=== PATIENT | male | born 1960 | race Hispanic/Latino ===

== ENCOUNTER 2017-08-23 03:18 | Emergency (ER) | payer MEDICARE ==
--- NOTE | 2017-08-23 11:21 | Emergency Department Report ---
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 States he is out of his headache medicine however pain is resolved at this time 0/ 10 there is no dizziness no headache no visual changes, no shortness of breath no nausea no vomiting Patient's tolerating by mouth intake without symptoms at this time Timing/Duration: 24 hours Quality: moderate Head Injury Location: frontal Recent Head Trauma: other (none) Associated Symptoms: denies: confusion, fatigue, facial pain, fever/chills, flushing, loss of consciousness, nausea/vomiting, nasal congestion, nasal drainage, numbness in legs/feet, rash, seizures, sinus infection, stiff neck, vision changes, weakness Allergies/Adverse Reactions: Allergies No Known Allergies Allergy (Verified 05/26/17 16:20) Home Medications: Ambulatory Orders Ibuprofen 800 mg PO TID PRN #30 tablet 08/23/17 diphenhydrAMINE [Benadryl CAP] 25 mg PO Q8HR PRN #30 capsule 08/23/17 ED Review of Systems ROS: Stated complaint: H/A Other details as noted in HPI Constitutional: denies: chills, fever Eyes: denies: eye pain, eye discharge, vision change ENT: denies: ear pain, throat pain Respiratory: denies: cough, shortness of breath, wheezing Cardiovascular: denies: chest pain, palpitations Endocrine: no symptoms reported Gastrointestinal: denies: abdominal pain, nausea, diarrhea Genitourinary: denies: urgency, dysuria Musculoskeletal: denies: back pain, joint swelling, arthralgia Skin: denies: rash, lesions Neurological: denies: headache, weakness, numbness, paresthesias, confusion, abnormal gait, vertigo Psychiatric: denies: anxiety, depression Hematological/Lymphatic: denies: easy bleeding, easy bruising ED Past Medical Hx - Past Medical History Previous Medical History?: Yes Hx Diabetes: Yes - Surgical History Past Surgical History?: Yes Additional Surgical History: left arm, and abd - Social History Smoking Status: Former Smoker Substance Use Type: None - Medications Home Medications: Home Medications Medication Instructions Recorded Confirmed Last Taken Type Ibuprofen 800 mg PO TID PRN #30 tablet 08/23/17 Unknown Rx diphenhydrAMINE [Benadryl CAP] 25 mg PO Q8HR PRN #30 capsule 08/23/17 Unknown Rx ED Physical Exam - General Limitations: Physical Limitation General appearance: alert, in no apparent distress - Head Head exam: Present: atraumatic, normocephalic - Eye Eye exam: Present: normal appearance, PERRL, EOMI Pupils: Present: normal accommodation - ENT ENT exam: Present: mucous membranes moist - Neck Neck exam: Present: normal inspection. Absent: full ROM, lymphadenopathy, thyromegaly - Respiratory Respiratory exam: Present: normal lung sounds bilaterally. Absent: respiratory distress, wheezes, rhonchi, stridor, chest wall tenderness - Cardiovascular Cardiovascular Exam: Present: regular rate, normal rhythm. Absent: systolic murmur, diastolic murmur, rubs, gallop - GI/Abdominal GI/Abdominal exam: Present: soft, normal bowel sounds. Absent: distended, tenderness, guarding, rebound, rigid, mass, bruit, pulsatile mass, hernia - Rectal Rectal exam: Present: deferred - Extremities Exam Extremities exam: Present: normal inspection (R) - Back Exam Back exam: Present: normal inspection (RC Kevin), full ROM. Absent: tenderness , CVA tenderness (R) ( he), CVA tenderness (L), muscle spasm, paraspinal tenderness, vertebral tenderness ( is regular), rash noted - Neurological Exam Neurological exam: Present: alert, oriented X3, CN II-XII intact, normal gait ( is evaluated with), reflexes normal. Absent: motor sensory deficit - Psychiatric Psychiatric exam: Present: normal affect (he), normal mood - Skin Skin exam: Present: warm, dry, intact, normal color. 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 States he is out of his headache medicine however pain is resolved at this time 0/ 10 there is no dizziness no headache no visual changes, no shortness of breath no nausea no vomiting Patient's tolerating by mouth intake without symptoms at this time. pt states headache occured in usual location intensity and duration as usual headache. neuro exam: CN II-XII gross intact perrla eomi, no headche symptoms at this time , plan: refill ibuprofen, benadryl prn headache pt will follow up with pcp in 2- 3 days return to ed if symptoms worsen. is Critical care attestation.: If time is entered above; I have spent that time in minutes in the direct care of this critically ill patient, excluding procedure time. ED Disposition Clinical Impression: Headache Qualifiers: Headache type: unspecified Headache chronicity pattern: acute headache Intractability: not intractable Qualified Code(s): R51 - Headache Disposition: DC- TO HOME OR SELFCARE Is pt being admited?: No Does the pt Need Aspirin: No Condition: Good Instructions: Acute Headache (ED) Prescriptions: diphenhydrAMINE [Benadryl CAP] 25 mg PO Q8HR PRN #30 capsule PRN Reason: Headache Ibuprofen 800 mg PO TID PRN #30 tablet PRN Reason: Headache Referrals: PRIMARY CARE,MD [Primary Care Provider] - 3-5 Days Forms: Work/School Release Form(ED) Time of Disposition: 11:28
[2017-08-23 11:49] VITALS: BP 136/94
== END 2017-08-23 12:02 | disposition home or self-care (01) ==
LOC: ED 03:18
DX: R51 Headache (principal); E11.9 Type 2 diabetes mellitus without complications
CPT/HCPCS: 99283

== ENCOUNTER 2017-12-03 11:35 | Emergency (ER) | payer MEDICARE ==
[2017-12-03 13:48] LABS: BUN/Creatinine Ratio 6; Blood Urea Nitrogen 7 mg/dL (9-20); Calcium 8.9 mg/dL (8.4-10.2); Hemolysis Index 7
[2017-12-03 13:52] LABS: Hematocrit 43.7 % (35.5-45.6); Hemoglobin 14.3 gm/dl (11.8-15.2); Mean Corpuscular HGB Conc 33 % (32-34); Mean Corpuscular Hemoglobin 29 pg (28-32); Mean Corpuscular Volume 87 fl (84-94); Red Blood Count 5.03 M/mm3 (3.65-5.03); Red Cell Distribution Width 15.2 % (13.2-15.2)
[2017-12-03 13:55] LABS: Platelet Count 193 K/mm3 (140-440)
[2017-12-03 14:10] LABS: Bilirubin,Urine NEG (Negative); Blood,Urine NEG (Negative); Color,Urine Yellow (Yellow); Mucus,Urine 2+ /HPF; Urobilinogen,Urine < 2.0 mg/dL (<2.0)
[2017-12-03 14:21] LABS: Amphetamine Screen,Urine PRESUMPTIVE NEGATIVE; Benzodiazepines Screen,Urine PRESUMPTIVE NEGATIVE; Methadone Screen,Urine PRESUMPTIVE NEGATIVE; Opiate Screen,Urine PRESUMPTIVE NEGATIVE
[2017-12-03 14:45] LABS: Cannabinoid Screen,Urine PRESUMPTIVE POSITIVE; Cocaine Screen,Urine PRESUMPTIVE POSITIVE
[2017-12-03] MEDS ORDERED: K-DUR PO ONE (20:37)
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
[2017-12-03] MEDS ORDERED: TORADOL IM ONE (22:25)
[2017-12-04 07:10] VITALS: BP 146/100
== END 2017-12-04 09:52 | disposition home or self-care (01) ==
LOC: EEVIPCON 11:35 → ED 11:35
DX: F32.9 Major depressive disorder, single episode, unspecified (principal); R20.2 Paresthesia of skin; E11.9 Type 2 diabetes mellitus without complications; I10 Essential (primary) hypertension; Z59.0 Homelessness
CPT/HCPCS: 36415; 80048; 80307; 81001; 82550; 82962; 83735; 85025; 96372; 99283; G0480; J1885; 80320

== ENCOUNTER 2017-12-29 23:35 | Emergency (ER) | payer MEDICARE ==
--- NOTE | 2017-12-30 01:30 | XRay Report ---
FINAL REPORT EXAM: XR FOREARM 1V LT HISTORY: pain left forearm COMPARISON: None available. FINDINGS: Two views of the left forearm obtained. Soft tissue swelling along the proximal forearm. Mild hypertrophic spurring along the radial neck. Radius and ulna are intact. No acute fracture dislocation of the radius or ulna. IMPRESSION: No acute bony abnormality. Soft tissue swelling along the proximal forearm.
--- NOTE | 2017-12-30 01:30 | XRay Report ---
FINAL REPORT EXAM: XR ELBOW 2V LT HISTORY: pain left elbow COMPARISON: None available. FINDINGS: Two views of the left elbow obtained. Soft tissue swelling along the proximal forearm. Hypertrophic spurring along the radial neck. There deformity of the distal humerus compatible sequelae of prior fracture with healing and callus formation. No acute fracture. IMPRESSION: No acute bony abnormality. Remote fracture of the distal humerus with callus formation.
--- NOTE | 2017-12-30 01:31 | XRay Report ---
FINAL REPORT EXAM: XR HUMERUS 2+V LT HISTORY: pain left humerus COMPARISON: Left elbow from the same date. FINDINGS: Two views of the left humerus obtained. Deformity of the distal humerus compatible sequelae of prior fracture. Fracture is healed. No acute fracture of the left humerus. Moderate osteophyte of the humeral head. IMPRESSION: No acute fracture. Remote, healed fracture of the distal humeral diaphysis.
[2017-12-30] MEDS ORDERED: NACL 0.9% 500 ML IR ONE (06:03)
[2017-12-30] MEDS ORDERED: TRIPLE ANTIBIOTIC TP ONE ×2 (06:17→06:24)
[2017-12-30] MEDS ORDERED: NACL 0.9% IR ONE (06:24)
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
[2017-12-30] MEDS ORDERED: BOOSTRIX IM ONE (06:29)
[2017-12-30 08:12] VITALS: BP 101/73
== END 2017-12-30 08:13 | disposition home or self-care (01) ==
LOC: ED 23:35
DX: S50.812A Abrasion of left forearm, initial encounter (principal); E11.9 Type 2 diabetes mellitus without complications; Z87.820 Personal history of traumatic brain injury; W19.XXXA Unspecified fall, initial encounter; Y93.89 Activity, other specified; Y99.8 Other external cause status; Y92.89 Other specified places as the place of occurrence of the external cause
CPT/HCPCS: 90471; 90715; A6250

== ENCOUNTER 2017-12-30 22:05 | Emergency (ER) | payer MEDICARE ==
[2017-12-30 22:31] VITALS: BP 116/80
[2017-12-30] MEDS ORDERED: TRIPLE ANTIBIOTIC TP ONE (23:07)
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
[2017-12-31] MEDS ORDERED: NORCO 5/325 PO ONE (01:31)
== END 2017-12-31 02:49 | disposition home or self-care (01) ==
LOC: ED 22:05
DX: Z48.00 Encounter for change or removal of nonsurgical wound dressing (principal); R22.32 Localized swelling, mass and lump, left upper limb; M79.632 Pain in left forearm; E11.9 Type 2 diabetes mellitus without complications; Z87.820 Personal history of traumatic brain injury
CPT/HCPCS: 99283; A6250

== ENCOUNTER 2017-12-31 09:22 | Emergency (ER) | payer MEDICARE ==
[2017-12-31 10:41] VITALS: BP 117/83
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
== END 2017-12-31 11:38 | disposition home or self-care (01) ==
LOC: ED 09:22
DX: Z48.01 Encounter for change or removal of surgical wound dressing (principal); I10 Essential (primary) hypertension; E11.9 Type 2 diabetes mellitus without complications; Z87.891 Personal history of nicotine dependence
CPT/HCPCS: 99282

== ENCOUNTER 2020-01-28 10:45 | Inpatient (IN) | payer MEDICARE ==
[2020-01-28] MEDS ORDERED: ZIPRASIDONE MESYLATE 20 MG VIAL IM PRN (11:34)
--- NOTE | 2020-01-28 17:23 | Consultation ---
History of Present Illness - Reason for Consult Consult date: 01/28/20 Requesting physician: ROLLY WALKER - History of Present Illness 59 YO Male with DM, HTN, TBI, Depression, PSA, and Intermittent Homelessness admitted to [facility] for Psychiatric stabilization. Pt resting in bed. Pt seen and evaluated in his room. No reported nursing events. Patient resting comfortably in his bed. Patient is cooperative with exam and interview. Past History Past Medical History: diabetes, hypertension Past Surgical History: Other (Traumatic brain injury) Social history: single. denies: smoking Family history: no significant family history (Reviewed) Medications and Allergies Allergies Allergy/AdvReac Type Severity Reaction Status Date / Time No Known Allergies Allergy Verified 05/26/17 16:20 Home Medications Medication Instructions Recorded Confirmed Last Taken Type Aspirin [Adult Aspirin] 81 mg PO QDAY #30 tablet. 01/28/20 Unknown Rx AtorvaSTATin [Lipitor] 20 mg PO QHS #7 tab 01/28/20 Unknown Rx Permethrin 5% [Acticin 5% CREAM] 1 applicatio TP ONCE #1 tube 01/28/20 Unknown Rx metFORMIN [Glucophage] 500 mg PO QDAY #7 tab 01/28/20 Unknown Rx Review of Systems Constitutional: no weight loss, no weight gain Ears, nose, mouth and throat: no ear pain, no tinnitis, no nose pain, no nasal congestion Cardiovascular: no chest pain, no edema Respiratory: no cough, no cough with sputum, no excessive sputum, no hemoptysis Gastrointestinal: no abdominal pain, no nausea, no diarrhea, no change in bowel habits Genitourinary Male: no dysuria, no hematuria, no discharge, no urinary hesitancy, no nocturia Rectal: no pain, no bleeding Musculoskeletal: no neck stiffness, no shooting arm pain, no arm numbness/tingling, no shooting leg pain Integumentary: no rash, no pruritis Neurological: no head injury, no paralysis, no parathesias, no tingling, no syncope Psychiatric: suicidal ideation, depression, hopelessness Endocrine: no cold intolerance, no heat intolerance, no polyphagia, no nocturia Hematologic/Lymphatic: no easy bruising, no easy bleeding, no lymphadenopathy, no lymphedema Allergic/Immunologic: no urticaria, no wheezing, no persistent infections, no anaphylaxis Exam - Constitutional General appearance: Present: no acute distress, well-nourished - EENT Eyes: Present: PERRL ENT: hearing intact, clear oral mucosa - Neck Neck: Present: supple, normal ROM - Respiratory Respiratory effort: normal Respiratory: bilateral: CTA - Cardiovascular Heart Sounds: Present: S1 & S2. Absent: rub, click - Extremities Extremities: pulses symmetrical, No edema Peripheral Pulses: within normal limits - Abdominal General gastrointestinal: Present: soft, non-tender, non-distended, normal bowel sounds Male genitourinary: Present: normal - Integumentary Integumentary: Present: clear, warm, dry - Musculoskeletal Musculoskeletal: gait normal, strength equal bilaterally - Psychiatric Psychiatric: appropriate mood/affect, intact judgment & insight - Neurologic Neurologic: CNII-XII intact, moves all extremities Assessment and Plan - Patient Problems (1) Diabetes Current Visit: Yes Status: Acute Plan to address problem: Consistent carbohydrate diet, hemoglobin A1c, continue oral metformin therapy (2) HLD (hyperlipidemia) Current Visit: No Status: Chronic Qualifiers: Hyperlipidemia type: mixed hyperlipidemia Qualified Code(s): E78.2 - Mixed hyperlipidemia Plan to address problem: Statin therapy, low-cholesterol diet, (3) HTN (hypertension) Current Visit: No Status: Chronic Qualifiers: Hypertension type: essential hypertension Qualified Code(s): I10 - Essential (primary) hypertension Plan to address problem: Monitor blood pressure every shift, continue medical management.
[2020-01-28] MEDS ORDERED: PERMETHRIN 5% CREAM 60 GM TP SCH (18:00)
[2020-01-28] MEDS ORDERED: traZODone 50 MG TAB PO SCH (22:00)
[2020-01-28] MEDS ORDERED: MELATONIN 5 MG TAB PO PRN (22:00)
[2020-01-29 03:04] LABS: Chol/HDL Ratio 2.6 %
--- NOTE | 2020-01-29 09:13 | History and Physical Report ---
GP History & Physical - History of Present Illness Date of admission: 01/29/20 Date of Examination: 01/29/20 Reason for Admission: Danger to self, Severe anxiety/depression History of Present Illness: Ye Dumont is a 59t/o male patient who states he was admitted into the hospital for severe depression, and feeling suicidal. The patient is a/o x 3. He is calm and cooperative. He makes good eye contact. The patient says, "I was giving up. Everything kept going wrong." He says, "I didn't have no place to go." When asked about suicidal thoughts, the patient initially stated, "I can't answer that." He then says, "If I get my hands on a gun, I will pull the trigger. I know I will." The patient verbalizes being "severely depressed." He says he "hears voices that I can't comprehend what they are saying." The patient denies having ant psychiatric history, being on any psych meds or seeing a psychiatrist. He says he "recently did crack and was doing it to kill myself." He says, "I've done all kinds of drugs in my past years ago, but I only did that this time because I didn't know what else to do, but it's not all the time." He says he drinks "but not everyday." The patient denies nicotine use. PAST PSYCHIATRIC HISTORY: Diagnoses: Denies Suicide attempts or Self-harm behavior: Denies Prior psychiatric hospitalizations: Denies Substance Abuse history: Denies Previous psychiatric medications tried: Denies Outpatient treatment: Denies PAST MEDICAL HISTORY: None reported Family Psychiatric History: None reported or documented SOCIAL HISTORY Current living status: Homeless Employment status: Retired Highest level of education: GED Marital status: Single Access to guns: Yes Legal history: Denies History of abuse: Denies REVIEW OF SYSTEMS Constitutional: Negative for weight loss ENT: Negative for stridor Respiratory: Negative for cough or hemoptysis All other systems reviewed and are negative MENTAL STATUS EXAMINATION General Appearance: Dressed appropriately Behavior: calm, cooperative. Good eye contact Mood: "severely depressed" Affect: Restricted Speech: Tangential Thought Process: Goal directed Thought Content: Suicidal Ideation: Yes Homicidal Ideation: Denies Hallucinations: Auditory Delusions: Denies Insight and Judgment: Limited Memory/Cognition: Limited Assessment Major Depressive Disorder w/ Psychotic Features Cocaine Abuse, Uncomplicated Treatment Plan Patient will be admitted for inpatient psychiatric evaluation, medication adjustment and close monitoring The patient's behavior, mood, sleep and appetite will be closely monitored. Patient will be enrolled in individual and group therapeutic sessions and encouraged to attend. Patient will be provided with a safe and structured environment. Patient's physical health needs will be addressed by the Hospitalist. Hospitali st Consulted Labs including CBC, CMP, Lipid profile and Hemoglobin A1C ordered Social Assessment will be completed and the Pmp will work with patient and family to ensure a suitable and safe disposition Medication adjustment will be made as clinically indicated Start Zoloft 25mg po daily Start Risperidone 0.25mg po BID Usual Wellness Christian/Preservation: - Start Trazodone 50 mg po QHS - Start Melatonin 5 mg po QHS to promote circadian rhythm The patient agreed on the treatment plan, understood the risk, benefit, alternative treatment, potential consequence of no treatment, and gave informed consent. This certifies that Ye Dumont is a 59y/o female who was admitted for Major Depressive Disorder with Psychotic Features. Estimated period of time patient will need to remain in the hospital: [7] Plan for post-hospital care: [outpatient] Legal Status: Voluntary Patient Problems: Current Active Problems Diabetes (Acute) Reaction to Hospitalization: Accepting Medications and Allergies Allergies Allergy/AdvReac Type Severity Reaction Status Date / Time No Known Allergies Allergy Verified 05/26/17 16:20 Home Medications Medication Instructions Recorded Confirmed Last Taken Type Aspirin [Adult Aspirin] 81 mg PO QDAY #30 tablet. 01/28/20 01/29/20 Unknown Rx AtorvaSTATin [Lipitor] 20 mg PO QHS #7 tab 01/28/20 01/29/20 Unknown Rx Permethrin 5% [Acticin 5% CREAM] 1 applicatio TP ONCE #1 tube 01/28/20 01/29/20 01/28/20 22:00 Rx metFORMIN [Glucophage] 500 mg PO QDAY #7 tab 01/28/20 01/29/20 Unknown Rx Active Meds: Active Medications Aspirin (Halfprin Ec) 81 mg PO QDAY [facility] Atorvastatin Calcium (Lipitor) 20 mg PO QHS [facility] Last Admin: 01/28/20 21:29 Dose: 20 mg Documented by: Metformin HCl (Glucophage) 500 mg PO QDAY [facility] Permethrin (Permethrin 5%) 1 applic TP ONCE [facility] Results - Results Labs/Vitals: Laboratory Last Values POC Glucose 128 (70-105) H 01/29/20 06:57 Hemoglobin A1c 6.5 % (4-6) H 01/28/20 19:21 Triglycerides 91 mg/dL (2-149) 01/28/20 19:21 Cholesterol 221 mg/dL (50-199) H 01/28/20 19:21 LDL Cholesterol Direct 137 mg/dL (50-130) H 01/28/20 19:21 HDL Cholesterol 85 mg/dL (40-59) H 01/28/20 19:21 Cholesterol/HDL Ratio 2.60 % 01/28/20 19:21 TSH 54.640 mlU/mL (0.270-4.200) H 01/28/20 19:21 Last Vital Signs Temp 98.8 F 01/28/20 19:59 Pulse 70 01/28/20 19:59 Resp 20 01/28/20 19:59 BP 110/83 01/28/20 19:59 Pulse Ox 92 01/28/20 19:59 Physical Examination - Constitutional Vitals: Vital Signs Temp Pulse Resp BP Pulse Ox 98.8 F 70 20 110/83 92 01/28/20 19:59 01/28/20 19:59 01/28/20 19:59 01/28/20 19:59 01/28/20 19:59 Temperature -Last 24 Hours Temperature 98.8 F Temperature 98.1 F Mental Status Exam - Vital signs Last Vital Signs Temp 98.8 F 01/28/20 19:59 Pulse 70 01/28/20 19:59 Resp 01/28/20 19:59 BP 110/83 01/28/20 19:59 Pulse Ox 92 01/28/20 19:59 Physician Certification - Certification Statement Physician Certification Statement: This is an acknowledgement statement that YE DUMONT is a 59 year old M who requires inpatient psychiatric admission for treatment which could reasonably be expected to improve the patient's condition for Estimated period of time patient will need to remain in the hospital: [ ] Plan for post-hospital care: [ ]
[2020-01-29] MEDS: metFORMIN 500 MG TAB PO SCH (10:13)
[2020-01-29] MEDS: SERTRALINE 25 MG TAB PO SCH ×2 (11:43→12:29)
[2020-01-29] MEDS: risperiDONE 0.25 MG TAB PO SCH ×3 (11:44→21:38)
[2020-01-29] MEDS: ASPIRIN EC 81 MG TAB PO SCH ×2 (11:44→12:29)
--- NOTE | 2020-01-29 19:45 | Consultation ---
History of Present Illness - Reason for Consult Consult date: 01/29/20 Hypothyroidism generalized exam. Requesting physician: NELI ORTIZ - History of Present Illness 59-year-old male admitted for severe depression and suicidal thoughts. Patient states he had just given up and decided to do drugs to make the pain go away. Patient is calm without any concerns at this particular time still states he feels depressed. Patient is currently being worked up for inpatient [facility] for severe depression. Patient denies any symptoms of chest pain no shortness of breath no dyspnea exertion orthopnea PND. Patient denies cold intolerance denies fatigue except for depression no hair loss. Myxedema on exam. TSH found to be 54. Past History Past Medical History: diabetes, hypertension Past Surgical History: Other (Traumatic brain injury) Social history: single. denies: smoking Family history: no significant family history (Reviewed) Medications and Allergies Allergies Allergy/AdvReac Type Severity Reaction Status Date / Time No Known Allergies Allergy Verified 05/26/17 16:20 Home Medications Medication Instructions Recorded Confirmed Last Taken Type Aspirin [Adult Aspirin] 81 mg PO QDAY #30 tablet. 01/28/20 01/29/20 Unknown Rx AtorvaSTATin [Lipitor] 20 mg PO QHS #7 tab 01/28/20 01/29/20 Unknown Rx Permethrin 5% [Acticin 5% CREAM] 1 applicatio TP ONCE #1 tube 01/28/20 01/29/20 01/28/20 22:00 Rx metFORMIN [Glucophage] 500 mg PO QDAY #7 tab 01/28/20 01/29/20 Unknown Rx Active Meds: Active Medications Aspirin (Halfprin Ec) 81 mg PO QDAY [facility] Last Admin: 01/29/20 12:29 Dose: 81 mg Documented by: Atorvastatin Calcium (Lipitor) 20 mg PO QHS [facility] Last Admin: 01/28/20 21:29 Dose: 20 mg Documented by: Melatonin (Melatonin) 5 mg PO QHS PRN PRN Reason: Sleep Metformin HCl (Glucophage) 500 mg PO QDAY [facility] Last Admin: 01/29/20 10:13 Dose: 500 mg Documented by: Risperidone (Risperdal) 0.25 mg PO BID [facility] Last Admin: 01/29/20 12:29 Dose: 0.25 mg Documented by: Sertraline HCl (Zoloft) 25 mg PO QDAY [facility] Last Admin: 01/29/20 12:29 Dose: 25 mg Documented by: Trazodone HCl (Desyrel) 50 mg PO QHS [facility] Review of Systems Constitutional: no weight loss, no weight gain, no fever, no chills, no sweats, no night sweats, no anorexia, no fatigue, no weakness, no malaise, no lethargy Ears, nose, mouth and throat: no deferred, no decreased hearing, no dental pain, no hoarseness, no swelling in throat, no headache, no pain front of neck Cardiovascular: no orthopnea, no rapid/irregular heart beat, no edema, no lightheadedness, no dyspnea on exertion, no paroxysmal nocturnal dyspnea, no claudication, no decreased exercise tolerance Respiratory: no cough, no hemoptysis, no shortness of breath, no snoring Gastrointestinal: no vomiting, no constipation, no BRBPR, no hematochezia, no jaundice, no dyspepsia/bloating, no lactose intolerance Genitourinary Male: no flank pain, no urinary frequency Musculoskeletal: no neck stiffness, no low back pain, no shooting leg pain, no limitation of motion, no fractures, no loss of height, no prior amputations, no arthritis Neurological: weakness, hearing difficulties, no head injury, no numbness, no seizures, no memory loss, no changes in smell/taste Psychiatric: memory loss, change in sleep habits, suicidal ideation, hallucinations, paranoia, hopelessness, mood swings Endocrine: no heat intolerance, no polyphagia, no polydipsia, no weight change, no increase in ring/shoe/hat size, no deepening of the voice, no thyroid mass, no recent glucocorticoid use, no other Hematologic/Lymphatic: no lymphedema Exam - Constitutional Vitals: Temp Pulse Resp BP Pulse Ox 97.9 F 70 18 104/64 92 01/29/20 08:38 01/28/20 19:59 01/29/20 08:38 01/29/20 08:38 01/28/20 19:59 General appearance: Present: no acute distress, well-nourished - EENT Eyes: Present: PERRL ENT: hearing intact, clear oral mucosa - Neck Neck: Present: supple, normal ROM - Respiratory Respiratory effort: normal Respiratory: bilateral: CTA - Cardiovascular Heart Sounds: Present: S1 & S2. Absent: rub, click - Extremities Extremities: pulses symmetrical, No edema Peripheral Pulses: within normal limits - Abdominal General gastrointestinal: Present: soft, non-tender, non-distended, normal bowel sounds Male genitourinary: Present: normal - Integumentary Integumentary: Present: clear, warm, dry - Musculoskeletal Musculoskeletal: gait normal, strength equal bilaterally - Psychiatric Psychiatric: appropriate mood/affect, intact judgment & insight - Neurologic Neurologic: CNII-XII intact, moves all extremities Results - Labs Labs: Abnormal lab results 01/28/20 01/28/20 01/28/20 Range/Units 19:21 19:21 19:21 POC Glucose (70-105) Hemoglobin A1c 6.5 H (4-6) % Cholesterol 221 H (50-199) mg/dL LDL Cholesterol Direct 137 H (50-130) mg/dL HDL Cholesterol 85 H (40-59) mg/dL TSH 54.640 H (0.270-4.200) mlU/mL 01/28/20 01/29/20 01/29/20 Range/Units 20:32 06:57 12:07 POC Glucose 141 H 128 H 147 H (70-105) Hemoglobin A1c (4-6) % Cholesterol (50-199) mg/dL LDL Cholesterol Direct (50-130) mg/dL HDL Cholesterol (40-59) mg/dL TSH (0.270-4.200) mlU/mL 01/29/20 Range/Units 16:36 POC Glucose 160 H (70-105) Hemoglobin A1c (4-6) % Cholesterol (50-199) mg/dL LDL Cholesterol Direct (50-130) mg/dL HDL Cholesterol (40-59) mg/dL TSH (0.270-4.200) mlU/mL Assessment and Plan - Patient Problems (1) Hypothyroidism Current Visit: Yes Status: Acute Plan to address problem: Patient hypothyroidism with a TSH of 52. Difficult to see if patient is has any symptoms secondary to his depression. Some of this could be related to depression. Will start patient on Synthroid 50 mcg daily. (2) Diabetes Current Visit: Yes Status: Acute Plan to address problem: Accu-Cheks stable resume metformin. (3) Suicidal ideations Current Visit: No Status: Acute Plan to address problem: Patient treated via inpatient psych services. (4) Depression Current Visit: No Status: Chronic (5) Drug abuse Current Visit: No Status: Chronic (6) HLD (hyperlipidemia) Current Visit: No Status: Chronic Qualifiers: Hyperlipidemia type: mixed hyperlipidemia Qualified Code(s): E78.2 - Mixed hyperlipidemia Plan to address problem: At present we will continue statin. (7) Hx of essential hypertension Current Visit: No Status: Chronic Plan to address problem: Well controlled and not requiring medications will just observe.
[2020-01-29] MEDS: MELATONIN 5 MG TAB PO PRN (21:38)
[2020-01-29] MEDS: traZODone 50 MG TAB PO SCH (21:38)
[2020-01-30] MEDS: LEVOTHYROXINE 112 MCG, LEVOTHYROXINE 25 MCG PO SCH (06:00)
--- NOTE | 2020-01-30 07:19 | Progress Note ---
Subjective Date of service: 01/30/20 Principal diagnosis: Major Depressive Disorder w/ Psychotic Features Subjective Comment: Nurse Note: Patient was quiet and cooperative today. He denies S/H/I and hallucinations but was observed talking to himself this evening. No voived complaints noted. He interacted well in groups, compliant with medication, and has good appetite. PSYCH HPI Patient seen this AM, seated and calm, keeping to self. Patient reports he is not feeling good, reports persistent depressed mood and feeling sad mostly because of housing issues, and he does know even know if he has a place to go to. He reports taking pills in attempt to kill self and will do thesame. He says he knows a place where they sell gun and he will go there to buy one kill himself in his current mood. Reason for continued inpatient treatment: Suicidal ideation with plan. MENTAL STATUS EXAMINATION General Appearance and Behavior: Age appropriate, good hygiene, wearing appropriate clothes, l good eye contact, cooperative politewith questioning. Cooperation: Participating/engaged Psychomotor Behavior: unremarkable and within normal limits Mood: depressed Affect and affective range: congruent with mood Thought Process: Logical Thought Content: Within reality Speech: Normal volume, Regular rate and rhythm Intellectual Functioning: Average Suicidal Ideation: Endorses SI Homicidal Ideation: Denies HI Impulse Control: impaired Insight and Judgment: Limited insight and judgment Memory: roasterman memory intact, fair short term memory Attention: Normal Orientation: Alert, oriented Diagnoses: Assessment and Plan - Patient Problems (1) MDD (major depressive disorder), recurrent severe, without psychosis Current Visit: Yes Status: Acute Treatment Plan Continue current medications Patient will be admitted for inpatient psychiatric evaluation, medication adjustment and close monitoring The patient's behavior, mood, sleep and appetite will be closely monitored. Patient will be enrolled in individual and group therapeutic sessions and encouraged to attend. Patient will be provided with a safe and structured environment. Patient's physical health needs will be addressed by the Hospitalist. Hosp italist Consulted Labs including CBC, CMP, Lipid profile and Hemoglobin A1C ordered Social Assessment will be completed and the Database Marketing Specialist will work with patient and family to ensure a suitable and safe disposition Medication adjustment will be made as clinically indicated Usual Wellness Jehovah'S Witness/Preservation: - Start Trazodone 50 mg po QHS & 50 mg po QHS PRN between 10 PM & 2 AM for in somnia - Start Melatonin 5 mg po QHS to promote circadian rhythm - Start [place]-3 for brain health, reduce impulsivity, and as adjunctive treatment for mood disorder, continue upon discharge given overall benefits. - Start B1 prophylaxis with 200 mg po for 5 days The patient agreed on the treatment plan, understood the risk, benefit, alternative treatment, potential consequence of no treatment, and gave informed consent. Initial Certification This certifies that Tim Faye is a 63y/o female who was admitted for Bipolar Disorder with Psychotic Features. Estimated period of time patient will need to remain in the hospital: [6] Plan for post-hospital care: [outpatient] Assessment and Plan - Patient Problems (1) MDD (major depressive disorder), recurrent severe, without psychosis Current Visit: Yes Status: Acute Medications and Allergies Allergies Allergy/AdvReac Type Severity Reaction Status Date / Time No Known Allergies Allergy Verified 05/26/17 16:20 Home Medications Medication Instructions Recorded Confirmed Last Taken Type Aspirin [Adult Aspirin] 81 mg PO QDAY #30 tablet. 01/28/20 01/29/20 Unknown Rx AtorvaSTATin [Lipitor] 20 mg PO QHS #7 tab 01/28/20 01/29/20 Unknown Rx Permethrin 5% [Acticin 5% CREAM] 1 applicatio TP ONCE #1 tube 01/28/20 01/29/20 01/28/20 22:00 Rx metFORMIN [Glucophage] 500 mg PO QDAY #7 tab 01/28/20 01/29/20 Unknown Rx Active Meds: Active Medications Aspirin (Halfprin Ec) 81 mg PO QDAY [facility] Last Admin: 01/29/20 12:29 Dose: 81 mg Documented by: Atorvastatin Calcium (Lipitor) 20 mg PO QHS [facility] Last Admin: 01/29/20 21:38 Dose: 20 mg Documented by: Levothyroxine Sodium 112 mcg/ (Levothyroxine Sodium 25 mcg) 137 mcg PO DAILY@0600 [facility] Last Admin: 01/30/20 06:00 Dose: 137 mcg Documented by: Melatonin (Melatonin) 5 mg PO QHS PRN PRN Reason: Sleep Last Admin: 01/29/20 21:38 Dose: 5 mg Documented by: Metformin HCl (Glucophage) 500 mg PO QDAY [facility] Last Admin: 01/29/20 10:13 Dose: 500 mg Documented by: Risperidone (Risperdal) 0.25 mg PO BID [facility] Last Admin: 01/29/20 21:38 Dose: 0.25 mg Documented by: Sertraline HCl (Zoloft) 25 mg PO QDAY [facility] Last Admin: 01/29/20 12:29 Dose: 25 mg Documented by: Trazodone HCl (Desyrel) 50 mg PO QHS [facility] Last Admin: 01/29/20 21:38 Dose: 50 mg Documented by: Results - Results Labs/Vitals: Laboratory Last Values POC Glucose 166 (70-105) H 01/29/20 20:25 Hemoglobin A1c 6.5 % (4-6) H 01/28/20 19:21 Triglycerides 91 mg/dL (2-149) 01/28/20 19:21 Cholesterol 221 mg/dL (50-199) H 01/28/20 19:21 LDL Cholesterol Direct 137 mg/dL (50-130) H 01/28/20 19:21 HDL Cholesterol 85 mg/dL (40-59) H 01/28/20 19:21 Cholesterol/HDL Ratio 2.60 % 01/28/20 19:21 TSH 54.640 mlU/mL (0.270-4.200) H 01/28/20 19:21 Last Vital Signs Temp 98.5 F 01/29/20 22:00 Pulse 78 01/29/20 22:00 Resp 18 01/29/20 22:00 BP 99/78 01/29/20 19:35 Pulse Ox 94 01/29/20 19:35
[2020-01-30] MEDS: SERTRALINE 25 MG TAB PO SCH (09:44)
[2020-01-30] MEDS: metFORMIN 500 MG TAB PO SCH (09:44)
[2020-01-30] MEDS: ASPIRIN EC 81 MG TAB PO SCH (09:44)
[2020-01-30] MEDS: risperiDONE 0.25 MG TAB PO SCH ×2 (09:44→21:17)
--- NOTE | 2020-01-30 14:40 | Progress Note ---
Assessment and Plan - Patient Problems (1) Diabetes Current Visit: Yes Status: Acute Plan to address problem: Consistent carbohydrate diet, hemoglobin A1c, continue oral metformin therapy (2) HLD (hyperlipidemia) Current Visit: No Status: Chronic Qualifiers: Hyperlipidemia type: mixed hyperlipidemia Qualified Code(s): E78.2 - Mixed hyperlipidemia Plan to address problem: Statin therapy, low-cholesterol diet, (3) HTN (hypertension) Current Visit: No Status: Chronic Qualifiers: Hypertension type: essential hypertension Qualified Code(s): I10 - Essential (primary) hypertension Plan to address problem: Monitor blood pressure every shift, continue medical management. History Interval history: 59 YO Male with DM, HTN, TBI, Depression, PSA, and Intermittent Homelessness admitted to [facility] for Psychiatric stabilization. Pt resting in dayroom. Pt denies any a.m. complaints. No reported nursing events. Patient resting comfortably. Patient is cooperative with exam and interview. Hospitalist Physical - Constitutional Vitals: Temp Pulse Resp BP Pulse Ox 98.5 F 78 18 99/78 94 01/29/20 22:00 01/29/20 22:00 01/29/20 22:00 01/29/20 19:35 01/29/20 19:35 General appearance: Present: no acute distress, well-nourished - EENT Eyes: Present: PERRL - Neck Neck: Present: supple - Respiratory Respiratory: bilateral: CTA - Cardiovascular Rhythm: regular Heart Sounds: Present: S1 & S2 - Extremities Extremities: no ischemia Peripheral Pulses: within normal limits - Abdominal General gastrointestinal: soft, non-tender, non-distended - Integumentary Integumentary: Present: clear, dry - Psychiatric Psychiatric: cooperative - Neurologic Neurologic: CNII-XII intact Results - Labs Labs: Laboratory Last Values POC Glucose 131 (70-105) H 01/30/20 12:25 Hemoglobin A1c 6.5 % (4-6) H 01/28/20 19:21 Triglycerides 91 mg/dL (2-149) 01/28/20 19:21 Cholesterol 221 mg/dL (50-199) H 01/28/20 19:21 LDL Cholesterol Direct 137 mg/dL (50-130) H 01/28/20 19:21 HDL Cholesterol 85 mg/dL (40-59) H 01/28/20 19:21 Cholesterol/HDL Ratio 2.60 % 01/28/20 19:21 TSH 54.640 mlU/mL (0.270-4.200) H 01/28/20 19:21 Yañez/IV: Voiding Method Toilet Active Medications - Current Medications Current Medications: Generic Name Dose Route Start Last Admin Trade Name Freq PRN Reason Stop Dose Admin Aspirin 81 mg 01/29/20 10:00 01/30/20 09:44 Halfprin Ec PO 81 mg QDAY MONA Administration Atorvastatin Calcium 20 mg 01/28/20 22:00 01/29/20 21:38 Lipitor PO 20 mg QHS MONA Administration Levothyroxine Sodium 112 mcg/ 137 mcg 01/30/20 06:00 01/30/20 06:00 Levothyroxine Sodium 25 mcg PO 137 mcg DAILY@0600 MONA Administration Melatonin 5 mg 01/29/20 22:00 01/29/20 21:38 Melatonin PO 5 mg QHS PRN Administration Sleep Metformin HCl 500 mg 01/29/20 10:00 01/30/20 09:44 Glucophage PO 500 mg QDAY MONA Administration Risperidone 0.25 mg 01/29/20 10:00 01/30/20 09:44 Risperdal PO 0.25 mg BID MONA Administration Sertraline HCl 25 mg 01/29/20 10:00 01/30/20 09:44 Zoloft PO 25 mg QDAY MONA Administration Trazodone HCl 50 mg 01/29/20 22:00 01/29/20 21:38 Desyrel PO 50 mg QHS MONA Administration
[2020-01-30] MEDS: MELATONIN 5 MG TAB PO PRN (21:17)
[2020-01-30] MEDS: traZODone 50 MG TAB PO SCH (21:17)
[2020-01-31] MEDS: LEVOTHYROXINE 112 MCG, LEVOTHYROXINE 25 MCG PO SCH (06:26)
--- NOTE | 2020-01-31 08:24 | Progress Note ---
Subjective Date of service: 01/31/20 Principal diagnosis: Major Depressive Disorder w/ Psychotic Features Subjective Comment: The patient's medical record was reviewed and the patient's progress was discussed with the nursing staff. During my interview with the patient, the patient was sitting in the dayroom, he is a/o x 3. He makes good eye contact. He is calm and cooperative. The patient describes his mood as "down, and just feel like giving up." He expresses suicidal thoughts, and says his plan is "to just ." The patient states he hears voices. He says, "I think in my head I have given up." He says the voices keep saying, "I can do this and how to do with without hurting anybody." He says, "they don't really tell me what to do though." Reason for continued inpatient treatment: The patient continues to be depressed, hallucinate and express thoughts of self harm. REVIEW OF SYSTEMS Constitutional: Negative for weight loss ENT: Negative for stridor Respiratory: Negative for cough or hemoptysis All other systems reviewed and are negative MENTAL STATUS EXAMINATION General Appearance: Dressed appropriately Behavior: calm, cooperative. Good eye contact Mood: "down" Affect: Restricted Speech: Normal tone and pace Thought Process: Goal directed Thought Content: Suicidal Ideation: Yes Homicidal Ideation: Denies Hallucinations: Auditory Delusions: Denies Insight and Judgment: Limited Memory/Cognition: Limited Assessment Major Depressive Disorder w/ Psychotic Features Cocaine Abuse, Uncomplicated Treatment Plan Patient will be admitted for inpatient psychiatric evaluation, medication adjustment and close monitoring The patient's behavior, mood, sleep and appetite will be closely monitored. Patient will be enrolled in individual and group therapeutic sessions and encouraged to attend. Patient will be provided with a safe and structured environment. Patient's physical health needs will be addressed by the Hospitalist. Hospitalist Consulted Labs including CBC, CMP, Lipid profile and Hemoglobin A1C ordered Social Assessment will be completed and the Break And Load Operator will work with patient and family to ensure a suitable and safe disposition Medication adjustment will be made as clinically indicated Increase Risperidone 0.25mg po BID Usual Wellness Scientology/Preservation: - Start Trazodone 50 mg po QHS - Start Melatonin 5 mg po QHS to promote circadian rhythm The patient agreed on the treatment plan, understood the risk, benefit, alternative treatment, potential consequence of no treatment, and gave informed consent. Estimated period of time patient will need to remain in the hospital: [5] Plan for post-hospital care: [outpatient] Medications and Allergies Allergies Allergy/AdvReac Type Severity Reaction Status Date / Time No Known Allergies Allergy Verified 05/26/17 16:20 Home Medications Medication Instructions Recorded Confirmed Last Taken Type Aspirin [Adult Aspirin] 81 mg PO QDAY #30 tablet. 01/28/20 01/29/20 Unknown Rx AtorvaSTATin [Lipitor] 20 mg PO QHS #7 tab 01/28/20 01/29/20 Unknown Rx Permethrin 5% [Acticin 5% CREAM] 1 applicatio TP ONCE #1 tube 01/28/20 01/29/20 01/28/20 22:00 Rx metFORMIN [Glucophage] 500 mg PO QDAY #7 tab 01/28/20 01/29/20 Unknown Rx Active Meds: Active Medications Aspirin (Halfprin Ec) 81 mg PO QDAY [facility] Last Admin: 01/30/20 09:44 Dose: 81 mg Documented by: Atorvastatin Calcium (Lipitor) 20 mg PO QHS [facility] Last Admin: 01/30/20 21:17 Dose: 20 mg Documented by: Levothyroxine Sodium 112 mcg/ (Levothyroxine Sodium 25 mcg) 137 mcg PO DAILY@0600 [facility] Last Admin: 01/31/20 06:26 Dose: 137 mcg Documented by: Melatonin (Melatonin) 5 mg PO QHS PRN PRN Reason: Sleep Last Admin: 01/30/20 21:17 Dose: 5 mg Documented by: Metformin HCl (Glucophage) 500 mg PO QDAY [facility] Last Admin: 01/30/20 09:44 Dose: 500 mg Documented by: Risperidone (Risperdal) 0.25 mg PO BID [facility] Last Admin: 01/30/20 21:17 Dose: 0.25 mg Documented by: Sertraline HCl (Zoloft) 25 mg PO QDAY [facility] Last Admin: 01/30/20 09:44 Dose: 25 mg Documented by: Trazodone HCl (Desyrel) 50 mg PO QHS [facility] Last Admin: 01/30/20 21:17 Dose: 50 mg Documented by: Results - Results Labs/Vitals: Laboratory Last Values POC Glucose 135 (70-105) H 01/31/20 06:50 Hemoglobin A1c 6.5 % (4-6) H 07/08/20 19:21 Triglycerides 91 mg/dL (2-149) 01/28/20 19:21 Cholesterol 221 mg/dL (50-199) H 01/28/20 19:21 LDL Cholesterol Direct 137 mg/dL (50-130) H 01/28/20 19:21 HDL Cholesterol 85 mg/dL (40-59) H 01/28/20 19:21 Cholesterol/HDL Ratio 2.60 % 01/28/20 19:21 TSH 54.640 mlU/mL (0.270-4.200) H 01/28/20 19:21 Last Vital Signs Temp 98.2 F 01/30/20 22:00 Pulse 71 01/30/20 22:00 Resp 18 01/30/20 22:00 BP 115/79 01/30/20 22:00 Pulse Ox 95 01/30/20 22:00
[2020-01-31] MEDS: risperiDONE 0.25 MG TAB PO SCH ×2 (09:51→22:13)
[2020-01-31] MEDS: ASPIRIN EC 81 MG TAB PO SCH (09:51)
[2020-01-31] MEDS: SERTRALINE 25 MG TAB PO SCH (09:51)
[2020-01-31] MEDS: metFORMIN 500 MG TAB PO SCH (09:51)
[2020-01-31] MEDS: traZODone 50 MG TAB PO SCH (22:33)
[2020-02-01] MEDS: LEVOTHYROXINE 112 MCG, LEVOTHYROXINE 25 MCG PO SCH (06:40)
--- NOTE | 2020-02-01 07:19 | Progress Note ---
Subjective Date of service: 02/01/20 Principal diagnosis: Major Depressive Disorder w/ Psychotic Features Subjective Comment: Nurse Note: Patient is aox3, calm and cooperative, pt states that is mood is down, pt expresses suicidal thought and says his plan is 'just to ' pt states he hears voices in his head, 'They don't really tells me what to do', pt sometimes talk to himself, he is medications compliant, no distress note. Will continue to monitor. PSYCH HPI Mr Belcher says todays mood is borderline and just okay, reports poor sleep pattern due to tussing and turning all night and does not know why because he just couldnt get comfortable at all. Patient endorses suicidal ideation, says thats always in his mind, thinking about ways to . Patient endorses good appetite, denies auditory hallucination or visual and denies homicidal ideation Reason for continued inpatient treatment: Depressed mood, persistent suicidal ideation with plan MENTAL STATUS EXAMINATION General Appearance and Behavior: Age appropriate, good hygiene, wearing appropriate clothes, l good eye contact, cooperative polite with questioning. Cooperation: Participating/engaged Psychomotor Behavior: unremarkable and within normal limits Mood: "im borderline" Affect and affective range: flat Thought Process: Logical Thought Content: Within reality Speech: Normal volume, Regular rate and rhythm Intellectual Functioning: Average Suicidal Ideation: Endorses SI Homicidal Ideation: Denies HI Impulse Control: impaired Insight and Judgment: Limited insight and judgment Memory: intermediate card tender memory intact, fair short term memory Attention: Normal Orientation: Alert, oriented Diagnoses: Assessment and Plan - Patient Problems (1) MDD (major depressive disorder), recurrent severe, without psychosis Current Visit: Yes Status: Acute Treatment Plan Sertraline increased from 25 to 50 mg. Melatonin 5mg MONA QHS added to improve sleep. Patient will be admitted for inpatient psychiatric evaluation, medication adjustment and close monitoring The patient's behavior, mood, sleep and appetite will be closely monitored. Patient will be enrolled in individual and group therapeutic sessions and encouraged to attend. Patient will be provided with a safe and structured environment. Patient's physical health needs will be addressed by the Hospitalist. Hospitalist Consulted Labs including CBC, CMP, Lipid profile and Hemoglobin A1C ordered Social Assessment will be completed and the Piano Machine Operator will work with patient and family to ensure a suitable and safe disposition Medication adjustment will be made as clinically indicated Usual Wellness [employer]/Preservation: - Start Trazodone 50 mg po QHS & 50 mg po QHS PRN between 10 PM & 2 AM for insomnia - Start Melatonin 5 mg po QHS to promote circadian rhythm - Start [place]-3 for brain health, reduce impulsivity, and as adjunctive treatment for mood disorder, continue upon discharge given overall benefits. - Start B1 prophylaxis with 200 mg po for 5 days The patient agreed on the treatment plan, understood the risk, benefit, alternative treatment, potential consequence of no treatment, and gave informed consent. Initial Certification This certifies that Tim Faye is a 63y/o female who was admitted for Bipolar Disorder with Psychotic Features. Estimated period of time patient will need to remain in the hospital: [4] Plan for post-hospital care: [outpatient] Assessment and Plan - Patient Problems (1) MDD (major depressive disorder), recurrent severe, without psychosis Current Visit: Yes Status: Acute Medications and Allergies Allergies Allergy/AdvReac Type Severity Reaction Status Date / Time No Known Allergies Allergy Verified 05/26/17 16:20 Home Medications Medication Instructions Recorded Confirmed Last Taken Type Aspirin [Adult Aspirin] 81 mg PO QDAY #30 tablet. 01/28/20 01/29/20 Unknown Rx AtorvaSTATin [Lipitor] 20 mg PO QHS #7 tab 01/28/20 01/29/20 Unknown Rx Permethrin 5% [Acticin 5% CREAM] 1 applicatio TP ONCE #1 tube 01/28/20 01/29/20 01/28/20 22:00 Rx metFORMIN [Glucophage] 500 mg PO QDAY #7 tab 01/28/20 01/29/20 Unknown Rx Active Meds: Active Medications Aspirin (Halfprin Ec) 81 mg PO QDAY [facility] Last Admin: 01/31/20 09:51 Dose: 81 mg Documented by: Atorvastatin Calcium (Lipitor) 20 mg PO QHS [facility] Last Admin: 01/31/20 22:12 Dose: 20 mg Documented by: Levothyroxine Sodium 112 mcg/ (Levothyroxine Sodium 25 mcg) 137 mcg PO DAILY@0600 [facility] Last Admin: 01/31/20 06:26 Dose: 137 mcg Documented by: Melatonin (Melatonin) 5 mg PO QHS PRN PRN Reason: Sleep Last Admin: 01/30/20 21:17 Dose: 5 mg Documented by: Metformin HCl (Glucophage) 500 mg PO QDAY [facility] Last Admin: 01/31/20 09:51 Dose: 500 mg Documented by: Risperidone (Risperdal) 0.5 mg PO BID [facility] Last Admin: 01/31/20 22:13 Dose: 0.5 mg Documented by: Sertraline HCl (Zoloft) 25 mg PO QDAY [facility] Last Admin: 01/31/20 09:51 Dose: 25 mg Documented by: Trazodone HCl (Desyrel) 50 mg PO QHS [facility] Last Admin: 01/31/20 22:33 Dose: 50 mg Documented by: Results - Results Labs/Vitals: Laboratory Last Values POC Glucose 144 (70-105) H 01/31/20 19:52 Hemoglobin A1c 6.5 % (4-6) H 01/28/20 19:21 Triglycerides 91 mg/dL (2-149) 01/28/20 19:21 Cholesterol 221 mg/dL (50-199) H 01/28/20 19:21 LDL Cholesterol Direct 137 mg/dL (50-130) H 01/28/20 19:21 HDL Cholesterol 85 mg/dL (40-59) H 01/28/20 19:21 Cholesterol/HDL Ratio 2.60 % 01/28/20 19:21 TSH 54.640 mlU/mL (0.270-4.200) H 01/28/20 19:21 Last Vital Signs Temp 98.5 F 01/31/20 20:29 Pulse 69 01/31/20 20:29 Resp 18 01/31/20 20:29 BP 116/78 01/31/20 20:29 Pulse Ox 93 01/31/20 20:29
[2020-02-01] MEDS: metFORMIN 500 MG TAB PO SCH (09:54)
[2020-02-01] MEDS: risperiDONE 0.25 MG TAB PO SCH ×2 (09:54→21:38)
[2020-02-01] MEDS: SERTRALINE 25 MG TAB PO SCH (09:55)
[2020-02-01] MEDS: ASPIRIN EC 81 MG TAB PO SCH (09:55)
--- NOTE | 2020-02-01 18:34 | Progress Note ---
Assessment and Plan - Patient Problems (1) Diabetes Current Visit: Yes Status: Acute Plan to address problem: Consistent carbohydrate diet, hemoglobin A1c, continue oral metformin therapy (2) HLD (hyperlipidemia) Current Visit: No Status: Chronic Qualifiers: Hyperlipidemia type: mixed hyperlipidemia Qualified Code(s): E78.2 - Mixed hyperlipidemia Plan to address problem: Statin therapy, low-cholesterol diet, (3) HTN (hypertension) Current Visit: No Status: Chronic Qualifiers: Hypertension type: essential hypertension Qualified Code(s): I10 - Essential (primary) hypertension Plan to address problem: Monitor blood pressure every shift, continue medical management. History Interval history: 59 YO Male with DM, HTN, TBI, Depression, PSA, and Intermittent Homelessness admitted to [facility] for Psychiatric stabilization. Pt resting in dayroom. Pt denies any a.m. complaints. No reported nursing events. Patient resting comfortably. Patient is cooperative with exam and interview. Patient denies pain. Hospitalist Physical - Constitutional Vitals: Temp Pulse Resp BP Pulse Ox 98.5 F 69 18 116/78 93 01/31/20 20:29 01/31/20 20:29 01/31/20 20:29 01/31/20 20:29 01/31/20 20:29 General appearance: Present: no acute distress, well-nourished, obese - EENT Eyes: Present: PERRL, EOM intact ENT: hearing intact - Neck Neck: Present: supple - Respiratory Respiratory: bilateral: CTA - Cardiovascular Rhythm: regular Heart Sounds: Present: S1 & S2 - Extremities Extremities: no ischemia Peripheral Pulses: within normal limits - Abdominal General gastrointestinal: soft, non-tender, non-distended - Integumentary Integumentary: Present: clear, dry - Psychiatric Psychiatric: cooperative - Neurologic Neurologic: CNII-XII intact Results - Labs Labs: Laboratory Last Values POC Glucose 173 (70-105) H 02/01/20 16:42 Hemoglobin A1c 6.5 % (4-6) H 01/28/20 19:21 Triglycerides 91 mg/dL (2-149) 01/28/20 19:21 Cholesterol 221 mg/dL (50-199) H 01/28/20 19:21 LDL Cholesterol Direct 137 mg/dL (50-130) H 01/28/20 19:21 HDL Cholesterol 85 mg/dL (40-59) H 01/28/20 19:21 Cholesterol/HDL Ratio 2.60 % 01/28/20 19:21 TSH 54.640 mlU/mL (0.270-4.200) H 01/28/20 19:21 Yañez/IV: Voiding Method Toilet Active Medications - Current Medications Current Medications: Generic Name Dose Route Start Last Admin Trade Name Carter PRN Reason Stop Dose Admin Aspirin 81 mg 01/29/20 10:00 02/01/20 09:55 Halfprin Ec PO 81 mg QDAY MONA Administration Atorvastatin Calcium 20 mg 01/28/20 22:00 01/31/20 22:12 Lipitor PO 20 mg QHS MONA Administration Levothyroxine Sodium 112 mcg/ 137 mcg 01/30/20 06:00 02/01/20 06:40 Levothyroxine Sodium 25 mcg PO 137 mcg DAILY@0600 MONA Administration Melatonin 5 mg 02/01/20 22:00 Melatonin PO QHS MONA Metformin HCl 500 mg 01/29/20 10:00 02/01/20 09:54 Glucophage PO 500 mg QDAY MONA Administration Risperidone 0.5 mg 01/31/20 10:00 02/01/20 09:54 Risperdal PO 0.5 mg BID MONA Administration Sertraline HCl 50 mg 02/01/20 08:49 02/01/20 09:55 Zoloft PO 50 mg QDAY MONA Administration Trazodone HCl 50 mg 01/29/20 22:00 01/31/20 22:33 Desyrel PO 50 mg QHS MONA Administration
--- NOTE | 2020-02-01 18:35 | Progress Note ---
Assessment and Plan - Patient Problems (1) Diabetes Current Visit: Yes Status: Acute Plan to address problem: Consistent carbohydrate diet, hemoglobin A1c, continue oral metformin therapy (2) HLD (hyperlipidemia) Current Visit: No Status: Chronic Qualifiers: Hyperlipidemia type: mixed hyperlipidemia Qualified Code(s): E78.2 - Mixed hyperlipidemia Plan to address problem: Statin therapy, low-cholesterol diet, (3) HTN (hypertension) Current Visit: No Status: Chronic Qualifiers: Hypertension type: essential hypertension Qualified Code(s): I10 - Essential (primary) hypertension Plan to address problem: Monitor blood pressure every shift, continue medical management. History Interval history: 59 YO Male with DM, HTN, TBI, Depression, PSA, and Intermittent Homelessness admitted to [facility] for Psychiatric stabilization. Pt resting in dayroom. Pt denies any a.m. complaints. No reported nursing events. Patient resting comfortably. Patient is cooperative with exam and interview. Patient in good spirits today. Hospitalist Physical - Constitutional Vitals: Temp Pulse Resp BP Pulse Ox 98.5 F 69 18 116/78 93 01/31/20 20:29 01/31/20 20:29 01/31/20 20:29 01/31/20 20:29 01/31/20 20:29 General appearance: Present: no acute distress, obese - EENT Eyes: Present: PERRL, EOM intact ENT: hearing intact - Neck Neck: Present: supple - Respiratory Respiratory: bilateral: CTA - Cardiovascular Rhythm: regular Heart Sounds: Present: S1 & S2 - Extremities Extremities: no ischemia Peripheral Pulses: within normal limits - Abdominal General gastrointestinal: soft, non-tender, non-distended - Integumentary Integumentary: Present: clear, dry - Psychiatric Psychiatric: cooperative - Neurologic Neurologic: CNII-XII intact Results - Labs Labs: Laboratory Last Values POC Glucose 173 (70-105) H 02/01/20 16:42 Hemoglobin A1c 6.5 % (4-6) H 01/28/20 19:21 Triglycerides 91 mg/dL (2-149) 01/28/20 19:21 Cholesterol 221 mg/dL (50-199) H 01/28/20 19:21 LDL Cholesterol Direct 137 mg/dL (50-130) H 01/28/20 19:21 HDL Cholesterol 85 mg/dL (40-59) H 01/28/20 19:21 Cholesterol/HDL Ratio 2.60 % 01/28/20 19:21 TSH 54.640 mlU/mL (0.270-4.200) H 01/28/20 19:21 Yañez/IV: Voiding Method Toilet Active Medications - Current Medications Current Medications: Generic Name Dose Route Start Last Admin Trade Name Omarq PRN Reason Stop Dose Admin Aspirin 81 mg 01/29/20 10:00 02/01/20 09:55 Halfprin Ec PO 81 mg QDAY MONA Administration Atorvastatin Calcium 20 mg 01/28/20 22:00 01/31/20 22:12 Lipitor PO 20 mg QHS MONA Administration Levothyroxine Sodium 112 mcg/ 137 mcg 01/30/20 06:00 02/01/20 06:40 Levothyroxine Sodium 25 mcg PO 137 mcg DAILY@0600 MONA Administration Melatonin 5 mg 02/01/20 22:00 Melatonin PO QHS MONA Metformin HCl 500 mg 01/29/20 10:00 02/01/20 09:54 Glucophage PO 500 mg QDAY MONA Administration Risperidone 0.5 mg 01/31/20 10:00 02/01/20 09:54 Risperdal PO 0.5 mg BID MONA Administration Sertraline HCl 50 mg 02/01/20 08:49 02/01/20 09:55 Zoloft PO 50 mg QDAY MONA Administration Trazodone HCl 50 mg 01/29/20 22:00 01/31/20 22:33 Desyrel PO 50 mg QHS MONA Administration
[2020-02-01] MEDS: MELATONIN 5 MG TAB PO SCH (21:38)
[2020-02-01] MEDS: traZODone 50 MG TAB PO SCH (21:39)
[2020-02-02] MEDS: LEVOTHYROXINE 112 MCG, LEVOTHYROXINE 25 MCG PO SCH (05:44)
--- NOTE | 2020-02-02 07:16 | Progress Note ---
Subjective Date of service: 02/02/20 Principal diagnosis: Major Depressive Disorder w/ Psychotic Features Subjective Comment: Nurse Note: Patient was calm and pleasant last evening. He has minimal interaction with others but smiles and enjoys their company. He continues to report AH telling him to harm himself. He is medication compliant. Will continue to monitor patient for safety. PSYCH HPI Patient reports he is doing "okay I guess", denies SI but says if he thinks about it then he will suicidal. Endorses depressed mood and auditory command hallucination telling him to hurt self. Reason for continued inpatient treatment: Depressed mood, persistent suicidal ideation with command hallucination. Sertraline increased to 100 mg today MENTAL STATUS EXAMINATION General Appearance and Behavior: Age appropriate, good hygiene, wearing appropriate clothes, l good eye contact, cooperative polite with questioning. Cooperation: Participating/engaged Psychomotor Behavior: unremarkable and within normal limits Mood: "im borderline" Affect and affective range: flat Thought Process: Logical Thought Content: illogical Speech: Normal volume, Regular rate and rhythm Intellectual Functioning: Average Suicidal Ideation: Endorses SI Homicidal Ideation: Denies HI Impulse Control: impaired Insight and Judgment: Limited insight and judgment Memory: care home memory intact, fair short term memory Attention: Normal Orientation: Alert, oriented Diagnoses: Assessment and Plan - Patient Problems (1) MDD (major depressive disorder), recurrent severe, without psychosis Current Visit: Yes Status: Acute Treatment Plan Sertraline increased from 50 to 100 mg. Melatonin 5mg MONA QHS added to improve sleep. Patient will be admitted for inpatient psychiatric evaluation, medication adjustment and close monitoring The patient's behavior, mood, sleep and appetite will be closely monitored. Patient will be enrolled in individual and group therapeutic sessions and encouraged to attend. Patient will be provided with a safe and structured environment. Patient's physical health needs will be addressed by the Hospitalist. Hospitalist Consulted Labs including CBC, CMP, Lipid profile and Hemoglobin A1C ordered Social Assessment will be completed and the Emergency Room Doctor will work with patient and family to ensure a suitable and safe disposition Medication adjustment will be made as clinically indicated Usual Wellness Hinduism/Preservation: - Start Trazodone 50 mg po QHS & 50 mg po QHS PRN between 10 PM & 2 AM for insomnia - Start Melatonin 5 mg po QHS to promote circadian rhythm - Start [place]-3 for brain health, reduce impulsivity, and as adjunctive treatment for mood disorder, continue upon discharge given overall benefits. - Start B1 prophylaxis with 200 mg po for 5 days The patient agreed on the treatment plan, understood the risk, benefit, alternative treatment, potential consequence of no treatment, and gave informed consent. Initial Certification This certifies that Tim Faye is a 63y/o female who was admitted for Bipolar Disorder with Psychotic Features. Estimated period of time patient will need to remain in the hospital: [3] Plan for post-hospital care: [outpatient] Assessment and Plan - Patient Problems (1) MDD (major depressive disorder), recurrent severe, without psychosis Current Visit: Yes Status: Acute Medications and Allergies Allergies Allergy/AdvReac Type Severity Reaction Status Date / Time No Known Allergies Allergy Verified 05/26/17 16:20 Home Medications Medication Instructions Recorded Confirmed Last Taken Type Aspirin [Adult Aspirin] 81 mg PO QDAY #30 tablet. 01/28/20 01/29/20 Unknown Rx AtorvaSTATin [Lipitor] 20 mg PO QHS #7 tab 01/28/20 01/29/20 Unknown Rx Permethrin 5% [Acticin 5% CREAM] 1 applicatio TP ONCE #1 tube 01/28/20 01/29/20 01/28/20 22:00 Rx metFORMIN [Glucophage] 500 mg PO QDAY #7 tab 01/28/20 01/29/20 Unknown Rx Active Meds: Active Medications Aspirin (Halfprin Ec) 81 mg PO QDAY [facility] Last Admin: 02/01/20 09:55 Dose: 81 mg Documented by: Atorvastatin Calcium (Lipitor) 20 mg PO QHS [facility] Last Admin: 02/01/20 21:38 Dose: 20 mg Documented by: Levothyroxine Sodium 112 mcg/ (Levothyroxine Sodium 25 mcg) 137 mcg PO DAILY@0600 [facility] Last Admin: 02/02/20 05:44 Dose: 137 mcg Documented by: Melatonin (Melatonin) 5 mg PO QHS [facility] Last Admin: 02/01/20 21:38 Dose: 5 mg Documented by: Metformin HCl (Glucophage) 500 mg PO QDAY [facility] Last Admin: 02/01/20 09:54 Dose: 500 mg Documented by: Risperidone (Risperdal) 0.5 mg PO BID [facility] Last Admin: 02/01/20 21:38 Dose: 0.5 mg Documented by: Sertraline HCl (Zoloft) 50 mg PO QDAY [facility] Last Admin: 02/01/20 09:55 Dose: 50 mg Documented by: Trazodone HCl (Desyrel) 50 mg PO QHS [facility] Last Admin: 02/01/20 21:39 Dose: 50 mg Documented by: Results - Results Labs/Vitals: Laboratory Last Values POC Glucose 150 (70-105) H 02/01/20 19:50 Hemoglobin A1c 6.5 % (4-6) H 01/28/20 19:21 Triglycerides 91 mg/dL (2-149) 01/28/20 19:21 Cholesterol 221 mg/dL (50-199) H 01/28/20 19:21 LDL Cholesterol Direct 137 mg/dL (50-130) H 01/28/20 19:21 HDL Cholesterol 85 mg/dL (40-59) H 01/28/20 19:21 Cholesterol/HDL Ratio 2.60 % 01/28/20 19:21 TSH 54.640 mlU/mL (0.270-4.200) H 01/28/20 19:21 Last Vital Signs Temp 98.3 F 02/01/20 19:16 Pulse 73 02/01/20 19:16 Resp 18 02/01/20 19:16 BP 105/67 02/01/20 19:16 Pulse Ox 93 02/01/20 19:16
[2020-02-02] MEDS: SERTRALINE 25 MG TAB PO SCH (09:44)
[2020-02-02] MEDS: ASPIRIN EC 81 MG TAB PO SCH (09:45)
[2020-02-02] MEDS: risperiDONE 0.25 MG TAB PO SCH ×2 (09:45→21:20)
[2020-02-02] MEDS: metFORMIN 500 MG TAB PO SCH (09:45)
[2020-02-02] MEDS: SERTRALINE 100 MG TAB PO SCH (13:08)
[2020-02-02] MEDS: MELATONIN 5 MG TAB PO SCH (21:20)
[2020-02-02] MEDS: traZODone 50 MG TAB PO SCH (21:20)
--- NOTE | 2020-02-02 22:41 | Progress Note ---
Assessment and Plan - Patient Problems (1) Diabetes Current Visit: Yes Status: Acute Plan to address problem: Consistent carbohydrate diet, hemoglobin A1c, continue oral metformin therapy (2) HLD (hyperlipidemia) Current Visit: No Status: Chronic Qualifiers: Hyperlipidemia type: mixed hyperlipidemia Qualified Code(s): E78.2 - Mixed hyperlipidemia Plan to address problem: Statin therapy, low-cholesterol diet, (3) HTN (hypertension) Current Visit: No Status: Chronic Qualifiers: Hypertension type: essential hypertension Qualified Code(s): I10 - Essential (primary) hypertension Plan to address problem: Monitor blood pressure every shift, continue medical management. History Interval history: 59 YO Male with DM, HTN, TBI, Depression, PSA, and Intermittent Homelessness admitted to [facility] for Psychiatric stabilization. Pt resting in dayroom. Pt denies any a.m. complaints. No reported nursing events. Patient resting comfortably. Patient is cooperative with exam and interview. Patient in good spirits today. Hospitalist Physical - Constitutional Vitals: Temp Pulse Resp BP Pulse Ox 98.3 F 75 20 116/71 92 02/02/20 20:17 02/02/20 20:17 02/02/20 20:17 02/02/20 20:17 02/02/20 20:17 General appearance: Present: no acute distress, obese - EENT Eyes: Present: PERRL ENT: hearing intact - Neck Neck: Present: supple - Respiratory Respiratory: bilateral: CTA - Cardiovascular Rhythm: regular Heart Sounds: Present: S1 & S2 - Extremities Extremities: no ischemia Peripheral Pulses: within normal limits - Abdominal General gastrointestinal: soft, non-tender, non-distended - Integumentary Integumentary: Present: clear, dry - Psychiatric Psychiatric: cooperative - Neurologic Neurologic: CNII-XII intact Results - Labs Labs: Laboratory Last Values POC Glucose 184 (70-105) H 02/02/20 20:45 Hemoglobin A1c 6.5 % (4-6) H 01/28/20 19:21 Triglycerides 91 mg/dL (2-149) 01/28/20 19:21 Cholesterol 221 mg/dL (50-199) H 01/28/20 19:21 LDL Cholesterol Direct 137 mg/dL (50-130) H 01/28/20 19:21 HDL Cholesterol 85 mg/dL (40-59) H 01/28/20 19:21 Cholesterol/HDL Ratio 2.60 % 01/28/20 19:21 TSH 54.640 mlU/mL (0.270-4.200) H 01/28/20 19:21 Yañez/IV: Voiding Method Toilet Active Medications - Current Medications Current Medications: Generic Name Dose Route Start Last Admin Trade Name Freq PRN Reason Stop Dose Admin Aspirin 81 mg 01/29/20 10:00 02/02/20 09:45 Halfprin Ec PO 81 mg QDAY [facility]A Administration Atorvastatin Calcium 20 mg 01/28/20 22:00 02/02/20 21:20 Lipitor PO 20 mg QHS MONA Administration Levothyroxine Sodium 112 mcg/ 137 mcg 01/30/20 06:00 02/02/20 05:44 Levothyroxine Sodium 25 mcg PO 137 mcg DAILY@0600 [facility]A Administration Melatonin 5 mg 02/01/20 22:00 02/02/20 21:20 Melatonin PO 5 mg QHS MONA Administration Metformin HCl 500 mg 01/29/20 10:00 02/02/20 09:45 Glucophage PO 500 mg QDAY [facility] Administration Risperidone 0.5 mg 01/31/20 10:00 02/02/20 21:20 Risperdal PO 0.5 mg BID MONA Administration Sertraline HCl 100 mg 02/02/20 10:00 02/02/20 13:08 Zoloft PO Not Given QDAY [facility]A Trazodone HCl 50 mg 01/29/20 22:00 02/02/20 21:20 Desyrel PO 50 mg QHS [facility]A Administration
[2020-02-03] MEDS: LEVOTHYROXINE 112 MCG, LEVOTHYROXINE 25 MCG PO SCH (05:51)
--- NOTE | 2020-02-03 07:24 | Progress Note ---
Subjective Date of service: 02/03/20 Principal diagnosis: Major Depressive Disorder w/ Psychotic Features Subjective Comment: Nurse Note: pt is alert and oriented x3, calm and cooperative, able to make needs known, minimal interaction with selected peers, medication compliant, consumed 100% of bedtime snack, denies si/hi, denies a/v/h, no complaints voiced, no distress noted, will continue to monitor for safety. Patient attended groups and participated well in activities. He has good appetite and has been compliant with medication. He stated, "I don't have those thoughts as often as before." He denies any complaints. Will continue to monitor for safety. PSYCH HPI Patient reports feeling much better today, says he has been staying positive and looking forward to the future, and hoping he could get his own place and be more independent. He denies active Suicidal thoughts, homicidal thoughts or hallucinations. Pt endorses eating well and sleeping good but says he woke up around midnight for no reason and that kind of bothered him a bit, denies nightmares. Reason for continued inpatient treatment: Mood is improving, thoughts are now positive and optimistic, no suicidal thoughts or homicidal thoughts. MENTAL STATUS EXAMINATION General Appearance and Behavior: Age appropriate, good hygiene, wearing appropriate clothes, l good eye contact, cooperative polite with questioning. Cooperation: Participating/engaged Psychomotor Behavior: unremarkable and within normal limits Mood: "I feel better today" Affect and affective range: congruent with mood Thought Process: Logical Thought Content: logical Speech: Normal volume, Regular rate and rhythm Intellectual Functioning: Average Suicidal Ideation: Deneis SI Homicidal Ideation: Denies HI Impulse Control: unimpaired Insight and Judgment: Good insight and judgment Memory: custodial memory intact, fair short term memory Attention: Normal Orientation: Alert, oriented Diagnoses: Assessment and Plan - Patient Problems (1) MDD (major depressive disorder), recurrent severe, without psychosis Current Visit: Yes Status: Acute Treatment Plan Continue current medications Patient will be admitted for inpatient psychiatric evaluation, medication adjustment and close monitoring The patient's behavior, mood, sleep and appetite will be closely monitored. Patient will be enrolled in individual and group therapeutic sessions and encouraged to attend. Patient will be provided with a safe and structured environment. Patient's physical health needs will be addressed by the Hospitalist. Hospitalist Consulted Labs including CBC, CMP, Lipid profile and Hemoglobin A1C ordered Social Assessment will be completed and the Automotive Services Manager will work with patient and family to ensure a suitable and safe disposition Medication adjustment will be made as clinically indicated Usual Wellness Orthodoxy/Preservation: - Start Trazodone 50 mg po QHS & 50 mg po QHS PRN between 10 PM & 2 AM for insomnia - Start Melatonin 5 mg po QHS to promote circadian rhythm - Start [place]-3 for brain health, reduce impulsivity, and as adjunctive treatment for mood disorder, continue upon discharge given overall benefits. - Start B1 prophylaxis with 200 mg po for 5 days The patient agreed on the treatment plan, understood the risk, benefit, alternative treatment, potential consequence of no treatment, and gave informed consent. Initial Certification This certifies that Tim Faye is a 63y/o female who was admitted for Bipolar Disorder with Psychotic Features. Estimated period of time patient will need to remain in the hospital: [3] Plan for post-hospital care: [outpatient] Assessment and Plan - Patient Problems (1) MDD (major depressive disorder), recurrent severe, without psychosis Current Visit: Yes Status: Acute Medications and Allergies Allergies Allergy/AdvReac Type Severity Reaction Status Date / Time No Known Allergies Allergy Verified 05/26/17 16:20 Home Medications Medication Instructions Recorded Confirmed Last Taken Type AtorvaSTATin [Lipitor] 20 mg PO QHS #7 tab 01/28/20 01/29/20 Unknown Rx RX: Aspirin [Adult Aspirin] 81 mg PO QDAY #30 tablet. 01/28/20 01/29/20 Unknown Rx RX: Permethrin 5% [Acticin 5% 1 applicatio TP ONCE #1 tube 01/28/20 01/29/20 01/28/20 22:00 Rx CREAM] RX: metFORMIN [Glucophage] 500 mg PO QDAY #7 tab 01/28/20 01/29/20 Unknown Rx Active Meds: Active Medications Aspirin (Halfprin Ec) 81 mg PO QDAY [facility] Last Admin: 02/02/20 09:45 Dose: 81 mg Documented by: Atorvastatin Calcium (Lipitor) 20 mg PO QHS [facility] Last Admin: 02/02/20 21:20 Dose: 20 mg Documented by: Levothyroxine Sodium 112 mcg/ (Levothyroxine Sodium 25 mcg) 137 mcg PO DAILY@0600 [facility] Last Admin: 02/03/20 05:51 Dose: 137 mcg Documented by: Melatonin (Melatonin) 5 mg PO QHS [facility] Last Admin: 02/02/20 21:20 Dose: 5 mg Documented by: Metformin HCl (Glucophage) 500 mg PO QDAY [facility] Last Admin: 02/02/20 09:45 Dose: 500 mg Documented by: Risperidone (Risperdal) 0.5 mg PO BID [facility] Last Admin: 02/02/20 21:20 Dose: 0.5 mg Documented by: Sertraline HCl (Zoloft) 100 mg PO QDAY [facility] Last Admin: 02/02/20 13:08 Dose: Not Given Documented by: Trazodone HCl (Desyrel) 50 mg PO QHS [facility] Last Admin: 02/02/20 21:20 Dose: 50 mg Documented by: Results - Results Labs/Vitals: Laboratory Last Values POC Glucose 118 (70-105) H 02/03/20 07:03 Hemoglobin A1c 6.5 % (4-6) H 01/28/20 19:21 Triglycerides 91 mg/dL (2-149) 01/28/20 19:21 Cholesterol 221 mg/dL (50-199) H 01/28/20 19:21 LDL Cholesterol Direct 137 mg/dL (50-130) H 01/28/20 19:21 HDL Cholesterol 85 mg/dL (40-59) H 01/28/20 19:21 Cholesterol/HDL Ratio 2.60 % 01/28/20 19:21 TSH 54.640 mlU/mL (0.270-4.200) H 01/28/20 19:21 Last Vital Signs Temp 98.3 F 02/02/20 22:00 Pulse 71 02/02/20 22:00 Resp 20 02/02/20 22:00 BP 116/71 02/02/20 22:00 Pulse Ox 93 02/02/20 22:00
[2020-02-03] MEDS: SERTRALINE 100 MG TAB PO SCH (10:09)
[2020-02-03] MEDS: risperiDONE 0.25 MG TAB PO SCH ×2 (10:09→22:35)
[2020-02-03] MEDS: metFORMIN 500 MG TAB PO SCH (10:09)
[2020-02-03] MEDS: ASPIRIN EC 81 MG TAB PO SCH (10:09)
[2020-02-03] MEDS: traZODone 50 MG TAB PO SCH (22:35)
[2020-02-03] MEDS: MELATONIN 5 MG TAB PO SCH (22:36)
[2020-02-04] MEDS: LEVOTHYROXINE 112 MCG, LEVOTHYROXINE 25 MCG PO SCH (06:44)
--- NOTE | 2020-02-04 07:16 | Progress Note ---
Subjective Date of service: 02/04/20 Principal diagnosis: Major Depressive Disorder w/ Psychotic Features Subjective Comment: Nurse Note: Pt received in the activity room a&ox3 withdrawn to self. Blood glucose 180 mg/dL. Denies pain. Depressive mood observed. Muted when asked if he is having suicide thought. No acute distress observed and none reported. Will continue to monitor closely for safety. PSYCH HPI Patient seen by me this AM, in activity room. Asked how he was doing, he says he is worried about his car that he parked downstairs in the handicapped spot otherwise he is fine. Reports good appetite, energy just okay and says he has also been taking his medications. Reports not being SI at the moment unless he thinks about it, Reason for continued inpatient treatment: Mood is improving, patient adapting positive coping skills, and planning to discharge to facility today on current medications. MENTAL STATUS EXAMINATION General Appearance and Behavior: Age appropriate, good hygiene, wearing appropr iate clothes, good eye contact, cooperative polite with questioning. Cooperation: Participating/engaged Psychomotor Behavior: unremarkable and within normal limits Mood: "I feel better today" Affect and affective range: congruent with mood Thought Process: Logical Thought Content: logical Speech: Normal volume, Regular rate and rhythm Intellectual Functioning: Average Suicidal Ideation: Denies SI Homicidal Ideation: Denies HI Impulse Control: unimpaired Insight and Judgment: Good insight and judgment Memory: group home memory intact, fair short term memory Attention: Normal Orientation: Alert, oriented Diagnoses: Assessment and Plan - Patient Problems (1) MDD (major depressive disorder), recurrent severe, without psychosis Current Visit: Yes Status: Acute Treatment Plan Continue current medications Patient will be admitted for inpatient psychiatric evaluation, medication adjustment and close monitoring The patient's behavior, mood, sleep and appetite will be closely monitored. Patient will be enrolled in individual and group therapeutic sessions and encouraged to attend. Patient will be provided with a safe and structured environment. Patient's physical health needs will be addressed by the Hospitalist. Sarah lares Consulted Labs including CBC, CMP, Lipid profile and Hemoglobin A1C ordered Social Assessment will be completed and the Supervisor [employer]ing will work with patient and family to ensure a suitable and safe disposition Medication adjustment will be made as clinically indicated Usual Wellness Synagogue/Preservation: - Start Trazodone 50 mg po QHS & 50 mg po QHS PRN between 10 PM & 2 AM for insomnia - Start Melatonin 5 mg po QHS to promote circadian rhythm - Start [place]-3 for brain health, reduce impulsivity, and as adjunctive treatment for mood disorder, continue upon discharge given overall benefits. - Start B1 prophylaxis with 200 mg po for 5 days The patient agreed on the treatment plan, understood the risk, benefit, alternative treatment, potential consequence of no treatment, and gave informed consent. Initial Certification This certifies that Tim Faye is a 63y/o female who was admitted for Bipolar Disorder with Psychotic Features. Estimated period of time patient will need to remain in the hospital: [0] Plan for post-hospital care: [outpatient] Assessment and Plan - Patient Problems (1) MDD (major depressive disorder), recurrent severe, without psychosis Current Visit: Yes Status: Acute Medications and Allergies Allergies Allergy/AdvReac Type Severity Reaction Status Date / Time No Known Allergies Allergy Verified 05/26/17 16:20 Home Medications Medication Instructions Recorded Confirmed Last Taken Type Aspirin [Adult Aspirin] 81 mg PO QDAY #30 tablet. 01/28/20 01/29/20 Unknown Rx AtorvaSTATin [Lipitor] 20 mg PO QHS #7 tab 01/28/20 01/29/20 Unknown Rx Permethrin 5% [Acticin 5% CREAM] 1 applicatio TP ONCE #1 tube 01/28/20 01/29/20 01/28/20 22:00 Rx metFORMIN [Glucophage] 500 mg PO QDAY #7 tab 01/28/20 01/29/20 Unknown Rx Active Meds: Active Medications Aspirin (Halfprin Ec) 81 mg PO QDAY [facility] Last Admin: 02/03/20 10:09 Dose: 81 mg Documented by: Atorvastatin Calcium (Lipitor) 20 mg PO QHS [facility] Last Admin: 02/03/20 22:36 Dose: 20 mg Documented by: Levothyroxine Sodium 112 mcg/ (Levothyroxine Sodium 25 mcg) 137 mcg PO DAILY@0600 [facility] Last Admin: 02/04/20 06:44 Dose: 137 mcg Documented by: Melatonin (Melatonin) 5 mg PO QHS [facility] Last Admin: 02/03/20 22:36 Dose: 5 mg Documented by: Metformin HCl (Glucophage) 500 mg PO QDAY [facility] Last Admin: 02/03/20 10:09 Dose: 500 mg Documented by: Risperidone (Risperdal) 0.5 mg PO BID [facility] Last Admin: 02/03/20 22:35 Dose: 0.5 mg Documented by: Sertraline HCl (Zoloft) 100 mg PO QDAY [facility] Last Admin: 02/03/20 10:09 Dose: 100 mg Documented by: Trazodone HCl (Desyrel) 50 mg PO QHS [facility] Last Admin: 02/03/20 22:35 Dose: 50 mg Documented by: Results - Results Labs/Vitals: Laboratory Last Values POC Glucose 180 (70-105) H 02/03/20 20:27 Hemoglobin A1c 6.5 % (4-6) H 01/28/20 19:21 Triglycerides 91 mg/dL (2-149) 01/28/20 19:21 Cholesterol 221 mg/dL (50-199) H 01/28/20 19:21 LDL Cholesterol Direct 137 mg/dL (50-130) H 01/28/20 19:21 HDL Cholesterol 85 mg/dL (40-59) H 01/28/20 19:21 Cholesterol/HDL Ratio 2.60 % 01/28/20 19:21 TSH 54.640 mlU/mL (0.270-4.200) H 01/28/20 19:21 Last Vital Signs Temp 98.2 F 02/03/20 22:00 Pulse 71 02/03/20 22:00 Resp 20 02/03/20 22:00 BP 97/61 02/03/20 22:00 Pulse Ox 93 02/03/20 22:00
[2020-02-04] MEDS: ASPIRIN EC 81 MG TAB PO SCH (10:26)
[2020-02-04] MEDS: risperiDONE 0.25 MG TAB PO SCH (10:26)
[2020-02-04] MEDS: SERTRALINE 100 MG TAB PO SCH (10:26)
[2020-02-04] MEDS: metFORMIN 500 MG TAB PO SCH (10:26)
[2020-02-04 10:34] VITALS: BP 100/66
--- NOTE | 2020-02-04 13:56 | Discharge Summary ---
Providers - Providers Date of Admission: 01/28/20 17:51 Date of discharge: 02/04/20 Attending physician: ROLLY WALKER MD 01/28/20 11:30 Consult to Physician [CONS] Routine Comment: Consulting Provider: ROBYN WOLF Physician Instructions: Reason For Exam: Manage medical conditions Primary care physician: SIGN FABRICATOR Hospitalization Reason for admission: Danger to self, Severe anxiety/depression Condition: Good Hospital course: The patient was provided inpatient psychiatric treatment with safe and supportive environment, group/individual therapy, psychiatric medication, medication adjustment, adverse effect monitor, medical evaluation, medical treatment, social service assessment, social support meeting, placement assessment and psycho-education. The patients mood, cognition, behavior, motivation, compliance to treatment and appreciation on family/social support are improved and stabilized. At the time of discharge, the patient had no suicidal ideas, no homicidal ideas, no aggressive thoughts, no endangering behavior and no debilitating adverse effects. The patient agreed on the t reatment plan, understood the risk, benefit, alternative treatment, potential consequence of no treatment, and gave informed consent. Disposition: DC-30 STILL A PATIENT Allergies/Adverse Reactions: Allergies No Known Allergies Allergy (Verified 05/26/17 16:20) Vital Signs: Last Vital Signs Temp 98.0 F 02/04/20 07:29 Pulse 64 02/04/20 07:29 Resp 18 02/04/20 07:29 BP 100/66 02/04/20 07:29 Pulse Ox 92 02/04/20 07:29 Last Lab: Laboratory Last Values POC Glucose 120 (70-105) H 02/04/20 11:39 Hemoglobin A1c 6.5 % (4-6) H 01/28/20 19:21 Triglycerides 91 mg/dL (2-149) 01/28/20 19:21 Cholesterol 221 mg/dL (50-199) H 01/28/20 19:21 LDL Cholesterol Direct 137 mg/dL (50-130) H 01/28/20 19:21 HDL Cholesterol 85 mg/dL (40-59) H 01/28/20 19:21 Cholesterol/HDL Ratio 2.60 % 01/28/20 19:21 TSH 54.640 mlU/mL (0.270-4.200) H 01/28/20 19:21 - Discharge Diagnoses (1) MDD (major depressive disorder), recurrent severe, without psychosis Status: Acute Core Measure Documentation - Palliative Care Palliative Care/ Comfort Measures: Not Applicable - Core Measures Any of the following diagnoses?: none Exam - Constitutional Vitals: Temp Pulse Resp BP Pulse Ox 98.0 F 64 18 100/66 92 02/04/20 07:29 02/04/20 07:29 02/04/20 07:29 02/04/20 07:02/04/20 07:29 - EENT Eyes: Present: PERRL, EOM intact ENT: hearing intact, clear oral mucosa - Neck Neck: Present: supple, normal ROM - Respiratory Respiratory effort: normal - Abdominal Male genitourinary: Present: normal - Integumentary Integumentary: Present: clear, warm, dry Plan Care Plan Goals: Goals: Maintain good and stable mental health. Plan of Treatment: The patient should be compliant with medications, not to use drugs and not to drink alcohol. The patient understands that if suicidal ideas, homicidal ideas, or any endangering thoughts arise, the patient should immediately seek for emergent assistance including but not limited to crisis hot line and emergency room. Follow up with outpatient Psychiatrist and PCP within 7 - 14 days of discharge. Follow up with: PRIMARY CARE,MD [Primary Care Provider] - 7 Days Prescriptions: traZODone [Desyrel] 50 mg PO QHS #30 tablet AtorvaSTATin [Lipitor] 20 mg PO QHS #30 tab Melatonin [Melatonin 5MG TAB] 5 mg PO QHS #30 tablet Aspirin [Adult Aspirin] 81 mg PO QDAY #30 tablet. risperiDONE [RisperDAL] 0.5 mg PO BID #60 tablet Levothyroxine [Synthroid] 137 mcg PO DAILY@0600 #30 tablet Levothyroxine [Synthroid] 137 mcg PO DAILY@0600 #30 tablet Sertraline [Zoloft] 100 mg PO QDAY #30 tablet
== END 2020-02-04 16:50 | disposition home or self-care (01) | DRG 885 ==
LOC: UNDOADMIN 10:45 → 3A 10:45 → 5A 17:51
PROVIDERS: ADMIT Psychiatry & Neurology Psychiatry; ATTEND Psychiatry & Neurology Psychiatry
DX: F32.2 Major depressive disorder, single episode, severe without psychotic features (principal); R45.851 Suicidal ideations; E11.9 Type 2 diabetes mellitus without complications; I10 Essential (primary) hypertension; E78.2 Mixed hyperlipidemia; F14.10 Cocaine abuse, uncomplicated; E03.9 Hypothyroidism, unspecified; F19.10 Other psychoactive substance abuse, uncomplicated
CPT/HCPCS: 36415; 80061; 82962; 83036; 84443; G0378; A9270-GY; J3486

== ENCOUNTER 2020-12-29 19:36 | Inpatient (IN) | payer MEDICARE ==
[2020-12-29 21:04] LABS: Basophils # (Auto) 0.1 K/mm3 (0.0-0.1); Basophils % (Auto) 0.7 % (0.0-1.8); Eosinophils # (Auto) 0.3 K/mm3 (0.0-0.4); Eosinophils % (Auto) 2.7 % (0.0-4.3); Hematocrit 41.1 % (35.5-45.6); Lymphocytes # (Auto) 2.5 K/mm3 (1.2-5.4); Lymphocytes % (Auto) 22.6 % (13.4-35.0); Mean Corpuscular HGB Conc 34 % (32-34); Mean Corpuscular Volume 86 fl (84-94); Platelet Count 288 K/mm3 (140-440); Red Blood Count 4.78 M/mm3 (3.65-5.03); Red Cell Distribution Width 14.5 % (13.2-15.2)
[2020-12-29 21:09] LABS: BUN/Creatinine Ratio 13; Blood Urea Nitrogen 13 mg/dL (9-20); Hemolysis Index 8
[2020-12-29 21:39] LABS: Bilirubin,Urine NEG (Negative); Blood,Urine NEG (Negative); Color,Urine Yellow (Yellow); Mucus,Urine FEW /HPF; Protein,Urine <15 mg/dL mg/dL (Negative); RBC,Urine < 1.0 /HPF (0.0-6.0)
[2020-12-29 21:47] LABS: Amphetamine Screen,Urine Negative; Benzodiazepines Screen,Urine Negative; Cannabinoid Screen,Urine Negative; Cocaine Screen,Urine Negative; Methadone Screen,Urine Negative; Opiate Screen,Urine Negative
[2020-12-29] MEDS ORDERED: traMADol 50 MG TAB PO PRN (21:52)
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
[2020-12-29] MEDS ORDERED: ASPIRIN 325 MG TAB PO ONE (22:24)
[2020-12-29] MEDS ORDERED: NITROGLYCERIN 2% OINT 1 GM TP ONE (22:24)
[2020-12-29 22:37] LABS: Chol/HDL Ratio 3.26 %
[2020-12-29] MEDS ORDERED: HEPARIN 10,000 UNITS/10 ML VIAL IV PRN (22:53)
[2020-12-29] MEDS ORDERED: HEPARIN 10,000 UNITS/10 ML VIAL IV ONE ×2 (22:53→23:00)
--- NOTE | 2020-12-29 23:20 | XRay Report ---
CHEST 2 VIEWS INDICATION / CLINICAL INFORMATION: chest pain. COMPARISON: None available. FINDINGS: SUPPORT DEVICES: 01/28/2020 HEART / MEDIASTINUM: No significant abnormality. LUNGS / PLEURA: No significant pulmonary or pleural abnormality. No pneumothorax. ADDITIONAL FINDINGS: No significant additional findings. IMPRESSION: 1. No acute findings. No interval change. Signer Name: Patricia Booth MD Signed: 12/29/2020 11:16 PM Workstation Name: [id number]
[2020-12-29] MEDS: HEPARIN/ 0.45% NACL DRIP 25,000 UNIT/500 ML BAG IV SCH (23:37)
[2020-12-29 23:54] LABS: Hematocrit 40.1 % (35.5-45.6); Hemoglobin 13.7 gm/dl (11.8-15.2)
[2020-12-30] MEDS ORDERED: ONDANSETRON 4 MG/2 ML INJ IV PRN
[2020-12-30] MEDS ORDERED: ACETAMINOPHEN 325 MG TAB PO PRN
[2020-12-30] MEDS ORDERED: NITROGLYCERIN 0.4 MG TAB SUBL SL PRN
[2020-12-30] MEDS ORDERED: MORPHINE 4 MG/1 ML INJ IV PRN
[2020-12-30] MEDS ORDERED: MAGNESIUM HYDROXIDE (MOM) ORAL LIQD UDC PO PRN
[2020-12-30] MEDS ORDERED: DEXTROSE 50% IN WATER (25GM) 50 ML SYRINGE IV PRN
[2020-12-30 00:03] LABS: Partial Thromboplastin Time 34.8 Sec. (24.2-36.6)
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
[2020-12-30] MEDS: traMADol 50 MG TAB PO PRN ×2 (02:59→19:49)
[2020-12-30] MEDS: LEVOTHYROXINE 112 MCG TAB PO SCH (06:28)
[2020-12-30] MEDS: LEVOTHYROXINE 25 MCG TAB PO SCH (06:28)
[2020-12-30] MEDS: ASPIRIN EC 325 MG TAB PO SCH (06:48)
[2020-12-30] MEDS ORDERED: SODIUM CHLORIDE 0.9% 500 ML 500 ML IV SCH (07:00)
[2020-12-30] MEDS: SERTRALINE 100 MG TAB PO SCH (10:08)
[2020-12-30] MEDS: risperiDONE 0.25 MG TAB PO SCH ×2 (10:08→21:04)
[2020-12-30] MEDS: INSULIN LISPRO 100 UNIT/ML SUB-Q SCH ×4 (10:09→22:48)
[2020-12-30] MEDS ORDERED: HEPARIN/NS 5000 UNIT/500ML 1,000 ML IR ONE ×2 (10:47→11:00)
[2020-12-30] MEDS ORDERED: MIDAZOLAM 2 MG/2 ML INJ ONE (11:00)
[2020-12-30] MEDS ORDERED: fentaNYL 100 MCG/2 ML INJ ONE (11:00)
[2020-12-30] MEDS ORDERED: SODIUM CHLORIDE 0.9% 500 ML 500 ML ONE ×2 (11:01→12:03)
[2020-12-30] MEDS ORDERED: LIDOCAINE (2%) 20 MG/1 ML VIAL 20 ML MDV INFILTRATI ONE (11:01)
[2020-12-30] MEDS ORDERED: VERAPAMIL 5 MG/2 ML INJ ONE (11:01)
[2020-12-30] MEDS ORDERED: NITROGLYCERIN SYRINGE 0 ML ONE (11:01)
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
[2020-12-30] MEDS: LIDOCAINE (2%) 20 MG/1 ML VIAL 20 ML MDV INFILTRATI ONE ×2 (11:21→11:22)
[2020-12-30] MEDS ORDERED: HEPARIN 10,000 UNITS/10 ML VIAL ONE (11:47)
[2020-12-30] MEDS ORDERED: PNEUMOCOCCAL 23 Valent 0.5 ML VIAL IM ONE (12:00)
[2020-12-30] MEDS: HEPARIN/ 0.45% NACL DRIP 25,000 UNIT/500 ML BAG IV SCH ×2 (12:35→20:54)
--- NOTE | 2020-12-30 12:43 | Event Note ---
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
--- NOTE | 2020-12-30 15:10 | Cardiac Catherization Report ---
DATE OF SERVICE: 12/30/2020 INDICATIONS: The patient is a 60-year-old male, who was admitted with a non-STEMI and coronary angiography was recommended. PROCEDURE: Left heart catheterization, ventriculography, and coronary angiography via the right femoral artery using 5-Fris[place] Ale catheters and a pigtail catheter. COMPLICATIONS: None. TISSUE SAMPLES: None. PREPROCEDURE DIAGNOSES: Non-STEMI. POSTPROCEDURE DIAGNOSIS: Multivessel coronary artery disease. ESTIMATED BLOOD LOSS: 10-20 mL SEDATION: Intravenous Versed and fentanyl. ANGIOGRAPHIC RESULTS: 1. Left ventricle: Ventriculogram reveals a normal-sized left ventricle with dilatation and hypokinesia of a small segment of the mid anterior wall. The remaining segments are functioning well and the ejection fraction is approximately 55%-60%. 2. Right coronary artery: This is a dominant vessel and it is diffusely irregular. The PDA has a proximal 50% lesion in the mid portion, has a 60% stenosis and this is fairly small caliber vessel. 3. Left coronary artery: Mild calcification. The left main is free of remarkable disease. The circumflex contains a mid 70% and is a moderate caliber vessel. It is diffusely irregular. The LAD system is diffusely irregular with a proximal 30% stenosis at the takeoff of the first diagonal branch, the ostium of the diagonal branch appears to have 60% stenosis. The mid LAD contains 75% stenosis. The far distal LAD near the apex is diffusely diseased and small in caliber. The second diagonal branch is a small caliber vessel with a proximal 75% stenosis. HEMODYNAMICS: Central aortic pressure 102/62. Left ventricular pressure 102/13. PROCEDURE SEDATION TIME: Started at 11:19 a.m. PROCEDURE START TIME: 11:21 a.m. PROCEDURE END TIME 11:41 a.m. TOTAL SEDATION TIME: 22 minutes. FINAL IMPRESSION: Multivessel coronary artery disease with preserved left ventricular function following a [id number] myocardial infarction. The lesions in the LAD and circumflex appeared to be severe and discrete. PCI will be considered. This will be discussed with the interventionalist. TID: [id number] RECEIPT: [id number] JAYANT/AGNIESZKA
[2020-12-30] MEDS: traZODone 50 MG TAB PO SCH (21:04)
[2020-12-31 04:46] LABS: Basophils # (Auto) 0.2 K/mm3 (0.0-0.1); Basophils % (Auto) 1.7 % (0.0-1.8); Eosinophils # (Auto) 0.3 K/mm3 (0.0-0.4); Eosinophils % (Auto) 2.8 % (0.0-4.3); Hematocrit 37.3 % (35.5-45.6); Hemoglobin 12.9 gm/dl (11.8-15.2); Lymphocytes # (Auto) 2.1 K/mm3 (1.2-5.4); Lymphocytes % (Auto) 22.7 % (13.4-35.0); Mean Corpuscular HGB Conc 35 % (32-34); Mean Corpuscular Volume 84 fl (84-94); Monocytes # (Auto) 0.7 K/mm3 (0.0-0.8); Platelet Count 236 K/mm3 (140-440); Red Blood Count 4.43 M/mm3 (3.65-5.03); Red Cell Distribution Width 14.4 % (13.2-15.2)
[2020-12-31 04:56] LABS: INR 0.99 (0.87-1.13)
[2020-12-31 05:01] LABS: BUN/Creatinine Ratio 13; Blood Urea Nitrogen 14 mg/dL (9-20); Calcium 8.6 mg/dL (8.4-10.2); Hemolysis Index 7
[2020-12-31] MEDS: SODIUM CHLORIDE 0.9% 1000 ML 1,000 ML IV SCH ×3 (05:22→08:21)
[2020-12-31] MEDS: CLOPIDOGREL 75 MG TAB PO SCH (05:32)
[2020-12-31] MEDS: ASPIRIN EC 325 MG TAB PO SCH (05:32)
[2020-12-31] MEDS: traMADol 50 MG TAB PO PRN (05:33)
[2020-12-31] MEDS: LEVOTHYROXINE 25 MCG TAB PO SCH (05:34)
[2020-12-31] MEDS: LEVOTHYROXINE 112 MCG TAB PO SCH (05:34)
[2020-12-31] MEDS: fentaNYL 100 MCG/2 ML INJ ONE ×2 (07:40→08:10)
[2020-12-31] MEDS: MIDAZOLAM 2 MG/2 ML INJ ONE ×2 (07:40→08:10)
[2020-12-31] MEDS: HEPARIN/NS 5000 UNIT/500ML 1,000 ML IR ONE ×3 (07:40→08:20)
[2020-12-31] MEDS: LIDOCAINE (2%) 20 MG/1 ML VIAL 20 ML MDV INFILTRATI ONE ×2 (07:45→08:11)
[2020-12-31] MEDS: NITROGLYCERIN SYRINGE 3 ML ONE ×3 (07:45→08:22)
[2020-12-31] MEDS: VERAPAMIL 5 MG/2 ML INJ ONE ×2 (07:51→08:11)
[2020-12-31] MEDS: HEPARIN 10,000 UNITS/10 ML VIAL ONE ×2 (07:51→08:11)
[2020-12-31] MEDS ORDERED: EPINEPHrine 1 MG/10 ML SYRINGE ONE (07:53)
[2020-12-31] MEDS ORDERED: ATROPINE 0.1% (1 MG/10 ML) CARDIAC SYRINGE ONE (07:53)
[2020-12-31] MEDS ORDERED: LIDOCAINE PF 100 MG/5 ML (CARDIAC SYRINGE) IV ONE (07:53)
[2020-12-31] MEDS: PHENYLEPHRINE/NS 1,000 MCG/10 ML SYRINGE (OR USE) IV ONE ×2 (07:55→08:11)
[2020-12-31] MEDS: DOPamine/D5W 800 MG/250 ML 800 MG/250 ML BAG IV ONE ×2 (08:00→08:25)
[2020-12-31] MEDS ORDERED: HEPARIN 10,000 UNITS/10 ML VIAL ONE (08:19)
[2020-12-31] MEDS ORDERED: HYDROcodone/ACETAMINOPHEN 5-325 MG TAB PO PRN (08:55)
--- NOTE | 2020-12-31 09:03 | Progress Note ---
Assessment and Plan Plam: 1. NSTEMI 2. CAD S/P PCI of the osteal LCx and mid LAD 3. Cardiomyopathy 4. Depression with possible thoughts of suicide Plan 1.DAPT 2. High intensity statins 3. Patient had transient hypotension currenlty on IV hydration , restart coreg when stable BP 4. Counselling regarding importance of DAPT Subjective Date of service: 12/31/20 Principal diagnosis: NSTEMI Interval history: Tolerated PCI well Objective Vital Signs Temp Pulse Pulse Resp Resp BP Pulse Ox 12/31/20 06:30 12 12/31/20 06:00 59 L 10 L 114/71 97 12/31/20 05:33 12 12/31/20 05:00 67 12 85/56 12/31/20 04:30 53 L 12/31/20 04:00 97.3 F L 57 L 10 L 85/56 94 12/31/20 03:00 56 L 9 L 95/62 97 12/31/20 02:00 58 L 14 97/61 94 12/31/20 01:00 64 15 101/65 92 12/31/20 00:30 64 12/31/20 00:00 62 62 11 L 98/59 92 12/30/20 23:32 97.6 F 12/30/20 23:00 61 17 98/63 12/30/20 22:00 62 12 20 110/70 95 12/30/20 21:00 64 12 124/79 93 12/30/20 20:49 17 12/30/20 20:00 97.8 F 61 11 L 100/63 92 12/30/20 19:49 12 12/30/20 19:40 62 12/30/20 19:00 71 15 108/60 91 12/30/20 18:08 66 12 97/61 92 12/30/20 18:00 63 11 L 107/64 91 12/30/20 17:30 66 14 97/61 94 12/30/20 17:00 57 L 11 L 97/61 92 12/30/20 16:30 58 L 13 97/61 94 12/30/20 16:16 97.9 F 12/30/20 16:00 53 L 55 L 9 L 97/61 93 12/30/20 15:30 51 L 10 L 97/61 94 12/30/20 15:00 50 L 10 L 97/61 92 12/30/20 14:30 54 L 11 L 98/63 91 12/30/20 14:00 57 L 10 L 112/68 94 12/30/20 13:30 54 L 19 84/53 91 12/30/20 13:00 98 F 54 L 10 L 93/58 92 12/30/20 12:44 106/69 93 12/30/20 12:00 52 L 52 L 12/30/20 10:31 57 L 11 L 106/69 91 12/30/20 10:00 57 L 10 L 106/69 92 12/30/20 09:31 56 L 10 L 139/92 94 12/30/20 09:01 62 9 L 139/92 91 - Physical Examination HEENT: Positive: PERRL, Normocephaly Neck: Positive: trachea midline Cardiac: Positive: Reg Rate and Rhythm Lungs: Positive: clear to auscultation Neuro: Positive: Grossly Intact Abdomen: Positive: Soft Skin: Positive: Clear Extremities: Present: normal - Labs and Meds Coagulation 12/31/20 Range/Units 04:23 PT 13.7 (12.2-14.9) Sec. INR 0.99 (0.87-1.13) CBC 12/31/20 Range/Units 04:23 WBC 9.4 (4.5-11.0) K/mm3 RBC 4.43 (3.65-5.03) M/mm3 Hgb 12.9 (11.8-15.2) gm/dl Hct 37.3 (35.5-45.6) % Plt Count 236 (140-440) K/mm3 Lymph # (Auto) 2.1 (1.2-5.4) K/mm3 [place] # (Auto) 0.7 (0.0-0.8) K/mm3 Eos # (Auto) 0.3 (0.0-0.4) K/mm3 Baso # (Auto) 0.2 H (0.0-0.1) K/mm3 Comprehensive Metabolic Panel 12/31/20 Range/Units 04:23 Sodium 133 L (137-145) mmol/L Potassium 3.9 (3.6-5.0) mmol/L Chloride 97.3 L (98-107) mmol/L Carbon Dioxide 27 (22-30) mmol/L BUN 14 (9-20) mg/dL Creatinine 1.1 (0.8-1.3) mg/dL Glucose 113 H (75-100) mg/dL Calcium 8.6 (8.4-10.2) mg/dL
[2020-12-31] MEDS ORDERED: CLOPIDOGREL 75 MG TAB ONE ×2 (09:06→09:07)
[2020-12-31] MEDS ORDERED: ALUM-MAG HYDROXIDE-SIMETHICONE 200-200-20MG/5ML ORAL LIQD 30 ML ONE (09:06)
[2020-12-31] MEDS ORDERED: SODIUM CHLORIDE 0.9% 500 ML 500 ML ONE (09:15)
--- NOTE | 2020-12-31 09:35 | Cardiac Catherization Report ---
DATE OF PROCEDURE: 12/30/2020 PERCUTANEOUS INTERVENTION REPORT DATE OF PROCEDURE: 12/30/2020 PROCEDURES PERFORMED: 1. Selective left coronary angiogram. 2. Successful percutaneous intervention of the ostial circumflex and the mid LAD. INDICATION: Non-ST elevation [place]. REFERRING PHYSICIAN: Dr. Kendall Andujar. BRIEF HISTORY: The patient is a 60-year-old who presented to the hospital with chest pain, noted to have non-ST elevation [place]. He had a diagnostic left heart catheterization yesterday that showed significant circumflex and LAD stenosis. The patient is being referred for PCI of these two lesions. PROCEDURE IN DETAIL: Informed consent was obtained from the patient. The patient was cleaned and draped in the usual sterile fashion. After Tomasz's test documented the patency of the ulnar artery, a 6-Serbian radial sheath was placed in the right radial artery using the standard technique. Radial cocktail was given. Intravenous heparin was used to maintain therapeutic ACT. Initially, an XB LAD guide was used to engage the left main coronary artery. Two wires were used, one was advanced to the distal LAD and the other through the ostial stenosis of the circumflex. The patient transiently became hypotensive and hypoxic. The patient was given 1 mg of Mario-Synephrine and intravenous dopamine was started. Emergent balloon angioplasty of the ostial circumflex was done. Following this, a 2.75 x 38 mm Resolute drug-eluting stent was deployed at the ostial circumflex. We tried to post-dilate the lesion, but we were unable to because of lack of guide support. Finally, the guide actually was kicked out. The guide was then exchanged for an XB 3.5 guide catheter. The wires were readvanced into the LAD and the circumflex. After initial predilatation, a 3.0 x 18 mm Resolute drug-eluting stent was deployed in the mid LAD. This was postdilated with a 3.0 x 15 mm noncompliant balloon with good results. The LAD wire was withdrawn. A Telescope guide extension catheter was used to advance a 3.0 noncompliant balloon and the entire circumflex stent was postdilated with a 3.0 balloon. The wires were then withdrawn. Angiogram revealed excellent results. No dissection or thrombosis at the stented segment. All the rest of the vessel was noted. The sheath was removed and the patient was given 150 mg of Plavix. FINDINGS: HEMODYNAMICS: AO 127/70. ANGIOGRAM DETAILS: 1. Left main is angiographically normal. 2. LAD is highly ectatic. Just after the takeoff of the diagonal 1, there is an ectatic 80% and hazy stenosis. The distal LAD is severely ectatic and severely diseased and is not amenable for PCI. 3. The circumflex is in the ostial subtotal occlusion. LESION DETAILS: 1. Ostial circumflex. 2. Preprocedure stenosis is greater than 90% with VAN 0 to VAN 1 flow. 3. Stent deployed 2.75 x 38 mm Resolute drug-eluting stent. 4. Postprocedure stenosis 0% and postprocedure VAN flow is 3. 5. Lesion #2 mid LAD. 6. Preprocedure stenosis is 80-90% with VAN 2-3 flow. 7. Stent deployed is 3.0 x 18 mm Resolute [place] drug-eluting stent. 8. Postprocedure stenosis 0% with VAN 3 flow. IMPRESSION: 1. Status post successful percutaneous intervention of the ostial circumflex in the mid LAD with drug-eluting stents as described above. 2. Intraprocedure cardiogenic shock, treated with dopamine and Mario-Synephrine that has since resolved. PLAN: 1. Aspirin for life. 2. Plavix for 1 year, preferably more. 3. Aggressive treatment of residual coronary artery disease. 4. Routine radial artery sheath care. TID: [id number] RECEIPT: [id number] /[facility]
[2020-12-31] MEDS: METOPROLOL SUCCINATE XL 25 MG TAB PO SCH (09:54)
[2020-12-31] MEDS ORDERED: CLOPIDOGREL 75 MG TAB PO SCH (10:00)
[2020-12-31] MEDS: SERTRALINE 100 MG TAB PO SCH (10:06)
[2020-12-31] MEDS: risperiDONE 0.25 MG TAB PO SCH ×2 (10:06→22:37)
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
[2020-12-31] MEDS: INSULIN LISPRO 100 UNIT/ML SUB-Q SCH ×4 (12:18→22:36)
[2020-12-31] MEDS: ASPIRIN 81 MG TAB CHEW PO SCH (12:19)
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
[2020-12-31] MEDS: traZODone 50 MG TAB PO SCH (22:35)
[2021-01-01] MEDS: LEVOTHYROXINE 25 MCG TAB PO SCH (05:20)
[2021-01-01] MEDS: LEVOTHYROXINE 112 MCG TAB PO SCH (05:20)
[2021-01-01 05:30] LABS: Basophils % (Auto) 0.5 % (0.0-1.8); Eosinophils # (Auto) 0.2 K/mm3 (0.0-0.4); Eosinophils % (Auto) 1.9 % (0.0-4.3); Hematocrit 36.4 % (35.5-45.6); Hemoglobin 12.4 gm/dl (11.8-15.2); Lymphocytes # (Auto) 1.6 K/mm3 (1.2-5.4); Lymphocytes % (Auto) 16.2 % (13.4-35.0); Mean Corpuscular HGB Conc 34 % (32-34); Mean Corpuscular Volume 86 fl (84-94); Monocytes # (Auto) 0.9 K/mm3 (0.0-0.8); Platelet Count 220 K/mm3 (140-440); Red Blood Count 4.23 M/mm3 (3.65-5.03); Red Cell Distribution Width 14.2 % (13.2-15.2)
[2021-01-01 05:51] LABS: BUN/Creatinine Ratio 10; Blood Urea Nitrogen 9 mg/dL (9-20); Calcium 8.5 mg/dL (8.4-10.2); Hemolysis Index 18
--- NOTE | 2021-01-01 06:00 | XRay Report ---
CHEST 1 VIEW, 01/01/2021 4:05 AM CLINICAL INFORMATION/INDICATION: Post PCI COMPARISON: Chest radiograph, 12/29/2020 FINDINGS: SUPPORT DEVICES: None. HEART: The cardiac silhouette is normal in size. LUNGS/PLEURA: The lungs are clear of focal airspace disease or significant pleural effusion. ADDITIONAL FINDINGS: No additional acute findings. IMPRESSION: 1. No evidence of acute cardiopulmonary process. Signer Name: Kayla Turner MD Signed: 01/01/2021 5:56 AM Workstation Name: [id number]
[2021-01-01] MEDS: METOPROLOL SUCCINATE XL 25 MG TAB PO SCH (09:49)
[2021-01-01] MEDS: INSULIN LISPRO 100 UNIT/ML SUB-Q SCH ×4 (09:49→21:24)
[2021-01-01] MEDS: risperiDONE 0.25 MG TAB PO SCH ×2 (09:50→21:24)
[2021-01-01] MEDS: ASPIRIN 81 MG TAB CHEW PO SCH (09:50)
[2021-01-01] MEDS: SERTRALINE 100 MG TAB PO SCH (09:50)
[2021-01-01] MEDS: CLOPIDOGREL 75 MG TAB PO SCH (09:50)
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
[2021-01-01] MEDS: traZODone 50 MG TAB PO SCH (21:24)
[2021-01-02] MEDS: LEVOTHYROXINE 150 MCG TAB PO SCH (05:09)
[2021-01-02 06:05] LABS: Hematocrit 34.9 % (35.5-45.6)
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
[2021-01-02] MEDS: INSULIN LISPRO 100 UNIT/ML SUB-Q SCH ×4 (09:27→21:50)
[2021-01-02] MEDS: SERTRALINE 100 MG TAB PO SCH (11:45)
[2021-01-02] MEDS: ASPIRIN 81 MG TAB CHEW PO SCH (11:45)
--- NOTE | 2021-01-02 11:45 | Progress Note ---
Assessment and Plan Plam: 1. NSTEMI 2. CAD S/P PCI of the osteal LCx and mid LAD 3. Cardiomyopathy 4. Depression with possible thoughts of suicide Plan 1.DAPT 2. High intensity statins 3. Routine aggressive medical therapy post non-ST elevation [place] 4. Counselling regarding importance of DAPT 5. Stable to DC from cardiac standpoint Subjective Date of service: 01/02/21 Principal diagnosis: NSTEMI Interval history: Doing well no complaints Objective Vital Signs Temp Pulse Pulse Resp BP Pulse Ox 01/02/21 08:29 97.6 F 65 16 109/63 94 01/02/21 08:00 79 01/02/21 04:17 62 94 01/02/21 04:16 79 91 01/02/21 04:07 99.0 F 63 18 97/55 87 01/01/21 23:12 98.5 F 60 18 107/61 94 01/01/21 22:00 95 01/01/21 21:00 60 01/01/21 19:14 98.2 F 58 L 18 92/56 93 01/01/21 17:50 105/66 99 01/01/21 17:00 97.9 F 64 8 L 97/64 98 01/01/21 16:00 53 L 61 10 L 94/63 98 01/01/21 15:00 60 10 L 103/71 98 01/01/21 14:00 60 11 L 94/58 99 01/01/21 13:11 99 01/01/21 13:00 62 11 L 106/69 99 01/01/21 12:00 98.1 F 67 61 11 L 116/77 98 - Physical Examination HEENT: Positive: PERRL, Normocephaly, Mucus Membranes Moist Neck: Positive: trachea midline Cardiac: Positive: Reg Rate and Rhythm Lungs: Positive: clear to auscultation Neuro: Positive: Grossly Intact Abdomen: Positive: Unremarkable, Soft Skin: Positive: Clear Extremities: Present: normal - Labs and Meds CBC 01/02/21 Range/Units 05:30 Hgb 12.0 (11.8-15.2) gm/dl Hct 34.9 L (35.5-45.6) % Plt Count 221 (140-440) K/mm3
[2021-01-02] MEDS: CLOPIDOGREL 75 MG TAB PO SCH (11:46)
[2021-01-02] MEDS: risperiDONE 0.25 MG TAB PO SCH ×2 (11:46→21:49)
[2021-01-02] MEDS: carvediloL 3.125 MG TAB PO SCH ×2 (11:47→21:49)
[2021-01-02] MEDS: traZODone 50 MG TAB PO SCH (21:50)
[2021-01-03] MEDS: LEVOTHYROXINE 150 MCG TAB PO SCH (05:41)
[2021-01-03] MEDS: INSULIN LISPRO 100 UNIT/ML SUB-Q SCH ×4 (08:00→21:36)
--- NOTE | 2021-01-03 11:57 | Progress Note ---
Assessment and Plan - Patient Problems (1) Coronary artery disease Current Visit: Yes Status: Acute Plan to address problem: Status post two-vessel coronary intervention with drug-eluting stents deployed to the ostium of the circumflex and the mid segment of the left anterior descending artery. Continue guideline directed medical therapy, stable cardiac status. The patient's disposition will further depend on recommended management of his psychiatric illness and suicide ideations. Subjective Date of service: 01/03/21 Principal diagnosis: NSTEMI Interval history: Patient is comfortable, no cardiac complaints, no chest pain and no shortness of breath. He is tolerating guideline directed medical therapy following two- vessel coronary intervention of the ostium of the circumflex, and the mid segment of the LAD, both treated with drug-eluting stents. Objective Vital Signs Temp Pulse Resp BP BP Pulse Ox 01/03/21 09:45 92 01/03/21 07:08 98.4 F 58 L 18 116/73 90 01/03/21 04:59 97.9 F 57 L 16 117/68 89 01/03/21 00:00 59 L 01/02/21 23:58 98.1 F 61 16 123/82 94 01/02/21 23:55 98.1 F 62 16 123/82 93 01/02/21 20:04 58 L 16 104/66 93 01/02/21 17:33 97.2 F L 60 18 100/56 95 01/02/21 16:00 60 01/02/21 12:00 77 - Physical Examination General: No Apparent Distress HEENT: Positive: PERRL, Normocephaly, Mucus Membranes Moist Neck: Positive: trachea midline Cardiac: Positive: Reg Rate and Rhythm Lungs: Positive: Decreased Breath Sounds Neuro: Positive: Grossly Intact Abdomen: Positive: Soft Skin: Positive: Clear Extremities: Absent: edema
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
[2021-01-03] MEDS: risperiDONE 0.25 MG TAB PO SCH ×2 (15:11→21:16)
[2021-01-03] MEDS: carvediloL 3.125 MG TAB PO SCH ×2 (15:12→21:16)
[2021-01-03] MEDS: ASPIRIN 81 MG TAB CHEW PO SCH (15:12)
[2021-01-03] MEDS: SERTRALINE 100 MG TAB PO SCH (15:12)
[2021-01-03] MEDS: CLOPIDOGREL 75 MG TAB PO SCH (15:12)
[2021-01-03] MEDS: traZODone 50 MG TAB PO SCH (21:16)
[2021-01-04] MEDS: LEVOTHYROXINE 150 MCG TAB PO SCH (05:38)
--- NOTE | 2021-01-04 08:54 | Progress Note ---
Assessment and Plan - Patient Problems (1) NSTEMI (non-ST elevated myocardial infarction) Current Visit: No Status: Acute Plan to address problem: status post PCI to the ostium of the circumflex and the mid LAD using drug- eluting stents. On DAPT with plavix and aspirin. EF 55-60% by echo. Continue guideline directed medical therapy for coronary artery disease. Otherwise, conservative cardiac management. (2) Suicidal ideations Current Visit: Yes Status: Acute Plan to address problem: As per psych. Subjective Date of service: 01/04/21 Principal diagnosis: NSTEMI Interval history: Patient is resting in bed comfortably. Denies chest pain, denies SOB, and denies palpitations. Awaits rehab placement. Objective Vital Signs Temp Pulse Resp BP Pulse Ox 01/04/21 07:46 97.5 F L 71 18 115/69 91 01/04/21 03:26 98.3 F 63 18 103/57 94 01/03/21 23:29 98.7 F 65 18 99/59 96 01/03/21 23:00 67 01/03/21 21:16 99/55 01/03/21 19:16 98.7 F 68 18 99/55 94 01/03/21 15:47 98.8 F 65 18 94/55 95 01/03/21 15:12 66 103/62 01/03/21 15:11 103/62 01/03/21 12:00 60 01/03/21 11:23 98.0 F 58 L 18 98/59 95 01/03/21 09:45 92 - Physical Examination General: No Apparent Distress HEENT: Positive: PERRL Neck: Positive: trachea midline Cardiac: Positive: Reg Rate and Rhythm Lungs: Positive: Normal Breath Sounds Neuro: Positive: Grossly Intact Extremities: Absent: edema
[2021-01-04] MEDS: carvediloL 3.125 MG TAB PO SCH ×2 (11:23→22:13)
[2021-01-04] MEDS: SERTRALINE 100 MG TAB PO SCH (11:23)
[2021-01-04] MEDS: ASPIRIN 81 MG TAB CHEW PO SCH (11:24)
[2021-01-04] MEDS: risperiDONE 0.25 MG TAB PO SCH ×2 (11:25→22:13)
[2021-01-04] MEDS: CLOPIDOGREL 75 MG TAB PO SCH (11:29)
[2021-01-04] MEDS: INSULIN LISPRO 100 UNIT/ML SUB-Q SCH ×4 (11:29→21:39)
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
[2021-01-04] MEDS ORDERED: ALUM-MAG HYDROXIDE-SIMETHICONE 200-200-20MG/5ML ORAL LIQD 30 ML PO PRN (21:43)
[2021-01-04] MEDS: traZODone 50 MG TAB PO SCH (22:13)
[2021-01-05] MEDS: LEVOTHYROXINE 150 MCG TAB PO SCH (06:11)
[2021-01-05] MEDS: INSULIN LISPRO 100 UNIT/ML SUB-Q SCH ×4 (08:21→21:00)
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
--- NOTE | 2021-01-05 09:20 | Progress Note ---
Assessment and Plan - Patient Problems (1) NSTEMI (non-ST elevated myocardial infarction) Current Visit: No Status: Acute Plan to address problem: status post PCI to the ostium of the circumflex and the mid LAD using drug- eluting stents. On DAPT with plavix and aspirin. EF 55-60% by echo. Continue guideline directed medical therapy for coronary artery disease without interruption. Otherwise, conservative cardiac management. (2) Suicidal ideations Current Visit: Yes Status: Acute Plan to address problem: As per psych. Subjective Date of service: 01/05/21 Principal diagnosis: NSTEMI Interval history: Patient is resting in bed comfortably. Sitter is at the bedside. Awaits placement. Objective Vital Signs Temp Pulse Resp BP BP Pulse Ox 01/05/21 07:37 98.2 F 67 20 116/77 92 01/05/21 04:18 99.8 F H 79 18 143/85 91 01/05/21 00:40 99.7 F H 71 18 147/87 95 01/04/21 22:13 75 88 01/04/21 19:24 98.9 F 71 18 104/65 92 01/04/21 15:55 99.1 F 66 18 131/75 91 01/04/21 12:00 65 01/04/21 11:28 67 01/04/21 11:23 67 110/65 01/04/21 11:15 98.0 F 69 18 110/65 93 01/04/21 09:20 94 - Physical Examination General: No Apparent Distress HEENT: Positive: PERRL Neck: Positive: trachea midline Cardiac: Positive: Reg Rate and Rhythm Lungs: Positive: Decreased Breath Sounds Neuro: Positive: Grossly Intact Extremities: Absent: edema
[2021-01-05] MEDS: SERTRALINE 100 MG TAB PO SCH (10:46)
[2021-01-05] MEDS: risperiDONE 0.25 MG TAB PO SCH ×2 (10:46→21:00)
[2021-01-05] MEDS: ASPIRIN 81 MG TAB CHEW PO SCH (10:46)
[2021-01-05] MEDS: CLOPIDOGREL 75 MG TAB PO SCH (10:46)
[2021-01-05] MEDS: carvediloL 3.125 MG TAB PO SCH ×2 (10:46→21:00)
[2021-01-05] MEDS: traZODone 50 MG TAB PO SCH (21:00)
[2021-01-06] MEDS: LEVOTHYROXINE 150 MCG TAB PO SCH (05:32)
[2021-01-06] MEDS: ASPIRIN 81 MG TAB CHEW PO SCH (09:36)
[2021-01-06] MEDS: SERTRALINE 100 MG TAB PO SCH (09:36)
[2021-01-06] MEDS: CLOPIDOGREL 75 MG TAB PO SCH (09:36)
[2021-01-06] MEDS: carvediloL 3.125 MG TAB PO SCH (09:36)
[2021-01-06] MEDS: risperiDONE 0.25 MG TAB PO SCH (09:36)
[2021-01-06] MEDS: INSULIN LISPRO 100 UNIT/ML SUB-Q SCH ×2 (09:37→11:50)
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
--- NOTE | 2021-01-06 10:26 | Progress Note ---
Assessment and Plan - Patient Problems (1) NSTEMI (non-ST elevated myocardial infarction) Current Visit: No Status: Acute Plan to address problem: status post PCI to the ostium of the circumflex and the mid LAD using drug- eluting stents. On DAPT with plavix and aspirin. EF 55-60% by echo. Continue guideline directed medical therapy for coronary artery disease without interruption. Otherwise, conservative cardiac management. (2) Suicidal ideations Current Visit: Yes Status: Acute Plan to address problem: As per psych. Subjective Date of service: 01/06/21 Principal diagnosis: NSTEMI Interval history: Patient is resting in bed comfortably. Sitter is at the bedside. Awaits placement. Objective Vital Signs Temp Pulse Resp BP BP Pulse Ox 01/06/21 10:00 59 L 17 97 01/06/21 09:37 61 110/68 01/06/21 09:36 61 110/68 01/06/21 07:38 97.7 F 59 L 20 108/64 94 01/06/21 03:48 98.4 F 62 20 110/62 86 01/06/21 00:04 98.4 F 63 18 111/63 91 01/05/21 19:11 98.6 F 71 18 115/70 86 01/05/21 16:00 98.7 F 64 16 96/52 01/05/21 12:11 97.5 F L 61 16 101/64 90 - Physical Examination General: No Apparent Distress HEENT: Positive: PERRL Neck: Positive: trachea midline Cardiac: Positive: Reg Rate and Rhythm Lungs: Positive: Decreased Breath Sounds Neuro: Positive: Grossly Intact Extremities: Absent: edema
--- NOTE | 2021-01-06 11:04 | Electrocardiograph Report ---
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
--- NOTE | 2021-01-06 11:08 | Electrocardiograph Report ---
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
--- NOTE | 2021-01-06 12:47 | Electrocardiograph Report ---
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
[2021-01-06 17:13] VITALS: BP 107/57
== END 2021-01-06 17:41 | DRG 246 ==
LOC: EEVIPCON 19:36 → ED 19:36 → IMCU 23:34 → 4A 01-01 18:12
PROVIDERS: ADMIT Internal Medicine Geriatric Medicine; ATTEND Internal Medicine
PROC: 3E0234Z Introduction of Serum, Toxoid and Vaccine into Muscle, Percutaneous Approach (ICD-10-PCS; 2020-12-30)
PROC: 4A023N7 Measurement of Cardiac Sampling and Pressure, Left Heart, Percutaneous Approach (ICD-10-PCS; 2020-12-30)
PROC: B2111ZZ Fluoroscopy of Multiple Coronary Arteries using Low Osmolar Contrast (ICD-10-PCS; 2020-12-30)
PROC: B2151ZZ Fluoroscopy of Left Heart using Low Osmolar Contrast (ICD-10-PCS; 2020-12-30)
PROC: 027135Z Dilation of Coronary Artery, Two Arteries with Two Drug-eluting Intraluminal Devices, Percutaneous Approach (ICD-10-PCS; principal; 2020-12-31)
PROC: B2111ZZ Fluoroscopy of Multiple Coronary Arteries using Low Osmolar Contrast (ICD-10-PCS; 2020-12-31)
DX: I21.4 Non-ST elevation (NSTEMI) myocardial infarction (principal); R57.0 Cardiogenic shock; R45.851 Suicidal ideations; I42.9 Cardiomyopathy, unspecified; I11.9 Hypertensive heart disease without heart failure; E11.8 Type 2 diabetes mellitus with unspecified complications; E03.9 Hypothyroidism, unspecified; F32.9 Major depressive disorder, single episode, unspecified; Z20.822 Contact with and (suspected) exposure to COVID-19; I25.10 Atherosclerotic heart disease of native coronary artery without angina pectoris; Z87.820 Personal history of traumatic brain injury; Z79.82 Long term (current) use of aspirin; Z79.899 Other long term (current) drug therapy; Z82.49 Family history of ischemic heart disease and other diseases of the circulatory system; Z23 Encounter for immunization
CPT/HCPCS: 36415; 71045; 71046; 80048; 80061; 80307; 80320; 81001; 82962; 84439; 84443; 84484; 85014; 85018; 85025; 85049; 85347; 85520; 85610; 85730; 87641; 90471; 90732; 92928; 92929; 93005; 93306; 93458; 96374; G0378; A9270-GY; C1725; C1769; C1874; C1887; C1894; C9600; C9601; G0009; G0480; J0171; J0461; J1265; J1644; J1815; J2001; J2250; J2270; J2370; J2405; J3010; J7030; J7040; Q9967; U0003

== ENCOUNTER 2021-01-06 10:17 | Inpatient (IN) | payer MEDICARE ==
[2021-01-06] MEDS ORDERED: DEXTROSE 50% IN WATER (25GM) 50 ML SYRINGE IV PRN (11:28)
[2021-01-06] MEDS ORDERED: ALBUTEROL 2.5 MG/3 ML NEBU IH PRN (11:36)
[2021-01-06] MEDS ORDERED: ONDANSETRON 4 MG ODT TAB PO PRN (11:36)
[2021-01-06] MEDS ORDERED: ACETAMINOPHEN 325 MG TAB PO PRN (11:36)
[2021-01-06] MEDS ORDERED: hydrALAZINE 20 MG/1 ML INJ IV PRN (11:36)
[2021-01-06] MEDS ORDERED: NITROGLYCERIN 0.4 MG TAB SUBL SL PRN (11:36)
[2021-01-06] MEDS ORDERED: POLYETHYLENE GLYCOL 3350 17 GM POWDER PO PRN (11:36)
--- NOTE | 2021-01-06 21:10 | History and Physical Report ---
History of Present Illness Date: 01/06/21 Date of admission: 01/06/21 17:41 Chief Complaint: Debility with NSTEMI and prior TBI History of present illness: 60-year-old male who states that he was tired of being in pain and decided to take his life by taking a handful of pills including what he counts as 30 Xanax. Patient was then noted to have second thoughts on the matter and contacted 911 and was transported to the ED. However this is a different recollection as to what was seen in the prior medical record which states that the patient sent a text message to his roommate stating that he was going to walk out into traffic. Of note, urine drug screen was negative for any benzodiazepines or opiates at the time of admission. Psych was consulted and the patient was deemed to be at no risk to himself currently. On my interview the patient does state that he suffers from chronic pain and does not want to harm himself any longer. Sitter was discontinued previously on the acute care side. Patient does live in a skilled nursing setting. Have talked to his community cage cashier and she states that they will reserve his room for him. He was worked up and found to have an NSTEMI and later taken to the cardiac Drain Cleaner. He received stents and was placed on dual antiplatelet therapy. Since his intervention, blood pressure and glucose have been fairly well controlled on current medications. Most recent A1c noted in the computer is from January 2020 and was 6.5. We will obtain a new A1c. Lipids were within a regular range except for elevated triglycerides at 186. After the patient was medically stabilized they were transferred for further rehabilitation. All available medical records have been reviewed. Plan of care was discussed with patient. On 01/05/2021, a day prior to seeing the patient, all medical records available were reviewed which took approximately 35 minutes. Summary of said review is as above. Past History Past Medical History: diabetes, hypertension, hyperlipidemia, hypothyroidism, o ther (TBI) Past Surgical History: Other (Left upper extremity repair) Social history: other (Lives in a skilled nursing, history of polysubstance/alcohol/t obacco abuse) Family history: CAD Medications and Allergies Allergies Allergy/AdvReac Type Severity Reaction Status Date / Time No Known Allergies Allergy Verified 12/29/20 23:23 Home Medications Medication Instructions Recorded Confirmed Last Taken Type Aspirin [Adult Aspirin] 81 mg PO QDAY #30 tablet. 02/04/20 01/07/21 Unknown Rx Melatonin [Melatonin 5MG TAB] 5 mg PO QHS #30 tablet 02/04/20 01/07/21 Unknown Rx Sertraline [Zoloft] 100 mg PO QDAY #30 tablet 02/04/20 01/07/21 Unknown Rx metFORMIN [Glucophage] 500 mg PO QDAY #30 tab 02/04/20 01/07/21 Unknown Rx risperiDONE [RisperDAL] 0.5 mg PO BID #60 tablet 02/04/20 01/07/21 Unknown Rx traZODone [Desyrel] 50 mg PO QHS #30 tablet 02/04/20 01/07/21 Unknown Rx Acetaminophen [Acetaminophen TAB] 650 mg PO Q6H PRN tablet 01/06/21 01/07/21 Unknown Rx Antacid [Alum-Mag Hydrox-Simeth 30 ml PO Q8H PRN oral.liqd 01/06/21 01/07/21 Unknown Rx [id number]/5Ml] AtorvaSTATin [Lipitor] 80 mg PO QHS tablet 01/06/21 01/07/21 Unknown Rx Clopidogrel [Plavix] 75 mg PO QDAY tablet 01/06/21 01/07/21 Unknown Rx ISOSORBIDE MONOnitrate [Imdur ER] 30 mg PO QDAY tablet 01/06/21 01/07/21 Unknown Rx Levothyroxine [Synthroid] 150 mcg PO DAILY@0600 tablet 01/06/21 01/07/21 Unknown Rx Lispro Insulin [HumaLOG] 0 unit SUB-Q ACHS units 01/06/21 01/07/21 Unknown Rx Magnesium Hydroxide [Milk of 30 ml PO Q4H PRN oral.liqd 01/06/21 01/07/21 Unknown Rx Magnesia] Nitroglycerin [Nitrostat] 0.4 mg SL Q5M PRN tablet 01/06/21 01/07/21 Unknown Rx carvediloL [Coreg] 3.125 mg PO BID tablet 01/06/21 01/07/21 Unknown Rx Active Meds: Active Medications Acetaminophen (Acetaminophen 325 Mg Tab) 650 mg PO Q6H PRN PRN Reason: Non Cardiac Pain or Temp>100.5 Hydrocodone Bitart/Acetaminophen (Hydrocodone/Acetaminophen 5-325 Mg Tab) 1 each PO Q6H PRN PRN Reason: Pain, Moderate (4-6) Albuterol (Albuterol 2.5 Mg/3 Ml Nebu) 2.5 mg IH Q4HRT PRN PRN Reason: Shortness Of Breath Aspirin (Aspirin Ec 81 Mg Tab) 81 mg PO QDAY [facility] Atorvastatin Calcium (Atorvastatin 40 Mg Tab) 80 mg PO QHS [facility] Bisacodyl (Bisacodyl 10 Mg Rect Supp) 10 mg [place] QDAY PRN PRN Reason: Constipation Carvedilol (Carvedilol 3.125 Mg Tab) 3.125 mg PO BID [facility] Clopidogrel Bisulfate (Clopidogrel 75 Mg Tab) 75 mg PO QDAY [facility] Dextrose (Dextrose 50% In Water (25gm) 50 Ml Syringe) 50 ml IV Q30MIN PRN; Protocol PRN Reason: Hypoglycemia Enoxaparin Sodium (Enoxaparin 40 Mg/0.4 Ml Inj) 40 mg SUB-Q QDAY [facility] Hydralazine HCl (Hydralazine 20 Mg/1 Ml Inj) 10 mg IV Q4HR PRN PRN Reason: Hypertension Insulin Human Lispro (Insulin Lispro 100 Unit/Ml) 0 unit SUB-Q [facility]; Protocol Isosorbide Mononitrate (Isosorbide Mononitrate Er 30 Mg Tab) 30 mg PO QDAY [facility] Levothyroxine Sodium (Levothyroxine 150 Mcg Tab) 150 mcg PO DAILY@0600 [facility] Nitroglycerin (Nitroglycerin 0.4 Mg Tab Subl) 0.4 mg SL .Q5MIN PRN PRN Reason: Chest Pain Ondansetron HCl (Ondansetron 4 Mg Odt Tab) 4 mg PO Q8H PRN PRN Reason: Nausea And Vomiting Polyethylene Glycol (Polyethylene Glycol 3350 17 Gm Powder) 17 gm PO QDAY PRN PRN Reason: Constipation Risperidone (Risperidone 0.25 Mg Tab) 0.5 mg PO BID [facility] Sertraline HCl (Sertraline 100 Mg Tab) 100 mg PO QDAY [facility] Trazodone HCl (Trazodone 50 Mg Tab) 50 mg PO QHS [facility] Review of Systems All systems: negative (ROS negative for 10 systems except as noted below with pertinent positives and negatives.) Constitutional: no weight loss, no fever, no chills Ears, nose, mouth and throat: no decreased hearing, no dysphagia Cardiovascular: no chest pain, no palpitations, no rapid/irregular heart beat Respiratory: dyspnea on exertion, no cough, no hemoptysis, no home oxygen Gastrointestinal: no abdominal pain, no nausea, no vomiting, no diarrhea, no constipation Genitourinary Male: no dysuria, no incontinence Integumentary: sores, no rash, no pruritis Neurological: head injury, parathesias, numbness, headaches, change in speech, change in mentation, confusion Psychiatric: suicidal ideation, disorientation, confusion Exam - Exam Narrative exam: MUSCULOSKELETAL SPECIALTY EXAM CONSTITUTIONAL: Well developed, well nourished, slightly disheveled, obese, left hand dominant LYMPHATIC: No appreciable abnormalities palpable in neck EENT: Visual henderson full to confrontation. EOMI. Oropharynx clear. Hearing intact to soft voice RESPIRATORY: Clear to auscultation bilaterally, no increased work of breathing, on supplemental O2 via nasal cannula CARDIOVASCULAR: Regular Rate/ Rhythm, no swelling, edema or tenderness in BUE or BLE. Pulses palpable in all extremities. All extremities warm. GI: + bowel sounds, soft, NTTP, nondistended. INTEGUMENTARY: Sores on bilateral lower extremities, otherwise normal, no lesion, rash, masses or bruising noted in extremities. MUSCULOSKELETAL: Left upper extremity with contracted hand, decreased range of motion, radial deviation of the hand which is swollen and decreased elbow extension, otherwise BUE and BLE normal without defect, crepitus, subluxation, effusion, arthritic changes or TTP. BUE 4+/5, good ROM, with normal tone. BLE 4+/5 good ROM, with normal tone NEURO: CN 2-12 grossly intact. Sensation intact in all extremities with decreased sensation in the bilateral lower extremities and right ulnar distribution neuropathy. Reflexes 1+ bilaterally at biceps, brachioradialis and patella. No clonus at ankles. Coordination intact in RUE and decreased in the LUE. No tremor noted in 4 extremities. POSTURE and GAIT: Sitting posture good. Balance and gait deferred until seen with therapy. PSYCH: Alert, disoriented, affect appears blunted. Insight appears impaired. Patient denies current suicidal ideation and does not have a plan. Does not appear to be a danger to himself or others at this time. - Constitutional Vitals: Vital Signs - 12hr 01/06/21 19:28 Temperature 98.2 F Pulse Rate 68 Respiratory 20 Rate Blood Pressure 100/61 [Right] O2 Sat by Pulse 93 Oximetry - Labs CBC & Chem 7: 01/07/21 07:00 01/07/21 07:00 Assessment and Plan Assessment and plan: Patient was assessed and evaluated for Acute Inpatient Rehab Unit. Due to the patients above-mentioned medical complexity, along with decreased functional mobility and self care, this patient continues to require and be appropriate for a comprehensive, multidisciplinary [id number] rehabilitation program. These needs cannot be met in an outpatient or other less intensive setting. The patient would continue to benefit from skilled therapy intervention for at least 3 hours per day, five days a week, with techniques specific to the needs of the patient to improve function, activities of daily living, and reintegration into the community. The patient continues to require: -- OT to improve ROM, self-care, and learn use of adaptive equipment -- PT to improve strength and balance, functional transfers, and ambulation with energy conservation techniques to improve functional mobility -- DROP PIT WORKER to address cognitive deficits and swallowing ability -- 24 hour RN to ensure and prevent skin breakdown, promote progressive independence while ensuring safety, ensure education regarding medications, and incorporation of the rehabilitation at the bedside -- 24 hour Soil Chemist to coordinate this interdisciplinary program, and to manage/prevent complications as a result of the patients medical comorbidities. -Plan of care by day 4 -Weekly team conferences With such a program, there is a reasonable certainty that the goals individualized for this patient can be achieved within the specified length of stay. CAD: Continue dual antiplatelet therapy, cardiac monitoring. Monitor the patient during therapy and ensure that he is not becoming short of breath or developing chest pain. Give appropriate rest. Cardiology consult as needed Hypertension: Continue medication. Monitor blood pressure. Adjust medications as needed for normotension. Hold for hypotension. Goal SBP <140 Diabetes: Continue carb controlled diet, medications as needed. Goal is for euglycemia. Sliding scale insulin. Will obtain updated A1c. Patient did not have any idea of what his most recent level was or when it was done. Hypothyroidism: Levels were low in the acute care side. We will continue at increased dosing and patient should follow-up with PCP for further monitoring and adjustment. Hyperlipidemia: Continue statin Chronic pain and headaches: Continue current pain medications, utilize modalities with therapy and may look to start medication for headache if able given patient's regimen. Suicidal ideation: Story is changed as to what actually happened prior to admission. Patient currently is safe and being monitored closely. Does not require sitter and denies any intent of self-harm or harm to others. However, will avoid any addition of extra opiates or benzodiazepines given patient's reported story of wanting to overdose. Will consider psych consult if needed. ADL dysfunction: OT will work on improving ability to perform ADLs (including assistive devices) to increase independence and decrease caregiver burden and improve functional transfers and mobility training. Difficulty walking: PT will work on gait training and proper use of assistive devices and advance as appropriate to use of stairs and outside ambulation on uneven surfaces. Unsteadiness on feet: PT will work on improving static and dynamic sitting and standing balance as well as proper use of assistive devices to decrease risk of falls. Abnormality of gait: PT will work to improve safety and efficiency of gait through neuromotor training and gait training along with instruction on proper use of assistive devices. Muscle weakness: PT & OT will work on strengthening exercises to improve functional strength including mixture of closed and open kinetic chain exercises. Debility: PT & OT will work on improving overall functional status to improve participation with ADLs, mobility and social involvement. Fatigue: PT & OT will work on improving endurance through aerobic exercises and therapeutic activity while monitoring patients tolerance for activity and vital signs as needed. DVT ppx: Lovenox Pain: Continue physical modalities in therapy and pain medications as needed to achieve functional pain control. Sleep: Monitor and address as needed. Bowel: Monitor and address as needed. Appetite: Monitor and address as needed. Discharge planning: Pending therapy progress and care plan meeting. Will continue discussion with therapy team, SW, patient and family. Restrictions/ Precautions: Falls, SI, cognition WB status: FWB Functional Hx: ADLs: Independent Cognition: Independent Mobility: No AD Barriers to Discharge: Decreased mobility and ability to perform self care, balance deficits, weakness Estimated Length of Stay: 1014 days Discharge Destination: Home with family POST ADMISSION PHYSICIAN EVALUATION I have examined the patient and find that functional status, medical condition and appropriateness for IRF admission are essentially unchanged from those described in the preadmission screening. Will monitor for worsening cognitive decline, emotional outbursts consistent with chronic TBI, suicidal ideation, DVT/PE, bowel and bladder complications and complications due to hypertension, diabetes, CAD, headache and chronic pain, and electrolyte abnormalities. Will attempt to avoid occurrence of these issues or treat them if they present themselves.
[2021-01-06] MEDS: risperiDONE 0.25 MG TAB PO SCH (22:15)
[2021-01-06] MEDS: INSULIN LISPRO 100 UNIT/ML SUB-Q SCH ×3 (22:16→22:21)
[2021-01-06] MEDS: traZODone 50 MG TAB PO SCH (22:16)
[2021-01-06] MEDS: carvediloL 3.125 MG TAB PO SCH (22:21)
[2021-01-07] MEDS: LEVOTHYROXINE 150 MCG TAB PO SCH (05:30)
[2021-01-07 07:59] LABS: Basophils # (Auto) 0.1 K/mm3 (0.0-0.1); Basophils % (Auto) 0.6 % (0.0-1.8); Eosinophils # (Auto) 0.4 K/mm3 (0.0-0.4); Eosinophils % (Auto) 4.4 % (0.0-4.3); Hematocrit 33.6 % (35.5-45.6); Hemoglobin 11.6 gm/dl (11.8-15.2); Lymphocytes % (Auto) 21.1 % (13.4-35.0); Mean Corpuscular HGB Conc 35 % (32-34); Mean Corpuscular Volume 85 fl (84-94); Monocytes # (Auto) 0.9 K/mm3 (0.0-0.8); Monocytes % (Auto) 9.3 % (0.0-7.3); Platelet Count 219 K/mm3 (140-440); Red Blood Count 3.97 M/mm3 (3.65-5.03); Red Cell Distribution Width 14.2 % (13.2-15.2)
[2021-01-07 08:09] LABS: Alanine Aminotransferase 14 units/L (7-56); Albumin 3.5 g/dL (3.9-5); BUN/Creatinine Ratio 18; Blood Urea Nitrogen 16 mg/dL (9-20); Calcium 8.9 mg/dL (8.4-10.2); Hemolysis Index 1
[2021-01-07] MEDS: ENOXAPARIN 40 MG/0.4 ML INJ SUB-Q SCH (08:14)
[2021-01-07] MEDS: carvediloL 3.125 MG TAB PO SCH ×2 (08:14→23:05)
[2021-01-07] MEDS: ASPIRIN EC 81 MG TAB PO SCH (08:14)
[2021-01-07] MEDS: CLOPIDOGREL 75 MG TAB PO SCH (08:14)
[2021-01-07] MEDS: SERTRALINE 100 MG TAB PO SCH (08:14)
[2021-01-07] MEDS: risperiDONE 0.25 MG TAB PO SCH ×2 (08:15→22:58)
[2021-01-07] MEDS: INSULIN LISPRO 100 UNIT/ML SUB-Q SCH ×4 (11:06→23:52)
--- NOTE | 2021-01-07 12:39 | Progress Note ---
Subjective Date of service: 01/07/21 Principal diagnosis: Debility with NSTEMI and prior TBI Interval history: 60-year-old male who states that he was tired of being in pain and decided to take his life by taking a handful of pills including what he counts as 30 Xanax. Patient was then noted to have second thoughts on the matter and contacted 911 and was transported to the ED. However this is a different recollection as to what was seen in the prior medical record which states that the patient sent a text message to his roommate stating that he was going to walk out into traffic. Of note, urine drug screen was negative for any benzodiazepines or opiates at the time of admission. Psych was consulted and the patient was deemed to be at no risk to himself currently. On my interview the patient does state that he suffers from chronic pain and does not want to harm himself any longer. Sitter was discontinued previously on the acute care side. Patient does live in a detention setting. Have talked to his community business test analyst and she states that they will reserve his room for him. He was worked up and found to have an NSTEMI and later taken to the cardiac Triple Valve Tester. He received stents and was placed on dual antiplatelet therapy. Since his intervention, blood pressure and glucose have been fairly well controlled on current medications. Most recent A1c noted in the computer is from January 2020 and was 6.5. We will obtain a new A1c. Lipids were within a regular range exc ept for elevated triglycerides at 186. Interval History: Patient is participating in therapy and making reasonable progress. Taking rest breaks as needed. -BM. Denies palpitations, dyspnea, cough, N/V, or joint pain. CAD: Continue dual antiplatelet therapy and cardiac monitoring. Ensure that the patient does not over exert himself and if he does start to develop any chest pain or shortness of breath or if we get notification from telemetry monitoring that nursing immediately contact MD. Will need to follow-up with cardiology as an outpatient. Cardiology consult if needed. Hypertension: Continue medication. Blood pressure within limits currently. Adjust medications as needed for normotension. Diabetes: Continue carb controlled diet. Will obtain recent A1c. Sliding scale insulin available. Hypothyroidism: Continue medication at increased level due to having TSH of 28 and free T4 of 0.48. Patient will need follow-up as an outpatient in about 3 weeks for further monitoring and adjustment. Hyperlipidemia: Continue statin. Recheck as outpatient. Chronic pain and headaches: Patient continues to have chronic pain and headaches. Pain medications are available and we will continue to use movement and modalities to help alleviate his pain. May consider Fioricet over the next few days if we can find that that is beneficial for his headache. Suicidal ideation: No issues of suicidal ideation or attempt to harm himself overnight or today. Continue to monitor and keep a close eye on him for any signs of distress. 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 We will start with a low-dose of gabapentin to see if this helps to improve his neuropathic pain. As far as the right ulnar neuropathy, patient would benefit from outpatient referral for EMG/nerve conduction study to ascertain if this is a cubital tunnel entrapment or elsewhere. Afterwards he could be referred to surgery for further intervention if needed. All records, vitals, labs and medications were reviewed. No other issues per patient, nursing or therapy. Objective - Exam Narrative Exam: MUSCULOSKELETAL SPECIALTY EXAM CONSTITUTIONAL: Well developed, well nourished, slightly disheveled, obese, left hand dominant EENT: Hearing intact to soft voice RESPIRATORY: Clear to auscultation bilaterally, no increased work of breathing, on supplemental O2 via nasal cannula CARDIOVASCULAR: Regular Rate/ Rhythm, no swelling, edema or tenderness in BUE or BLE. All extremities warm. GI: + bowel sounds, soft, NTTP, nondistended. INTEGUMENTARY: Sores on bilateral lower extremities, otherwise normal, no lesion, rash, masses or bruising noted in extremities. MUSCULOSKELETAL: Left upper extremity with contracted hand, decreased range of motion, radial deviation of the hand which is swollen and decreased elbow extension, otherwise BUE and BLE normal without defect, crepitus, subluxation, effusion, arthritic changes or TTP. BUE 4+/5, good ROM, with normal tone. BLE 4+/5 good ROM, with normal tone NEURO: Sensation intact in all extremities with decreased sensation in the bilateral lower extremities and right ulnar distribution neuropathy. Coordination intact in RUE and decreased in the LUE. No tremor noted in 4 extremities. POSTURE and GAIT: Sitting posture good. Balance and gait deferred until seen with therapy. PSYCH: Alert, disoriented, affect appears blunted. Insight appears impaired. Patient denies current suicidal ideation and does not have a plan. Does not appear to be a danger to himself or others at this time. - Constitutional Vitals: Vital Signs - 12hr 01/07/21 01/07/21 01/07/21 04:58 05:00 07:52 Temperature 98.1 F 98.6 F Pulse Rate 62 59 L Respiratory 20 16 Rate Blood Pressure 104/63 111/80 O2 Sat by Pulse 94 91 Oximetry 01/07/21 08:14 Temperature Pulse Rate 59 L Respiratory Rate Blood Pressure 111/80 O2 Sat by Pulse Oximetry - Allied health notes Allied health notes reviewed: nursing, PT, OT - Labs CBC & Chem 7: 01/07/21 07:00 01/07/21 07:00 Labs: Laboratory Results - last 72 hr 01/07/21 01/07/21 01/07/21 07:00 07:00 08:52 WBC 9.6 RBC 3.97 Hgb 11.6 L Hct 33.6 L MCV 85 MCH 29 MCHC 35 H RDW 14.2 Plt Count 219 Lymph % (Auto) 21.1 [place] % (Auto) 9.3 H Eos % (Auto) 4.4 H Baso % (Auto) 0.6 Lymph # (Auto) 2.0 [place] # (Auto) 0.9 H Eos # (Auto) 0.4 Baso # (Auto) 0.1 Seg Neutrophils % 64.6 Seg Neutrophils # 6.2 Sodium 136 L Potassium 4.0 Chloride 99.5 Carbon Dioxide 27 Anion Gap 14 BUN 16 Creatinine 0.9 Estimated GFR > 60 BUN/Creatinine Ratio 18 Glucose 96 POC Glucose 123 H Calcium 8.9 Total Bilirubin 0.40 AST 15 ALT 14 Alkaline Phosphatase 75 Total Protein 6.1 L Albumin 3.5 L Albumin/Globulin Ratio 1.3 Assessment and Plan CAD: Continue dual antiplatelet therapy, cardiac monitoring. Monitor the patient during therapy and ensure that he is not becoming short of breath or developing chest pain. Give appropriate rest. Cardiology consult as needed. Patient will need to follow-up with cardiology after discharge. Hypertension: Continue medication. Monitor blood pressure. Adjust medications as needed for normotension. Hold for hypotension. Goal SBP <140 Diabetes: Continue carb controlled diet, medications as needed. Goal is for euglycemia. Sliding scale insulin. Will obtain updated A1c. Patient did not have any idea of what his most recent level was or when it was done. Hypothyroidism: Levels were low in the acute care side. We will continue at increased dosing and patient should follow-up with PCP for further monitoring and adjustment. Hyperlipidemia: Continue statin Chronic pain and headaches: Continue current pain medications, utilize modalities with therapy and may look to start medication for headache if able given patient's regimen. Right ulnar neuropathy: Bilateral lower extremity neuropathy: Suicidal ideation: Story is changed as to what actually happened prior to admission. Patient currently is safe and being monitored closely. Does not require sitter and denies any intent of self-harm or harm to others. However, will avoid any addition of extra opiates or benzodiazepines given patient's reported story of wanting to overdose. Will consider psych consult if needed. ADL dysfunction: OT will work on improving ability to perform ADLs (including assistive devices) to increase independence and decrease caregiver burden and improve functional transfers and mobility training. Difficulty walking: PT will work on gait training and proper use of assistive devices and advance as appropriate to use of stairs and outside ambulation on uneven surfaces. Unsteadiness on feet: PT will work on improving static and dynamic sitting and standing balance as well as proper use of assistive devices to decrease risk of falls. Abnormality of gait: PT will work to improve safety and efficiency of gait through neuromotor training and gait training along with instruction on proper use of assistive devices. Muscle weakness: PT & OT will work on strengthening exercises to improve functional strength including mixture of closed and open kinetic chain exercises. Debility: PT & OT will work on improving overall functional status to improve participation with ADLs, mobility and social involvement. Fatigue: PT & OT will work on improving endurance through aerobic exercises and therapeutic activity while monitoring patients tolerance for activity and vital signs as needed. DVT ppx: Lovenox Pain: Continue physical modalities in therapy and pain medications as needed to achieve functional pain control. Sleep: Monitor and address as needed. Bowel: Monitor and address as needed. Appetite: Monitor and address as needed. Discharge planning: Pending therapy progress and care plan meeting. Will c ontinue discussion with therapy team, SW, patient and family. Restrictions/ Precautions: Falls, SI, cognition WB status: FWB Functional Hx: ADLs: Independent Cognition: Independent Mobility: No AD Barriers to Discharge: Decreased mobility and ability to perform self care, balance deficits, weakness Estimated Length of Stay: 1014 days Discharge Destination: Home to detention
[2021-01-07] MEDS: traZODone 50 MG TAB PO SCH (22:58)
[2021-01-08] MEDS: LEVOTHYROXINE 150 MCG TAB PO SCH (06:31)
[2021-01-08 07:32] LABS: Hemoglobin 12.5 gm/dl (11.8-15.2); Mean Corpuscular HGB Conc 34 % (32-34); Mean Corpuscular Volume 87 fl (84-94); Red Blood Count 4.26 M/mm3 (3.65-5.03); Red Cell Distribution Width 14.5 % (13.2-15.2)
[2021-01-08 07:55] LABS: BUN/Creatinine Ratio 21; Blood Urea Nitrogen 17 mg/dL (9-20); Calcium 9.1 mg/dL (8.4-10.2); Hemolysis Index 39
--- NOTE | 2021-01-08 07:58 | Progress Note ---
Subjective Date of service: 01/08/21 Principal diagnosis: Debility with NSTEMI and prior TBI Interval history: 60-year-old male who states that he was tired of being in pain and decided to take his life by taking a handful of pills including what he counts as 30 Xanax. Patient was then noted to have second thoughts on the matter and contacted 911 and was transported to the ED. However this is a different recollection as to what was seen in the prior medical record which states that the patient sent a text message to his roommate stating that he was going to walk out into traffic. Of note, urine drug screen was negative for any benzodiazepines or opiates at the time of admission. Psych was consulted and the patient was deemed to be at no risk to himself currently. On my interview the patient does state that he suffers from chronic pain and does not want to harm himself any longer. Sitter was discontinued previously on the acute care side. Patient does live in a residential setting. Have talked to his community hydrology technician and she states that they will reserve his room for him. He was worked up and found to have an NSTEMI and later taken to the cardiac Broach Grinder. He received stents and was placed on dual antiplatelet therapy. Since his intervention, blood pressure and glucose have been fairly well controlled on current medications. Most recent A1c noted in the computer is from January 2020 and was 6.5. We will obtain a new A1c. Lipids were within a regular range exc ept for elevated triglycerides at 186. Interval History: Patient is participating in therapy and making reasonable progress. Taking rest breaks as needed. -BM. Denies palpitations, dyspnea, cough, N/V, or joint pain. Patient does admit to rash on his back which is itchy. CAD: Continue dual antiplatelet therapy and cardiac monitoring. Ensure that the patient does not over exert himself and if he does start to develop any chest pain or shortness of breath or if we get notification from telemetry monitoring that nursing immediately contact MD. Will need to follow-up with cardiology as an outpatient. Cardiology consult if needed. Hypertension: Continue medication. Blood pressure within limits currently. Adjust medications as needed for normotension. Rash: Widespread across the patient's back. Not consistent with zoster or scabies. Likely due to contact with bedding, will start symptomatic relief with Benadryl cream and monitor for improvement. Diabetes: Continue carb controlled diet. Will obtain recent A1c (labs pending). Sliding scale insulin available. Hypothyroidism: Continue medication at increased level due to having TSH of 28 and free T4 of 0.48. Patient will need follow-up as an outpatient in about 3 weeks for further monitoring and adjustment. Hyperlipidemia: Continue statin. Recheck as outpatient. Chronic pain and headaches: Patient continues to have chronic pain and headaches. Pain medications are available and we will continue to use movement and modalities to help alleviate his pain. May consider Fioricet over the next few days if we can find that that is beneficial for his headache. Suicidal ideation: No issues of suicidal ideation or attempt to harm himself overnight or today. Continue to monitor and keep a close eye on him for any signs of distress. 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 We will start with a low-dose of gabapentin to see if this helps to improve his neuropathic pain. As far as the right ulnar neuropathy, patient would benefit from outpatient referral for EMG/nerve conduction study to ascertain if this is a cubital tunnel entrapment or elsewhere. Afterwards he could be referred to surgery for further intervention if needed. All records, vitals, labs and medications were reviewed. No other issues per patient, nursing or therapy. Objective - Exam Narrative Exam: MUSCULOSKELETAL SPECIALTY EXAM CONSTITUTIONAL: Well developed, well nourished, slightly disheveled, obese, left hand dominant EENT: Hearing intact to soft voice RESPIRATORY: Clear to auscultation bilaterally, no increased work of breathing, on supplemental O2 via nasal cannula CARDIOVASCULAR: Regular Rate/ Rhythm, no swelling, edema or tenderness in BUE or BLE. All extremities warm. GI: + bowel sounds, soft, NTTP, nondistended. INTEGUMENTARY: Sores on bilateral lower extremities, and new onset rash across the patient's back, otherwise normal, no lesion, rash, masses or bruising noted in extremities. MUSCULOSKELETAL: Left upper extremity with contracted hand, decreased range of motion, radial deviation of the hand which is swollen and decreased elbow extension, otherwise BUE and BLE normal without defect, crepitus, subluxation, effusion, arthritic changes or TTP. BUE 4+/5, good ROM, with normal tone. BLE 4+/5 good ROM, with normal tone NEURO: Sensation intact in all extremities with decreased sensation in the bilateral lower extremities and right ulnar distribution neuropathy. Coordination intact in RUE and decreased in the LUE. No tremor noted in 4 extremities. POSTURE and GAIT: Sitting posture good. Balance and gait deferred until seen with therapy. PSYCH: Alert, disoriented, affect appears blunted. Insight appears impaired. Patient denies current suicidal ideation and does not have a plan. Does not appear to be a danger to himself or others at this time. - Constitutional Vitals: Vital Signs - 12hr 01/07/21 01/07/21 01/08/21 20:00 23:05 04:00 Temperature 98.2 F 98.4 F Pulse Rate 73 64 Respiratory 18 18 Rate Blood Pressure 118/77 Blood Pressure 118/75 120/70 [Right] O2 Sat by Pulse 91 93 Oximetry 01/08/21 06:47 Temperature 98.0 F Pulse Rate 69 Respiratory 16 Rate Blood Pressure 103/77 Blood Pressure [Right] O2 Sat by Pulse 96 Oximetry - Allied health notes Allied health notes reviewed: nursing, PT, ST, OT - Labs CBC & Chem 7: 01/08/21 06:57 01/08/21 06:57 Labs: Laboratory Results - last 72 hr 01/07/21 01/07/21 01/07/21 07:00 07:00 08:52 WBC 9.6 RBC 3.97 Hgb 11.6 L Hct 33.6 L MCV 85 MCH 29 MCHC 35 H RDW 14.2 Plt Count 219 Lymph % (Auto) 21.1 [place] % (Auto) 9.3 H Eos % (Auto) 4.4 H Baso % (Auto) 0.6 Lymph # (Auto) 2.0 [place] # (Auto) 0.9 H Eos # (Auto) 0.4 Baso # (Auto) 0.1 Seg Neutrophils % 64.6 Seg Neutrophils # 6.2 Sodium 136 L Potassium 4.0 Chloride 99.5 Carbon Dioxide 27 Anion Gap 14 BUN 16 Creatinine 0.9 Estimated GFR > 60 BUN/Creatinine Ratio 18 Glucose 96 POC Glucose 123 H Calcium 8.9 Total Bilirubin 0.40 AST 15 ALT 14 Alkaline Phosphatase 75 Total Protein 6.1 L Albumin 3.5 L Albumin/Globulin Ratio 1.3 01/07/21 01/07/21 01/07/21 11:51 16:56 21:12 WBC RBC Hgb Hct MCV MCH MCHC RDW Plt Count Lymph % (Auto) [place] % (Auto) Eos % (Auto) Baso % (Auto) Lymph # (Auto) [place] # (Auto) Eos # (Auto) Baso # (Auto) Seg Neutrophils % Seg Neutrophils # Sodium Potassium Chloride Carbon Dioxide Anion Gap BUN Creatinine Estimated GFR BUN/Creatinine Ratio Glucose POC Glucose 153 H 133 H 186 H Calcium Total Bilirubin AST ALT Alkaline Phosphatase Total Protein Albumin Albumin/Globulin Ratio 01/08/21 01/08/21 06:57 06:57 WBC 9.0 RBC 4.26 Hgb 12.5 Hct 37.0 MCV 87 MCH 29 MCHC 34 RDW 14.5 Plt Count Lymph % (Auto) [place] % (Auto) Eos % (Auto) Baso % (Auto) Lymph # (Auto) [place] # (Auto) Eos # (Auto) Baso # (Auto) Seg Neutrophils % Seg Neutrophils # Sodium 133 L Potassium Chloride 96.9 L Carbon Dioxide 23 Anion Gap 17 BUN 17 Creatinine 0.8 Estimated GFR > 60 BUN/Creatinine Ratio 21 Glucose 101 H POC Glucose Calcium 9.1 Total Bilirubin AST ALT Alkaline Phosphatase Total Protein Albumin Albumin/Globulin Ratio Assessment and Plan CAD: Continue dual antiplatelet therapy, cardiac monitoring. Monitor the patient during therapy and ensure that he is not becoming short of breath or developing chest pain. Give appropriate rest. Cardiology consult as needed. Patient will need to follow-up with cardiology after discharge. Hypertension: Continue medication. Monitor blood pressure. Adjust medications as needed for normotension. Hold for hypotension. Goal SBP <140 Diabetes: Continue carb controlled diet, medications as needed. Goal is for euglycemia. Sliding scale insulin. Will obtain updated A1c. Patient did not have any idea of what his most recent level was or when it was done. Rash on back: Start Benadryl cream and monitor for resolution. May need to consider steroids if it does not improve over the next few days Hypothyroidism: Levels were low in the acute care side. We will continue at i ncreased dosing and patient should follow-up with PCP for further monitoring and adjustment. Hyperlipidemia: Continue statin Chronic pain and headaches: Continue current pain medications, utilize mo dalities with therapy and may look to start medication for headache if able given patient's regimen. Right ulnar neuropathy: We will continue treatment with modalities and possibly splint. We will add low-dose gabapentin. Patient will need to follow-up with outpatient services for EMG/nerve conduction study for possible cubital tunnel release. Bilateral lower extremity neuropathy: Start low-dose gabapentin and monitor Suicidal ideation: Story is changed as to what actually happened prior to admission. Patient currently is safe and being monitored closely. Does not require sitter and denies any intent of self-harm or harm to others. However, will avoid any addition of extra opiates or benzodiazepines given patient's reported story of wanting to overdose. Will consider psych consult if needed. ADL dysfunction: OT will work on improving ability to perform ADLs (including assistive devices) to increase independence and decrease caregiver burden and improve functional transfers and mobility training. Difficulty walking: PT will work on gait training and proper use of assistive devices and advance as appropriate to use of stairs and outside ambulation on uneven surfaces. Unsteadiness on feet: PT will work on improving static and dynamic sitting and standing balance as well as proper use of assistive devices to decrease risk of falls. Abnormality of gait: PT will work to improve safety and efficiency of gait through neuromotor training and gait training along with instruction on proper use of assistive devices. Muscle weakness: PT & OT will work on strengthening exercises to improve functional strength including mixture of closed and open kinetic chain exercises. Debility: PT & OT will work on improving overall functional status to improve participation with ADLs, mobility and social involvement. Fatigue: PT & OT will work on improving endurance through aerobic exercises and therapeutic activity while monitoring patients tolerance for activity and vital signs as needed. DVT ppx: Lovenox Pain: Continue physical modalities in therapy and pain medications as needed to achieve functional pain control. Sleep: Monitor and address as needed. Bowel: Monitor and address as needed. Appetite: Monitor and address as needed. Discharge planning: Pending therapy progress and care plan meeting. Will continue discussion with therapy team, SW, patient and family. Restrictions/ Precautions: Falls, SI, cognition WB status: FWB Functional Hx: ADLs: Independent Cognition: Independent Mobility: No AD Barriers to Discharge: Decreased mobility and ability to perform self care, balance deficits, weakness Estimated Length of Stay: 1014 days Discharge Destination: Home to residential
[2021-01-08 09:24] LABS: Platelet Count 171 K/mm3 (140-440)
[2021-01-08] MEDS: CLOPIDOGREL 75 MG TAB PO SCH (09:29)
[2021-01-08] MEDS: risperiDONE 0.25 MG TAB PO SCH ×2 (09:30→22:17)
[2021-01-08] MEDS: carvediloL 3.125 MG TAB PO SCH ×2 (09:30→22:16)
[2021-01-08] MEDS: ASPIRIN EC 81 MG TAB PO SCH (09:31)
[2021-01-08] MEDS: ENOXAPARIN 40 MG/0.4 ML INJ SUB-Q SCH (09:31)
[2021-01-08] MEDS: INSULIN LISPRO 100 UNIT/ML SUB-Q SCH ×5 (09:31→22:17)
[2021-01-08] MEDS: SERTRALINE 100 MG TAB PO SCH (09:36)
[2021-01-08] MEDS ORDERED: diphenhydrAMINE/ZINC ACET 2% CREAM 28.4 GM TP PRN (10:00)
[2021-01-08] MEDS: GABAPENTIN 300 MG CAP PO SCH (17:49)
--- NOTE | 2021-01-08 20:11 | IRU Plan of Care ---
Interdisciplinary Plan of Care - IP IRU INTERDISCIPLINARY PLAN: [facility] Plan of Care IRU Interdisciplinary Care Plan Start: 01/06/21 19:28 Freq: Admission then PRN Status: Active Protocol: Document 01/08/21 19:21 TH (Rec: 01/08/21 19:32 TH [id number]) Interdisciplinary Problem List Interdisciplinary Problem List Interdisciplinary Problem List Impaired Bathing/Grooming, Query Text:Answers will Trigger Problems Impaired Dressing,Impaired and Outcomes on Worklist. Mobility,Impaired Transfers, Impaired Toileting,Impaired Home Management,Impaired Safety IRU Interdisciplinary Care Plan Therapy Services Therapy Services Will Include: Physical Therapy,Occupational Query Text:Patient will be seen for a Therapy minimum of 3 hours of daily therapy 5 out of 7 days a week. Therapy intensity may be adjusted within a 7 consecutive day period to effectively serve the individual needs of the patient. Treatment Frequency/Intensity/Duration Treatment Frequency 5 days per week Treatment Intensity 3 hours per day Treatment Duration 7-10 days Problem Area: Eating/Swallowing Eating/Swallowing Outcomes Eating/Swallowing Interventions Problem Area: Bathing/Grooming Bathing/Grooming Outcomes Improve [place] w/ Grooming,Improve [place] w/ Bathing Bathing/Grooming Interventions ADL Training,Use of Assistive Devices,Therapeutic Exercise, Therapeutic Activity, Neuromuscular Re-Education, Balance Work,Activity Tolerance Work,Patient/ Caregiver Education Problem Area: Dressing Dressing Outcomes Improve [place] w/ UB Dressing,Improve [place] w/ LB Dressing Dressing Interventions ADL Training,Use of Assistive Devices,Neuromuscular Re- Education,Therapeutic Exercise ,Balance Work,Modalities, Patient/Caregiver Education Problem Area: Mobility Mobility Outcomes Mobility Interventions Problem Area: Transfers Transfers Outcomes Improve [place] w/ Toilet Transfers,Improve [place] w/ Tub/Shower Transfers Transfers Interventions Transfer Training,Therapeutic Exercise,Neuromuscular Re- Education,Visual/Perceptual Training,Activity Tolerance Work,Modalities,Use of Assistive Devices,Patient/ Caregiver Education Problem Area: Bowel/Bladder Managment Bowel/Bladder Outcomes Bowel/Bladder Interventions Problem Area: Toileting Toileting Outcomes Improve [place] w/ Toileting Toileting Interventions ADL Training,Balance Work,Use of Assistive Devices,Patient/ Caregiver Education Problem Area: Nutrition Nutrition Outcomes Nutrition Interventions Problem Area: Comprehension Comprehension Outcomes Comprehension Interventions Problem Area: Expression Expression Outcomes Expression Interventions Problem Area: Problem Solving Problem Solving Outcomes Problem Solving Interventions Problem Area: Memory Memory Outcomes Memory Interventions Problem Area: Pain Management Pain Management Outcomes Pain Management Interventions Problem Area: Knowledge Deficits Knowledge Deficits Outcomes Knowledge Deficits Interventions Problem Area: Skin/Tissue Integrity Skin/Tissue Integrity Outcomes Skin/Tissue Integrity Interventions Problem Area: Social Interaction Social Interaction Outcomes Social Interaction Interventions Problem Area: Adjustment to Disability Adjustment to Disability Outcomes Adjustment to Disability Interventions Problem Area: Discharge Concerns Discharge Concerns Outcomes Discharge w/ Necessary Equipment,Have Home Health/ Outpatient Services Discharge Concerns Interventions Discharge Planning,Equipment Assessment, Acquisition and Placement,Family/Caregiver Training Problem Area: Community Reintegration Community Reintegration Outcomes Community Reintegration Interventions Problem Area: Home Management Home Management Outcomes Improve [place] w/ Home Management Home Management Interventions Money Management Tasks,Meal Preparation,Clothing Care, Activity Tolerance Work, Leisure Skills Development, Telephone Use,Patient/ Caregiver Education Problem Area: Safety Safety Outcomes Provide Safe Environment, Perform Selfcare Safely, Demonstrate Good Safety w/ Transfers/Mobility Safety Interventions Identify Fall Risk,[place] Pt. to Environment,Reduce Environmental Hazards,Neuro Check Assessment,Implement Mechanical Devices, i.e. Chair Alarm (Post Fall Update),Re- Educate Patient/Caregiver for Safety (Post Fall Update) Problem Area: Medication Education Medication Education Outcomes Medication Education Interventions Problem Area: Diabetes Education Diabetes Education Outcomes Demonstrate Knowledge of Resources Availlable in Diabetic Ed. Folder Diabetes Education Interventions Give Pt. Diabetes Education Folder,Discuss Pathophysiology of Diabetes Problem Area: Oxygenation Oxygenation Outcomes Oxygenation Interventions Problem Area: Cardiovascular Cardiovascular Outcomes Maintain or Improve Cardiovascular Status Cardiovascular Interventions Assess Vital Signs at least Every 4 hours,Cardiac Monitoring, EKG and ABG as Ordered. Physician Only Medical Prognosis and Rehabilitation Potential (Completed by Physician) Good rehab potential good prognosis This plan of care has been developed based on the findings from the pre- admission assessment, post admission physician evaluation, information gathered from the assessments from all therapy disciplines and other pertinent clinicians. The plan of care has been reviewed and discussed in collaboration with the interdisciplinary team. The plan of care will be reviewed and updated at least weekly.
[2021-01-08] MEDS: traZODone 50 MG TAB PO SCH (22:16)
[2021-01-08] MEDS: HYDROcodone/ACETAMINOPHEN 5-325 MG TAB PO PRN (22:22)
[2021-01-09] MEDS: LEVOTHYROXINE 150 MCG TAB PO SCH (06:39)
[2021-01-09] MEDS: CLOPIDOGREL 75 MG TAB PO SCH (10:01)
[2021-01-09] MEDS: ASPIRIN EC 81 MG TAB PO SCH (10:01)
[2021-01-09] MEDS: risperiDONE 0.25 MG TAB PO SCH ×2 (10:02→22:34)
[2021-01-09] MEDS: SERTRALINE 100 MG TAB PO SCH (10:02)
[2021-01-09] MEDS: ENOXAPARIN 40 MG/0.4 ML INJ SUB-Q SCH (10:02)
[2021-01-09] MEDS: carvediloL 3.125 MG TAB PO SCH ×2 (10:03→22:34)
[2021-01-09] MEDS: INSULIN LISPRO 100 UNIT/ML SUB-Q SCH ×3 (10:10→16:52)
[2021-01-09] MEDS: GABAPENTIN 300 MG CAP PO SCH (17:01)
[2021-01-09] MEDS: traZODone 50 MG TAB PO SCH (22:34)
[2021-01-10] MEDS: LEVOTHYROXINE 150 MCG TAB PO SCH (06:19)
[2021-01-10] MEDS: INSULIN LISPRO 100 UNIT/ML SUB-Q SCH ×2 (06:19→11:02)
--- NOTE | 2021-01-10 08:44 | Progress Note ---
Subjective Date of service: 01/10/21 Principal diagnosis: Debility with NSTEMI and prior TBI Interval history: 60-year-old male who states that he was tired of being in pain and decided to take his life by taking a handful of pills including what he counts as 30 Xanax. Patient was then noted to have second thoughts on the matter and contacted 911 and was transported to the ED. However this is a different recollection as to what was seen in the prior medical record which states that the patient sent a text message to his roommate stating that he was going to walk out into traffic. Of note, urine drug screen was negative for any benzodiazepines or opiates at the time of admission. Psych was consulted and the patient was deemed to be at no risk to himself currently. On my interview the patient does state that he suffers from chronic pain and does not want to harm himself any longer. Sitter was discontinued previously on the acute care side. Patient does live in a prison setting. 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 He was worked up and found to have an NSTEMI and later taken to the cardiac Estate Tax Examiner. He received stents and was placed on dual antiplatelet therapy. Since his intervention, blood pressure and glucose have been fairly well controlled on current medications. Most recent A1c noted in the computer is from January 2020 and was 6.5. We will obtain a new A1c. Lipids were within a regular range exc ept for elevated triglycerides at 186. Interval History: Patient is participating in therapy and making reasonable progress. Taking rest breaks as needed. -BM. Denies palpitations, dyspnea, cough, N/V, or joint pain. No complaints of suicidal ideation currently. CAD: Continue dual antiplatelet therapy and cardiac monitoring. Ensure that the patient does not over exert himself and if he does start to develop any chest pain or shortness of breath or if we get notification from telemetry monitoring that nursing immediately contact MD. Will need to follow-up with cardiology as an outpatient. Cardiology consult if needed. Hypertension: Continue medication. Blood pressure within limits currently. Adjust medications as needed for normotension. Rash: Widespread across the patient's back. Not consistent with zoster or scabies. Likely due to contact with bedding, will start symptomatic relief with Benadryl cream and monitor for improvement. Seems slightly better today without increased itching Diabetes: Continue carb controlled diet. A1c was obtained and is < 4. Will dis continue before meals and at bedtime glucose checks and sliding scale. Will check glucose levels first thing in the morning for the remainder of the week as the patient does continue to have values which are elevated. Hypothyroidism: Continue medication at increased level due to having TSH of 28 and free T4 of 0.48. Patient will need follow-up as an outpatient in about 3 weeks for further monitoring and adjustment. Hyperlipidemia: Continue statin. Recheck as outpatient. Chronic pain and headaches: Patient continues to have chronic pain and headaches. Pain medications are available and we will continue to use movement and modalities to help alleviate his pain. May consider Fioricet over the next few days if we can find that that is beneficial for his headache. Suicidal ideation: No issues of suicidal ideation or attempt to harm himself overnight or today. Continue to monitor and keep a close eye on him for any signs of distress. 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 We will start with a low-dose of gabapentin to see if this helps to improve his neuropathic pain. As far as the right ulnar neuropathy, patient would benefit from outpatient referral for EMG/nerve conduction study to ascertain if this is a cubital tunnel entrapment or elsewhere. Afterwards he could be referred to surgery for further intervention if needed. All records, vitals, labs and medications were reviewed. No other issues per patient, nursing or therapy. Objective - Exam Narrative Exam: MUSCULOSKELETAL SPECIALTY EXAM CONSTITUTIONAL: Well developed, well nourished, slightly disheveled, obese, left hand dominant EENT: Hearing intact to soft voice RESPIRATORY: Clear to auscultation bilaterally, no increased work of breathing, on supplem ental O2 via nasal cannula CARDIOVASCULAR: Regular Rate/ Rhythm, no swelling, edema or tenderness in BUE or BLE. All extremities warm. GI: + bowel sounds, soft, NTTP, nondistended. INTEGUMENTARY: Sores on bilateral lower extremities, and rash across the patient's back, otherwise normal, no lesion, rash, masses or bruising noted in extremities. MUSCULOSKELETAL: Left upper extremity with contracted hand, decreased range of motion, radial deviation of the hand which is swollen and decreased elbow extension, otherwise BUE and BLE normal without defect, crepitus, subluxation, effusion, arthritic changes or TTP. BUE 4+/5, good ROM, with normal tone. BLE 4+/5 good ROM, with normal tone NEURO: Sensation intact in all extremities with decreased sensation in the bilateral lower extremities and right ulnar distribution neuropathy. Coordination intact in RUE and decreased in the LUE. No tremor noted in 4 extremities. POSTURE and GAIT: Sitting posture good. Balance and gait deferred until seen with therapy. PSYCH: Alert, disoriented, affect appears blunted. Insight appears impaired. Patient denies current suicidal ideation and does not have a plan. Does not appear to be a danger to himself or others at this time. - Constitutional Vitals: Vital Signs - 12hr 01/10/21 01/10/21 05:56 07:20 Temperature 97.8 F 98.5 F Pulse Rate 65 65 Respiratory 18 18 Rate Blood Pressure 109/67 116/67 O2 Sat by Pulse 91 94 Oximetry - Allied health notes Allied health notes reviewed: nursing, PT, OT FIMS assessment as documented by PT/OT/ST: Locomotion- walk/wheelchair Ambulation Distance 50 - Labs CBC & Chem 7: 01/08/21 06:57 01/08/21 06:57 Labs: Laboratory Results - last 72 hr 01/07/21 01/07/21 01/07/21 08:52 11:51 16:56 WBC RBC Hgb Hct MCV MCH MCHC RDW Plt Count Sodium Potassium Chloride Carbon Dioxide Anion Gap BUN Creatinine Estimated GFR BUN/Creatinine Ratio Glucose POC Glucose 123 H 153 H 133 H Hemoglobin A1c Calcium 01/07/21 01/08/21 01/08/21 21:12 06:57 06:57 WBC RBC Hgb Hct MCV MCH MCHC RDW Plt Count Sodium 133 L Potassium 4.2 Chloride 96.9 L Carbon Dioxide 23 Anion Gap 17 BUN 17 Creatinine 0.8 Estimated GFR > 60 BUN/Creatinine Ratio 21 Glucose 101 H POC Glucose 186 H Hemoglobin A1c < 4.0 L Calcium 9.1 01/08/21 01/08/21 01/08/21 06:57 07:46 11:34 WBC 9.0 RBC 4.26 Hgb 12.5 Hct 37.0 MCV 87 MCH 29 MCHC 34 RDW 14.5 Plt Count 171 Sodium Potassium Chloride Carbon Dioxide Anion Gap BUN Creatinine Estimated GFR BUN/Creatinine Ratio Glucose POC Glucose 93 121 H Hemoglobin A1c Calcium 01/08/21 01/08/21 01/09/21 16:20 21:39 08:10 WBC RBC Hgb Hct MCV MCH MCHC RDW Plt Count Sodium Potassium Chloride Carbon Dioxide Anion Gap BUN Creatinine Estimated GFR BUN/Creatinine Ratio Glucose POC Glucose 177 H 149 H 97 Hemoglobin A1c Calcium 01/09/21 01/09/21 01/09/21 11:28 16:51 21:24 WBC RBC Hgb Hct MCV MCH MCHC RDW Plt Count Sodium Potassium Chloride Carbon Dioxide Anion Gap BUN Creatinine Estimated GFR BUN/Creatinine Ratio Glucose POC Glucose 131 H 143 H 145 H Hemoglobin A1c Calcium 01/10/21 07:19 WBC RBC Hgb Hct MCV MCH MCHC RDW Plt Count Sodium Potassium Chloride Carbon Dioxide Anion Gap BUN Creatinine Estimated GFR BUN/Creatinine Ratio Glucose POC Glucose 121 H Hemoglobin A1c Calcium Assessment and Plan CAD: Continue dual antiplatelet therapy, cardiac monitoring. Monitor the patient during therapy and ensure that he is not becoming short of breath or developing chest pain. Give appropriate rest. Cardiology consult as needed. Patient will need to follow-up with cardiology after discharge. Hypertension: Continue medication. Monitor blood pressure. Adjust medications as needed for normotension. Hold for hypotension. Goal SBP <140 Diabetes: Continue carb controlled diet, medications as needed. Goal is for euglycemia. Sliding scale insulin. A1c<4. Monitor a.m. glucose over the next several days and look to discontinue completely if these are normal. According to patient it seems that some of the glucose checks have been after he has started eating which would give us an elevation. Rash on back: Start Benadryl cream and monitor for resolution. May need to consider steroids if it does not improve over the next few days Hypothyroidism: Levels were low in the acute care side. We will continue at increased dosing and patient should follow-up with PCP for further monitoring and adjustment. Hyperlipidemia: Continue statin Chronic pain and headaches: Continue current pain medications, utilize modalities with therapy and may look to start medication for headache if able given patient's regimen. Right ulnar neuropathy: We will continue treatment with modalities and possibly splint. We will add low-dose gabapentin. Patient will need to follow-up with outpatient services for EMG/nerve conduction study for possible cubital tunnel release. Bilateral lower extremity neuropathy: Start low-dose gabapentin and monitor Suicidal ideation: Story is changed as to what actually happened prior to admission. Patient currently is safe and being monitored closely. Does not require sitter and denies any intent of self-harm or harm to others. However, will avoid any addition of extra opiates or benzodiazepines given patient's reported story of wanting to overdose. Will consider psych consult if needed. ADL dysfunction: OT will work on improving ability to perform ADLs (including assistive devices) to increase independence and decrease caregiver burden and improve functional transfers and mobility training. Difficulty walking: PT will work on gait training and proper use of assistive devices and advance as appropriate to use of stairs and outside ambulation on uneven surfaces. Unsteadiness on feet: PT will work on improving static and dynamic sitting and standing balance as well as proper use of assistive devices to decrease risk of falls. Abnormality of gait: PT will work to improve safety and efficiency of gait through neuromotor training and gait training along with instruction on proper use of assistive devices. Muscle weakness: PT & OT will work on strengthening exercises to improve functional strength including mixture of closed and open kinetic chain exercises. Debility: PT & OT will work on improving overall functional status to improve participation with ADLs, mobility and social involvement. Fatigue: PT & OT will work on improving endurance through aerobic exercises and therapeutic activity while monitoring patients tolerance for activity and vital signs as needed. DVT ppx: Lovenox Pain: Continue physical modalities in therapy and pain medications as needed to achieve functional pain control. Sleep: Monitor and address as needed. Bowel: Monitor and address as needed. Appetite: Monitor and address as needed. Discharge planning: Pending therapy progress and care plan meeting. Will continue discussion with therapy team, SW, patient and family. Restrictions/ Precautions: Falls, SI, cognition WB status: FWB Functional Hx: ADLs: Independent Cognition: Independent Mobility: No AD Barriers to Discharge: Decreased mobility and ability to perform self care, balance deficits, weakness Estimated Length of Stay: 1014 days Discharge Destination: Home to prison
[2021-01-10] MEDS: CLOPIDOGREL 75 MG TAB PO SCH (10:56)
[2021-01-10] MEDS: SERTRALINE 100 MG TAB PO SCH (10:56)
[2021-01-10] MEDS: ENOXAPARIN 40 MG/0.4 ML INJ SUB-Q SCH (10:56)
[2021-01-10] MEDS: carvediloL 3.125 MG TAB PO SCH ×2 (10:56→22:25)
[2021-01-10] MEDS: ASPIRIN EC 81 MG TAB PO SCH (10:56)
[2021-01-10] MEDS: risperiDONE 0.25 MG TAB PO SCH ×2 (10:57→22:19)
[2021-01-10] MEDS: GABAPENTIN 300 MG CAP PO SCH (18:26)
[2021-01-10] MEDS: traZODone 50 MG TAB PO SCH (22:19)
[2021-01-11] MEDS: LEVOTHYROXINE 150 MCG TAB PO SCH (05:49)
--- NOTE | 2021-01-11 09:52 | Progress Note ---
Subjective Date of service: 01/11/21 Principal diagnosis: Debility with NSTEMI and prior TBI Interval history: 60-year-old male who states that he was tired of being in pain and decided to take his life by taking a handful of pills including what he counts as 30 Xanax. Patient was then noted to have second thoughts on the matter and contacted 911 and was transported to the ED. However this is a different recollection as to what was seen in the prior medical record which states that the patient sent a text message to his roommate stating that he was going to walk out into traffic. Of note, urine drug screen was negative for any benzodiazepines or opiates at the time of admission. Psych was consulted and the patient was deemed to be at no risk to himself currently. On my interview the patient does state that he suffers from chronic pain and does not want to harm himself any longer. Sitter was discontinued previously on the acute care side. Patient does live in a [facility] setting. Have talked to his community manager presentation and she states that they will reserve his room for him. He was worked up and found to have an NSTEMI and later taken to the cardiac [facility]. He received stents and was placed on dual antiplatelet therapy. Since his intervention, blood pressure and glucose have been fairly well controlled on current medications. Most recent A1c noted in the computer is from January 2020 and was 6.5. We will obtain a new A1c. Lipids were within a regular range exc ept for elevated triglycerides at 186. Interval History: Patient is participating in therapy and making reasonable progress. Taking rest breaks as needed. -BM. Denies palpitations, dyspnea, cough, N/V, or joint pain. No complaints of suicidal ideation currently. CAD: Continue dual antiplatelet therapy and cardiac monitoring. Ensure that the patient does not over exert himself and if he does start to develop any chest pain or shortness of breath or if we get notification from telemetry monitoring that nursing immediately contact MD. Will need to follow-up with cardiology as an outpatient. Cardiology consult if needed. Hypertension: Continue medication. Blood pressure lower today, will place hold orders on medication and are look to reduce medications.. Adjust medications as needed for normotension. Rash: Widespread across the patient's back. Not consistent with zoster or scabies. Likely due to contact with bedding, will start symptomatic relief with Benadryl cream and monitor for improvement. Seems better today without increased itching Diabetes: Continue carb controlled diet. A1c was obtained and is < 4. Will discontinue before meals and at bedtime glucose checks and sliding scale. Will check glucose levels first thing in the morning for the remainder of the week as the patient does continue to have values which are elevated. Hypothyroidism: Continue medication at increased level due to having TSH of 28 and free T4 of 0.48. Patient will need follow-up as an outpatient in about 3 weeks for further monitoring and adjustment. Hyperlipidemia: Continue statin. Recheck as outpatient. Chronic pain and headaches: Patient continues to have chronic pain and headaches. Pain medications are available and we will continue to use movement and modalities to help alleviate his pain. May consider Fioricet over the next few days if we can find that that is beneficial for his headache. Suicidal ideation: No issues of suicidal ideation or attempt to harm himself overnight or today. Continue to monitor and keep a close eye on him for any signs of distress. 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 We will start with a low-dose of gabapentin to see if this helps to improve his neuropathic pain. As far as the right ulnar neuropathy, patient would benefit from outpatient referral for EMG/nerve conduction study to ascertain if this is a cubital tunnel entrapment or elsewhere. Afterwards he could be referred to surgery for further intervention if needed. All records, vitals, labs and medications were reviewed. No other issues per patient, nursing or therapy. Patient discussed during team conference. Making decent progress however is not back to his level of being able to ambulate with a straight cane. The picture that the patient was actually utilizing furniture to move about his apartment. We are trying to discharge him back home at the quad cane level if at all possible, however may need to settle for a rolling walker. Objective - Exam Narrative Exam: MUSCULOSKELETAL SPECIALTY EXAM CONSTITUTIONAL: Well developed, well nourished, appropriately dressed, obese, left hand dominant EENT: Hearing intact to soft voice RESPIRATORY: Clear to auscultation bilaterally, no increased work of breathing CARDIOVASCULAR: Regular Rate/ Rhythm, no swelling, edema or tenderness in BUE or BLE. All extremities warm. GI: + bowel sounds, soft, NTTP, nondistended. INTEGUMENTARY: Sores on bilateral lower extremities, and rash across the patient's back (improved), otherwise normal, no lesion, rash, masses or bruising noted in extremities. MUSCULOSKELETAL: Left upper extremity with contracted hand, decreased range of motion, radial deviation of the hand which is swollen and decreased elbow extension, otherwise BUE and BLE normal without defect, crepitus, subluxation, effusion, arthritic changes or TTP. BUE 4+/5, good ROM, with normal tone. BLE 4+/5 good ROM, with normal tone NEURO: Sensation intact in all extremities with decreased sensation in the bilateral lower extremities and right ulnar distribution neuropathy. Coordination intact in RUE and decreased in the LUE. No tremor noted in 4 extremities. POSTURE and GAIT: Sitting posture good. Balance and gait deferred until seen with therapy. PSYCH: Alert, disoriented, affect appears blunted. Insight appears impaired. Patient denies current suicidal ideation and does not have a plan. Does not appear to b e a danger to himself or others at this time. - Constitutional Vitals: Vital Signs - 12hr 01/10/21 01/11/21 22:25 07:26 Temperature 99.3 F Pulse Rate 63 Respiratory 16 Rate Blood Pressure 98/64 112/65 O2 Sat by Pulse 95 Oximetry - Allied health notes Allied health notes reviewed: nursing, PT, OT FIMS assessment as documented by PT/OT/ST: Grooming Patient cleans teeth/dentures: Yes Patient kohli/brushes hair: Yes Patient washes, rinses and Yes dries face: Patient washes, rinses and Yes dries hands: Patient shaves: Yes Patient performs (w/ make-up/ 5/5 (100%) shaving): Grooming FIM Score 5. Supervision ([place] applies toothpaste or opens containers.) Toileting Toileting Device Commode over Toilet Patient able to: Adjust clothes before,Clean self,Adjust clothes after Patient able to perform: 3/3 (100%) Toileting FIM Score 5. Supv./Set-Up (Needs stand-by, set-up, applying prosth/orth.) Social interaction/Memory/Problem solving Social Interaction FIM Score 5. Supervision (Needs supv. <10%. Needs encouragement to participate.) Memory FIM Score 5. Supervision (Needs cueing <10%, stressful/ unfamiliar situations.) Problem Solving FIM Score 5. Supervision (Needs cueing <10% to solve routine problems.) Transfers Mode of Locomotion: Wheelchair Bed/Chair/Wheelchair Transfers 4. Minimal Assistance (Patient = 75% or more. FIM Score Needs touching.) Locomotion- walk/wheelchair Ambulation Distance 50 Eating Eating FIM Score 5. Supervision/Set-Up (Needs help w/ containers, cutting meat, etc.) Dressing-Upper body Patient retrieves clothing Yes items: Upper Body Dressing FIM Score 5. Supv./Set-Up ([place] sets out clothes or applies pros./orth.) Dressing-lower body Patient retrieves clothing Yes items: Lower Body Dressing FIM Score 4. Minimal Assistance (Patient = 75% or more. Needs touching.) - Labs CBC & Chem 7: 01/08/21 06:57 01/08/21 06:57 Labs: Laboratory Results - last 72 hr 01/08/21 01/08/21 01/08/21 11:34 16:20 21:39 POC Glucose 121 H 177 H 149 H 01/09/21 01/09/21 01/09/21 08:10 11:28 16:51 POC Glucose 97 131 H 143 H 01/09/21 01/10/21 01/10/21 21:24 07:19 11:39 POC Glucose 145 H 121 H 126 H 01/10/21 01/10/21 01/11/21 16:21 20:52 06:54 POC Glucose 163 H 167 H 103 Assessment and Plan CAD: Continue dual antiplatelet therapy, cardiac monitoring. Monitor the patient during therapy and ensure that he is not becoming short of breath or developing chest pain. Give appropriate rest. Cardiology consult as needed. Patient will need to follow-up with cardiology after discharge. Hypertension: Continue medication. Monitor blood pressure. Adjust medications as needed for normotension. Hold for hypotension. Goal SBP <140 Diabetes: Continue carb controlled diet, medications as needed. Goal is for euglycemia. Sliding scale insulin. A1c<4. Monitor a.m. glucose over the next several days and look to discontinue completely if these are normal. According to patient it seems that some of the glucose checks have been after he has started eating which would give us an elevation. Rash on back: Start Benadryl cream and monitor for resolution. May need to consider steroids if it does not improve over the next few days Hypothyroidism: Levels were low in the acute care side. We will continue at increased dosing and patient should follow-up with PCP for further monitoring and adjustment. Hyperlipidemia: Continue statin Chronic pain and headaches: Continue current pain medications, utilize modalities with therapy and may look to start medication for headache if able given patient's regimen. Right ulnar neuropathy: We will continue treatment with modalities and possibly splint. We will add low-dose gabapentin. Patient will need to follow-up with outpatient services for EMG/nerve conduction study for possible cubital tunnel release. Bilateral lower extremity neuropathy: Start low-dose gabapentin and monitor Suicidal ideation: Story is changed as to what actually happened prior to admission. Patient currently is safe and being monitored closely. Does not require sitter and denies any intent of self-harm or harm to others. However, will avoid any addition of extra opiates or benzodiazepines given patient's reported story of wanting to overdose. Will consider psych consult if needed. ADL dysfunction: OT will work on improving ability to perform ADLs (including assistive devices) to increase independence and decrease caregiver burden and improve functional transfers and mobility training. Difficulty walking: PT will work on gait training and proper use of assistive devices and advance as appropriate to use of stairs and outside ambulation on uneven surfaces. Unsteadiness on feet: PT will work on improving static and dynamic sitting and standing balance as well as proper use of assistive devices to decrease risk of falls. Abnormality of gait: PT will work to improve safety and efficiency of gait through neuromotor training and gait training along with instruction on proper use of assistive devices. Muscle weakness: PT & OT will work on strengthening exercises to improve functi onal strength including mixture of closed and open kinetic chain exercises. Debility: PT & OT will work on improving overall functional status to improve participation with ADLs, mobility and social involvement. Fatigue: PT & OT will work on improving endurance through aerobic exercises and therapeutic activity while monitoring patients tolerance for activity and vital signs as needed. DVT ppx: Lovenox Pain: Continue physical modalities in therapy and pain medications as needed to achieve functional pain control. Sleep: Monitor and address as needed. Bowel: Monitor and address as needed. Appetite: Monitor and address as needed. Discharge planning: Pending therapy progress and care plan meeting. Will continue discussion with therapy team, SW, patient and home health care social worker. Init ial date of discharge tentatively 01/18. Restrictions/ Precautions: Falls, SI, cognition WB status: FWB Functional Hx: ADLs: Independent Cognition: Independent Mobility: No AD Barriers to Discharge: Decreased mobility and ability to perform self care, balance deficits, weakness Estimated Length of Stay: 1014 days Discharge Destination: Home to [facility]
[2021-01-11] MEDS: carvediloL 3.125 MG TAB PO SCH (12:36)
[2021-01-11] MEDS: ENOXAPARIN 40 MG/0.4 ML INJ SUB-Q SCH (12:37)
[2021-01-11] MEDS: risperiDONE 0.25 MG TAB PO SCH ×2 (12:37→21:45)
[2021-01-11] MEDS: CLOPIDOGREL 75 MG TAB PO SCH (12:37)
[2021-01-11] MEDS: SERTRALINE 100 MG TAB PO SCH (12:37)
[2021-01-11] MEDS: ASPIRIN EC 81 MG TAB PO SCH (12:40)
[2021-01-11 15:30] LABS: Hematocrit 34.1 % (35.5-45.6); Hemoglobin 11.6 gm/dl (11.8-15.2); Mean Corpuscular HGB Conc 34 % (32-34); Mean Corpuscular Volume 86 fl (84-94); Platelet Count 237 K/mm3 (140-440); Red Blood Count 3.98 M/mm3 (3.65-5.03)
[2021-01-11 15:32] LABS: BUN/Creatinine Ratio 23; Blood Urea Nitrogen 18 mg/dL (9-20); Hemolysis Index 3
[2021-01-11] MEDS: GABAPENTIN 300 MG CAP PO SCH (17:38)
[2021-01-11] MEDS: traZODone 50 MG TAB PO SCH (21:40)
[2021-01-12] MEDS: LEVOTHYROXINE 150 MCG TAB PO SCH (05:13)
[2021-01-12] MEDS: carvediloL 3.125 MG TAB PO SCH ×3 (05:14→22:10)
--- NOTE | 2021-01-12 08:15 | Progress Note ---
Subjective Date of service: 01/12/21 Principal diagnosis: Debility with NSTEMI and prior TBI Interval history: 60-year-old male who states that he was tired of being in pain and decided to take his life by taking a handful of pills including what he counts as 30 Xanax. Patient was then noted to have second thoughts on the matter and contacted 911 and was transported to the ED. However this is a different recollection as to what was seen in the prior medical record which states that the patient sent a text message to his roommate stating that he was going to walk out into traffic. Of note, urine drug screen was negative for any benzodiazepines or opiates at the time of admission. Psych was consulted and the patient was deemed to be at no risk to himself currently. On my interview the patient does state that he suffers from chronic pain and does not want to harm himself any longer. Sitter was discontinued previously on the acute care side. Patient does live in a prison setting. Have talked to his community employee relations assistant and she states that they will reserve his room for him. He was worked up and found to have an NSTEMI and later taken to the cardiac [employer]. He received stents and was placed on dual antiplatelet therapy. Since his intervention, blood pressure and glucose have been fairly well controlled on current medications. Most recent A1c noted in the computer is from January 2020 and was 6.5. We will obtain a new A1c. Lipids were within a regular range exc ept for elevated triglycerides at 186. Interval History: Patient is participating in therapy and making reasonable progress. Taking rest breaks as needed. -BM, Bowel meds scheduled. Denies palpitations, dyspnea, cough, N/V, or joint pain. No complaints of suicidal ideation currently. CAD: Continue dual antiplatelet therapy and cardiac monitoring. Ensure that the patient does not over exert himself and if he does start to develop any chest pain or shortness of breath or if we get notification from telemetry monitoring that nursing immediately contact MD. Will need to follow-up with cardiology as an outpatient. Cardiology consult if needed. Hypertension: Continue medication. Blood pressure lower today, will place hold orders on medication and are look to reduce medications.. Adjust medications as needed for normotension. Anemia: Slightly low again. This had improved on last CBC however is back to the slightly low range again, normocytic/normochromic. Patient is asymptomatic. Continue to monitor and address if it worsens. Transfusion for hemoglobin less than 7. Rash: Widespread across the patient's back. Not consistent with zoster or scabies. Likely due to contact with bedding, will start symptomatic relief with Benadryl cream and monitor for improvement. Seems better today without increased itching Diabetes: Continue carb controlled diet. A1c was obtained and is < 4. Will discontinue before meals and at bedtime glucose checks and sliding scale. Will check glucose levels first thing in the morning for the remainder of the week as the patient does continue to have values which are elevated. Hypothyroidism: Continue medication at increased level due to having TSH of 28 and free T4 of 0.48. Patient will need follow-up as an outpatient in about 3 weeks for further monitoring and adjustment. Hyperlipidemia: Continue statin. Recheck as outpatient. Chronic pain and headaches: Patient continues to have chronic pain and headaches. Pain medications are available and we will continue to use movement and modalities to help alleviate his pain. May consider Fioricet over the next few days if we can find that that is beneficial for his headache. Suicidal ideation: No issues of suicidal ideation or attempt to harm himself overnight or today. Continue to monitor and keep a close eye on him for any signs of distress. 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 We will start with a low-dose of gabapentin to see if this helps to improve his neuropathic pain. As far as the right ulnar neuropathy, patient would benefit from outpatient referral for EMG/nerve conduction study to ascertain if this is a cubital tunnel entrapment or elsewhere. Afterwards he could be referred to surgery for further intervention if needed. All records, vitals, labs and medications were reviewed. No other issues per patient, nursing or therapy. Objective - Exam Narrative Exam: MUSCULOSKELETAL SPECIALTY EXAM CONSTITUTIONAL: Well developed, well nourished, appropriately dressed, obese, left hand dominant EENT: Hearing intact to soft voice RESPIRATORY: Clear to auscultation bilaterally, no increased work of breathing CARDIOVASCULAR: Regular Rate/ Rhythm, no swelling, edema or tenderness in BUE or BLE. All extremities warm. GI: + bowel sounds, soft, NTTP, nondistended. INTEGUMENTARY: Sores on bilateral lower extremities, and rash across the patient's back (improved), otherwise normal, no lesion, rash, masses or bruising noted in extremities. MUSCULOSKELETAL: Left upper extremity with contracted hand, decreased range of motion, radial deviation of the hand which is swollen and decreased elbow extension, otherwise BUE and BLE normal without defect, crepitus, subluxation, effusion, arthritic changes or TTP. BUE 4+/5, good ROM, with normal tone. BLE 4+/5 good ROM, with normal tone NEURO: Sensation intact in all extremities with decreased sensation in the bilateral lower extremities and right ulnar distribution neuropathy. Coordination intact in RUE and decreased in the LUE. No tremor noted in 4 extremities. POSTURE and GAIT: Sitting posture good. Balance and gait deferred until seen with therapy. PSYCH: Alert, disoriented, affect appears blunted. Insight appears impaired. Patient denies current suicidal ideation and does not have a plan. Does not appear to be a danger to himself or others at this time. - Constitutional Vitals: Vital Signs - 12hr 01/11/21 01/12/21 22:00 04:03 Temperature 97.8 F Pulse Rate 62 Respiratory 20 Rate Respiratory 17 Rate [hands, feet,and neck] Blood Pressure 114/66 O2 Sat by Pulse 93 Oximetry - Allied health notes Allied health notes reviewed: nursing, PT, OT FIMS assessment as documented by PT/OT/ST: Grooming Patient cleans teeth/dentures: Yes Patient kohli/brushes hair: Yes Patient washes, rinses and Yes dries face: Patient washes, rinses and Yes dries hands: Patient shaves: Yes Patient performs (w/ make-up/ 4/5 (80%) shaving): Grooming FIM Score 5. Supervision ([place] applies toothpaste or opens containers.) Toileting Toileting Device Commode over Toilet Patient able to: Adjust clothes before,Clean self,Adjust clothes after Patient able to perform: 3/3 (100%) Toileting FIM Score 5. Supv./Set-Up (Needs stand-by, set-up, applying prosth/orth.) Social interaction/Memory/Problem solving Social Interaction FIM Score 6. Mod. [place] (Mostly appropriate. May need meds. No supv.) Memory FIM Score 6. Modified [place](Mild difficulty remembering people/routines.) Problem Solving FIM Score 6. Mod. [place] (Mild difficulty or needs more time w/ complex.) Transfers Mode of Locomotion: Wheelchair Bed/Chair/Wheelchair Transfers 4. Minimal Assistance (Patient = 75% or more. FIM Score Needs touching.) Locomotion- walk/wheelchair Ambulation Distance 50 Eating Eating FIM Score 6. Modified [place] (Special consistency or uses device.) Dressing-Upper body Patient retrieves clothing Yes items: Upper Body Dressing FIM Score 5. Supv./Set-Up ([place] sets out clothes or applies pros./orth.) Dressing-lower body Patient retrieves clothing Yes items: Lower Body Dressing FIM Score 5. Supv./Set-Up ([place] sets out clothes or applies pros./orth.) - Labs CBC & Chem 7: 01/11/21 14:32 01/11/21 14:32 Labs: Laboratory Results - last 72 hr 01/09/21 01/09/21 01/09/21 08:10 11:28 16:51 WBC RBC Hgb Hct MCV MCH MCHC RDW Plt Count Sodium Potassium Chloride Carbon Dioxide Anion Gap BUN Creatinine Estimated GFR BUN/Creatinine Ratio Glucose POC Glucose 97 131 H 143 H Calcium 01/09/21 01/10/21 01/10/21 21:24 07:19 11:39 WBC RBC Hgb Hct MCV MCH MCHC RDW Plt Count Sodium Potassium Chloride Carbon Dioxide Anion Gap BUN Creatinine Estimated GFR BUN/Creatinine Ratio Glucose POC Glucose 145 H 121 H 126 H Calcium 01/10/21 01/10/21 01/11/21 16:21 20:52 06:54 WBC RBC Hgb Hct MCV MCH MCHC RDW Plt Count Sodium Potassium Chloride Carbon Dioxide Anion Gap BUN Creatinine Estimated GFR BUN/Creatinine Ratio Glucose POC Glucose 163 H 167 H 103 Calcium 01/11/21 01/11/21 01/11/21 11:59 14:32 14:32 WBC 9.9 RBC 3.98 Hgb 11.6 L Hct 34.1 L MCV 86 MCH 29 MCHC 34 RDW 14.0 Plt Count 237 Sodium 137 Potassium 3.9 Chloride 100.8 Carbon Dioxide 27 Anion Gap 13 BUN 18 Creatinine 0.8 Estimated GFR > 60 BUN/Creatinine Ratio 23 Glucose 139 H POC Glucose 104 Calcium 9.0 Assessment and Plan CAD: Continue dual antiplatelet therapy, cardiac monitoring. Monitor the patient during therapy and ensure that he is not becoming short of breath or developing chest pain. Give appropriate rest. Cardiology consult as needed. Patient will need to follow-up with cardiology after discharge. Hypertension: Continue medication. Monitor blood pressure. Adjust medications as needed for normotension. Hold for hypotension. Goal SBP <140 Diabetes: Continue carb controlled diet, medications as needed. Goal is for euglycemia. Sliding scale insulin. A1c<4. Monitor a.m. glucose over the next several days and look to discontinue completely if these are normal. According to patient it seems that some of the glucose checks have been after he has started eating which would give us an elevation. Rash on back: Start Benadryl cream and monitor for resolution. May need to consider steroids if it does not improve over the next few days Hypothyroidism: Levels were low in the acute care side. We will continue at increased dosing and patient should follow-up with PCP for further monitoring and adjustment. Anemia: Slightly low again, normocytic/normochromic. Continue to monitor at this point and if he does drop significantly will work-up further. Transfusion for hemoglobin less than 7. Hyperlipidemia: Continue statin Chronic pain and headaches: Continue current pain medications, utilize modalities with therapy and may look to start medication for headache if able given patient's regimen. Right ulnar neuropathy: We will continue treatment with modalities and possibly splint. We will add low-dose gabapentin. Patient will need to follow-up with outpatient services for EMG/nerve conduction study for possible cubital tunnel release. Bilateral lower extremity neuropathy: Start low-dose gabapentin and monitor Suicidal ideation: Story is changed as to what actually happened prior to admission. Patient currently is safe and being monitored closely. Does not r equire sitter and denies any intent of self-harm or harm to others. However, will avoid any addition of extra opiates or benzodiazepines given patient's reported story of wanting to overdose. Will consider psych consult if needed. ADL dysfunction: OT will work on improving ability to perform ADLs (including assistive devices) to increase independence and decrease caregiver burden and improve functional transfers and mobility training. Difficulty walking: PT will work on gait training and proper use of assistive devices and advance as appropriate to use of stairs and outside ambulation on u joshua surfaces. Unsteadiness on feet: PT will work on improving static and dynamic sitting and standing balance as well as proper use of assistive devices to decrease risk of falls. Abnormality of gait: PT will work to improve safety and efficiency of gait through neuromotor training and gait training along with instruction on proper use of assistive devices. Muscle weakness: PT & OT will work on strengthening exercises to improve functional strength including mixture of closed and open kinetic chain exercises. Debility: PT & OT will work on improving overall functional status to improve p articipation with ADLs, mobility and social involvement. Fatigue: PT & OT will work on improving endurance through aerobic exercises and therapeutic activity while monitoring patients tolerance for activity and vital signs as needed. DVT ppx: Lovenox Pain: Continue physical modalities in therapy and pain medications as needed to achieve functional pain control. Sleep: Monitor and address as needed. Bowel: Monitor and address as needed. Appetite: Monitor and address as needed. Discharge planning: Pending therapy progress and care plan meeting. Will continue discussion with therapy team, SW, patient and home social media marketer. Initial date of discharge tentatively 01/18. Restrictions/ Precautions: Falls, SI, cognition WB status: FWB Functional Hx: ADLs: Independent Cognition: Independent Mobility: No AD Barriers to Discharge: Decreased mobility and ability to perform self care, balance deficits, weakness Estimated Length of Stay: 1014 days Discharge Destination: Home to prison
[2021-01-12] MEDS: risperiDONE 0.25 MG TAB PO SCH ×2 (09:32→22:09)
[2021-01-12] MEDS: SERTRALINE 100 MG TAB PO SCH (09:32)
[2021-01-12] MEDS: CLOPIDOGREL 75 MG TAB PO SCH (09:32)
[2021-01-12] MEDS: ASPIRIN EC 81 MG TAB PO SCH (09:33)
[2021-01-12] MEDS: ENOXAPARIN 40 MG/0.4 ML INJ SUB-Q SCH (09:33)
[2021-01-12] MEDS: GABAPENTIN 300 MG CAP PO SCH (17:14)
[2021-01-12] MEDS: traZODone 50 MG TAB PO SCH (22:08)
[2021-01-13] MEDS: LEVOTHYROXINE 150 MCG TAB PO SCH (06:06)
[2021-01-13] MEDS: risperiDONE 0.25 MG TAB PO SCH ×2 (08:46→21:05)
[2021-01-13] MEDS: ENOXAPARIN 40 MG/0.4 ML INJ SUB-Q SCH (08:46)
[2021-01-13] MEDS: SERTRALINE 100 MG TAB PO SCH (08:46)
[2021-01-13] MEDS: ASPIRIN EC 81 MG TAB PO SCH (08:46)
[2021-01-13] MEDS: CLOPIDOGREL 75 MG TAB PO SCH (08:46)
[2021-01-13] MEDS: carvediloL 3.125 MG TAB PO SCH ×3 (08:47→21:06)
--- NOTE | 2021-01-13 09:16 | Progress Note ---
Subjective Date of service: 01/13/21 Principal diagnosis: Debility with NSTEMI and prior TBI Interval history: 60-year-old male who states that he was tired of being in pain and decided to take his life by taking a handful of pills including what he counts as 30 Xanax. Patient was then noted to have second thoughts on the matter and contacted 911 and was transported to the ED. However this is a different recollection as to what was seen in the prior medical record which states that the patient sent a text message to his roommate stating that he was going to walk out into traffic. Of note, urine drug screen was negative for any benzodiazepines or opiates at the time of admission. Psych was consulted and the patient was deemed to be at no risk to himself currently. On my interview the patient does state that he suffers from chronic pain and does not want to harm himself any longer. Sitter was discontinued previously on the acute care side. Patient does live in a correction setting. Have talked to his community [employer] and she states that they will reserve his room for him. He was worked up and found to have an NSTEMI and later taken to the [facility]. He received stents and was placed on dual antiplatelet therapy. Since his intervention, blood pressure and glucose have been fairly well controlled on current medications. Most recent A1c noted in the computer is from January 2020 and was 6.5. We will obtain a new A1c. Lipids were within a regular range exc ept for elevated triglycerides at 186. Interval History: Patient is participating in therapy and making reasonable progress. Taking rest breaks as needed. +BM, Bowel meds scheduled. Denies palpitations, dyspnea, cough, N/V, or joint pain. No complaints of suicidal ideation currently. CAD: Continue dual antiplatelet therapy and cardiac monitoring. Ensure that the patient does not over exert himself and if he does start to develop any chest pain or shortness of breath or if we get notification from telemetry monitoring that nursing immediately contact MD. Will need to follow-up with cardiology as an outpatient. Cardiology consult if needed. Hypertension: Continue medication. Blood pressure lower again today, will place hold orders on medication and are look to reduce medications.. Adjust medications as needed for normotension. Relative hypotension, will give 1 L of fluids for volume depletion Anemia: Slightly low again. This had improved on last CBC however is back to t he slightly low range again, normocytic/normochromic. Patient is asymptomatic. Continue to monitor and address if it worsens. Transfusion for hemoglobin less than 7. Rash: Resolved Diabetes: Continue carb controlled diet. A1c was obtained and is < 4. Will discontinue before meals and at bedtime glucose checks and sliding scale. Will check glucose levels first thing in the morning for the remainder of the week as the patient does continue to have values which are elevated. Hypothyroidism: Continue medication at increased level due to having TSH of 28 and free T4 of 0.48. Patient will need follow-up as an outpatient in about 3 weeks for further monitoring and adjustment. Hyperlipidemia: Continue statin. Recheck as outpatient. Chronic pain and headaches: Patient continues to have chronic pain and headaches. Pain medications are available and we will continue to use movement and modalities to help alleviate his pain. May consider Fioricet over the next few days if we can find that that is beneficial for his headache. Suicidal ideation: No issues of suicidal ideation or attempt to harm himself overnight or today. Continue to monitor and keep a close eye on him for any signs of distress. 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 We will start with a low-dose of gabapentin to see if this helps to improve his neuropathic pain. As far as the right ulnar neuropathy, patient would benefit from outpatient referral for EMG/nerve conduction study to ascertain if this is a cubital tunnel entrapment or elsewhere. Afterwards he could be referred to surgery for further intervention if needed. All records, vitals, labs and medications were reviewed. No other issues per patient, nursing or therapy. Objective - Exam Narrative Exam: MUSCULOSKELETAL SPECIALTY EXAM CONSTITUTIONAL: Well developed, well nourished, appropriately dressed, obese, left hand dominant EENT: Hearing intact to soft voice RESPIRATORY: Clear to auscultation bilaterally, no increased work of breathing CARDIOVASCULAR: Regular Rate/ Rhythm, no swelling, edema or tenderness in BUE or BLE. All extremities warm. GI: + bowel sounds, soft, NTTP, nondistended. INTEGUMENTARY: Sores on bilateral lower extremities, otherwise normal, no lesion, rash, masses or bruising noted in extremities. MUSCULOSKELETAL: Left upper extremity with contracted hand, decreased range of motion, radial deviation of the hand which is swollen and decreased elbow extension, otherwise BUE and BLE normal without defect, crepitus, subluxation, effusion, arthritic changes or TTP. BUE 4+/5, good ROM, with normal tone. BLE 4+/5 good ROM, with normal tone NEURO: Sensation intact in all extremities with decreased sensation in the bilateral lower extremities and right ulnar distribution neuropathy. Coordination intact in RUE and decreased in the LUE. No tremor noted in 4 extremities. POSTURE and GAIT: Sitting posture good. Balance and gait deferred until seen with therapy. PSYCH: Alert, disoriented, affect appears blunted. Insight appears impaired. Patient denies current suicidal ideation and does not have a plan. Does not appear to be a danger to himself or others at this time. - Constitutional Vitals: Vital Signs - 12hr 01/13/21 01/13/21 01/13/21 04:31 07:44 08:47 Temperature 98.7 F 97.8 F Pulse Rate 62 61 61 Respiratory 17 18 Rate Blood Pressure 94/50 99/57 99/57 O2 Sat by Pulse 90 95 Oximetry 01/13/21 08:48 Temperature Pulse Rate 61 Respiratory Rate Blood Pressure 99/57 O2 Sat by Pulse Oximetry - Allied health notes Allied health notes reviewed: nursing, PT, OT FIMS assessment as documented by PT/OT/ST: Grooming Patient cleans teeth/dentures: Yes Patient kohli/brushes hair: Yes Patient washes, rinses and Yes dries face: Patient washes, rinses and Yes dries hands: Patient shaves: Yes Patient performs (no make-up/ /4 (100%) shaving): Patient performs (w/ make-up/ /5 (80%) shaving): Grooming FIM Score 5. Supervision ([place] applies toothpaste or opens containers.) Toileting Toileting Device Commode over Toilet Patient able to: Adjust clothes before,Clean self,Adjust clothes after Patient able to perform: 3/3 (100%) Toileting FIM Score 5. Supv./Set-Up (Needs stand-by, set-up, applying prosth/orth.) Social interaction/Memory/Problem solving Social Interaction FIM Score 5. Supervision (Needs supv. <10%. Needs encouragement to participate.) Memory FIM Score 5. Supervision (Needs cueing <10%, stressful/ unfamiliar situations.) Problem Solving FIM Score 5. Supervision (Needs cueing <10% to solve routine problems.) Transfers Mode of Locomotion: Wheelchair Bed/Chair/Wheelchair Transfers 5. Supervision (Needs supv. or set-up for FIM Score sliding board, foot rests.) Locomotion- walk/wheelchair Ambulation Distance 50 Eating Eating FIM Score 5. Supervision/Set-Up (Needs help w/ containers, cutting meat, etc.) Dressing-Upper body Patient retrieves clothing Yes items: Upper Body Dressing FIM Score 5. Supv./Set-Up ([place] sets out clothes or applies pros./orth.) Dressing-lower body Patient retrieves clothing Yes items: Lower Body Dressing FIM Score 5. Supv./Set-Up ([place] sets out clothes or applies pros./orth.) - Labs CBC & Chem 7: 01/11/21 14:32 01/11/21 14:32 Labs: Laboratory Results - last 72 hr 01/10/21 01/10/21 01/10/21 11:39 16:21 20:52 WBC RBC Hgb Hct MCV MCH MCHC RDW Plt Count Sodium Potassium Chloride Carbon Dioxide Anion Gap BUN Creatinine Estimated GFR BUN/Creatinine Ratio Glucose POC Glucose 126 H 163 H 167 H Calcium 01/11/21 01/11/21 01/11/21 06:54 11:59 14:32 WBC 9.9 RBC 3.98 Hgb 11.6 L Hct 34.1 L MCV 86 MCH 29 MCHC 34 RDW 14.0 Plt Count 237 Sodium Potassium Chloride Carbon Dioxide Anion Gap BUN Creatinine Estimated GFR BUN/Creatinine Ratio Glucose POC Glucose 103 104 Calcium 01/11/21 01/12/21 01/13/21 14:32 08:08 06:08 WBC RBC Hgb Hct MCV MCH MCHC RDW Plt Count Sodium 137 Potassium 3.9 Chloride 100.8 Carbon Dioxide 27 Anion Gap 13 BUN 18 Creatinine 0.8 Estimated GFR > 60 BUN/Creatinine Ratio 23 Glucose 139 H POC Glucose 109 H 123 H Calcium 9.0 01/13/21 07:44 WBC RBC Hgb Hct MCV MCH MCHC RDW Plt Count Sodium Potassium Chloride Carbon Dioxide Anion Gap BUN Creatinine Estimated GFR BUN/Creatinine Ratio Glucose POC Glucose 120 H Calcium Assessment and Plan CAD: Continue dual antiplatelet therapy, cardiac monitoring. Monitor the patient during therapy and ensure that he is not becoming short of breath or developing chest pain. Give appropriate rest. Cardiology consult as needed. Patient will need to follow-up with cardiology after discharge. Hypertension: Continue medication. Monitor blood pressure. Adjust medications as needed for normotension. Hold orders for hypotension placed. Goal SBP <140 Relative hypotension/volume depletion: Give 1 L of gentle IV fluids and monitor for improvement Diabetes: Continue carb controlled diet, medications as needed. Goal is for euglycemia. Sliding scale insulin. A1c<4. Monitor a.m. glucose over the next several days and look to discontinue completely if these are normal. According to patient it seems that some of the glucose checks have been after he has started eating which would give us an elevation. Rash on back: Resolved, monitor Hypothyroidism: Levels were low in the acute care side. We will continue at increased dosing and patient should follow-up with PCP for further monitoring and adjustment. Anemia: Slightly low again, normocytic/normochromic. Continue to monitor at this point and if he does drop significantly will work-up further. Transfusion for hemoglobin less than 7. Hyperlipidemia: Continue statin Chronic pain and headaches: Continue current pain medications, utilize modalities with therapy and may look to start medication for headache if able given patient's regimen. Right ulnar neuropathy: We will continue treatment with modalities and possibly splint. We will add low-dose gabapentin. Patient will need to follow-up with outpatient services for EMG/nerve conduction study for possible cubital tunnel release. Bilateral lower extremity neuropathy: Start low-dose gabapentin and monitor Suicidal ideation: Story is changed as to what actually happened prior to admission. Patient currently is safe and being monitored closely. Does not require sitter and denies any intent of self-harm or harm to others. However, will avoid any addition of extra opiates or benzodiazepines given patient's reported story of wanting to overdose. Will consider psych consult if needed. ADL dysfunction: OT will work on improving ability to perform ADLs (including assistive devices) to increase independence and decrease caregiver burden and improve functional transfers and mobility training. Difficulty walking: PT will work on gait training and proper use of assistive devices and advance as appropriate to use of stairs and outside ambulation on uneven surfaces. Unsteadiness on feet: PT will work on improving static and dynamic sitting and standing balance as well as proper use of assistive devices to decrease risk of falls. Abnormality of gait: PT will work to improve safety and efficiency of gait through neuromotor training and gait training along with instruction on proper use of assistive devices. Muscle weakness: PT & OT will work on strengthening exercises to improve functio nal strength including mixture of closed and open kinetic chain exercises. Debility: PT & OT will work on improving overall functional status to improve participation with ADLs, mobility and social involvement. Fatigue: PT & OT will work on improving endurance through aerobic exercises and therapeutic activity while monitoring patients tolerance for activity and vital signs as needed. DVT ppx: Lovenox Pain: Continue physical modalities in therapy and pain medications as needed to achieve functional pain control. Sleep: Monitor and address as needed. Bowel: Monitor and address as needed. Appetite: Monitor and address as needed. Discharge planning: Pending therapy progress and care plan meeting. Will continue discussion with therapy team, SW, patient and home social services coordinator. Initial date of discharge tentatively 01/18. Restrictions/ Precautions: Falls, SI, cognition WB status: FWB Functional Hx: ADLs: Independent Cognition: Independent Mobility: No AD Barriers to Discharge: Decreased mobility and ability to perform self care, balance deficits, weakness Estimated Length of Stay: 1014 days Discharge Destination: Home to correction
[2021-01-13] MEDS ORDERED: SODIUM CHLORIDE 0.9% 1000 ML 1,000 ML IV SCH (12:15)
[2021-01-13] MEDS: GABAPENTIN 300 MG CAP PO SCH (18:46)
[2021-01-13] MEDS: HYDROcodone/ACETAMINOPHEN 5-325 MG TAB PO PRN (18:46)
[2021-01-13] MEDS: traZODone 50 MG TAB PO SCH (21:06)
[2021-01-14] MEDS: LEVOTHYROXINE 150 MCG TAB PO SCH (05:44)
--- NOTE | 2021-01-14 08:22 | Progress Note ---
Subjective Date of service: 01/14/21 Principal diagnosis: Debility with NSTEMI and prior TBI Interval history: 60-year-old male who states that he was tired of being in pain and decided to take his life by taking a handful of pills including what he counts as 30 Xanax. Patient was then noted to have second thoughts on the matter and contacted 911 and was transported to the ED. However this is a different recollection as to what was seen in the prior medical record which states that the patient sent a text message to his roommate stating that he was going to walk out into traffic. Of note, urine drug screen was negative for any benzodiazepines or opiates at the time of admission. Psych was consulted and the patient was deemed to be at no risk to himself currently. On my interview the patient does state that he suffers from chronic pain and does not want to harm himself any longer. Sitter was discontinued previously on the acute care side. Patient does live in a correction setting. Have talked to his community admittance attendant and she states that they will reserve his room for him. He was worked up and found to have an NSTEMI and later taken to the cardiac [employer] [facility]. He received stents and was placed on dual antiplatelet therapy. Since his intervention, blood pressure and glucose have been fairly well controlled on current medications. Most recent A1c noted in the computer is from January 2020 and was 6.5. We will obtain a new A1c. Lipids were within a regular range exc ept for elevated triglycerides at 186. Interval History: Patient is participating in therapy and making reasonable progress. Taking rest breaks as needed. +BM, Bowel meds scheduled. Denies palpitations, dyspnea, cough, N/V, or joint pain. No complaints of suicidal ideation currently. CAD: Continue dual antiplatelet therapy and cardiac monitoring. Ensure that the patient does not over exert himself and if he does start to develop any chest pain or shortness of breath or if we get notification from telemetry monitoring that nursing immediately contact MD. Will need to follow-up with cardiology as an outpatient. Cardiology consult if needed. Hypertension: Continue medication. Blood pressure has been on the lower side since the patient was admitted to the hospital.cardiology originally held beta- seven due to hypotension. We have placed a hold for systolic blood pressure less than 110. Adjust medications as needed for normotension. Patient tolerated liter of gentle fluids well. Continue to monitor blood pressure Anemia: Slightly low again. This had improved on last CBC however is back to the slightly low range again, normocytic/normochromic. Patient is asymptomatic. Continue to monitor and address if it worsens. Transfusion for hemoglobin less than 7. Rash: Resolved Diabetes: Continue carb controlled diet. A1c was obtained and is < 4. Will discontinue before meals and at bedtime glucose checks and sliding scale. Will check glucose levels first thing in the morning for the remainder of the week as the patient does continue to have values which are elevated. Hypothyroidism: Continue medication at increased level due to having TSH of 28 and free T4 of 0.48. Patient will need follow-up as an outpatient in about 3 weeks for further monitoring and adjustment. Hyperlipidemia: Continue statin. Recheck as outpatient. Chronic pain and headaches: Patient continues to have chronic pain and headaches. Pain medications are available and we will continue to use movement and modalities to help alleviate his pain. May consider Fioricet over the next few days if we can find that that is beneficial for his headache. Suicidal ideation: No issues of suicidal ideation or attempt to harm himself overnight or today. Continue to monitor and keep a close eye on him for any signs of distress. 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 We will start with a low-dose of g abapentin to see if this helps to improve his neuropathic pain. As far as the right ulnar neuropathy, patient would benefit from outpatient referral for EMG/nerve conduction study to ascertain if this is a cubital tunnel entrapment or elsewhere. Afterwards he could be referred to surgery for further intervention if needed. All records, vitals, labs and medications were reviewed. No other issues per patient, nursing or therapy. Objective - Exam Narrative Exam: MUSCULOSKELETAL SPECIALTY EXAM CONSTITUTIONAL: Well developed, well nourished, appropriately dressed, obese, left hand dominant EENT: Hearing intact to soft voice RESPIRATORY: Clear to auscultation bilaterally, no increased work of breathing CARDIOVASCULAR: Regular Rate/ Rhythm, no swelling, edema or tenderness in BUE or BLE. All extremities warm. GI: + bowel sounds, soft, NTTP, nondistended. INTEGUMENTARY: Sores on bilateral lower extremities, otherwise normal, no lesion, rash, masses or bruising noted in extremities. MUSCULOSKELETAL: Left upper extremity with contracted hand, decreased range of motion, radial deviation of the hand which is swollen and decreased elbow extension, otherwise BUE and BLE normal without defect, crepitus, subluxation, effusion, arthritic changes or TTP. BUE 4+/5, good ROM, with normal tone. BLE 4+/5 good ROM, with normal tone NEURO: Sensation intact in all extremities with decreased sensation in the bilateral lower extremities and right ulnar distribution neuropathy. Coordination intact in RUE and decreased in the LUE. No tremor noted in 4 extremities. POSTURE and GAIT: Sitting posture good. Balance and gait deferred until seen with therapy. PSYCH: Alert, disoriented, affect appears blunted. Insight appears impaired. Patient denies current suicidal ideation and does not have a plan. Does not appear to be a danger to himself or others at this time. - Constitutional Vitals: Vital Signs - 12hr 01/13/21 01/14/21 01/14/21 21:06 05:11 06:58 Temperature 98.5 F 97.0 F L Pulse Rate 63 64 Respiratory 18 16 Rate Blood Pressure 94/58 105/66 Blood Pressure 116/68 [Right] O2 Sat by Pulse 94 94 Oximetry - Allied health notes Allied health notes reviewed: nursing, PT, OT FIMS assessment as documented by PT/OT/ST: Grooming Patient cleans teeth/dentures: Yes Patient kohli/brushes hair: Yes Patient washes, rinses and Yes dries face: Patient washes, rinses and Yes dries hands: Patient shaves: Yes Patient performs (no make-up/ /4 (100%) shaving): Patient performs (w/ make-up/ /5 (80%) shaving): Grooming FIM Score 6. Modified [place] (Needs equip ment/device . Extra time.) Toileting Toileting Device Commode over Toilet Patient able to: Adjust clothes before,Clean self,Adjust clothes after Patient able to perform: 3/3 (100%) Toileting FIM Score 5. Supv./Set-Up (Needs stand-by, set-up, applying prosth/orth.) Social interaction/Memory/Problem solving Social Interaction FIM Score 6. Mod. [place] (Mostly appropriate. May need meds. No supv.) Memory FIM Score 6. Modified [place](Mild difficulty remembering people/routines.) Problem Solving FIM Score 5. Supervision (Needs cueing <10% to solve routine problems.) Transfers Mode of Locomotion: Wheelchair Bed/Chair/Wheelchair Transfers 5. Supervision (Needs supv. or set-up for FIM Score sliding board, foot rests.) Locomotion- walk/wheelchair Ambulation Distance 50 Eating Eating FIM Score 6. Modified [place] (Special consistency or uses device.) Dressing-Upper body Patient retrieves clothing Yes items: Upper Body Dressing FIM Score 6. Modified [place] (Needs equipment, velcro or pros./orth.) Dressing-lower body Patient retrieves clothing Yes items: Lower Body Dressing FIM Score 6. Modified [place] (Needs equipment, velcro or pros./orth.) - Labs CBC & Chem 7: 01/11/21 14:32 01/11/21 14:32 Labs: Laboratory Results - last 72 hr 01/11/21 01/11/21 01/11/21 11:59 14:32 14:32 WBC 9.9 RBC 3.98 Hgb 11.6 L Hct 34.1 L MCV 86 MCH 29 MCHC 34 RDW 14.0 Plt Count 237 Sodium 137 Potassium 3.9 Chloride 100.8 Carbon Dioxide 27 Anion Gap 13 BUN 18 Creatinine 0.8 Estimated GFR > 60 BUN/Creatinine Ratio 23 Glucose 139 H POC Glucose 104 Calcium 9.0 01/12/21 01/13/21 01/13/21 08:08 06:08 07:44 WBC RBC Hgb Hct MCV MCH MCHC RDW Plt Count Sodium Potassium Chloride Carbon Dioxide Anion Gap BUN Creatinine Estimated GFR BUN/Creatinine Ratio Glucose POC Glucose 109 H 123 H 120 H Calcium 01/14/21 07:57 WBC RBC Hgb Hct MCV MCH MCHC RDW Plt Count Sodium Potassium Chloride Carbon Dioxide Anion Gap BUN Creatinine Estimated GFR BUN/Creatinine Ratio Glucose POC Glucose 105 Calcium Assessment and Plan CAD: Continue dual antiplatelet therapy, cardiac monitoring. Monitor the patient during therapy and ensure that he is not becoming short of breath or developing chest pain. Give appropriate rest. Cardiology consult as needed. Patient will need to follow-up with cardiology after discharge. Hypertension: Continue medication. Monitor blood pressure. Adjust medications as needed for normotension. Hold orders for hypotension placed. Goal SBP <140 Relative hypotension/volume depletion: 01/13 Gave 1 L of gentle IV fluids and monitor for improvement Diabetes: Continue carb controlled diet, medications as needed. Goal is for euglycemia. Sliding scale insulin. A1c<4. Monitor a.m. glucose over the next several days and look to discontinue completely if these are normal. According to patient it seems that some of the glucose checks have been after he has started eating which would give us an elevation. Rash on back: Resolved, monitor Hypothyroidism: Levels were low in the acute care side. We will continue at increased dosing and patient should follow-up with PCP for further monitoring and adjustment. Anemia: Slightly low again, normocytic/normochromic. Continue to monitor at this point and if he does drop significantly will work-up further. Transfusion for hemoglobin less than 7. Hyperlipidemia: Continue statin Chronic pain and headaches: Continue current pain medications, utilize modalities with therapy and may look to start medication for headache if able given patient's regimen. Right ulnar neuropathy: We will continue treatment with modalities and possibly splint. We will add low-dose gabapentin. Patient will need to follow-up with outpatient services for EMG/nerve conduction study for possible cubital tunnel release. Bilateral lower extremity neuropathy: Start low-dose gabapentin and monitor Suicidal ideation: Story is changed as to what actually happened prior to admission. Patient currently is safe and being monitored closely. Does not require sitter and denies any intent of self-harm or harm to others. However, will avoid any addition of extra opiates or benzodiazepines given patient's reported story of wanting to overdose. Will consider psych consult if needed. ADL dysfunction: OT will work on improving ability to perform ADLs (including assistive devices) to increase independence and decrease caregiver burden and improve functional transfers and mobility training. Difficulty walking: PT will work on gait training and proper use of assistive devices and advance as appropriate to use of stairs and outside ambulation on uneven surfaces. Unsteadiness on feet: PT will work on improving static and dynamic sitting and standing balance as well as proper use of assistive devices to decrease risk of falls. Abnormality of gait: PT will work to improve safety and efficiency of gait through neuromotor training and gait training along with instruction on proper use of assistive devices. Muscle weakness: PT & OT will work on strengthening exercises to improve functional strength including mixture of closed and open kinetic chain exercises. Debility: PT & OT will work on improving overall functional status to improve participation with ADLs, mobility and social involvement. Fatigue: PT & OT will work on improving endurance through aerobic exercises and therapeutic activity while monitoring patients tolerance for activity and vital signs as needed. DVT ppx: Lovenox Pain: Continue physical modalities in therapy and pain medications as needed to achieve functional pain control. Sleep: Monitor and address as needed. Bowel: Monitor and address as needed. Appetite: Monitor and address as needed. Discharge planning: Pending therapy progress and care plan meeting. Will cont inue discussion with therapy team, SW, patient and home social insurance administrator. Initial date of discharge tentatively 01/18. Restrictions/ Precautions: Falls, SI, cognition WB status: FWB Functional Hx: ADLs: Independent Cognition: Independent Mobility: No AD Barriers to Discharge: Decreased mobility and ability to perform self care, balance deficits, weakness Estimated Length of Stay: 1014 days Discharge Destination: Home to correction
[2021-01-14] MEDS: SERTRALINE 100 MG TAB PO SCH (08:34)
[2021-01-14] MEDS: risperiDONE 0.25 MG TAB PO SCH ×2 (08:34→21:54)
[2021-01-14] MEDS: ENOXAPARIN 40 MG/0.4 ML INJ SUB-Q SCH (08:34)
[2021-01-14] MEDS: carvediloL 3.125 MG TAB PO SCH ×2 (08:35→21:50)
[2021-01-14] MEDS: CLOPIDOGREL 75 MG TAB PO SCH (09:39)
[2021-01-14] MEDS: ASPIRIN EC 81 MG TAB PO SCH (09:39)
[2021-01-14] MEDS: GABAPENTIN 300 MG CAP PO SCH (17:23)
[2021-01-14] MEDS: traZODone 50 MG TAB PO SCH (21:54)
[2021-01-15] MEDS: LEVOTHYROXINE 150 MCG TAB PO SCH (05:11)
[2021-01-15] MEDS: risperiDONE 0.25 MG TAB PO SCH ×2 (08:41→23:16)
[2021-01-15] MEDS: ASPIRIN EC 81 MG TAB PO SCH (08:42)
[2021-01-15] MEDS: ENOXAPARIN 40 MG/0.4 ML INJ SUB-Q SCH (08:42)
[2021-01-15] MEDS: CLOPIDOGREL 75 MG TAB PO SCH (08:42)
[2021-01-15] MEDS: carvediloL 3.125 MG TAB PO SCH ×2 (08:42→23:15)
[2021-01-15] MEDS: SERTRALINE 100 MG TAB PO SCH (08:44)
--- NOTE | 2021-01-15 14:43 | Progress Note ---
Subjective Date of service: 01/15/21 Principal diagnosis: Debility with NSTEMI and prior TBI Interval history: 60-year-old male who states that he was tired of being in pain and decided to take his life by taking a handful of pills including what he counts as 30 Xanax. Patient was then noted to have second thoughts on the matter and contacted 911 and was transported to the ED. However this is a different recollection as to what was seen in the prior medical record which states that the patient sent a text message to his roommate stating that he was going to walk out into traffic. Of note, urine drug screen was negative for any benzodiazepines or opiates at the time of admission. Psych was consulted and the patient was deemed to be at no risk to himself currently. On my interview the patient does state that he suffers from chronic pain and does not want to harm himself any longer. Sitter was discontinued previously on the acute care side. Patient does live in a retirement setting. Have talked to his community client liaison and she states that they will reserve his room for him. He was worked up and found to have an NSTEMI and later taken to the cardiac Compliance Coordinator. He received stents and was placed on dual antiplatelet therapy. Since his intervention, blood pressure and glucose have been fairly well controlled on current medications. Most recent A1c noted in the computer is from January 2020 and was 6.5. We will obtain a new A1c. Lipids were within a regular range exc ept for elevated triglycerides at 186. Interval History: Patient is participating in therapy and making reasonable progress. Taking rest breaks as needed. +BM, Bowel meds scheduled. Denies palpitations, dyspnea, cough, N/V, or joint pain. No complaints of suicidal ideation currently. CAD: Continue dual antiplatelet therapy and cardiac monitoring. Ensure that the patient does not over exert himself and if he does start to develop any chest pain or shortness of breath or if we get notification from telemetry monitoring that nursing immediately contact MD. Will need to follow-up with cardiology as an outpatient. Cardiology consult if needed. Hypertension: Continue medication. Blood pressure has been on the lower side since the patient was admitted to the hospital.cardiology originally held beta- seven due to hypotension. We have placed a hold for systolic blood pressure less than 110. Adjust medications as needed for normotension. Patient tolerated liter of gentle fluids well. Continue to monitor blood pressure Anemia: Slightly low again. This had improved on last CBC however is back to the slightly low range again, normocytic/normochromic. Patient is asymptomatic. Continue to monitor and address if it worsens. Transfusion for hemoglobin less than 7. Will check labs again on Sunday Rash: Resolved Diabetes: Continue carb controlled diet. A1c was obtained and is < 4. Will discontinue before meals and at bedtime glucose checks and sliding scale. Will check glucose levels first thing in the morning for the remainder of the week as the patient does continue to have values which are elevated. Hypothyroidism: Continue medication at increased level due to having TSH of 28 and free T4 of 0.48. Patient will need follow-up as an outpatient in about 3 weeks for further monitoring and adjustment. Hyperlipidemia: Continue statin. Recheck as outpatient. Chronic pain and headaches: Patient continues to have chronic pain and headaches. Pain medications are available and we will continue to use movement and modalities to help alleviate his pain. May consider Fioricet over the next few days if we can find that that is beneficial for his headache. Suicidal ideation: No issues of suicidal ideation or attempt to harm himself overnight or today. Continue to monitor and keep a close eye on him for any signs of distress. 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 We will start with a low-dose of gabapentin to see if this helps to improve his neuropathic pain. As far as the right ulnar neuropathy, patient would benefit from outpatient referral for EMG/nerve conduction study to ascertain if this is a cubital tunnel entrapment or elsewhere. Afterwards he could be referred to surgery for further intervention if needed. All records, vitals, labs and medications were reviewed. No other issues per patient, nursing or therapy. Objective - Exam Narrative Exam: MUSCULOSKELETAL SPECIALTY EXAM CONSTITUTIONAL: Well developed, well nourished, appropriately dressed, obese, left hand dominant EENT: Hearing intact to soft voice RESPIRATORY: Clear to auscultation bilaterally, no increased work of breathing CARDIOVASCULAR: Slight dependent edema at the bilateral ankles, otherwise regular Rate/ Rhythm, no swelling, edema or tenderness in BUE or BLE. All extremities warm. GI: + bowel sounds, soft, NTTP, nondistended. INTEGUMENTARY: Sores on bilateral lower extremities look better, otherwise normal, no lesion, rash, masses or bruising noted in extremities. MUSCULOSKELETAL: Left upper extremity with contracted hand, decreased range of motion, radial deviation of the hand which is swollen and decreased elbow extension, otherwise BUE and BLE normal without defect, crepitus, subluxation, effusion, arthritic changes or TTP. BUE 4+/5, good ROM, with normal tone. BLE 4+/5 good ROM, with normal tone NEURO: Sensation intact in all extremities with decreased sensation in the bilateral lower extremities and right ulnar distribution neuropathy. Coordination intact in RUE and decreased in the LUE. No tremor noted in 4 extremities. POSTURE and GAIT: Sitting posture good. Balance and gait deferred until seen with therapy. PSYCH: Alert, oriented to person and place, affect appears blunted. Insight appears impaired. Patient denies current suicidal ideation and does not have a plan. Does not appear to be a danger to himself or others at this time. - Constitutional Vitals: Vital Signs - 12hr 01/15/21 01/15/21 01/15/21 04:33 04:35 07:26 Temperature 97.9 F 98.6 F Pulse Rate 68 62 63 Respiratory 18 18 16 Rate Blood Pressure 114/70 118/71 Blood Pressure [Right] O2 Sat by Pulse 90 95 96 Oximetry 01/15/21 12:39 Temperature 97.4 F L Pulse Rate 71 Respiratory 18 Rate Blood Pressure Blood Pressure 106/68 [Right] O2 Sat by Pulse 97 Oximetry - Allied health notes Allied health notes reviewed: nursing, PT, OT FIMS assessment as documented by PT/OT/ST: Grooming Patient cleans teeth/dentures: Yes Patient kohli/brushes hair: Yes Patient washes, rinses and Yes dries face: Patient washes, rinses and Yes dries hands: Patient shaves: Yes Patient performs (no make-up/ /4 (100%) shaving): Patient performs (w/ make-up/ 5/5 (100%) shaving): Grooming FIM Score 6. Modified [place] (Needs equipment/darcie ce . Extra time.) Toileting Toileting Device Commode over Toilet Patient able to: Adjust clothes before,Clean self,Adjust clothes after Patient able to perform: 3/3 (100%) Toileting FIM Score 6. Modified [place] (Needs equip. or prosth ./orth.) Social interaction/Memory/Problem solving Social Interaction FIM Score 6. Mod. [place] (Mostly appropriate. May need meds. No supv.) Memory FIM Score 6. Modified [place](Mild difficulty remembering people/routines.) Problem Solving FIM Score 6. Mod. [place] (Mild difficulty or needs more time w/ complex.) Transfers Mode of Locomotion: Wheelchair Bed/Chair/Wheelchair Transfers 6. Modified [place] (Uses device, sliding FIM Score board, prosth./orth.) Locomotion- walk/wheelchair Ambulation Distance 50 Eating Eating FIM Score 6. Modified [place] (Special consistency or uses device.) Dressing-Upper body Patient retrieves clothing Yes items: Upper Body Dressing FIM Score 6. Modified [place] (Needs equipment, velcro or pros./orth.) Dressing-lower body Patient retrieves clothing Yes items: Lower Body Dressing FIM Score 6. Modified [place] (Needs equipment, velcro or pros./orth.) - Labs CBC & Chem 7: 01/11/21 14:32 01/11/21 14:32 Labs: Laboratory Results - last 72 hr 01/13/21 01/13/21 01/14/21 06:08 07:44 07:57 POC Glucose 123 H 120 H 105 01/14/21 01/15/21 11:34 07:28 POC Glucose 119 H 121 H Assessment and Plan CAD: Continue dual antiplatelet therapy, cardiac monitoring. Monitor the patient during therapy and ensure that he is not becoming short of breath or d eveloping chest pain. Give appropriate rest. Cardiology consult as needed. Patient will need to follow-up with cardiology after discharge. Hypertension: Continue medication. Monitor blood pressure. Adjust medications as needed for normotension. Hold orders for hypotension placed. Goal SBP <140 Relative hypotension/volume depletion: 01/13 Gave 1 L of gentle IV fluids and monitor for improvement Diabetes: Continue carb controlled diet, medications as needed. Goal is for euglycemia. Sliding scale insulin. A1c<4. A.m. glucose checks have been fairly benign. Will discontinue and can keep the patient on a carb controlled diet. Will need to follow-up with PCP for further monitoring of A1c. Rash on back: Resolved, monitor Hypothyroidism: Levels were low in the acute care side. We will continue at increased dosing and patient should follow-up with PCP for further monitoring and adjustment. Anemia: Slightly low again, normocytic/normochromic. Continue to monitor at this point and if he does drop significantly will work-up further. Transfusion for hemoglobin less than 7. Hyperlipidemia: Continue statin Chronic pain and headaches: Continue current pain medications, utilize modalities with therapy and may look to start medication for headache if able given patient's regimen. Right ulnar neuropathy: We will continue treatment with modalities and possibly splint. We will add low-dose gabapentin. Patient will need to follow-up with outpatient services for EMG/nerve conduction study for possible cubital tunnel release. Bilateral lower extremity neuropathy: Start low-dose gabapentin and monitor Suicidal ideation: Story is changed as to what actually happened prior to admission. Patient currently is safe and being monitored closely. Does not require sitter and denies any intent of self-harm or harm to others. However, will avoid any addition of extra opiates or benzodiazepines given patient's reported story of wanting to overdose. Will consider psych consult if needed. ADL dysfunction: OT will work on improving ability to perform ADLs (including assistive devices) to increase independence and decrease caregiver burden and improve functional transfers and mobility training. Difficulty walking: PT will work on gait training and proper use of assistive devices and advance as appropriate to use of stairs and outside ambulation on uneven surfaces. Unsteadiness on feet: PT will work on improving static and dynamic sitting and standing balance as well as proper use of assistive devices to decrease risk of falls. Abnormality of gait: PT will work to improve safety and efficiency of gait through neuromotor training and gait training along with instruction on proper use of assistive devices. Muscle weakness: PT & OT will work on strengthening exercises to improve functional strength including mixture of closed and open kinetic chain exerci ses. Debility: PT & OT will work on improving overall functional status to improve participation with ADLs, mobility and social involvement. Fatigue: PT & OT will work on improving endurance through aerobic exercises and therapeutic activity while monitoring patients tolerance for activity and vital signs as needed. DVT ppx: Lovenox Pain: Continue physical modalities in therapy and pain medications as needed to achieve functional pain control. Sleep: Monitor and address as needed. Bowel: Monitor and address as needed. Appetite: Monitor and address as needed. Discharge planning: Pending therapy progress and care plan meeting. Will continue discussion with therapy team, SW, patient and home social work job titles. Initial date of discharge tentatively 01/18. Restrictions/ Precautions: Falls, SI, cognition WB status: FWB Functional Hx: ADLs: Independent Cognition: Independent Mobility: No AD Barriers to Discharge: Decreased mobility and ability to perform self care, balance deficits, weakness Estimated Length of Stay: 1014 days Discharge Destination: Home to retirement
[2021-01-15] MEDS: GABAPENTIN 300 MG CAP PO SCH (17:05)
[2021-01-15] MEDS: traZODone 50 MG TAB PO SCH (21:14)
[2021-01-16] MEDS: LEVOTHYROXINE 150 MCG TAB PO SCH (06:18)
[2021-01-16] MEDS: ENOXAPARIN 40 MG/0.4 ML INJ SUB-Q SCH (08:16)
[2021-01-16] MEDS: ASPIRIN EC 81 MG TAB PO SCH (08:17)
[2021-01-16] MEDS: SERTRALINE 100 MG TAB PO SCH (08:17)
[2021-01-16] MEDS: carvediloL 3.125 MG TAB PO SCH ×2 (08:18→21:37)
[2021-01-16] MEDS: risperiDONE 0.25 MG TAB PO SCH ×2 (08:18→21:37)
[2021-01-16] MEDS: CLOPIDOGREL 75 MG TAB PO SCH (08:18)
[2021-01-16] MEDS: GABAPENTIN 300 MG CAP PO SCH (17:01)
[2021-01-16] MEDS: traZODone 50 MG TAB PO SCH (21:31)
[2021-01-17] MEDS: LEVOTHYROXINE 150 MCG TAB PO SCH (05:20)
[2021-01-17 07:52] LABS: Hematocrit 38.5 % (35.5-45.6); Hemoglobin 13.1 gm/dl (11.8-15.2); Mean Corpuscular HGB Conc 34 % (32-34); Mean Corpuscular Volume 85 fl (84-94); Platelet Count 287 K/mm3 (140-440); Red Blood Count 4.51 M/mm3 (3.65-5.03); Red Cell Distribution Width 14.4 % (13.2-15.2)
[2021-01-17 08:13] LABS: BUN/Creatinine Ratio 20; Blood Urea Nitrogen 16 mg/dL (9-20); Calcium 9.3 mg/dL (8.4-10.2); Hemolysis Index 6
[2021-01-17] MEDS: SERTRALINE 100 MG TAB PO SCH (08:59)
[2021-01-17] MEDS: ENOXAPARIN 40 MG/0.4 ML INJ SUB-Q SCH (08:59)
[2021-01-17] MEDS: risperiDONE 0.25 MG TAB PO SCH ×2 (08:59→22:49)
[2021-01-17] MEDS: ASPIRIN EC 81 MG TAB PO SCH (08:59)
[2021-01-17] MEDS: carvediloL 3.125 MG TAB PO SCH ×2 (08:59→22:49)
[2021-01-17] MEDS: CLOPIDOGREL 75 MG TAB PO SCH (08:59)
--- NOTE | 2021-01-17 10:01 | Progress Note ---
Subjective Date of service: 01/17/21 Principal diagnosis: Debility with NSTEMI and prior TBI Interval history: 60-year-old male who states that he was tired of being in pain and decided to take his life by taking a handful of pills including what he counts as 30 Xanax. Patient was then noted to have second thoughts on the matter and contacted 911 and was transported to the ED. However this is a different recollection as to what was seen in the prior medical record which states that the patient sent a text message to his roommate stating that he was going to walk out into traffic. Of note, urine drug screen was negative for any benzodiazepines or opiates at the time of admission. Psych was consulted and the patient was deemed to be at no risk to himself currently. On my interview the patient does state that he suffers from chronic pain and does not want to harm himself any longer. Sitter was discontinued previously on the acute care side. Patient does live in a long-term setting. Have talked to his community vegetable i farmworker and she states that they will reserve his room for him. He was worked up and found to have an NSTEMI and later taken to the cardiac [facility]. He received stents and was placed on dual antiplatelet therapy. Since his intervention, blood pressure and glucose have been fairly well controlled on current medications. Most recent A1c noted in the computer is from January 2020 and was 6.5. We will obtain a new A1c. Lipids were within a regular range exc ept for elevated triglycerides at 186. Interval History: Patient is participating in therapy and making reasonable progress. Taking rest breaks as needed. +BM, Bowel meds scheduled. Denies palpitations, dyspnea, cough, N/V, or joint pain. Notified by nursing staff just as I was pulling into the parking lot that the patient has voiced a desire to just . CAD: Continue dual antiplatelet therapy and cardiac monitoring. Ensure that the patient does not over exert himself and if he does start to develop any chest pain or shortness of breath or if we get notification from telemetry monitoring that nursing immediately contact MD. Will need to follow-up with cardiology as an outpatient. Cardiology consult if needed. Hypertension: Continue medication. Blood pressure has been on the lower side since the patient was admitted to the hospital.cardiology originally held beta- seven due to hypotension. We have placed a hold for systolic blood pressure less than 110. Continue to monitor blood pressure Anemia: Slightly low again. This had improved on last CBC however is back to the slightly low range again, normocytic/normochromic. Patient is asymptomatic. Continue to monitor and address if it worsens. Transfusion for hemoglobin less than 7. Rash: Resolved Diabetes: Continue carb controlled diet. A1c was obtained and is < 4. Will discontinue before meals and at bedtime glucose checks and sliding scale. Will check glucose levels first thing in the morning for the remainder of the week as the patient does continue to have values which are elevated. Hypothyroidism: Continue medication at increased level due to having TSH of 28 and free T4 of 0.48. Patient will need follow-up as an outpatient in about 3 weeks for further monitoring and adjustment. Hyperlipidemia: Continue statin. Recheck as outpatient. Chronic pain and headaches: Patient continues to have chronic pain and headaches but has not complained of these to any significant extent. Seems that the headaches are the predominant issue and they come and go but patient has never had any outward signs of distress or being in pain. Pain medications are available and we will continue to use movement and modalities to help alleviate his pain. Suicidal ideation: Patient has not been having any complaints of pain with me lately over the past week or so. However this morning he voiced that he would like to just to nursing staff based on his horribly uncontrolled all over body pain. When discussed further with the patient he states that he regretted the, and as soon as he said it he has no plans to harm himself. When asked how he would harm himself he stated that he had no idea. He does not want to cause any self-harm or harm to others. When asked about his pain more specifically, he states he cannot describe it it just feels like it is all over but could not put any descriptive term to it. Patient's initial story was variable based on reports. He told me again that he took over 30 Xanax and a handful of other pills however his UDS was negative. When asked about this he then says that he forced himself to throw up. There are also conflict doing aspects as to whether he called 911 himself versus calling his home social media intern. I did discuss with the patient that he would absolutely need to follow-up with psychiatry after discharge however he also told me that he would not have a way to get back and forth to those appointments. Not much is changed from the patient's admission so I do not necessarily think that calling a psych consult for him over this issue would be helpful but we may request it just to be thorough. Will not discharge him home on any controlled substances at this point. Will order social work with home health at discharge and attempt to speak to his home case management rn as well. Continue to monitor and keep a close eye on him for any signs of distress. 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 We will start with a low-dose of gabapentin to see if this helps to improve his neuropathic pain. As far as the right ulnar neuropathy, patient would benefit from outpatient referral for EMG/nerve conduction study to ascertain if this is a cubital tunnel entrapment or elsewhere. Afterwards he could be referred to surgery for further intervention if needed. All records, vitals, labs and medications were reviewed. No other issues per patient, nursing or therapy. Objective - Exam Narrative Exam: MUSCULOSKELETAL SPECIALTY EXAM CONSTITUTIONAL: Well developed, well nourished, appropriately dressed, obese, left hand dominant EENT: Hearing intact to soft voice RESPIRATORY: Clear to auscultation bilaterally, no increased work of breathing CARDIOVASCULAR: Slight dependent edema at the bilateral ankles, otherwise regular Rate/ Rhythm, no swelling, edema or tenderness in BUE or BLE. All extremities warm. GI: + bowel sounds, soft, NTTP, nondistended. INTEGUMENTARY: Sores on bilateral lower extremities look better, otherwise normal, no lesion, rash, masses or bruising noted in extremities. MUSCULOSKELETAL: Left upper extremity with contracted hand, decreased range of motion, radial deviation of the hand which is swollen and decreased elbow extension, otherwise BUE and BLE normal without defect, crepitus, subluxation, effusion, arthritic changes or TTP. BUE 4+/5, good ROM, with normal tone. BLE 4+/5 good ROM, with normal tone NEURO: Sensation intact in all extremities with decreased sensation in the bilateral lower extremities and right ulnar distribution neuropathy. Coordination intact in RUE and decreased in the LUE. No tremor noted in 4 extremities. POSTURE and GAIT: Sitting posture good. Balance and gait deferred until seen with therapy. PSYCH: Alert, oriented to person and place, affect appears blunted. Insight appears impaired. Patient voiced suicidal ideation this morning with nursing however currently he denies suicidal ideation and does not have a plan. Does not appear to be a danger to himself or others at this time. - Constitutional Vitals: Vital Signs - 12hr 01/17/21 01/17/21 01/17/21 00:22 04:47 08:49 Temperature 97.7 F 98.2 F Pulse Rate 64 63 65 Respiratory 17 18 18 Rate Blood Pressure 129/89 123/81 Blood Pressure 104/70 [Right] O2 Sat by Pulse 93 91 97 Oximetry - Allied health notes Allied health notes reviewed: nursing, PT, OT FIMS assessment as documented by PT/OT/ST: Grooming Patient cleans teeth/dentures: Yes Patient kohli/brushes hair: Yes Patient washes, rinses and Yes dries face: Patient washes, rinses and Yes dries hands: Patient shaves: Yes Patient performs (no make-up/ /4 (100%) shaving): Patient performs (w/ make-up/ 5/5 (100%) shaving): Grooming FIM Score 6. Modified [place] (Needs equipment/device . Extra time.) Toileting Toileting Device Commode over Toilet Patient able to: Adjust clothes before,Clean self,Adjust clothes after Patient able to perform: 3/3 (100%) Toileting FIM Score 6. Modified [place] (Needs equip. or prosth ./orth.) Social interaction/Memory/Problem solving Social Interaction FIM Score 6. Mod. [place] (Mostly appropriate. May need meds. No supv.) Memory FIM Score 6. Modified [place](Mild difficulty remembering people/routines.) Problem Solving FIM Score 6. Mod. [place] (Mild difficulty or needs more time w/ complex.) Transfers Mode of Locomotion: Wheelchair Bed/Chair/Wheelchair Transfers 6. Modified [place] (Uses device, sliding FIM Score board, prosth./orth.) Locomotion- walk/wheelchair Ambulation Distance 50 Eating Eating FIM Score 6. Modified [place] (Special consistency or uses device.) Dressing-Upper body Patient retrieves clothing Yes items: Upper Body Dressing FIM Score 6. Modified [place] (Needs equipment, velcro or pros./orth.) Dressing-lower body Patient retrieves clothing Yes items: Lower Body Dressing FIM Score 6. Modified [place] (Needs equipment, velcro or pros./orth.) - Labs CBC & Chem 7: 01/17/21 07:31 01/17/21 07:31 Labs: Laboratory Results - last 72 hr 01/14/21 01/15/21 01/17/21 11:34 07:28 07:30 WBC RBC Hgb Hct MCV MCH MCHC RDW Plt Count Sodium Potassium Chloride Carbon Dioxide Anion Gap BUN Creatinine Estimated GFR BUN/Creatinine Ratio Glucose POC Glucose 119 H 121 H 116 H Calcium 01/17/21 01/17/21 07:31 07:31 WBC 7.5 RBC 4.51 Hgb 13.1 Hct 38.5 MCV 85 MCH 29 MCHC 34 RDW 14.4 Plt Count 287 Sodium 135 L Potassium 4.1 Chloride 97.5 L Carbon Dioxide 28 Anion Gap 14 BUN 16 Creatinine 0.8 Estimated GFR > 60 BUN/Creatinine Ratio 20 Glucose 117 H POC Glucose Calcium 9.3 Assessment and Plan CAD: Continue dual antiplatelet therapy, cardiac monitoring. Monitor the patient during therapy and ensure that he is not becoming short of breath or developing chest pain. Give appropriate rest. Cardiology consult as needed. P atient will need to follow-up with cardiology after discharge. Hypertension: Continue medication. Monitor blood pressure. Adjust medications as needed for normotension. Hold orders for hypotension placed. Goal SBP <140 Relative hypotension/volume depletion: 01/13 Gave 1 L of gentle IV fluids and monitor for improvement Diabetes: Continue carb controlled diet, medications as needed. Goal is for euglycemia. Sliding scale insulin. A1c<4. A.m. glucose checks have been fairly benign. Will discontinue and can keep the patient on a carb controlled diet. Will need to follow-up with PCP for further monitoring of A1c. Rash on back: Resolved, monitor Hypothyroidism: Levels were low in the acute care side. We will continue at increased dosing and patient should follow-up with PCP for further monitoring and adjustment. Anemia: Slightly low again, normocytic/normochromic. Continue to monitor at this point and if he does drop significantly will work-up further. Transfusion for hemoglobin less than 7. Hyperlipidemia: Continue statin Chronic pain and headaches: Continue current pain medications, utilize modalities with therapy and may look to start medication for headache if able given patient's regimen. Right ulnar neuropathy: We will continue treatment with modalities and possibly splint. We will add low-dose gabapentin. Patient will need to follow-up with outpatient services for EMG/nerve conduction study for possible cubital tunnel release. Bilateral lower extremity neuropathy: Start low-dose gabapentin and monitor Suicidal ideation: Story is changed as to what actually happened prior to admission. Patient currently is safe and being monitored closely. Does not require sitter and denies any intent of self-harm or harm to others. However, will avoid any addition of extra opiates or benzodiazepines given patient's reported story of wanting to overdose. Will consider psych consult if needed. Did voiced suicidal ideation to nursing on 01/17, but then quickly recanted with me stating that that was just an outburst and he has no plans of self-harm. May obtain psych consult just to be thorough. Did plan to discharge patient Sunday. ADL dysfunction: OT will work on improving ability to perform ADLs (including assistive devices) to increase independence and decrease caregiver burden and improve functional transfers and mobility training. Difficulty walking: PT will work on gait training and proper use of assistive devices and advance as appropriate to use of stairs and outside ambulation on uneven surfaces. Unsteadiness on feet: PT will work on improving static and dynamic sitting and standing balance as well as proper use of assistive devices to decrease risk of falls. Abnormality of gait: PT will work to improve safety and efficiency of gait through neuromotor training and gait training along with instruction on proper use of assistive devices. Muscle weakness: PT & OT will work on strengthening exercises to improve functional strength including mixture of closed and open kinetic chain exercises. Debility: PT & OT will work on improving overall functional status to improve participation with ADLs, mobility and social involvement. Fatigue: PT & OT will work on improving endurance through aerobic exercises and therapeutic activity while monitoring patients tolerance for activity and vital signs as needed. DVT ppx: Lovenox Pain: Continue physical modalities in therapy and pain medications as needed to achieve functional pain control. Sleep: Monitor and address as needed. Bowel: Monitor and address as needed. Appetite: Monitor and address as needed. Discharge planning: Pending therapy progress and care plan meeting. Will continue discussion with therapy team, SW, patient and home social media intern. Initial date of discharge tentatively 01/18. Restrictions/ Precautions: Falls, SI, cognition WB status: FWB Functional Hx: ADLs: Independent Cognition: Independent Mobility: No AD Barriers to Discharge: Decreased mobility and ability to perform self care, balance deficits, weakness Estimated Length of Stay: 1014 days Discharge Destination: Home to long-term
[2021-01-17] MEDS: GABAPENTIN 300 MG CAP PO SCH (17:11)
[2021-01-17] MEDS: traZODone 50 MG TAB PO SCH (22:49)
[2021-01-18] MEDS: LEVOTHYROXINE 150 MCG TAB PO SCH (06:29)
--- NOTE | 2021-01-18 07:40 | Progress Note ---
Subjective Date of service: 01/18/21 Principal diagnosis: Debility with NSTEMI and prior TBI Interval history: 60-year-old male who states that he was tired of being in pain and decided to take his life by taking a handful of pills including what he counts as 30 Xanax. Patient was then noted to have second thoughts on the matter and contacted 911 and was transported to the ED. However this is a different recollection as to what was seen in the prior medical record which states that the patient sent a text message to his roommate stating that he was going to walk out into traffic. Of note, urine drug screen was negative for any benzodiazepines or opiates at the time of admission. Psych was consulted and the patient was deemed to be at no risk to himself currently. On my interview the patient does state that he suffers from chronic pain and does not want to harm himself any longer. Sitter was discontinued previously on the acute care side. Patient does live in a prison setting. Have talked to his community milk pickup truck driver and she states that they will reserve his room for him. He was worked up and found to have an NSTEMI and later taken to the [facility]. He received stents and was placed on dual antiplatelet therapy. Since his intervention, blood pressure and glucose have been fairly well controlled on current medications. Most recent A1c noted in the computer is from January 2020 and was 6.5. We will obtain a new A1c. Lipids were within a regular range exc ept for elevated triglycerides at 186. Interval History: Patient is participating in therapy and making reasonable progress. Taking rest breaks as needed. +BM, Bowel meds scheduled. Denies palpitations, dyspnea, cough, N/V, or joint pain. Patient denies any pain today, seems to be withdrawn and does not engage in conversation. CAD: Continue dual antiplatelet therapy and cardiac monitoring. Ensure that the patient does not over exert himself and if he does start to develop any chest pain or shortness of breath or if we get notification from telemetry monitoring that nursing immediately contact MD. Will need to follow-up with cardiology as an outpatient. Cardiology consult if needed. Hypertension: Continue medication. Blood pressure has been on the lower side since the patient was admitted to the hospital. Cardiology originally held beta- seven due to hypotension. We have placed a hold for systolic blood pressure less than 110. Continue to monitor blood pressure Anemia: Improved, normocytic/normochromic. Patient is asymptomatic. Continue to monitor and address if it worsens. Transfusion for hemoglobin less than 7. Rash: Resolved Diabetes: Continue carb controlled diet. A1c was obtained and is < 4. Will discontinue before meals and at bedtime glucose checks and sliding scale. Will check glucose levels first thing in the morning for the remainder of the week as the patient does continue to have values which are elevated. Hypothyroidism: Continue medication at increased level due to having TSH of 28 and free T4 of 0.48. Patient will need follow-up as an outpatient in about 3 weeks for further monitoring and adjustment. Hyperlipidemia: Continue statin. Recheck as outpatient. Chronic pain and headaches: Patient continues to have chronic pain and headaches but has not complained of these to any significant extent. Seems that the headaches are the predominant issue and they come and go but patient has never had any outward signs of distress or being in pain. Pain medications are available and we will continue to use movement and modalities to help alleviate his pain. Suicidal ideation: Patient has not been having any complaints of pain with me lately over the past week or so. However this morning he voiced that he would like to just to nursing staff based on his horribly uncontrolled all over body pain. When discussed further with the patient he states that he regretted the, and as soon as he said it he has no plans to harm himself. When asked how he would harm himself he stated that he had no idea. He does not want to cause any self-harm or harm to others. When asked about his pain more specifically, he states he cannot describe it it just feels like it is all over but could not put any descriptive term to it. Patient's initial story was variable based on reports. He told me again that he took over 30 Xanax and a handful of other pills however his UDS was negative. When asked about this he then says that he forced himself to throw up. There are also conflict doing aspects as to whether he called 911 himself versus calling his home social services analyst. I did discuss with the patient that he would absolutely need to follow-up with psychiatry after discharge however he also told me that he would not have a way to get back and forth to those appointments. Not much is changed from the patient's admission so I do not necessarily think that calling a psych consult for him over this issue would be helpful but we may request it just to be thorough. Will not discharge him home on any controlled substances at this point. Will order social work with home health at discharge and attempt to speak to his home field nurse case manager as well. Continue to monitor and keep a close eye on him for any signs of distress. 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 We will start with a low-dose of gabapentin to see if this helps to improve his neuropathic pain. As far as the right ulnar neuropathy, patient would benefit from outpatient referral for EMG/nerve conduction study to ascertain if this is a cubital tunnel entrapment or elsewhere. Afterwards he could be referred to surgery for further intervention if needed. All records, vitals, labs and medications were reviewed. No other issues per patient, nursing or therapy. Discussed during team conference. Making reasonable progress with therapy. We will look to discharge on back to his prison. Patient will need a 3 and 1, shower chair, rolling walker. Have discussed with the patient that he will need to follow-up with psychiatry after discharge however patient states that he will not have a way to get to them. Objective - Exam Narrative Exam: MUSCULOSKELETAL SPECIALTY EXAM CONSTITUTIONAL: Well developed, well nourished, appropriately dressed, obese, left hand dominant EENT: Hearing intact to soft voice RESPIRATORY: Clear to auscultation bilaterally, no increased work of breathing CARDIOVASCULAR: Regular Rate/ Rhythm, no swelling, edema or tenderness in BUE or BLE. All e xtremities warm. GI: + bowel sounds, soft, NTTP, nondistended. INTEGUMENTARY: Sores on bilateral lower extremities look better, otherwise normal, no lesion, rash, masses or bruising noted in extremities. MUSCULOSKELETAL: Left upper extremity with contracted hand, decreased range of motion, radial deviation of the hand which is swollen and decreased elbow extension, otherwise BUE and BLE normal without defect, crepitus, subluxation, effusion, arthritic changes or TTP. BUE 4+/5, good ROM, with normal tone. BLE 4+/5 good ROM, with normal tone NEURO: Sensation intact in all extremities with decreased sensation in the bilateral lower extremities and right ulnar distribution neuropathy. Coordination intact in RUE and decreased in the LUE. No tremor noted in 4 extremities. POSTURE and GAIT: Sitting posture good. Balance and gait deferred until seen with therapy. PSYCH: Alert, oriented to person and place, affect appears blunted. Insight appears impaired. Currently he denies suicidal ideation and does not have a plan. Does not appear to be a danger to himself or others at this time. - Allied health notes Allied health notes reviewed: nursing, PT, OT FIMS assessment as documented by PT/OT/ST: Grooming Patient cleans teeth/dentures: Yes Patient kohli/brushes hair: Yes Patient washes, rinses and Yes dries face: Patient washes, rinses and Yes dries hands: Patient shaves: Yes Patient performs (no make-up/ 10/24 (100%) shaving): Patient performs (w/ make-up/ 11/24 (100%) shaving): Grooming FIM Score 6. Modified Nelson (Needs equipment/device . Extra time.) Toileting Toileting Device Commode over Toilet Patient able to: Adjust clothes before,Clean self,Adjust clothes after Patient able to perform: 3/3 (100%) Toileting FIM Score 6. Modified Nelson (Needs equip. or prosth ./orth.) Social interaction/Memory/Problem solving Social Interaction FIM Score 6. Mod. Nelson (Mostly appropriate. May need meds. No supv.) Memory FIM Score 6. Modified Nelson(Mild difficulty remembering people/routines.) Problem Solving FIM Score 6. Mod. Nelson (Mild difficulty or needs more time w/ complex.) Transfers Mode of Locomotion: Wheelchair Bed/Chair/Wheelchair Transfers 6. Modified Nelson (Uses device, sliding FIM Score board, prosth./orth.) Locomotion- walk/wheelchair Ambulation Distance 50 Eating Eating FIM Score 6. Modified Nelson (Special consistency or uses device.) Dressing-Upper body Patient retrieves clothing Yes items: Upper Body Dressing FIM Score 6. Modified Nelson (Needs equipment, velcro or pros./orth.) Dressing-lower body Patient retrieves clothing Yes items: Lower Body Dressing FIM Score 6. Modified Nelson (Needs equipment, velcro or pros./orth.) - Labs CBC & Chem 7: 01/17/21 07:31 01/17/21 07:31 Labs: Laboratory Results - last 72 hr 01/17/21 01/17/21 01/17/21 07:30 07:31 07:31 WBC 7.5 RBC 4.51 Hgb 13.1 Hct 38.5 MCV 85 MCH 29 MCHC 34 RDW 14.4 Plt Count 287 Sodium 135 L Potassium 4.1 Chloride 97.5 L Carbon Dioxide 28 Anion Gap 14 BUN 16 Creatinine 0.8 Estimated GFR > 60 BUN/Creatinine Ratio 20 Glucose 117 H POC Glucose 116 H Calcium 9.3 Assessment and Plan CAD: Continue dual antiplatelet therapy, cardiac monitoring. Monitor the patient during therapy and ensure that he is not becoming short of breath or dev eloping chest pain. Give appropriate rest. Cardiology consult as needed. Patient will need to follow-up with cardiology after discharge. Hypertension: Continue medication. Monitor blood pressure. Adjust medications as needed for normotension. Hold orders for hypotension placed. Goal SBP <140 Relative hypotension/volume depletion: 01/13 Gave 1 L of gentle IV fluids and monitor for improvement Diabetes: Continue carb controlled diet, medications as needed. Goal is for euglycemia. Sliding scale insulin. A1c<4. A.m. glucose checks have been fairly benign. Will discontinue and can keep the patient on a carb controlled diet. Will need to follow-up with PCP for further monitoring of A1c. Rash on back: Resolved, monitor Hypothyroidism: Levels were low in the acute care side. We will continue at increased dosing and patient should follow-up with PCP for further monitoring and adjustment. Anemia: Slightly low again, normocytic/normochromic. Continue to monitor at this point and if he does drop significantly will work-up further. Transfusion for hemoglobin less than 7. Hyperlipidemia: Continue statin Chronic pain and headaches: Continue current pain medications, utilize modalities with therapy and may look to start medication for headache if able given patient's regimen. Right ulnar neuropathy: We will continue treatment with modalities and possibly splint. We will add low-dose gabapentin. Patient will need to follow-up with outpatient services for EMG/nerve conduction study for possible cubital tunnel release. Bilateral lower extremity neuropathy: Start low-dose gabapentin and monitor Suicidal ideation: Story is changed as to what actually happened prior to admission. Patient currently is safe and being monitored closely. Voiced suicidal ideation to nursing on 01/17, but then quickly recanted with me stating that that was just an outburst and he has no plans of self-harm. Patient now has a sitter and have consulted psych to see him. Does not appear to be a danger to himself currently, denies any thoughts of self-harm or plan to accomplish. ADL dysfunction: OT will work on improving ability to perform ADLs (including assistive devices) to increase independence and decrease caregiver burden and improve functional transfers and mobility training. Difficulty walking: PT will work on gait training and proper use of assistive devices and advance as appropriate to use of stairs and outside ambulation on uneven surfaces. Unsteadiness on feet: PT will work on improving static and dynamic sitting and standing balance as well as proper use of assistive devices to decrease risk of falls. Abnormality of gait: PT will work to improve safety and efficiency of gait through neuromotor training and gait training along with instruction on proper use of assistive devices. Muscle weakness: PT & OT will work on strengthening exercises to improve functional strength including mixture of closed and open kinetic chain exercises. Debility: PT & OT will work on improving overall functional status to improve participation with ADLs, mobility and social involvement. Fatigue: PT & OT will work on improving endurance through aerobic exercises and therapeutic activity while monitoring patients tolerance for activity and vital signs as needed. DVT ppx: Lovenox Pain: Continue physical modalities in therapy and pain medications as needed to achieve functional pain control. Sleep: Monitor and address as needed. Bowel: Monitor and address as needed. Appetite: Monitor and address as needed. Discharge planning: Pending therapy progress and care plan meeting. Will continue discussion with therapy team, SW, patient and home social services analyst. Initial date of discharge tentatively 01/20. Restrictions/ Precautions: Falls, SI, cognition WB status: FWB Functional Hx: ADLs: Independent Cognition: Independent Mobility: No AD Barriers to Discharge: Decreased mobility and ability to perform self care, balance deficits, weakness Estimated Length of Stay: 1014 days Discharge Destination: Home to prison
[2021-01-18] MEDS: carvediloL 3.125 MG TAB PO SCH ×2 (08:11→21:55)
[2021-01-18] MEDS: SERTRALINE 100 MG TAB PO SCH (08:11)
[2021-01-18] MEDS: ENOXAPARIN 40 MG/0.4 ML INJ SUB-Q SCH (08:11)
[2021-01-18] MEDS: ASPIRIN EC 81 MG TAB PO SCH (08:11)
[2021-01-18] MEDS: CLOPIDOGREL 75 MG TAB PO SCH (08:11)
[2021-01-18] MEDS: risperiDONE 0.25 MG TAB PO SCH ×2 (08:11→21:54)
--- NOTE | 2021-01-18 14:01 | Consultation ---
History of Present Illness - Reason for Consult Consult date: 01/18/21 Reason for consult: Suicidal Ideation - History of Present Psychiatric Illness Per Note: 60-year-old male who states that he was tired of being in pain and decided to take his life by taking a handful of pills including what he counts as 30 Xanax. Patient was then noted to have second thoughts on the matter and contacted 911 and was transported to the ED. However this is a different recollection as to what was seen in the prior medical record which states that the patient sent a text message to his roommate stating that he was going to walk out into traffic. Of note, urine drug screen was negative for any benzodiazepines or opiates at the time of admission. Psych was consulted and the patient was deemed to be at no risk to himself currently. On my interview the patient does state that he suffers from chronic pain and does not want to harm himself any longer. Sitter was discontinued previously on the acute care side. Patient does live in a skilled nursing setting. Have talked to his community olive grader and she states that they will reserve his room for him. Ye Dumont is a 60 year single and unemployed male with a past psychiatric history of depression and anxiety who presented to the ED for suicidal attempt via overdosing on pills. In my interview with patient, he endorsed depression which he states it has been going on for the past 10 years. Patient reports he is depressed everyday " I get depressed when I wake up." Patient states that his father when he was 6 y/o and his mother 2 years ago; he reports being incommunicado with his siblings. Patient reports stressors as " I am tired of pain." Patient endorses suicidal ideation without a plan and intermittent auditory and visual hallucinations. PAST PSYCHIATRIC HISTORY: Diagnoses:Depression, Anxiety Suicide attempts or Self-harm behavior: denies Prior psychiatric hospitalizations: Denies Substance Abuse history: cocaine, Meth, Heroine, Marijuana Previous psychiatric medications tried: unknown Outpatient treatment: unknown PAST MEDICAL HISTORY: Family Psychiatric History: None reported or documented SOCIAL HISTORY Marital Status: single Living Arrangements: alone Employment Status: unemployed Access to guns/weapons: n/a Education: 4th grade History of Abuse: n/a Legal History: n/a REVIEW OF SYSTEMS Constitutional: Negative for weight loss ENT: Negative for stridor Respiratory: Negative for cough or hemoptysis All other systems reviewed and are negative MENTAL STATUS EXAMINATION General Appearance and Behavior: Age appropriate, good hygiene, wearing appropriate clothes, uncooperative polite with questioning. Cooperation: cooperative Psychomotor Behavior: Psychomotor agitation Mood: "depressed" Affect and affective range: congruent Thought Process: goal directed Thought Content: impulsive Speech: Normal volume, Regular rate and rhythm Intellectual Functioning: average Suicidal Ideation: Yes Homicidal Ideation: Denied hallucination: Auditory/ Visual Impulse Control: impaired Insight and Judgment: limited Memory: memory impaired Attention:Distractible Orientation: Alert and oriented Diagnoses:Major Depressive Disorder: F33.1 Treatment Plan: Continue -Risperidone 0.5mg BID Continue- Sertraline 100mg po Daily Continue- Trazodone 50mg po Daily Will follow Reaction to Hospitalization: Accepting Medications and Allergies Allergies Allergy/AdvReac Type Severity Reaction Status Date / Time No Known Allergies Allergy Verified 12/29/20 23:23 Home Medications Medication Instructions Recorded Confirmed Last Taken Type Aspirin [Adult Aspirin] 81 mg PO QDAY #30 tablet. 02/04/20 01/07/21 Unknown Rx Melatonin [Melatonin 5MG TAB] 5 mg PO QHS #30 tablet 02/04/20 01/07/21 Unknown Rx Sertraline [Zoloft] 100 mg PO QDAY #30 tablet 02/04/20 01/07/21 Unknown Rx metFORMIN [Glucophage] 500 mg PO QDAY #30 tab 02/04/20 01/07/21 Unknown Rx risperiDONE [RisperDAL] 0.5 mg PO BID #60 tablet 02/04/20 01/07/21 Unknown Rx traZODone [Desyrel] 50 mg PO QHS #30 tablet 02/04/20 01/07/21 Unknown Rx Acetaminophen [Acetaminophen TAB] 650 mg PO Q6H PRN tablet 01/06/21 01/07/21 Unknown Rx Antacid [Alum-Mag Hydrox-Simeth 30 ml PO Q8H PRN oral.liqd 01/06/21 01/07/21 Unknown Rx [id number]] AtorvaSTATin [Lipitor] 80 mg PO QHS tablet 01/06/21 01/07/21 Unknown Rx Clopidogrel [Plavix] 75 mg PO QDAY tablet 01/06/21 01/07/21 Unknown Rx ISOSORBIDE MONOnitrate [Imdur ER] 30 mg PO QDAY tablet 01/06/21 01/07/21 Unknown Rx Levothyroxine [Synthroid] 150 mcg PO DAILY@0600 tablet 01/06/21 01/07/21 Unknown Rx Lispro Insulin [HumaLOG] 0 unit SUB-Q ACHS units 01/06/21 01/07/21 Unknown Rx Magnesium Hydroxide [Milk of 30 ml PO Q4H PRN oral.liqd 01/06/21 01/07/21 Unknown Rx Magnesia] Nitroglycerin [Nitrostat] 0.4 mg SL Q5M PRN tablet 01/06/21 01/07/21 Unknown Rx carvediloL [Coreg] 3.125 mg PO BID tablet 01/06/21 01/07/21 Unknown Rx Active Meds: Active Medications Acetaminophen (Acetaminophen 325 Mg Tab) 650 mg PO Q6H PRN PRN Reason: Non Cardiac Pain or Temp>100.5 Last Admin: 01/09/21 22:34 Dose: 650 mg Documented by: Hydrocodone Bitart/Acetaminophen (Hydrocodone/Acetaminophen 5-325 Mg Tab) 1 each PO Q6H PRN PRN Reason: Pain, Moderate (4-6) Last Admin: 01/13/21 18:46 Dose: 1 each Documented by: Albuterol (Albuterol 2.5 Mg/3 Ml Nebu) 2.5 mg IH Q4HRT PRN PRN Reason: Shortness Of Breath Aspirin (Aspirin Ec 81 Mg Tab) 81 mg PO QDAY [facility] Last Admin: 01/18/21 08:11 Dose: 81 mg Documented by: Atorvastatin Calcium (Atorvastatin 40 Mg Tab) 80 mg PO QHS [facility] Last Admin: 01/17/21 22:49 Dose: 80 mg Documented by: Bisacodyl (Bisacodyl 10 Mg Rect Supp) 10 mg SC QDAY PRN PRN Reason: Constipation Carvedilol (Carvedilol 3.125 Mg Tab) 3.125 mg PO BID [facility] Last Admin: 01/18/21 08:11 Dose: 3.125 mg Documented by: Clopidogrel Bisulfate (Clopidogrel 75 Mg Tab) 75 mg PO QDAY [facility] Last Admin: 01/18/21 08:11 Dose: 75 mg Documented by: Enoxaparin Sodium (Enoxaparin 40 Mg/0.4 Ml Inj) 40 mg SUB-Q QDAY [facility] Last Admin: 01/18/21 08:11 Dose: 40 mg Documented by: Gabapentin (Gabapentin 300 Mg Cap) 300 mg PO QPM [facility] Last Admin: 01/17/21 17:11 Dose: 300 mg Documented by: Hydralazine HCl (Hydralazine 20 Mg/1 Ml Inj) 10 mg IV Q4HR PRN PRN Reason: Hypertension Isosorbide Mononitrate (Isosorbide Mononitrate Er 30 Mg Tab) 30 mg PO QDAY [facility] Last Admin: 01/18/21 08:11 Dose: Not Given Documented by: Levothyroxine Sodium (Levothyroxine 150 Mcg Tab) 150 mcg PO DAILY@0600 [facility] Last Admin: 01/18/21 06:29 Dose: 150 mcg Documented by: Nitroglycerin (Nitroglycerin 0.4 Mg Tab Subl) 0.4 mg SL .Q5MIN PRN PRN Reason: Chest Pain Ondansetron HCl (Ondansetron 4 Mg Odt Tab) 4 mg PO Q8H PRN PRN Reason: Nausea And Vomiting Polyethylene Glycol (Polyethylene Glycol 3350 17 Gm Powder) 17 gm PO QDAY PRN PRN Reason: Constipation Risperidone (Risperidone 0.25 Mg Tab) 0.5 mg PO BID [facility] Last Admin: 01/18/21 08:11 Dose: 0.5 mg Documented by: Sertraline HCl (Sertraline 100 Mg Tab) 100 mg PO QDAY [facility] Last Admin: 01/18/21 08:11 Dose: 100 mg Documented by: Trazodone HCl (Trazodone 50 Mg Tab) 50 mg PO QHS [facility] Last Admin: 01/17/21 22:49 Dose: 50 mg Documented by: Zinc Acetate/Diphenhydramine (Diphenhydramine/Zinc Acet 2% Cream 28.4 Gm) 1 applic TP Q8H PRN PRN Reason: Itching Last Admin: 01/08/21 17:51 Dose: 1 applic Documented by: Mental Status Exam - Vital signs Last Vital Signs Temp 98.6 F 01/18/21 07:54 Pulse 60 01/18/21 07:54 Resp 16 01/18/21 07:54 BP 99/66 01/18/21 07:54 Pulse Ox 95 01/18/21 07:54 Results Result Diagrams: 01/17/21 07:31 01/17/21 07:31 All other labs normal.
[2021-01-18] MEDS: GABAPENTIN 300 MG CAP PO SCH (18:32)
[2021-01-18] MEDS: traZODone 50 MG TAB PO SCH (21:54)
[2021-01-19] MEDS: LEVOTHYROXINE 150 MCG TAB PO SCH (06:08)
[2021-01-19] MEDS: ASPIRIN EC 81 MG TAB PO SCH (08:29)
[2021-01-19] MEDS: risperiDONE 0.25 MG TAB PO SCH ×2 (08:29→22:04)
[2021-01-19] MEDS: carvediloL 3.125 MG TAB PO SCH ×2 (08:30→22:03)
[2021-01-19] MEDS: ENOXAPARIN 40 MG/0.4 ML INJ SUB-Q SCH (08:30)
[2021-01-19] MEDS: CLOPIDOGREL 75 MG TAB PO SCH (08:30)
[2021-01-19] MEDS: SERTRALINE 100 MG TAB PO SCH (08:30)
--- NOTE | 2021-01-19 14:11 | Progress Note ---
Subjective Date of service: 01/19/21 Principal diagnosis: Debility with NSTEMI and prior TBI Interval history: 60-year-old male who states that he was tired of being in pain and decided to take his life by taking a handful of pills including what he counts as 30 Xanax. Patient was then noted to have second thoughts on the matter and contacted 911 and was transported to the ED. However this is a different recollection as to what was seen in the prior medical record which states that the patient sent a text message to his roommate stating that he was going to walk out into traffic. Of note, urine drug screen was negative for any benzodiazepines or opiates at the time of admission. Psych was consulted and the patient was deemed to be at no risk to himself currently. On my interview the patient does state that he suffers from chronic pain and does not want to harm himself any longer. Sitter was discontinued previously on the acute care side. Patient does live in a intermediate setting. Have talked to his community fertilizer loader and she states that they will reserve his room for him. He was worked up and found to have an NSTEMI and later taken to the cardiac Sheriffs Officer. He received stents and was placed on dual antiplatelet therapy. Since his intervention, blood pressure and glucose have been fairly well controlled on current medications. Most recent A1c noted in the computer is from January 2020 and was 6.5. We will obtain a new A1c. Lipids were within a regular range exc ept for elevated triglycerides at 186. Interval History: Patient is participating in therapy and making reasonable progress. Taking rest breaks as needed. +BM, Bowel meds scheduled. Denies palpitations, dyspnea, cough, N/V, or joint pain. Patient denies any pain today, seems to be withdrawn and does not engage in conversation. CAD: Continue dual antiplatelet therapy and cardiac monitoring. Ensure that the patient does not over exert himself and if he does start to develop any chest pain or shortness of breath or if we get notification from telemetry monitoring that nursing immediately contact MD. Will need to follow-up with cardiology as an outpatient. Cardiology consult if needed. Hypertension: Continue medication. Blood pressure has been on the lower side since the patient was admitted to the hospital. Cardiology originally held beta- seven due to hypotension. We have placed a hold for systolic blood pressure less than 110. Continue to monitor blood pressure Anemia: Improved, normocytic/normochromic. Patient is asymptomatic. Continue to monitor and address if it worsens. Transfusion for hemoglobin less than 7. Rash: Resolved Diabetes: Continue carb controlled diet. A1c was obtained and is < 4. Does not appear the patient is diabetic at this time. Hypothyroidism: Continue medication at increased level due to having TSH of 28 and free T4 of 0.48. Patient will need follow-up as an outpatient in about 3 weeks for further monitoring and adjustment. Hyperlipidemia: Continue statin. Recheck as outpatient. Chronic pain and headaches: Patient continues to have chronic pain and headaches but has not complained of these to any significant extent. Seems that the headaches are the predominant issue and they come and go but patient has never had any outward signs of distress or being in pain. Pain medications are available and we will continue to use movement and modalities to help alleviate his pain. Suicidal ideation: Patient states that he still having suicidal ideation and does most days according to him now. When specifically asked about a plan he does not have a plan however does state that he has attempted suicide a total of approximately 3 times in the past. Uncertain of validity of that claim. He does have multiple admissions at this hospital where he was either admitted to the inpatient psychiatric unit or seen by psychiatry while being seen for other medical conditions. Have discussed with the staff and requested a call back from [employer] or psychiatrist concerning possibility of having the patient admitted for inpatient psych services. Primary concern is with the TBI and the fact that he has reportedly attempted numerous times in the past and his other emotional factors that he may well try again and actually be successful. Awaiting callback. 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 We will start with a low-dose of gabapentin to see if this helps to improve his neuropathic pain. As far as the right ulnar neuropathy, patient would benefit from outpatient referral for EMG/nerve conduction study to ascertain if this is a cubital tunnel entrapment or elsewhere. Afterwards he could be referred to surgery for further interven tion if needed. All records, vitals, labs and medications were reviewed. No other issues per patient, nursing or therapy. In total, approximately 90 minutes was spent with the patient today on patient care including discussing with his home fertilizer loader as well as staff on the psychiatric floor. 30 minutes total was spent with the patient directly [id number] discussing his past psychiatric history and his suicide attempts. Best case scenario would be to have the patient admitted to inpatient psychiatry for further stabilization, I do not feel like he is a danger to himself or others at this time however he may indeed attempt suicide again in the future. Uncertain with the history of a traumatic brain injury and mental illness if he would benefit from inpatient psychiatric hospitalization. Would absolutely recommend that he attend regular outpatient follow-up with therapy and psyc hiatry. Patient seemed resistant to this stating that he would not have transportation. His outpatient case manager did say that she would get him to any appointment he needs to be at. Objective - Exam Narrative Exam: MUSCULOSKELETAL SPECIALTY EXAM CONSTITUTIONAL: Well developed, well nourished, appropriately dressed, obese, left hand dominant EENT: Hearing intact to soft voice RESPIRATORY: Clear to auscultation bilaterally, no increased work of breathing CARDIOVASCULAR: Regular Rate/ Rhythm, no swelling, edema or tenderness in BUE or BLE. All extremities warm. GI: + bowel sounds, soft, NTTP, nondistended. INTEGUMENTARY: Sores on bilateral lower extremities look better, otherwise normal, no lesion, rash, masses or bruising noted in extremities. MUSCULOSKELETAL: Left upper extremity with contracted hand, decreased range of motion, radial deviation of the hand which is swollen and decreased elbow extension, otherwise BUE and BLE normal without defect, crepitus, subluxation, effusion, arthritic changes or TTP. BUE 4+/5, good ROM, with normal tone. BLE 4+/5 good ROM, with normal tone NEURO: Sensation intact in all extremities with decreased sensation in the bilateral lower extremities and right ulnar distribution neuropathy. Coordination intact in RUE and decreased in the LUE. No tremor noted in 4 extremities. POSTURE and GAIT: Sitting posture good. Balance and gait deferred until seen with therapy. PSYCH: Alert, oriented to person and place, affect appears blunted. Insight appears impaired. Currently he admit suicidal ideation but does not have a plan. Does not appear to be a danger to himself or others at this time. - Constitutional Vitals: Vital Signs - 12hr 01/19/21 01/19/21 01/19/21 05:09 07:05 08:29 Temperature 98.2 F 98.3 F Pulse Rate 65 77 77 Respiratory 20 20 Rate Blood Pressure 100/61 113/75 113/75 O2 Sat by Pulse 95 94 Oximetry 01/19/21 11:32 Temperature 98.9 F Pulse Rate 78 Respiratory 18 Rate Blood Pressure 97/63 O2 Sat by Pulse 94 Oximetry - Allied health notes Allied health notes reviewed: nursing, PT, OT FIMS assessment as documented by PT/OT/ST: Grooming Patient cleans teeth/dentures: Yes Patient kohli/brushes hair: Yes Patient washes, rinses and Yes dries face: Patient washes, rinses and Yes dries hands: Patient shaves: Yes Patient performs (no make-up/ 10/24 (100%) shaving): Patient performs (w/ make-up/ 11/24 (100%) shaving): Grooming FIM Score 6. Modified [place] (Needs equipment/device . Extra time.) Toileting Toileting Device Commode over Toilet Patient able to: Adjust clothes after Patient able to perform: 3/3 (100%) Toileting FIM Score 5. Supv./Set-Up (Needs stand-by, set-up, applying prosth/orth.) Social interaction/Memory/Problem solving Social Interaction FIM Score 6. Mod. [place] (Mostly appropriate. May need meds. No supv.) Memory FIM Score 6. Modified [place](Mild difficulty remembering people/routines.) Problem Solving FIM Score 6. Mod. [place] (Mild difficulty or needs more time w/ complex.) Transfers Mode of Locomotion: Wheelchair Bed/Chair/Wheelchair Transfers 5. Supervision (Needs supv. or set-up for FIM Score sliding board, foot rests.) Toilet Transfers FIM Score 6. Modified [place] (Uses device, special seat or more time.) Patient transferred to: Shower Shower Transfers FIM Score 6. Modified [place] (Needs slide board, grab bar, tub bench.) Locomotion- walk/wheelchair Ambulation Distance 50 Eating Eating FIM Score 6. Modified [place] (Special consistency or uses device.) Dressing-Upper body Patient retrieves clothing No items: Upper Body Dressing FIM Score 5. Supv./Set-Up ([place] sets out clothes or applies pros./orth.) Dressing-lower body Patient retrieves clothing Yes items: Lower Body Dressing FIM Score 6. Modified [place] (Needs equipment, velcro or pros./orth.) - Labs CBC & Chem 7: 01/17/21 07:31 01/17/21 07:31 Labs: Laboratory Results - last 72 hr 01/17/21 01/17/21 01/17/21 07:30 07:31 07:31 WBC 7.5 RBC 4.51 Hgb 13.1 Hct 38.5 MCV 85 MCH 29 MCHC 34 RDW 14.4 Plt Count 287 Sodium 135 L Potassium 4.1 Chloride 97.5 L Carbon Dioxide 28 Anion Gap 14 BUN 16 Creatinine 0.8 Estimated GFR > 60 BUN/Creatinine Ratio 20 Glucose 117 H POC Glucose 116 H Calcium 9.3 Assessment and Plan CAD: Continue dual antiplatelet therapy, cardiac monitoring. Monitor the patient during therapy and ensure that he is not becoming short of breath or developing chest pain. Give appropriate rest. Cardiology consult as needed. Patient will need to follow-up with cardiology after discharge. Hypertension: Continue medication. Monitor blood pressure. Adjust medications as needed for normotension. Hold orders for hypotension placed. Goal SBP <140 Relative hypotension/volume depletion: 01/13 Gave 1 L of gentle IV fluids and monitor for improvement Diabetes: Continue carb controlled diet, medications as needed. Goal is for euglycemia. Sliding scale insulin. A1c<4. A.m. glucose checks have been fairly benign. Will discontinue and can keep the patient on a carb controlled diet. Will need to follow-up with PCP for further monitoring of A1c. Rash on back: Resolved, monitor Hypothyroidism: Levels were low in the acute care side. We will continue at increased dosing and patient should follow-up with PCP for further monitoring and adjustment. Anemia: Slightly low again, normocytic/normochromic. Continue to monitor at this point and if he does drop significantly will work-up further. Transfusion for hemoglobin less than 7. Hyperlipidemia: Continue statin Chronic pain and headaches: Continue current pain medications, utilize modalities with therapy and may look to start medication for headache if able given patient's regimen. Right ulnar neuropathy: We will continue treatment with modalities and possibly splint. We will add low-dose gabapentin. Patient will need to follow-up with outpatient services for EMG/nerve conduction study for possible cubital tunnel release. Bilateral lower extremity neuropathy: Start low-dose gabapentin and monitor Suicidal ideation: Story is changed as to what actually happened prior to admission. Patient currently is safe and being monitored closely. Voiced suicidal ideation to nursing on 01/17, but then quickly recanted with me stating that that was just an outburst and he has no plans of self-harm. Patient now has a sitter and have consulted psych to see him. Does not appear to be a danger to himself currently, denies any thoughts of self-harm or plan to accomplish. ADL dysfunction: OT will work on improving ability to perform ADLs (including assistive devices) to increase independence and decrease caregiver burden and improve functional transfers and mobility training. Difficulty walking: PT will work on gait training and proper use of assistive devices and advance as appropriate to use of stairs and outside ambulation on uneven surfaces. Unsteadiness on feet: PT will work on improving static and dynamic sitting and standing balance as well as proper use of assistive devices to decrease risk of falls. Abnormality of gait: PT will work to improve safety and efficiency of gait through neuromotor training and gait training along with instruction on proper use of assistive devices. Muscle weakness: PT & OT will work on strengthening exercises to improve functional strength including mixture of closed and open kinetic chain exercises. Debility: PT & OT will work on improving overall functional status to improve participation with ADLs, mobility and social involvement. Fatigue: PT & OT will work on improving endurance through aerobic exercises and therapeutic activity while monitoring patients tolerance for activity and vital signs as needed. DVT ppx: Lovenox Pain: Continue physical modalities in therapy and pain medications as needed to achieve functional pain control. Sleep: Monitor and address as needed. Bowel: Monitor and address as needed. Appetite: Monitor and address as needed. Discharge planning: Pending therapy progress and care plan meeting. Will continue discussion with therapy team, SW, patient and home social welfare research worker. Initial date of discharge tentatively 01/20, but looking at alternatives now. Restrictions/ Precautions: Falls, SI, cognition WB status: FWB Functional Hx: ADLs: Independent Cognition: Independent Mobility: No AD Barriers to Discharge: Decreased mobility and ability to perform self care, balance deficits, weakness Estimated Length of Stay: 1014 days Discharge Destination: Home to intermediate
--- NOTE | 2021-01-19 16:40 | Progress Note ---
Subjective - Reason for Consult Consult date: 01/19/21 Reason for consult: Suicdal Ideation - Chief Complaint Chief complaint: The patient was seen in Rehab the exercise room. Patient reports doing well. He continues to endorse passive suicidal ideation without a plan. He also endorses auditory hallucination without command. He reports sleep and appetite as good. REVIEW OF SYSTEMS Constitutional: Negative for weight loss ENT: Negative for stridor; [place] Respiratory: Negative for cough or hemoptysis All other systems reviewed and are negative MENTAL STATUS EXAMINATION General Appearance and Behavior: Age appropriate, good hygiene, wearing appropriate clothes, uncooperative polite with questioning. Cooperation: cooperative Psychomotor Behavior: Psychomotor agitation Mood: good Affect and affective range: congruent Thought Process: Goal directed Thought Content: Within reality Speech: Normal volume, Regular rate and rhythm Intellectual Functioning:Average Suicidal Ideation: yes Homicidal Ideation: Denied hallucination: auditory Impulse Control: Intact Insight and Judgment: Limited Memory: Intact Attention:Normal Orientation: Alert and oriented Diagnoses: Major Depressive Disorder, Recurrent , Moderate - F33.1 F33.1 Treatment Plan: Continue -Risperidone 0.5mg BID Continue- Sertraline 100mg po Daily Continue- Trazodone 50mg po Daily Patient should be compliant with medications and not to use drugs and not to drink alcohol. PSYCHOTHERAPY: Supportive psychotherapy provided MEDICAL: Per primary team DELIRIUM PRECAUTIONS: Please re-orient patient frequently, keep lights on during the day, and minimize benzodiazepines and opiates as these medications could worsen patient's confusion. 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 Will sign off Thank you for the consult. Please contact with any questions and/or concerns. Mental Status Exam - Vital signs Last Vital Signs Temp 97.1 F L 01/19/21 15:00 Pulse 65 01/19/21 15:00 Resp 18 01/19/21 15:00 BP 92/59 01/19/21 15:00 Pulse Ox 96 01/19/21 15:00
[2021-01-19] MEDS: GABAPENTIN 300 MG CAP PO SCH (17:03)
[2021-01-19] MEDS: traZODone 50 MG TAB PO SCH (21:06)
[2021-01-20] MEDS: LEVOTHYROXINE 150 MCG TAB PO SCH (05:55)
[2021-01-20] MEDS: ASPIRIN EC 81 MG TAB PO SCH (09:48)
[2021-01-20] MEDS: ENOXAPARIN 40 MG/0.4 ML INJ SUB-Q SCH (09:48)
[2021-01-20] MEDS: risperiDONE 0.25 MG TAB PO SCH ×2 (09:49→22:22)
[2021-01-20] MEDS: CLOPIDOGREL 75 MG TAB PO SCH (09:50)
[2021-01-20] MEDS: carvediloL 3.125 MG TAB PO SCH ×2 (09:50→22:22)
[2021-01-20] MEDS: SERTRALINE 100 MG TAB PO SCH (09:52)
--- NOTE | 2021-01-20 15:09 | Progress Note ---
Subjective Date of service: 01/20/21 Principal diagnosis: Debility with NSTEMI and prior TBI Interval history: 60-year-old male who states that he was tired of being in pain and decided to take his life by taking a handful of pills including what he counts as 30 Xanax. Patient was then noted to have second thoughts on the matter and contacted 911 and was transported to the ED. However this is a different recollection as to what was seen in the prior medical record which states that the patient sent a text message to his roommate stating that he was going to walk out into traffic. Of note, urine drug screen was negative for any benzodiazepines or opiates at the time of admission. Psych was consulted and the patient was deemed to be at no risk to himself currently. On my interview the patient does state that he suffers from chronic pain and does not want to harm himself any longer. Sitter was discontinued previously on the acute care side. Patient does live in a nursing home setting. Have talked to his community glove sewer and she states that they will reserve his room for him. He was worked up and found to have an NSTEMI and later taken to the cardiac Offc Spec. He received stents and was placed on dual antiplatelet therapy. Since his intervention, blood pressure and glucose have been fairly well controlled on current medications. Most recent A1c noted in the computer is from January 2020 and was 6.5. We will obtain a new A1c. Lipids were within a regular range exc ept for elevated triglycerides at 186. Interval History: Patient is participating in therapy and making reasonable progress. Taking rest breaks as needed. +BM, Bowel meds scheduled. Denies palpitations, dyspnea, cough, N/V, or joint pain. Patient denies any pain today, seems to be more interactive today. Had another conversation with the patient and informed him that we would likely be discharging him home. Appreciate psychiatry's consult and recommendations. Patient has not appropriate for inpatient psychiatry services. Discussed with the patient that if he has any feelings of depression and/or thoughts of self-harm that he would need to contact someone immediately whether that is the ER 911 or someone nearby that can help him. Also informed the patient that he would need to absolutely follow-up with psychiatry and possibly a therapist going forward and that this would likely improve his quality of life as well. Patient has not followed up with psychiatry that I know of in the past even though it has been recommended. CAD: Continue dual antiplatelet therapy and cardiac monitoring. Ensure that the patient does not over exert himself and if he does start to develop any chest pain or shortness of breath or if we get notification from telemetry monitoring that nursing immediately contact MD. Will need to follow-up with cardiology as an outpatient. Cardiology consult if needed. Hypertension: Continue medication. Blood pressure has been on the lower side since the patient was admitted to the hospital. Cardiology originally held beta- seven due to hypotension. We have placed a hold for systolic blood pressure less than 110. Continue to monitor blood pressure. At this point, will likely discontinue Imdur or change it to twice a day at a lower dose Anemia: Improved, normocytic/normochromic. Patient is asymptomatic. Continue to monitor and address if it worsens. Transfusion for hemoglobin less than 7. Rash: Resolved Diabetes: Continue carb controlled diet. A1c was obtained and is < 4. Does not appear the patient is diabetic at this time. Hypothyroidism: Continue medication at increased level due to having TSH of 28 and free T4 of 0.48. Patient will need follow-up as an outpatient in about 3 weeks for further monitoring and adjustment. Hyperlipidemia: Continue statin. Recheck as outpatient. Chronic pain and headaches: Patient continues to have chronic pain and headaches but has not complained of these to any significant extent. Seems that the headaches are the predominant issue and they come and go but patient has never had any outward signs of distress or being in pain. Pain medications are available and we will continue to use movement and modalities to help alleviate his pain. Suicidal ideation: Patient states that he still having suicidal ideation and does most days according to him now, however he does not have any plan for self- harm. Appreciate psychiatry consult and recommendations, patient is not appro priate for inpatient psychiatric services. Will strongly recommend patient follow-up with a psychiatrist and high school social studies tutor after discharge. Will have social work come see the patient with home health along with RN PT and OT. 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 We will start with a low-dose of gabapentin to see if this helps to improve his neuropathic pain. As far as the right ulnar neuropathy, patient would benefit from outpatient referral for EMG/nerve conduction study to ascertain if this is a cubital tunnel entrapment or elsewhere. Afterwards he could be referred to surgery for further intervention if needed. All records, vitals, labs and medications were reviewed. No other issues per patient, nursing or therapy. Objective - Exam Narrative Exam: MUSCULOSKELETAL SPECIALTY EXAM CONSTITUTIONAL: Well developed, well nourished, appropriately dressed, obese, left hand dominant EENT: Hearing intact to soft voice RESPIRATORY: Clear to auscultation bilaterally, no increased work of breathing CARDIOVASCULAR: Regular Rate/ Rhythm, no swelling, edema or tenderness in BUE or BLE. All extremities warm. GI: + bowel sounds, soft, NTTP, nondistended. INTEGUMENTARY: Sores on bilateral lower extremities look better, otherwise normal, no lesion, rash, masses or bruising noted in extremities. MUSCULOSKELETAL: Left upper extremity with contracted hand, decreased range of motion, radial deviation of the hand which is swollen and decreased elbow extension, otherwise BUE and BLE normal without defect, crepitus, subluxation, effusion, arthritic changes or TTP. BUE 4+/5, good ROM, with normal tone. BLE 4+/5 good ROM, with normal tone NEURO: Sensation intact in all extremities with decreased sensation in the bilateral lower extremities and right ulnar distribution neuropathy. Coordination intact in RUE and decreased in the LUE. No tremor noted in 4 extremities. POSTURE and GAIT: Sitting posture good. Balance and gait deferred until seen with therapy. PSYCH: Alert, oriented to person and place, affect appears improved. Insight appears impaired. Currently he admits suicidal ideation but does not have a plan. Does not appear to be a danger to himself or others at this time. - Constitutional Vitals: Vital Signs - 12hr 01/20/21 01/20/21 01/20/21 05:16 07:20 09:48 Temperature 97.9 F 98.4 F Pulse Rate 60 62 62 Respiratory 18 18 Rate Blood Pressure 103/69 125/79 125/79 O2 Sat by Pulse 91 94 Oximetry 01/20/21 01/20/21 09:50 12:00 Temperature 98.0 F Pulse Rate 62 67 Respiratory 18 Rate Blood Pressure 125/79 127/88 O2 Sat by Pulse 96 Oximetry - Allied health notes Allied health notes reviewed: nursing, PT, OT FIMS assessment as documented by PT/OT/ST: Grooming Patient cleans teeth/dentures: Yes Patient kohli/brushes hair: Yes Patient washes, rinses and Yes dries face: Patient washes, rinses and Yes dries hands: Patient shaves: Yes Patient performs (no make-up/ 4/4 (100%) shaving): Patient performs (w/ make-up/ 5/5 (100%) shaving): Grooming FIM Score 6. Modified [place] (Needs equipment/device . Extra time.) Toileting Toileting Device Commode over Toilet Patient able to: Adjust clothes before,Clean self,Adjust clothes after Patient able to perform: 3/3 (100%) Toileting FIM Score 6. Modified [place] (Needs equip. or prosth ./orth.) Social interaction/Memory/Problem solving Social Interaction FIM Score 6. Mod. [place] (Mostly appropriate. May need meds. No supv.) Memory FIM Score 6. Modified [place](Mild difficulty remembering people/routines.) Problem Solving FIM Score 6. Mod. [place] (Mild difficulty or needs more time w/ complex.) Transfers Mode of Locomotion: Wheelchair Bed/Chair/Wheelchair Transfers 6. Modified [place] (Uses device, sliding FIM Score board, prosth./orth.) Toilet Transfers FIM Score 6. Modified [place] (Uses device, special seat or more time.) Patient transferred to: Shower Shower Transfers FIM Score 6. Modified [place] (Needs slide board, grab bar, tub bench.) Locomotion- walk/wheelchair Ambulation Distance 50 Eating Eating FIM Score 6. Modified [place] (Special consistency or uses device.) Dressing-Upper body Patient retrieves clothing Yes items: Upper Body Dressing FIM Score 6. Modified [place] (Needs equipment, velcro or pros./orth.) Dressing-lower body Patient retrieves clothing Yes items: Lower Body Dressing FIM Score 6. Modified [place] (Needs equipment, velcro or pros./orth.) - Labs CBC & Chem 7: 01/17/21 07:31 01/17/21 07:31 Assessment and Plan CAD: Continue dual antiplatelet therapy, cardiac monitoring. Monitor the patient during therapy and ensure that he is not becoming short of breath or developing chest pain. Give appropriate rest. Cardiology consult as needed. Patient will need to follow-up with cardiology after discharge. Hypertension: Continue medication. Monitor blood pressure. Adjust medications as needed for normotension. Hold orders for hypotension placed. Goal SBP <140 Relative hypotension/volume depletion: 01/13 Gave 1 L of gentle IV fluids and monitor for improvement Diabetes: Continue carb controlled diet, medications as needed. Goal is for euglycemia. Sliding scale insulin. A1c<4. A.m. glucose checks have been fairly benign. Will discontinue and can keep the patient on a carb controlled diet. Will need to follow-up with PCP for further monitoring of A1c. Rash on back: Resolved, monitor Hypothyroidism: Levels were low in the acute care side. We will continue at increased dosing and patient should follow-up with PCP for further monitoring and adjustment. Anemia: Improved. normocytic/normochromic. Continue to monitor at this point and if he does drop significantly will work-up further. Transfusion for h emoglobin less than 7. Hyperlipidemia: Continue statin Chronic pain and headaches: Continue current pain medications, utilize modalities with therapy and may look to start medication for headache if able given patient's regimen. Right ulnar neuropathy: We will continue treatment with modalities and possibly splint. We will add low-dose gabapentin. Patient will need to follow-up with outpatient services for EMG/nerve conduction study for possible cubital tunnel release. Bilateral lower extremity neuropathy: Start low-dose gabapentin and monitor Suicidal ideation: Appreciate psychiatry consult. Patient not appropriate for inpatient services. Strongly recommend patient see outpatient psychiatry as well as high school social studies tutor or therapist going forward. He has not followed up with this in the past. I have personally had a prolonged discussion with the patient concerning his suicide and any attempts at self-harm and he has agreed that if he does have this thought again he will contact someone for help. We discussed that he can contact his catalytic case operator who oversees his transitional housing, the ER, 911, or suicide hotlines. Patient expressed concern on the matter and stated that is what he did this previous time by calling his catalytic case operator of his transitional housing. Also discussed with him that he would absolutely need to follow-up with professional psychiatric help as he has not done this in the past. manager talent has stated that she will arrange for transportation for him to get this help. ADL dysfunction: OT will work on improving ability to perform ADLs (including assistive devices) to increase independence and decrease caregiver burden and improve functional transfers and mobility training. Difficulty walking: PT will work on gait training and proper use of assistive devices and advance as appropriate to use of stairs and outside ambulation on uneven surfaces. Unsteadiness on feet: PT will work on improving static and dynamic sitting and standing balance as well as proper use of assistive devices to decrease risk of falls. Abnormality of gait: PT will work to improve safety and efficiency of gait through neuromotor training and gait training along with instruction on proper use of assistive devices. Muscle weakness: PT & OT will work on strengthening exercises to improve functional strength including mixture of closed and open kinetic chain exercises. Debility: PT & OT will work on improving overall functional status to improve participation with ADLs, mobility and social involvement. Fatigue: PT & OT will work on improving endurance through aerobic exercises and therapeutic activity while monitoring patients tolerance for activity and vital signs as needed. DVT ppx: Lovenox Pain: Continue physical modalities in therapy and pain medications as needed to achieve functional pain control. Sleep: Monitor and address as needed. Bowel: Monitor and address as needed. Appetite: Monitor and address as needed. Discharge planning: Pending therapy progress and care plan meeting. Will continue discussion with therapy team, SW, patient and home high school social studies tutor. Initial date of discharge tentatively 01/20, but looking at alternatives now. Restrictions/ Precautions: Falls, SI, cognition WB status: FWB Functional Hx: ADLs: Independent Cognition: Independent Mobility: No AD Barriers to Discharge: Decreased mobility and ability to perform self care, balance deficits, weakness Estimated Length of Stay: 1014 days Discharge Destination: Home to nursing home
[2021-01-20] MEDS: GABAPENTIN 300 MG CAP PO SCH (17:35)
[2021-01-20] MEDS: traZODone 50 MG TAB PO SCH (21:01)
[2021-01-21] MEDS: LEVOTHYROXINE 150 MCG TAB PO SCH (06:19)
--- NOTE | 2021-01-21 07:20 | Event Note ---
Date: 01/21/21 Was called on the my way into see the patient for discharge and notified that he had a run of 26 beats of V. tach. Patient currently asymptomatic. Does state that he had some lightheadedness around the same time that he experienced the V. tach. Vital signs are stable, blood pressure on the lower side but within the same range as he has been over the past couple of weeks. Patient denies any palpitations or chest pain currently. Went to telemetry monitoring and obtained a copy of the episode and reviewed recent tracings. Ordered stat labs, stat EKG. With the patient's recent NSTEMI and placement of cardiac stents and now with a run of V. tach, will look to discharge the patient to the medical side of the hospital. He currently has finished rehabilitation and was scheduled to be discharged home today. Patient may need further work-up and or interventions from a cardiac standpoint. Will contact on-call physician for hospitalist group for admission.
--- NOTE | 2021-01-21 07:24 | Discharge Summary ---
Providers - Providers Date of Admission: 01/06/21 17:41 Date of discharge: 01/21/21 Attending physician: ANA BUCKLEY III, MD 01/06/21 11:28 Occupational Therapy Evaluate and Treat [CONS] Routine Comment: Reason For Exam: ADL dysfunction Physical Therapy Evaluation and Treat [CONS] Routine Comment: Reason For Exam: Mobility Dysfunction 01/06/21 13:51 Speech Therapy Evaluation and Treat [CONS] Routine Reason For Exam: TBI, Assess/Treat Speech/Cog/Swallow 01/17/21 10:26 psychiatry consult [Consult to Mental Health] [CONS] Urgent Reason For Exam: Suicidal Ideation Primary care physician: HEMODIALYSIS CHARGE NURSE Hospitalization Reason for admission: Debility with NSTEMI and prior TBI Condition: Fair Hospital course: 60-year-old male who states that he was tired of being in pain and decided to take his life by taking a handful of pills including what he counts as 30 Xanax. Patient was then noted to have second thoughts on the matter and contacted 911 and was transported to the ED. However this is a different recollection as to what was seen in the prior medical record which states that the patient sent a text message to his roommate stating that he was going to walk out into traffic. Of note, urine drug screen was negative for any benzodiazepines or opiates at the time of admission. Psych was consulted and the patient was deemed to be at no risk to himself currently. On my interview the patient does state that he suffers from chronic pain and does not want to harm himself any longer. Sitter was discontinued previously on the acute care side. Patient does live in a skilled nursing setting. Have talked to his community rope tow operator and she states that they will reserve his room for him. He was worked up and found to have an NSTEMI and later taken to the cardiac [facility] [employer]. He received stents and was placed on dual antiplatelet therapy. Since his intervention, blood pressure and glucose have been fairly well controlled on current medications. Most recent A1c noted in the computer is from January 2020 and was 6.5. We will obtain a new A1c. Lipids were within a regular range exce pt for elevated triglycerides at 186. CAD: Continue dual antiplatelet therapy and cardiac monitoring. Ensure that the patient does not over exert himself and if he does start to develop any chest p ain or shortness of breath or if we get notification from telemetry monitoring that nursing immediately contact MD. Will need to follow-up with cardiology as an outpatient. Cardiology consult if needed. Hypertension: Continue medication. Blood pressure has been on the lower side since the patient was admitted to the hospital. Cardiology originally held beta- seven due to hypotension. We have placed a hold for systolic blood pressure less than 110. Continue to monitor blood pressure. At this point, will likely discontinue Imdur or change it to twice a day at a lower dose Anemia: Improved, normocytic/normochromic. Patient is asymptomatic. Continue to monitor and address if it worsens. Transfusion for hemoglobin less than 7. Rash: Resolved Diabetes: Continue carb controlled diet. A1c was obtained and is < 4. Does not appear the patient is diabetic at this time. Hypothyroidism: Continue medication at increased level due to having TSH of 28 and free T4 of 0.48. Patient will need follow-up as an outpatient in about 3 weeks for further monitoring and adjustment. Hyperlipidemia: Continue statin. Recheck as outpatient. Chronic pain and headaches: Patient continues to have chronic pain and headaches but has not complained of these to any significant extent. Seems that the headaches are the predominant issue and they come and go but patient has never had any outward signs of distress or being in pain. Pain medications are available and we will continue to use movement and modalities to help alleviate his pain. Suicidal ideation: Patient states that he still having suicidal ideation and does most days according to him now, however he does not have any plan for self- harm. Appreciate psychiatry consult and recommendations, patient is not appropriate for inpatient psychiatric services. Will strongly recommend patient follow-up with a psychiatrist and medical social consultant after discharge. Will have social work come see the patient with home health along with RN PT and OT. 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 We will start with a low-dose of gabapentin to see if this helps to improve his neuropathic pain. As far as the right ulnar neuropathy, patient would benefit from outpatient referral for EMG/nerve conduction study to ascertain if this is a cubital tunnel entrapment or elsewhere. Afterwards he could be referred to surgery for further intervention if needed. Patient was scheduled to be discharged home this morning as he is completed his rehabilitation stay and met his goals. He was good to be discharged with home health PT, OT, RN, medical social consultant. However on my way and this morning I was notified that the patient had a run of ventricular tachycardia. Given his recent NSTEMI with stent placement we will discharge him to the acute care side for further cardiac work-up. Stat labs and EKG have been ordered. Disposition: [id number]-TRM GEN HOSP IP Final Discharge Diagnosis (Prints w/discharge instructions): NSTEMI, new onset ventricular tachycardia, TBI, debility, hypertension, suicidal ideation Time spent for discharge: >30 mins Core Measure Documentation - Palliative Care Palliative Care/ Comfort Measures: Not Applicable - Core Measures Any of the following diagnoses?: acute ME - Acute ME Discharge Requirements Aspirin at discharge: Yes DAVID/ARB for LVSD if EF <40%: Not Applicable Beta seven at discharge: Yes Statin for LDL = or >100 mg/dl on DC: Yes Exam - Physical Exam Narrative exam: MUSCULOSKELETAL SPECIALTY EXAM CONSTITUTIONAL: Well developed, well nourished, appropriately dressed, obese, left hand dominant. No acute distress EENT: Hearing intact to soft voice RESPIRATORY: Clear to auscultation bilaterally, no increased work of breathing CARDIOVASCULAR: Regular Rate/ Rhythm to auscultation, no swelling, edema or tenderness in BUE or BLE. All extremities warm. GI: + bowel sounds, soft, NTTP, nondistended. INTEGUMENTARY: Sores on bilateral lower extremities look better, otherwise normal, no lesion, rash, masses or bruising noted in extremities. MUSCULOSKELETAL: Left upper extremity with contracted hand, decreased range of motion, radial deviation of the hand which is slight swollen and decreased elbow extension, otherwise BUE and BLE normal without defect, crepitus, subluxation, effusion, arthritic changes or TTP. BUE 4+/5, good ROM, with normal tone. BLE 4+/5 good ROM, with normal tone NEURO: Sensation intact in all extremities with decreased sensation in the bilateral lower extremities and right ulnar distribution neuropathy. Coordination intact in RUE and decreased in the LUE. No tremor noted in 4 extremities. POSTURE and GAIT: Sitting posture good. Balance and gait deferred until seen with therapy. PSYCH: Alert, oriented to person and place, affect appears improved. Insight appears impaired. Currently he admits suicidal ideation but does not have a plan. Does not appear to be a danger to himself or others at this time. - Constitutional Vitals: Temp Pulse Resp BP Pulse Ox 98.1 F 65 20 115/73 93 01/21/21 05:17 01/21/21 05:17 01/21/21 05:17 01/21/21 05:17 01/21/21 05:17 Plan Activity: advance as tolerated, fall precautions Diet: low carbohydrate (Cardiac diet) Special Instructions: record daily BP diary, physical therapy, occupational therapy, home health RN (Along with medical social consultant) Durable Medical Equipment Needed Upon Discharge: Bedside Commode Care Plan Goals: Patient will need to follow-up with psychiatry as an outpatient and would benefit from continued social work/therapy as well. We will also need to follow-up with cardiology, he was seen by [facility] beds at the [facility] here in the hospital Follow up with: PRIMARY CARE, [Primary Care Provider] - 7 Days
[2021-01-21 08:09] VITALS: BP 97/61
[2021-01-21] MEDS: CLOPIDOGREL 75 MG TAB PO SCH (08:10)
[2021-01-21] MEDS: SERTRALINE 100 MG TAB PO SCH (08:10)
[2021-01-21] MEDS: ASPIRIN EC 81 MG TAB PO SCH (08:10)
[2021-01-21] MEDS: ENOXAPARIN 40 MG/0.4 ML INJ SUB-Q SCH (08:11)
[2021-01-21] MEDS: risperiDONE 0.25 MG TAB PO SCH (08:11)
[2021-01-21] MEDS: carvediloL 3.125 MG TAB PO SCH (08:33)
[2021-01-21 09:57] LABS: Hematocrit 34.2 % (35.5-45.6); Hemoglobin 11.3 gm/dl (11.8-15.2); Mean Corpuscular HGB Conc 33 % (32-34); Mean Corpuscular Volume 85 fl (84-94); Platelet Count 253 K/mm3 (140-440); Red Blood Count 4.01 M/mm3 (3.65-5.03); Red Cell Distribution Width 14.2 % (13.2-15.2)
[2021-01-21 10:23] LABS: Creatine Kinase MB 3.1 ng/mL (0.0-4.0)
--- NOTE | 2021-01-21 10:28 | Consultation ---
History of Present Illness Consult date: 01/21/21 Consult reason: tachycardia History of present illness: The patient is a 60-year-old man with poor cognitive functioning since a remote traumatic brain injury, who lives now in the transitional care situation. He was admitted to this hospital 3 weeks ago with altered mental status and suicide ideation. Evaluation in the emergency room which included a cardiac evaluation revealed an elevation in his troponin levels. This ultimately led to diagnostic coronary angiography with a finding of severe two-vessel disease with severe occlusive lesions of the proximal circumflex and the mid LAD. Coronary intervention was done to both lesions on December 31, with drug-eluting stents implanted successfully. The patient's left ventricular systolic function is well preserved with ejection fraction 55 to 60%. Following his interventional procedure, he was placed on dual oral antiplatelet therapy with aspirin and Plavix. The patient was discharged from the telemetry unit after his coronary interventions, to the in-hospital rehabilitation services for physical conditioning. He has been clinically stable, undergoing his physical therapy and was planned for discharge today back to his transitional center living situation. Early this morning, at 6:30 his remote telemetry found a 25 beat run of nonsustained ventricular tachycardia. The patient was asymptomatic during the episode, and reports no chest pain, no shortness of breath, no palpitations. During his course in the rehab unit, his aspirin and Plavix dual antiplatelet therapy has continued uninterrupted. EKG following the event shows a sinus rhythm at 60, with QS complexes in V1 through V3 suggestive of an old anterior infarct, but no acute ST or T wave abnormalities. Past History Past Medical History: CAD, diabetes, hypertension, hyperlipidemia, hypothyroidism, other (Traumatic brain injury) Past Surgical History: PTCA Social history: other (Lives in a fpc, history of polysubstance/alcohol/tobacco abuse) Family history: CAD Medications and Allergies Allergies Allergy/AdvReac Type Severity Reaction Status Date / Time No Known Allergies Allergy Verified 12/29/20 23:23 Home Medications Medication Instructions Recorded Confirmed Last Taken Type ALBUTEROL NEB's [Proventil 0.083% 2.5 mg IH Q4HRT PRN nebu 01/21/21 Unknown Rx NEBS] Acetaminophen [Acetaminophen TAB] 650 mg PO Q6H PRN tablet 01/21/21 Unknown Rx Aspirin EC [Halfprin EC] 81 mg PO QDAY tablet 01/21/21 Unknown Rx AtorvaSTATin [Lipitor] 80 mg PO QHS tablet 01/21/21 Unknown Rx Clopidogrel [Plavix] 75 mg PO QDAY tablet 01/21/21 Unknown Rx Enoxaparin 40 mg SUB-Q QDAY syringe 01/21/21 Unknown Rx Gabapentin 300 mg PO QPM capsule 01/21/21 Unknown Rx HYDROcodone/APAP 5-325 [[place] 1 each PO Q6H PRN tablet 01/21/21 Unknown Rx 5-325 mg TAB] Levothyroxine [Synthroid] 150 mcg PO DAILY@0600 tablet 01/21/21 Unknown Rx Nitroglycerin [Nitrostat] 0.4 mg SL .Q5MIN PRN tablet 01/21/21 Unknown Rx Notify Provider if Pain = 7-10 1 each UD ONCE PRN ea 01/21/21 Unknown Rx [Notify Provider If Pain = 7-10] Sertraline [Zoloft] 100 mg PO QDAY tablet 01/21/21 Unknown Rx bisacodyL [Dulcolax suppos] 10 mg ME QDAY PRN supp.rect 01/21/21 Unknown Rx carvediloL [Coreg] 3.125 mg PO BID tablet 01/21/21 Unknown Rx hydrALAZINE [Apresoline INJ] 10 mg IV Q4HR PRN vial 01/21/21 Unknown Rx risperiDONE [RisperDAL] 0.5 mg PO BID tablet 01/21/21 Unknown Rx traZODone [Desyrel] 50 mg PO QHS tablet 01/21/21 Unknown Rx Active Meds: Active Medications Acetaminophen (Acetaminophen 325 Mg Tab) 650 mg PO Q6H PRN PRN Reason: Non Cardiac Pain or Temp>100.5 Last Admin: 01/09/21 22:34 Dose: 650 mg Documented by: Hydrocodone Bitart/Acetaminophen (Hydrocodone/Acetaminophen 5-325 Mg Tab) 1 each PO Q6H PRN PRN Reason: Pain, Moderate (4-6) Last Admin: 01/13/21 18:46 Dose: 1 each Documented by: Albuterol (Albuterol 2.5 Mg/3 Ml Nebu) 2.5 mg IH Q4HRT PRN PRN Reason: Shortness Of Breath Aspirin (Aspirin Ec 81 Mg Tab) 81 mg PO QDAY MONA Last Admin: 01/21/21 08:10 Dose: 81 mg Documented by: Atorvastatin Calcium (Atorvastatin 40 Mg Tab) 80 mg PO QHS [facility] Last Admin: 01/20/21 21:01 Dose: 80 mg Documented by: Bisacodyl (Bisacodyl 10 Mg Rect Supp) 10 mg ME QDAY PRN PRN Reason: Constipation Clopidogrel Bisulfate (Clopidogrel 75 Mg Tab) 75 mg PO QDAY [facility] Last Admin: 01/21/21 08:10 Dose: 75 mg Documented by: Enoxaparin Sodium (Enoxaparin 40 Mg/0.4 Ml Inj) 40 mg SUB-Q QDAY [facility] Last Admin: 01/21/21 08:11 Dose: 40 mg Documented by: Gabapentin (Gabapentin 300 Mg Cap) 300 mg PO QPM [facility] Last Admin: 01/20/21 17:35 Dose: 300 mg Documented by: Hydralazine HCl (Hydralazine 20 Mg/1 Ml Inj) 10 mg IV Q4HR PRN PRN Reason: Hypertension Levothyroxine Sodium (Levothyroxine 150 Mcg Tab) 150 mcg PO DAILY@0600 [facility] Last Admin: 01/21/21 06:19 Dose: 150 mcg Documented by: Metoprolol Tartrate (Metoprolol Tartrate 25 Mg Tab) 25 mg PO Q6H [facility] Nitroglycerin (Nitroglycerin 0.4 Mg Tab Subl) 0.4 mg SL .Q5MIN PRN PRN Reason: Chest Pain Nitroglycerin (Nitroglycerin 0.2 Mg Patch 24hr) 0.2 mg TD QDAY@0600 [facility] Ondansetron HCl (Ondansetron 4 Mg Odt Tab) 4 mg PO Q8H PRN PRN Reason: Nausea And Vomiting Polyethylene Glycol (Polyethylene Glycol 3350 17 Gm Powder) 17 gm PO QDAY PRN PRN Reason: Constipation Risperidone (Risperidone 0.25 Mg Tab) 0.5 mg PO BID [facility] Last Admin: 01/21/21 08:11 Dose: 0.5 mg Documented by: Sertraline HCl (Sertraline 100 Mg Tab) 100 mg PO QDAY [facility] Last Admin: 01/21/21 08:10 Dose: 100 mg Documented by: Trazodone HCl (Trazodone 50 Mg Tab) 50 mg PO QHS [facility] Last Admin: 01/20/21 21:01 Dose: 50 mg Documented by: Zinc Acetate/Diphenhydramine (Diphenhydramine/Zinc Acet 2% Cream 28.4 Gm) 1 applic TP Q8H PRN PRN Reason: Itching Last Admin: 01/08/21 17:51 Dose: 1 applic Documented by: Review of Systems Cardiovascular: no chest pain, no orthopnea, no palpitations, no rapid/irregular heart beat, no edema, no syncope, no lightheadedness, no shortness of breath Physical Examination Vital Signs Temp Pulse Resp BP Pulse Ox 98.2 F 68 20 100/61 93 01/06/21 19:28 01/06/21 19:28 01/06/21 19:28 01/06/21 19:28 01/06/21 19:28 General appearance: no acute distress HEENT: Positive: PERRL Neck: Positive: neck supple Cardiac: Positive: Reg Rate and Rhythm Lungs: Positive: Decreased Breath Sounds Neuro: Positive: Weakness (Generalized physical deconditioning) Abdomen: Positive: Soft Male genitourinary: Positive: deferred Skin: Positive: Clear Extremities: Absent: edema Results 01/21/21 09:18 01/17/21 07:31 CBC 01/21/21 Range/Units 09:18 WBC 7.0 (4.5-11.0) K/mm3 RBC 4.01 (3.65-5.03) M/mm3 Hgb 11.3 L (11.8-15.2) gm/dl Hct 34.2 L (35.5-45.6) % Plt Count 253 (140-440) K/mm3 EKG interpretations - Telemetry EKG Rhythm: Sinus Rhythm Assessment and Plan - Patient Problems (1) Nonsustained ventricular tachycardia Current Visit: Yes Status: Acute Plan to address problem: Patient with asymptomatic nonsustained ventricular tachycardia on remote telemetry monitoring. He has a history of coronary artery disease status post recent two-vessel coronary stenting, fully compliant with dual oral antiplatelet therapy. There is no chest pain and no cardiac complaints. Post incident EKG is a sinus rhythm with no acute ischemic changes. Recommendations: Optimize beta-seven therapy, we will switch carvedilol to metoprolol at 25 mg every 6 hours. The patient should be transferred to telemetry unit for more optimal monitoring. Check electrolytes including potassium and magnesium levels.
[2021-01-21 10:29] LABS: Alanine Aminotransferase 14 units/L (7-56); BUN/Creatinine Ratio 24; Blood Urea Nitrogen 19 mg/dL (9-20); Calcium 9.2 mg/dL (8.4-10.2); Hemolysis Index 4
[2021-01-21] MEDS ORDERED: METOPROLOL TARTRATE 25 MG TAB PO SCH (11:00)
[2021-01-22] MEDS ORDERED: NITROGLYCERIN 0.2 MG PATCH 24HR TD SCH (06:00)
--- NOTE | 2021-01-22 09:48 | Electrocardiograph Report ---
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
== END 2021-01-21 14:41 | disposition short-term general hospital (02) | DRG 947 ==
LOC: UNDOADMIN 10:17 → 3A 10:17 → 3B 17:41
PROVIDERS: ADMIT Physical Medicine & Rehabilitation; ATTEND Physical Medicine & Rehabilitation
DX: R53.81 Other malaise (principal); I21.4 Non-ST elevation (NSTEMI) myocardial infarction; R45.851 Suicidal ideations; F33.1 Major depressive disorder, recurrent, moderate; I47.2 Ventricular tachycardia; R26.81 Unsteadiness on feet; D64.9 Anemia, unspecified; R21 Rash and other nonspecific skin eruption; G62.9 Polyneuropathy, unspecified; M62.81 Muscle weakness (generalized); E66.9 Obesity, unspecified; E11.9 Type 2 diabetes mellitus without complications; I10 Essential (primary) hypertension; I25.10 Atherosclerotic heart disease of native coronary artery without angina pectoris; G89.29 Other chronic pain; E78.5 Hyperlipidemia, unspecified; E03.9 Hypothyroidism, unspecified; Z79.84 Long term (current) use of oral hypoglycemic drugs; Z82.49 Family history of ischemic heart disease and other diseases of the circulatory system; Z79.899 Other long term (current) drug therapy; Z68.24 Body mass index [BMI] 24.0-24.9, adult
CPT/HCPCS: 36415; 80048; 80053; 82550; 82553; 82962; 83036; 83735; 84443; 84484; 85025; 85027; 93005; G0378; G0515; A9270-GY; J1650; J1815; J7030

== ENCOUNTER 2021-01-21 08:22 | Inpatient (IN) | payer MEDICARE ==
--- NOTE | 2021-01-21 08:35 | History and Physical Report ---
History of Present Illness Date of examination: 01/21/21 Date of admission: 01/21/2021 Chief complaint: Episode of nonsustained VT 22 beats, around 6:30 AM today Currently patient is in sinus rhythm heart rate 74/min on the monitor History of present illness: 60-year-old male patient with multiple medical problems including coronary artery disease status post recent PCI, hypertension diabetes mellitus hypothyroidism dyslipidemia chronic pain syndrome psych disorder with suicidal ideations peripheral neuropathy was receiving rehabilitation in the inpatient rehab unit, completed the therapeutic goals and was being discharged this morning, patient was stable at the time of discharge however this morning, delinquent tax collection assistant showed nonsustained VT with 27 beats on the monitor, during that time patient did not have any symptoms of chest pain shortness of breath, palpitations, headache or dizziness, patient's vital signs were stable according to the nurse Hospitalist service was consulted to admit the patient for further evaluation by store group manager. Hospitalist Dr. Jonna PANDEY discussed with store group manager Who recommended to admit the patient to telemetry floor for further evaluation and management. At the time of my evaluation patient is alert and awake denies any chest pain or shortness of breath, denies headache or dizziness or palpitations Ambulatory, asymptomatic Patient was anxious to go home, explained to him that he need to be evaluated by store group manager prior to discharge. Most recent EKG this morning shows sinus rhythm with no acute ST-T changes or arrhythmias Past History Past Medical History: CAD, hypertension, hyperlipidemia, hypothyroidism, other (Depression, suicidal ideation recently, neuropathy) Past Surgical History: PTCA, Other (Traumatic brain injury) Social history: other (History of recreational drug use). denies: smoking, alcohol abuse Family history: no significant family history Medications and Allergies Allergies Allergy/AdvReac Type Severity Reaction Status Date / Time No Known Allergies Allergy Verified 12/29/20 23:23 Home Medications Medication Instructions Recorded Confirmed Last Taken Type ALBUTEROL NEB's [Proventil 0.083% 2.5 mg IH Q4HRT PRN nebu 01/21/21 Unknown Rx NEBS] Acetaminophen [Acetaminophen TAB] 650 mg PO Q6H PRN tablet 01/21/21 Unknown Rx Aspirin EC [Halfprin EC] 81 mg PO QDAY tablet 01/21/21 Unknown Rx AtorvaSTATin [Lipitor] 80 mg PO QHS tablet 01/21/21 Unknown Rx Clopidogrel [Plavix] 75 mg PO QDAY tablet 01/21/21 Unknown Rx Enoxaparin 40 mg SUB-Q QDAY syringe 01/21/21 Unknown Rx Gabapentin 300 mg PO QPM capsule 01/21/21 Unknown Rx HYDROcodone/APAP 5-325 [Ash 1 each PO Q6H PRN tablet 01/21/21 Unknown Rx 5-325 mg TAB] Levothyroxine [Synthroid] 150 mcg PO DAILY@0600 tablet 01/21/21 Unknown Rx Nitroglycerin [Nitrostat] 0.4 mg SL .Q5MIN PRN tablet 01/21/21 Unknown Rx Notify Provider if Pain = 7-10 1 each UD ONCE PRN ea 01/21/21 Unknown Rx [Notify Provider If Pain = 7-10] Sertraline [Zoloft] 100 mg PO QDAY tablet 01/21/21 Unknown Rx bisacodyL [Dulcolax suppos] 10 mg DC QDAY PRN supp.rect 01/21/21 Unknown Rx carvediloL [Coreg] 3.125 mg PO BID tablet 01/21/21 Unknown Rx hydrALAZINE [Apresoline INJ] 10 mg IV Q4HR PRN vial 01/21/21 Unknown Rx risperiDONE [RisperDAL] 0.5 mg PO BID tablet 01/21/21 Unknown Rx traZODone [Desyrel] 50 mg PO QHS tablet 01/21/21 Unknown Rx Review of Systems Constitutional: no weight loss, no weight gain, no fatigue, no weakness Ears, nose, mouth and throat: no nasal congestion, no nasal discharge Cardiovascular: no chest pain, no orthopnea, no palpitations, no shortness of breath Respiratory: no cough, no shortness of breath Gastrointestinal: no abdominal pain, no nausea, no vomiting Genitourinary Male: no dysuria, no hematuria Musculoskeletal: no myalgias, no arthritis Integumentary: no rash, no lesions Neurological: no weakness, no numbness Psychiatric: depression, no anxiety Endocrine: no cold intolerance, no heat intolerance Hematologic/Lymphatic: no easy bruising, no easy bleeding Allergic/Immunologic: no urticaria, no allergic rhinitis Exam - Constitutional General appearance: Present: no acute distress, well-nourished, obese - EENT Eyes: Present: PERRL, EOM intact - Neck Neck: Present: supple, normal ROM - Respiratory Respiratory effort: normal Respiratory: bilateral: diminished, negative: rales, rhonchi, wheezing - Cardiovascular Rhythm: regular Heart Sounds: Present: S1 & S2 - Extremities Extremities: no ischemia, No edema - Abdominal General gastrointestinal: Present: soft, non-tender, non-distended, normal bowel sounds - Integumentary Integumentary: Present: clear, warm - Musculoskeletal Musculoskeletal: strength equal bilaterally, generalized weakness - Psychiatric Psychiatric: appropriate mood/affect, cooperative - Neurologic Neurologic: moves all extremities Assessment and Plan --Episode of nonsustained VT on the monitor; 27 beats this morning around 7:00 Currently sinus rhythm, patient is asymptomatic EKG, continue current cardiac medications Cardiology consult, informed --History of coronary artery disease status post PCI; Continue dual antiplatelets, and other cardiac medications Supportive care --Hypertension; moderate control Resume home antihypertensives and As needed hydralazine --Dyslipidemia; Continue statin --Type 2 diabetes mellitus; Accu-Chek sliding scale coverage ADA diet A1c less than 4[blood sugars less than 200s] Closely monitor --Peripheral neuropathy; Continue gabapentin --h/o traumatic brain injury; Stable --DVT prophylaxis; Lovenox subcu --Full CODE STATUS --DC planning per case management Plan of care discussed with the patient, his nurse and director of dietary Dr. Vega We will closely monitor the patient and adjust the management as needed Follow cardiology evaluation and recommendations Possible discharge in 1 to 2 days if stable
[2021-01-21] MEDS ORDERED: NITROGLYCERIN 0.4 MG TAB SUBL SL PRN (09:08)
[2021-01-21] MEDS ORDERED: HYDROcodone/ACETAMINOPHEN 5-325 MG TAB PO PRN ×2 (09:08→16:06)
[2021-01-21] MEDS: SERTRALINE 100 MG TAB PO SCH (20:53)
[2021-01-21] MEDS: carvediloL 3.125 MG TAB PO SCH ×2 (20:53→21:02)
[2021-01-21] MEDS: GABAPENTIN 300 MG CAP PO SCH (20:56)
[2021-01-21] MEDS: traZODone 50 MG TAB PO SCH (21:02)
[2021-01-22] MEDS: LEVOTHYROXINE 150 MCG TAB PO SCH (05:48)
--- NOTE | 2021-01-22 08:45 | Progress Note ---
Subjective Date of service: 01/22/21 Interval history: CONSULT DICTATED 22 BEATS VT - ASYMPTOMATIC ON LOW DOSE COREG. PLAN: RECOMM CHECK ELECTROLYTES,,CHANGE TO METOPROLOL 25MG PO Q6HR. REVIEW RECENT CATH REPORT & ECHO. Objective Vital Signs Temp Pulse Resp BP BP Pulse Ox 01/22/21 07:31 98.0 F 57 L 18 123/80 94 01/22/21 06:00 53 L 01/22/21 03:31 97.7 F 63 18 131/83 94 01/21/21 23:15 97.9 F 67 17 124/80 93 01/21/21 22:00 64 01/21/21 21:02 70 100/72 01/21/21 19:30 98.0 F 70 16 100/72 98
--- NOTE | 2021-01-22 09:37 | Progress Note ---
Assessment and Plan Assessment and plan: --Episode of nonsustained VT on the monitor; 27 beats this morning on 01/21/2021 around 7:00 a.m. Checked with the monitor room tech , no new episodes of arrhythmias Patient is in sinus rhythm heart rate between 60s to 70s This morning heart rate is 53, 57 Continue current management, cardiology following --History of coronary artery disease status post PCI; Continue dual antiplatelets, and other cardiac medications Supportive care --Hypertension; moderate control Resume home antihypertensives and As needed hydralazine --Dyslipidemia;:Continue statin --Type 2 diabetes mellitus; Accu-Chek sliding scale coverage ADA diet A1c less than 4[blood sugars less than 200s] --Peripheral neuropathy; Continue gabapentin --h/o traumatic brain injury; Stable --DVT prophylaxis; Lovenox subcu --Full CODE STATUS --DC planning per case management Plan of care discussed with the patient, and his nurse We will closely monitor the patient and adjust the management as needed Possible discharge in 1 to 2 days if stable and cleared by cardiology History Interval history: I have checked with the monitor room tech. Patient did not have any new episodes of VT or any arrhythmias Patient has been in sinus rhythm, heart rate between 60s to 70s per minute Hospitalist Physical - Constitutional Vitals: Temp Pulse Resp BP Pulse Ox 98.0 F 57 L 18 123/80 94 01/22/21 07:31 01/22/21 07:31 01/22/21 07:31 01/22/21 07:31 01/22/21 07:31 General appearance: Present: no acute distress, well-nourished, obese - EENT Eyes: Present: PERRL, EOM intact - Neck Neck: Present: supple, normal ROM - Respiratory Respiratory effort: normal Respiratory: bilateral: diminished, negative: rales, rhonchi, wheezing - Cardiovascular Rhythm: regular Heart Sounds: Present: S1 & S2 - Extremities Extremities: no ischemia, No edema - Abdominal General gastrointestinal: soft, non-tender, non-distended, normal bowel sounds - Integumentary Integumentary: Present: clear, warm - Psychiatric Psychiatric: appropriate mood/affect, cooperative - Neurologic Neurologic: moves all extremities Results Yañez/IV: Voiding Method Toilet Active Medications - Current Medications Current Medications: Generic Name Dose Route Start Last Admin Trade Name Freq PRN Reason Stop Dose Admin Hydrocodone Bitart/Acetaminophen 1 each 01/21/21 16:06 Hydrocodone/Acetaminophen 5-325 Mg Tab PO Q6H PRN Pain, Moderate (4-6) Aspirin 81 mg 01/22/21 10:00 Aspirin 81 Mg Tab Chew PO QDAY [facility] Atorvastatin Calcium 80 mg 01/21/21 22:00 01/21/21 20:59 Atorvastatin 40 Mg Tab PO 80 mg QHS MONA Administration Bisacodyl 10 mg 01/21/21 09:08 Bisacodyl 10 Mg Rect Supp [place] QDAY PRN Constipation Carvedilol 3.125 mg 01/21/21 10:00 01/21/21 21:02 Carvedilol 3.125 Mg Tab PO Not Given BID [facility] Clopidogrel Bisulfate 75 mg 01/22/21 10:00 Clopidogrel 75 Mg Tab PO QDAY [facility] Gabapentin 300 mg 01/21/21 18:00 01/21/21 20:56 Gabapentin 300 Mg Cap PO 300 mg QPM MONA Administration Levothyroxine Sodium 150 mcg 01/22/21 06:00 01/22/21 05:48 Levothyroxine 150 Mcg Tab PO 150 mcg DAILY@0600 MONA Administration Nitroglycerin 0.4 mg 01/21/21 09:08 Nitroglycerin 0.4 Mg Tab Subl SL .Q5MIN PRN Chest Pain Risperidone 0.5 mg 01/22/21 10:00 Risperidone 0.25 Mg Tab PO BID [facility] Sertraline HCl 100 mg 01/21/21 10:00 01/21/21 20:53 Sertraline 100 Mg Tab PO Not Given QDAY [facility] Trazodone HCl 50 mg 01/21/21 22:00 01/21/21 21:02 Trazodone 50 Mg Tab PO 50 mg QHS MONA Administration
--- NOTE | 2021-01-22 09:58 | Consultation ---
DATE OF CONSULTATION: 01/22/2021 HISTORY OF PRESENT ILLNESS: The patient is a 60-year-old male with multiple medical problems who was recently admitted with an acute coronary syndrome and underwent PCI. He has hypertension, diabetes, hypothyroidism, hyperlipidemia and chronic pain. He also has a psychiatric disorder with suicidal ideations. There is peripheral neuropathy as well. He has been in rehab after his cardiac admission. He denies any chest pain, shortness of breath, palpitations, dizziness or syncope. He has had some mild chronic edema. He was noted to have a 22 beat run of nonsustained ventricular tachycardia. He has been on a low dose beta seven. PAST MEDICAL HISTORY: History of traumatic brain injury. SOCIAL HISTORY: Smoking: None. Alcohol: No heavy use. There is a history of recreational drug use. FAMILY HISTORY: Unremarkable. ALLERGIES: None. MEDICATIONS: See the nurses' list. REVIEW OF SYSTEMS: There are no other complaints or medical problems. There has been no nausea, vomiting, diarrhea, fever or chills. There has been no new focal neurologic symptoms. There has been no falling or history of sleep disturbances. PHYSICAL EXAMINATION: GENERAL: Well-developed, mildly overweight, in no acute distress. Alert, oriented, and cooperative. Mental status seems normal. EYES, NOSE, THROAT: Unremarkable. NECK: Reveals JVD. There are no bruits. NECK: Supple, no masses. LUNGS: Clear. No labored respirations. CARDIAC: Regular rhythm, soft S4, no murmurs or rubs. ABDOMEN: Soft, nontender, no masses. EXTREMITIES: No cyanosis, clubbing. There is mild pedal edema. Lower extremities are warm. IMPRESSION: 1. Nonsustained ventricular tachycardia in a patient with known coronary artery disease, asymptomatic. 2. Hypertension, controlled. 3. Diabetes mellitus. 4. Hypothyroidism. 5. Obesity. 6. Dyslipidemia. 7. Chronic pain. 8. Psychiatric disorder. 9. Obesity. PLAN: Check electrolytes, a 12-lead EKG, review of the previous cath report, change from Coreg to metoprolol. Thank you for this consultation. TID: [id number] RECEIPT: [id number] JAYANT/LCAUDIA
[2021-01-22] MEDS: ASPIRIN 81 MG TAB CHEW PO SCH (10:05)
[2021-01-22] MEDS: SERTRALINE 100 MG TAB PO SCH (10:05)
[2021-01-22] MEDS: carvediloL 3.125 MG TAB PO SCH ×2 (10:05→22:12)
[2021-01-22] MEDS: CLOPIDOGREL 75 MG TAB PO SCH (10:05)
[2021-01-22] MEDS: risperiDONE 0.25 MG TAB PO SCH ×2 (10:05→22:11)
[2021-01-22 11:32] LABS: BUN/Creatinine Ratio 21; Blood Urea Nitrogen 17 mg/dL (9-20); Calcium 9.1 mg/dL (8.4-10.2); Hemolysis Index 24
[2021-01-22] MEDS: GABAPENTIN 300 MG CAP PO SCH (18:38)
[2021-01-22] MEDS: traZODone 50 MG TAB PO SCH (22:11)
[2021-01-23] MEDS: LEVOTHYROXINE 150 MCG TAB PO SCH (07:21)
--- NOTE | 2021-01-23 10:24 | Discharge Summary ---
Providers - Providers Date of Admission: 01/21/21 15:21 Date of discharge: 01/24/21 Attending physician: SOLE SEARS 01/21/21 08:46 Consult to Physician [CONS] Routine Comment: Consulting Provider: DANO RENTERIA Physician Instructions: Reason For Exam: Nonsustained VT/CAD post PCI[recent] Primary care physician: MEDICINE AND HEALTH SERVICE MANAGER Hospitalization Reason for admission: Episode of nonsustained VT 22 beats on tthe day of admission Hospital course: History of present illness: 60-year-old male patient with multiple medical problems including coronary artery disease status post recent PCI, hypertension diabetes mellitus hypothyroidism dyslipidemia chronic pain syndrome psych disorder with suicidal ideations peripheral neuropathy was receiving rehabilitation in the inpatient rehab unit, completed the therapeutic goals and was being discharged this morning, patient was stable at the time of discharge however this morning, quality assurance monitor chassis showed nonsustained VT with 27 beats on the monitor, during that time patient did not have any symptoms of chest pain shortness of breath, palpitations, headache or dizziness, patient's vital signs were stable according to the nurse. At the time of my evaluation, patient was in sinus rhythm asymptomatic, cardiology evaluated the patient and started on metoprolol, patient did not have any new episodes of V. tach. Patient's medications optimized, today patient is comfortable no new complaints, physical examination prior to discharge is unremarkable, cardiology changed his metoprolol back to Coreg. Patient is asymptomatic and vital signs are stable today. Cardiology cleared for discharge and follow-up as outpatient for further evaluation and management if needed Patient is stable at discharge Discharge diagnosis: --One episode of nonsustained VT on the monitor; 27 beats this morning on 01/21/2021 around 7:00 a.m. resolved Cardiology evaluated and optimize medications No new episodes of V. tach --History of coronary artery disease status post PCI; Continue his cardiac medications --Hypertension; moderate control Continue current antihypertensives --Dyslipidemia;:Continue statin --Type 2 diabetes mellitus; Accu-Chek sliding scale coverage ADA diet A1c less than 4[blood sugars less than 200s] --Peripheral neuropathy; Continue gabapentin --h/o traumatic brain injury; Stable --DVT prophylaxis; Lovenox subcu --Full CODE STATUS --DC planning per case management Stable at discharge dictation box Disposition: [id number]/TX-06 HOME UNDER HOME [facility] Final Discharge Diagnosis (Prints w/discharge instructions): Episode of nonsustained VT. History of coronary artery disease s/p PCI. Hypertension. Dyslipidemia. Factor XI. Peripheral neuropathy. History of traumatic brain injury Time spent for discharge: 35 min Core Measure Documentation - Palliative Care Palliative Care/ Comfort Measures: Not Applicable - Core Measures Any of the following diagnoses?: none Exam - Constitutional Vitals: Temp Pulse Resp BP Pulse Ox 98.3 F 64 16 114/71 91 01/23/21 03:29 01/23/21 06:00 01/23/21 03:29 01/23/21 03:29 01/23/21 03:29 General appearance: Present: no acute distress, well-nourished, obese - EENT Eyes: Present: PERRL, EOM intact - Neck Neck: Present: supple, normal ROM - Respiratory Respiratory effort: normal Respiratory: bilateral: diminished, negative: rales, rhonchi, wheezing - Cardiovascular Rhythm: regular Heart Sounds: Present: S1 & S2 - Extremities Extremities: no ischemia, No edema - Abdominal General gastrointestinal: Present: soft, non-tender, non-distended, normal bowel sounds - Integumentary Integumentary: Present: clear, warm - Musculoskeletal Musculoskeletal: strength equal bilaterally - Psychiatric Psychiatric: appropriate mood/affect, cooperative - Neurologic Neurologic: moves all extremities Plan Activity: advance as tolerated, fall precautions Diet: other (cardiac diet) Additional Instructions: Fall precautions. Advised to see primary care physician in 3 to 5 days. Advised to see private mobile home mechanic in 1 to 2 weeks. If you have worsening symptoms contact MD or go to emergency room as needed Follow up with: AUDIE NIELSON MD [Staff Physician] - 7 Days PRIMARY CARE, [Primary Care Provider] - 7 Days ROLLY WALKER MD [Staff Physician] - 7 Days Prescriptions: Sertraline [Zoloft] 100 mg PO QDAY #30 tablet
[2021-01-23] MEDS: SERTRALINE 100 MG TAB PO SCH (10:25)
[2021-01-23] MEDS: CLOPIDOGREL 75 MG TAB PO SCH (10:25)
[2021-01-23] MEDS: ASPIRIN 81 MG TAB CHEW PO SCH (10:25)
[2021-01-23] MEDS: carvediloL 3.125 MG TAB PO SCH ×2 (10:25→22:44)
[2021-01-23] MEDS: risperiDONE 0.25 MG TAB PO SCH ×2 (10:25→22:44)
--- NOTE | 2021-01-23 10:49 | Progress Note ---
Assessment and Plan - Patient Problems (1) Coronary artery disease Current Visit: No Status: Acute (2) Nonsustained ventricular tachycardia Current Visit: No Status: Acute (3) DM2 (diabetes mellitus, type 2) Current Visit: No Status: Chronic (4) HTN (hypertension) Current Visit: No Status: Chronic Qualifiers: Hypertension type: essential hypertension Qualified Code(s): I10 - Essential (primary) hypertension Subjective Date of service: 01/23/21 Interval history: asympt.,,,wants to go & f/u in the office Objective Vital Signs Temp Pulse Resp Resp BP Pulse Ox 01/23/21 09:10 98.3 F 70 18 98/64 92 01/23/21 06:00 64 01/23/21 03:29 98.3 F 64 16 114/71 91 01/22/21 23:28 97.8 F 64 16 107/67 92 01/22/21 22:12 67 128/73 01/22/21 20:35 67 20 01/22/21 19:27 98.2 F 65 16 128/73 91 01/22/21 14:00 56 L 01/22/21 11:00 98 - Physical Examination General: No Apparent Distress HEENT: Positive: PERRL Neck: Positive: neck supple Cardiac: Positive: Reg Rate and Rhythm Lungs: Positive: clear to auscultation Abdomen: Positive: Unremarkable Extremities: Present: edema (tr.) - Labs and Meds Comprehensive Metabolic Panel 01/22/21 Range/Units 10:43 Sodium 139 (137-145) mmol/L Potassium 4.1 (3.6-5.0) mmol/L Chloride 100.2 (98-107) mmol/L Carbon Dioxide 29 (22-30) mmol/L BUN 17 (9-20) mg/dL Creatinine 0.8 (0.8-1.3) mg/dL Glucose 200 H (75-100) mg/dL Calcium 9.1 (8.4-10.2) mg/dL
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
[2021-01-23] MEDS: GABAPENTIN 300 MG CAP PO SCH (18:24)
[2021-01-23] MEDS: traZODone 50 MG TAB PO SCH (22:44)
[2021-01-24] MEDS: LEVOTHYROXINE 150 MCG TAB PO SCH (05:56)
[2021-01-24 08:02] VITALS: BP 127/73
[2021-01-24] MEDS: carvediloL 3.125 MG TAB PO SCH (09:09)
[2021-01-24] MEDS: ASPIRIN 81 MG TAB CHEW PO SCH (09:09)
[2021-01-24] MEDS: risperiDONE 0.25 MG TAB PO SCH (09:09)
[2021-01-24] MEDS: SERTRALINE 100 MG TAB PO SCH (09:09)
[2021-01-24] MEDS: CLOPIDOGREL 75 MG TAB PO SCH (09:09)
--- NOTE | 2021-01-24 10:54 | Progress Note ---
Assessment and Plan - Patient Problems (1) Coronary artery disease Current Visit: No Status: Acute (2) Nonsustained ventricular tachycardia Current Visit: No Status: Acute (3) DM2 (diabetes mellitus, type 2) Current Visit: No Status: Chronic (4) HTN (hypertension) Current Visit: No Status: Chronic Qualifiers: Hypertension type: essential hypertension Qualified Code(s): I10 - Essential (primary) hypertension Subjective Date of service: 01/24/21 Interval history: asympt.,,,wants to go & f/u in the office Objective Vital Signs Temp Pulse Resp BP Pulse Ox 01/24/21 09:09 62 01/24/21 07:32 97.9 F 54 L 16 127/73 94 01/24/21 03:29 97.5 F L 65 16 123/79 93 01/23/21 23:11 98.2 F 65 16 99/63 91 01/23/21 22:00 67 01/23/21 19:20 98.4 F 68 18 118/74 89 01/23/21 12:44 74 01/23/21 11:00 97 - Physical Examination General: No Apparent Distress HEENT: Positive: PERRL Neck: Positive: neck supple Cardiac: Positive: Reg Rate and Rhythm Lungs: Positive: clear to auscultation Abdomen: Positive: Unremarkable Extremities: Present: edema (tr.)
== END 2021-01-24 11:10 | disposition home health service (06) | DRG 310 ==
LOC: 4A 08:22 → UNDOADMIN 08:22 → 4A 15:21
PROVIDERS: ADMIT Internal Medicine; ATTEND Internal Medicine
DX: I47.2 Ventricular tachycardia (principal); E03.9 Hypothyroidism, unspecified; E78.5 Hyperlipidemia, unspecified; E11.40 Type 2 diabetes mellitus with diabetic neuropathy, unspecified; I10 Essential (primary) hypertension; F32.9 Major depressive disorder, single episode, unspecified; G89.29 Other chronic pain; E66.9 Obesity, unspecified; I25.10 Atherosclerotic heart disease of native coronary artery without angina pectoris; Z79.899 Other long term (current) drug therapy; Z79.52 Long term (current) use of systemic steroids; Z79.82 Long term (current) use of aspirin; Z95.5 Presence of coronary angioplasty implant and graft
CPT/HCPCS: 36415; 80048; 82962; 83735; G0378; A9270-GY

== ENCOUNTER 2021-01-29 15:50 | Emergency (ER) | payer MEDICARE ==
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
[2021-01-29] MEDS ORDERED: ZIPRASIDONE MESYLATE 20 MG VIAL IM PRN (16:38)
[2021-01-29] MEDS ORDERED: ACETAMINOPHEN 325 MG TAB PO PRN (16:42)
[2021-01-29] MEDS ORDERED: ASPIRIN 81 MG TAB CHEW PO ONE (16:42)
[2021-01-29 17:18] LABS: Alanine Aminotransferase 18 units/L (7-56); Albumin 4.5 g/dL (3.9-5); BUN/Creatinine Ratio 17; Blood Urea Nitrogen 19 mg/dL (9-20); Calcium 9.3 mg/dL (8.4-10.2); Hemolysis Index 8
[2021-01-29 17:20] LABS: Basophils # (Auto) 0.1 K/mm3 (0.0-0.1); Basophils % (Auto) 0.9 % (0.0-1.8); Eosinophils # (Auto) 0.2 K/mm3 (0.0-0.4); Eosinophils % (Auto) 1.9 % (0.0-4.3); Hematocrit 42.6 % (35.5-45.6); Hemoglobin 14.4 gm/dl (11.8-15.2); Lymphocytes % (Auto) 18.8 % (13.4-35.0); Mean Corpuscular HGB Conc 34 % (32-34); Mean Corpuscular Volume 86 fl (84-94); Monocytes # (Auto) 0.9 K/mm3 (0.0-0.8); Monocytes % (Auto) 8.3 % (0.0-7.3); Platelet Count 280 K/mm3 (140-440); Red Blood Count 4.98 M/mm3 (3.65-5.03); Red Cell Distribution Width 14.6 % (13.2-15.2)
[2021-01-29 18:12] LABS: Amphetamine Screen,Urine Negative; Benzodiazepines Screen,Urine Negative; Cannabinoid Screen,Urine Negative; Cocaine Screen,Urine Negative; Methadone Screen,Urine Negative; Opiate Screen,Urine Negative
[2021-01-29 18:31] LABS: Bilirubin,Urine NEG (Negative); Blood,Urine NEG (Negative); Color,Urine Yellow (Yellow); Mucus,Urine 2+ /HPF; Urobilinogen,Urine < 2.0 mg/dL (<2.0)
[2021-01-29] MEDS ORDERED: traZODone 50 MG TAB PO SCH (22:00)
[2021-01-29] MEDS: risperiDONE 0.25 MG TAB PO SCH (22:32)
[2021-01-29] MEDS: carvediloL 3.125 MG TAB PO SCH (22:32)
[2021-01-30] MEDS ORDERED: LEVOTHYROXINE 150 MCG TAB PO SCH (06:00)
[2021-01-30] MEDS ORDERED: SERTRALINE 50 MG TAB PO SCH (10:00)
[2021-01-30] MEDS ORDERED: CLOPIDOGREL 75 MG TAB PO SCH (10:00)
[2021-01-30] MEDS: carvediloL 3.125 MG TAB PO SCH (10:35)
[2021-01-30] MEDS: risperiDONE 0.25 MG TAB PO SCH (10:36)
--- NOTE | 2021-01-30 10:41 | Event Note ---
Date: 01/30/21 S: Patient has no new complaints. Patient states "I open my mouth and so the wrong thing. I want to go back to where I was staying." When asked about suicidal thoughts and plan, patient states "I have thoughts every day but I don't take it no further." O: Vital signs stable. Patient is alert, calm, and cooperative. A: Depression, CAD, hypertension, anemia, diabetes, hypothyroidism, chronic pain P: Awaiting psychiatry team recommendations.
--- NOTE | 2021-01-30 11:22 | Consultation ---
History of Present Illness - Reason for Consult Consult date: 01/30/21 Reason for consult: Suicidal ideation - History of Present Psychiatric Illness Per Ed Note: This is a 60-year-old male with history of CAD, depression, hypertension, anemia, diabetes mellitus, hypothyroidism, hyperlipidemia, chronic pain who presents to the emergency department for suicidal ideation. Patient was unable to make his rent payment. Since he was evicted, the landlord called 911 after he stated that he was on to kill himself. Patient denies any new physical complaints. He had a plan to throw himself in front of traffic when the landlord told him he had to pay $650 per minute instead of $400. Ye Dumont is a 60 year old male with a history of depression who presents to the ED for suicidal ideation. In my interview with the patient, he was tearful stating" I got stupid, I did something I shouldn't have done and I regret it." The patient reports residing in a rented house and got into an argument with the landlord about rent payment. He reports the landlord wanted to move him into another house however, he states that he had gotten used to his roommates and did not want to be moved. He continues to endorse suicidal ideation with no plan. He denies any current homicidal ideation and denies hallucinations. PAST PSYCHIATRIC HISTORY: Diagnoses: Depression Suicide attempts or Self-harm behavior: Denies Prior psychiatric hospitalizations: Unknown Substance Abuse history: Meth, Cocaine, Heroine Previous psychiatric medications tried: Unknown Outpatient treatment: unknown PAST MEDICAL HISTORY: None reported or document Family Psychiatric History: None reported or documented SOCIAL HISTORY Marital Status: Single Living Arrangements: Homeless Employment Status:Disability Access to guns/weapons: Denies Education: 12th History of Abuse: Denies Legal History: Denies REVIEW OF SYSTEMS Constitutional: Negative for weight loss ENT: Negative for stridor Respiratory: Negative for cough or hemoptysis All other systems reviewed and are negative MENTAL STATUS EXAMINATION General Appearance and Behavior: Age appropriate, wearing appropriate clothes, cooperative, polite with questioning, fair eye contact, calm Cooperation: cooperative Psychomotor Behavior: Psychomotor normal Mood: "Depressed" Affect and affective range: congruent with stated mood Thought Process: goal directed Thought Content: SI Speech: Normal volume, Regular rate and rhythm Suicidal Ideation: Yes Homicidal Ideation: Denies Hallucination: Denies Delusions: None elicited Impulse Control: Intact Insight and Judgment: Limited Memory: Intact Attention: attentive, engaging Orientation: Alert and oriented Diagnoses: Major Depressive Disorder, Severe F33.2 Treatment Plan Continue 1013 Continue - Zoloft 100mg po daily Continue Trazodone 50mg po QHS Continue Risperidone 0.5mg po BID PSYCHOTHERAPY: Supportive psychotherapy provided MEDICAL: Per primary team DELIRIUM PRECAUTIONS: Please re-orient patient frequently, keep lights on during the day, and minimize benzodiazepines and opiates as these medications could worsen patient's confusion. 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 Please contact with any questions and/or concerns. Case staffed with Dr. Castro Thank you for the consult. Medications and Allergies Allergies Allergy/AdvReac Type Severity Reaction Status Date / Time No Known Allergies Allergy Verified 12/29/20 23:23 Home Medications Medication Instructions Recorded Confirmed Last Taken Type ALBUTEROL NEB's [Proventil 0.083% 2.5 mg IH Q4HRT PRN nebu 01/21/21 Unknown Rx NEBS] Acetaminophen [Acetaminophen TAB] 650 mg PO Q6H PRN tablet 01/21/21 Unknown Rx carvediloL [Coreg] 3.125 mg PO BID #60 tablet 01/23/21 Unknown Rx Aspirin EC [Halfprin EC] 81 mg PO QDAY #30 tablet 01/24/21 Unknown Rx AtorvaSTATin [Lipitor] 80 mg PO QHS #30 tablet 01/24/21 Unknown Rx Clopidogrel [Plavix] 75 mg PO QDAY #30 tablet 01/24/21 Unknown Rx Gabapentin 300 mg PO QPM #30 capsule 01/24/21 Unknown Rx HYDROcodone/APAP 5-325 [[place] 1 each PO Q6H PRN #20 tablet 01/24/21 Unknown Rx 5-325 mg TAB] Levothyroxine [Synthroid] 150 mcg PO DAILY@0600 #30 tablet 01/24/21 Unknown Rx Sertraline [Zoloft] 100 mg PO QDAY #30 tablet 01/24/21 Unknown Rx bisacodyL [Dulcolax suppos] 10 mg [place] QDAY PRN #30 supp.rect 01/24/21 Unknown Rx risperiDONE [RisperDAL] 0.5 mg PO BID #30 tablet 01/24/21 Unknown Rx traZODone [Desyrel] 50 mg PO QHS #30 tablet 01/24/21 Unknown Rx Active Meds: Active Medications Acetaminophen (Acetaminophen 325 Mg Tab) 650 mg PO Q6H PRN PRN Reason: Pain , Severe (7-10) Atorvastatin Calcium (Atorvastatin 40 Mg Tab) 80 mg PO QHS [facility] Last Admin: 01/29/21 22:32 Dose: Not Given Documented by: Carvedilol (Carvedilol 3.125 Mg Tab) 3.125 mg PO BID [facility] Last Admin: 01/30/21 10:35 Dose: 3.125 mg Documented by: Clopidogrel Bisulfate (Clopidogrel 75 Mg Tab) 75 mg PO DAILY [facility] Last Admin: 01/30/21 10:35 Dose: 75 mg Documented by: Levothyroxine Sodium (Levothyroxine 150 Mcg Tab) 150 mcg PO DAILY@0600 [facility] Last Admin: 01/30/21 06:09 Dose: Not Given Documented by: Risperidone (Risperidone 0.25 Mg Tab) 0.5 mg PO BID [facility] Last Admin: 01/30/21 10:36 Dose: 0.5 mg Documented by: Sertraline HCl (Sertraline 50 Mg Tab) 100 mg PO DAILY [facility] Last Admin: 01/30/21 10:35 Dose: 100 mg Documented by: Trazodone HCl (Trazodone 50 Mg Tab) 50 mg PO QHS [facility] Last Admin: 01/29/21 22:32 Dose: Not Given Documented by: Ziprasidone (Ziprasidone Mesylate 20 Mg Vial) 10 mg IM Q2H PRN PRN Reason: Agitation Mental Status Exam - Vital signs Last Vital Signs Temp 98.2 F 01/30/21 08:00 Pulse 72 01/30/21 10:35 Resp 18 01/30/21 08:00 BP 125/88 01/30/21 10:35 Pulse Ox 100 01/30/21 08:00 Results Result Diagrams: 01/29/21 16:41 01/29/21 16:41 Abnormal lab results 01/29/21 01/29/21 01/29/21 Range/Units 16:41 16:41 16:41 Heard % (Auto) 8.3 H (0.0-7.3) % Heard # (Auto) 0.9 H (0.0-0.8) K/mm3 Seg Neutrophils % 70.1 H (40.0-70.0) % Glucose 132 H (75-100) mg/dL Salicylates < 0.3 L (2.8-20.0) mg/dL Acetaminophen (10.0-30.0) ug/mL 01/29/21 Range/Units 16:41 Heard % (Auto) (0.0-7.3) % Heard # (Auto) (0.0-0.8) K/mm3 Seg Neutrophils % (40.0-70.0) % Glucose (75-100) mg/dL Salicylates (2.8-20.0) mg/dL Acetaminophen 5.0 L (10.0-30.0) ug/mL All other labs normal.
[2021-01-30 17:59] LABS: Basophils # (Auto) 0.1 K/mm3 (0.0-0.1); Eosinophils # (Auto) 0.3 K/mm3 (0.0-0.4); Eosinophils % (Auto) 3.8 % (0.0-4.3); Hematocrit 40.3 % (35.5-45.6); Hemoglobin 13.4 gm/dl (11.8-15.2); Lymphocytes # (Auto) 1.6 K/mm3 (1.2-5.4); Lymphocytes % (Auto) 19.3 % (13.4-35.0); Mean Corpuscular HGB Conc 33 % (32-34); Mean Corpuscular Volume 85 fl (84-94); Monocytes # (Auto) 0.7 K/mm3 (0.0-0.8); Monocytes % (Auto) 8.7 % (0.0-7.3); Platelet Count 249 K/mm3 (140-440); Red Blood Count 4.72 M/mm3 (3.65-5.03); Red Cell Distribution Width 14.6 % (13.2-15.2)
[2021-01-30 18:22] LABS: Hepatitis B Surface Antigen Non-Reactive (Negative); Hepatitis C Virus Antibody Non-Reactive (NonReactive)
[2021-01-30 19:27] LABS: Alanine Aminotransferase 16 units/L (7-56); BUN/Creatinine Ratio 21; Blood Urea Nitrogen 21 mg/dL (9-20); Calcium 8.9 mg/dL (8.4-10.2); Hemolysis Index 12
[2021-01-30 20:06] VITALS: BP 115/82
[2021-02-01 01:13] LABS: Chol/HDL Ratio 2.53 %; HDL Cholesterol 49 mg/dL (40-59); LDL Cholesterol,Direct 60 mg/dL (50-130)
== END 2021-01-30 22:05 ==
LOC: ED 15:50
DX: R45.851 Suicidal ideations (principal); F32.9 Major depressive disorder, single episode, unspecified; I11.0 Hypertensive heart disease with heart failure; I50.9 Heart failure, unspecified; E11.9 Type 2 diabetes mellitus without complications; J44.9 Chronic obstructive pulmonary disease, unspecified; Z98.890 Other specified postprocedural states; Z79.899 Other long term (current) drug therapy
CPT/HCPCS: 36415; 80053; 80061; 80074; 80307; 80320; 81001; 83036; 84443; 85025; G0480; U0003

== ENCOUNTER 2021-01-30 01:19 | Inpatient (IN) | payer MEDICARE ==
[2021-01-30] MEDS ORDERED: HYDROcodone/ACETAMINOPHEN 5-325 MG TAB PO PRN (19:50)
[2021-01-30] MEDS ORDERED: ALBUTEROL 2.5 MG/3 ML NEBU IH PRN (19:50)
[2021-01-30] MEDS ORDERED: ACETAMINOPHEN 325 MG TAB PO PRN (19:50)
--- NOTE | 2021-01-30 19:50 | Consultation ---
History of Present Illness - Reason for Consult Consult date: 01/30/21 Medical management Requesting physician: ROLLY WALKER - History of Present Illness 60 YO Male with DM, HTN, CAD on DAPT, Diet controlled DM, TBI, Depression, PSA, Cardiomyopathy, and Intermittent Homelessness admitted to [facility] for Psychiatric stabilization. Consult placed by Dr. Walker for medical management. Pt resting in bed. Pt seen and evaluated while boarding in the ED. No reported nursing events. Patient resting comfortably in his bed. Patient is cooperative with exam and interview. Past History Past Medical History: CAD, diabetes, GERD, hypertension, other (See HPI) Past Surgical History: bowel surgery, Other (Left arm,) Social history: single Medications and Allergies Allergies Allergy/AdvReac Type Severity Reaction Status Date / Time No Known Allergies Allergy Verified 12/29/20 23:23 Home Medications Medication Instructions Recorded Confirmed Last Taken Type ALBUTEROL NEB's [Proventil 0.083% 2.5 mg IH Q4HRT PRN nebu 01/21/21 Unknown Rx NEBS] Acetaminophen [Acetaminophen TAB] 650 mg PO Q6H PRN tablet 01/21/21 Unknown Rx carvediloL [Coreg] 3.125 mg PO BID #60 tablet 01/23/21 Unknown Rx Aspirin EC [Halfprin EC] 81 mg PO QDAY #30 tablet 01/24/21 Unknown Rx AtorvaSTATin [Lipitor] 80 mg PO QHS #30 tablet 01/24/21 Unknown Rx Clopidogrel [Plavix] 75 mg PO QDAY #30 tablet 01/24/21 Unknown Rx Gabapentin 300 mg PO QPM #30 capsule 01/24/21 Unknown Rx HYDROcodone/APAP 5-325 [[place] 1 each PO Q6H PRN #20 tablet 01/24/21 Unknown Rx 5-325 mg TAB] Levothyroxine [Synthroid] 150 mcg PO DAILY@0600 #30 tablet 01/24/21 Unknown Rx Sertraline [Zoloft] 100 mg PO QDAY #30 tablet 01/24/21 Unknown Rx bisacodyL [Dulcolax suppos] 10 mg [place] QDAY PRN #30 supp.rect 01/24/21 Unknown Rx risperiDONE [RisperDAL] 0.5 mg PO BID #30 tablet 01/24/21 Unknown Rx traZODone [Desyrel] 50 mg PO QHS #30 tablet 01/24/21 Unknown Rx Review of Systems Constitutional: no weight loss, no weight gain, no fever, no chills Ears, nose, mouth and throat: no ear pain, no ear discharge, no decreased hearing, no nose pain, no nasal congestion, no nasal discharge Cardiovascular: no chest pain, no orthopnea, no rapid/irregular heart beat, no edema, no syncope, no lightheadedness Respiratory: no cough, no excessive sputum, no hemoptysis, no shortness of sarwat th, no dyspnea on exertion Gastrointestinal: no abdominal pain, no nausea, no vomiting, no diarrhea, no constipation, no change in bowel habits, no hematemesis Genitourinary Male: no hematuria, no flank pain, no discharge, no urinary frequency, no nocturia Rectal: no pain, no incontinence Musculoskeletal: no neck stiffness, no neck pain, no arm numbness/tingling, no low back pain, no leg numbness/tingling Integumentary: no rash, no pruritis, no sores, no jaundice, no boils, no blisters Neurological: no head injury, no weakness, no numbness, no seizures, no syncope Psychiatric: depression, hopelessness, difficulties concentrating, sadness/tearfullness, mood swings, no change in sleep habits, no insomnia, no change in libido Endocrine: no cold intolerance, no heat intolerance, no polyphagia, no excessive thirst, no polyuria Hematologic/Lymphatic: no easy bruising, no lymphadenopathy, no lymphedema Allergic/Immunologic: no urticaria, no allergic rhinitis, no anaphylaxis Exam - Constitutional General appearance: Present: mild distress - EENT Eyes: Present: PERRL ENT: hearing intact, clear oral mucosa - Neck Neck: Present: supple, normal ROM - Respiratory Respiratory effort: normal Respiratory: bilateral: CTA - Cardiovascular Heart Sounds: Present: S1 & S2. Absent: rub, click - Extremities Extremities: pulses symmetrical, No edema Peripheral Pulses: within normal limits - Abdominal General gastrointestinal: Present: soft, non-tender, non-distended, normal bowel sounds Male genitourinary: Present: normal - Integumentary Integumentary: Present: clear, warm, dry - Musculoskeletal Musculoskeletal: gait normal, strength equal bilaterally - Psychiatric Psychiatric: appropriate mood/affect, intact judgment & insight - Neurologic Neurologic: CNII-XII intact, moves all extremities Assessment and Plan - Patient Problems (1) Coronary artery disease Status: Acute Plan to address problem: Risk factor reduction therapy, dual antiplatelet therapy, statin therapy, low- cholesterol diet. (2) Diabetes Status: Acute Plan to address problem: Consistent carbohydrate diet, Accu-Chek, hypoglycemia protocol (3) Hypothyroidism Status: Acute Qualifiers: Hypothyroidism type: unspecified Qualified Code(s): E03.9 - Hypothyroidism, unspecified Plan to address problem: Synthroid therapy, supportive care. (4) Depression Status: Chronic Plan to address problem: Antidepressant therapy as per primary team, supportive care. 1013 placed (5) HLD (hyperlipidemia) Status: Chronic Qualifiers: Hyperlipidemia type: mixed hyperlipidemia Qualified Code(s): E78.2 - Mixed hyperlipidemia Plan to address problem: Statin therapy, low-cholesterol diet, supportive care. (6) HTN (hypertension) Status: Chronic Qualifiers: Hypertension type: primary hypertension Qualified Code(s): I10 - Essential (primary) hypertension Plan to address problem: Monitor blood pressure every shift, continue medical management.
--- NOTE | 2021-01-31 07:19 | History and Physical Report ---
GP History & Physical - History of Present Illness Date of admission: 01/30/21 Date of Examination: 01/31/21 Reason for Admission: Danger to self History of Present Illness: The patient was seen in the ED: Ye Dumont is a 60 year old male with a history of depression who presents to the ED for suicidal ideation. In my interview with the patient, he was tearful stating" I got stupid, I did something I shouldn't have done and I regret it." The patient reports residing in a rented house and got into an argument with the landlord about rent payment. He reports the landlord wanted to move him into another house however, he states that he had gotten used to his roommates and did not want to be moved. He denies any current suicidal/homicidal ideation and denies hallucinations. Patient reports doing well today and depression is improving. PAST PSYCHIATRIC HISTORY: Diagnoses: Depression Suicide attempts or Self-harm behavior: Denies Prior psychiatric hospitalizations: Unknown Substance Abuse history: Meth, Cocaine, Heroine Previous psychiatric medications tried: Unknown Outpatient treatment: unknown PAST MEDICAL HISTORY: None reported or document Family Psychiatric History: None reported or documented SOCIAL HISTORY Marital Status: Single Living Arrangements: Homeless Employment Status:Disability Access to guns/weapons: Denies Education: 12th History of Abuse: Denies Legal History: Denies REVIEW OF SYSTEMS Constitutional: Negative for weight loss ENT: Negative for stridor Respiratory: Negative for cough or hemoptysis All other systems reviewed and are negative MENTAL STATUS EXAMINATION General Appearance and Behavior: Age appropriate, wearing appropriate clothes, cooperative, polite with questioning, fair eye contact, calm Cooperation: cooperative Psychomotor Behavior: Psychomotor normal Mood: "OK" Affect and affective range: congruent with stated mood Thought Process: goal directed Thought Content: Not SI Speech: Normal volume, Regular rate and rhythm Suicidal Ideation: Denies Homicidal Ideation: Denies Hallucination: Denies Delusions: None elicited Impulse Control: Intact Insight and Judgment: Limited Memory: Intact Attention: attentive, engaging Orientation: Alert and oriented Diagnoses: Major Depressive Disorder, Severe -F33.2 Treatment Plan: Patient admitted for inpatient psychiatric evaluation, medication adjustment and close monitoring The patient's behavior, mood, sleep and appetite will be closely monitored. Patient enrolled in individual and group therapeutic sessions and encouraged to attend. Patient provided with a safe and structured environment. Patient's physical health needs will be addressed by the Hospitalist. Hospitalist Consulted Labs including CBC, CMP, Lipid profile and Hemoglobin A1C levels ordered for baseline reference Social Assessment will be completed and the Drupal Php Developer will work with patient and family to ensure a suitable and safe disposition Medication adjustment will be made as clinically indicated Continue Home Medications Start Duloxetine 20mg po BID Usual Wellness Alevism/Preservation: - Start Trazodone 50 mg po QHS & 50 mg po QHS PRN between 10 PM & 2 AM for insomnia - Start Melatonin 5 mg po QHS to promote circadian rhythm - Start Bergoo-3 for brain health, reduce impulsivity, and as adjunctive treatment for mood disorder, continue upon discharge given overall benefits. - Start B1 prophylaxis with 200 mg po for 5 days The patient agreed on the treatment plan, understood the risk, benefit, alternative treatment, potential consequence of no treatment, and gave informed consent. Estimated days: 0 Legal Status: Voluntary Reaction to Hospitalization: Accepting Medications and Allergies Allergies Allergy/AdvReac Type Severity Reaction Status Date / Time No Known Allergies Allergy Verified 12/29/20 23:23 Home Medications Medication Instructions Recorded Confirmed Last Taken Type ALBUTEROL NEB's [Proventil 0.083% 2.5 mg IH Q4HRT PRN nebu 01/21/21 Unknown Rx NEBS] Acetaminophen [Acetaminophen TAB] 650 mg PO Q6H PRN tablet 01/21/21 Unknown Rx carvediloL [Coreg] 3.125 mg PO BID #60 tablet 01/23/21 Unknown Rx Aspirin EC [Halfprin EC] 81 mg PO QDAY #30 tablet 01/24/21 Unknown Rx AtorvaSTATin [Lipitor] 80 mg PO QHS #30 tablet 01/24/21 Unknown Rx Clopidogrel [Plavix] 75 mg PO QDAY #30 tablet 01/24/21 Unknown Rx Gabapentin 300 mg PO QPM #30 capsule 01/24/21 Unknown Rx HYDROcodone/APAP 5-325 [[place] 1 each PO Q6H PRN #20 tablet 01/24/21 Unknown Rx 5-325 mg TAB] Levothyroxine [Synthroid] 150 mcg PO DAILY@0600 #30 tablet 01/24/21 Unknown Rx Sertraline [Zoloft] 100 mg PO QDAY #30 tablet 01/24/21 Unknown Rx bisacodyL [Dulcolax suppos] 10 mg [place] QDAY PRN #30 supp.rect 01/24/21 Unknown Rx risperiDONE [RisperDAL] 0.5 mg PO BID #30 tablet 01/24/21 Unknown Rx traZODone [Desyrel] 50 mg PO QHS #30 tablet 01/24/21 Unknown Rx Active Meds: Active Medications Acetaminophen (Acetaminophen 325 Mg Tab) 650 mg PO Q6H PRN PRN Reason: Non Cardiac Pain or Temp>100.5 Hydrocodone Bitart/Acetaminophen (Hydrocodone/Acetaminophen 5-325 Mg Tab) 1 each PO Q6H PRN PRN Reason: Pain, Moderate (4-6) Albuterol (Albuterol 2.5 Mg/3 Ml Nebu) 2.5 mg IH Q4HRT PRN PRN Reason: Shortness Of Breath Aspirin (Aspirin Ec 81 Mg Tab) 81 mg PO QDAY [facility]A Atorvastatin Calcium (Atorvastatin 40 Mg Tab) 80 mg PO QHS [facility] Bisacodyl (Bisacodyl 10 Mg Rect Supp) 10 mg [place] QDAY PRN PRN Reason: Constipation Carvedilol (Carvedilol 3.125 Mg Tab) 3.125 mg PO BID [facility] Clopidogrel Bisulfate (Clopidogrel 75 Mg Tab) 75 mg PO QDAY [facility] Gabapentin (Gabapentin 300 Mg Cap) 300 mg PO QPM [facility] Levothyroxine Sodium (Levothyroxine 150 Mcg Tab) 150 mcg PO DAILY@0600 [facility] Past psychiatric history - past Psychiatric treatment and history Psych: Depression Results - Results Labs/Vitals: Laboratory Last Values POC Glucose 117 mg/dL (70-105) H 01/31/21 06:15 Physical Examination - Constitutional General appearance: Present: no acute distress Assessment and Plan - Psychiatric problem (1) MDD (major depressive disorder), recurrent severe, without psychosis Current Visit: No Status: Acute Physician Certification - Certification Statement Physician Certification Statement: This is an acknowledgement statement that YE DUMONT is a 60 year old M who requires inpatient psychiatric admission for treatment which could reasonably be expected to improve the patient's condition for Estimated period of time patient will need to remain in the hospital: [ ] Plan for post-hospital care: [ ]
[2021-01-31] MEDS: DULoxetine 20 MG CAP PO SCH ×2 (09:10→21:14)
[2021-01-31] MEDS: CLOPIDOGREL 75 MG TAB PO SCH (09:10)
[2021-01-31] MEDS: ASPIRIN EC 81 MG TAB PO SCH (09:10)
[2021-01-31] MEDS: carvediloL 3.125 MG TAB PO SCH ×3 (09:10→21:14)
[2021-01-31] MEDS: GABAPENTIN 300 MG CAP PO SCH (17:13)
[2021-01-31] MEDS: LEVOTHYROXINE 150 MCG TAB PO SCH (19:48)
[2021-02-01] MEDS: LEVOTHYROXINE 150 MCG TAB PO SCH (05:28)
--- NOTE | 2021-02-01 08:20 | Progress Note ---
Subjective Date of service: 02/01/21 Principal diagnosis: MDD Subjective Comment: 02/01/2021: The patient was seen eating breakfast in the activity room. He continues to endorse depression stating" I'm always depressed." The patient reports having passive suicidal thoughts " I always do, I don't have any family and I'm tired off it." He reports having auditory hallucinations" I hear voices but I can't understand them." per nurse, the patient had a quiet night. Start Duloxetine 40mg po Qday. REVIEW OF SYSTEMS Constitutional: Negative for weight loss ENT: Negative for stridor Respiratory: Negative for cough or hemoptysis All other systems reviewed and are negative MENTAL STATUS EXAMINATION General Appearance and Behavior: Age appropriate, wearing appropriate clothes, cooperative, polite with questioning, fair eye contact, calm Cooperation: cooperative Psychomotor Behavior: Psychomotor normal Mood: "depressed" Affect and affective range: congruent with stated mood Thought Process: goal directed Thought Content: SI Speech: Normal volume, Regular rate and rhythm Suicidal Ideation: Yes Homicidal Ideation: Denies Hallucination:Auditory Delusions: None elicited Impulse Control: Questionable Insight and Judgment: Limited Memory: Intact Attention: attentive, engaging Orientation: Alert and oriented Diagnoses: Major Depressive Disorder, Severe -F33.2 Treatment Plan: Patient admitted for inpatient psychiatric evaluation, medication adjustment and close monitoring The patient's behavior, mood, sleep and appetite will be closely monitored. Patient enrolled in individual and group therapeutic sessions and encouraged to attend. Patient provided with a safe and structured environment. Patient's physical health needs will be addressed by the Hospitalist. Hospitalist Consulted Labs including CBC, CMP, Lipid profile and Hemoglobin A1C levels ordered for baseline reference Social Assessment will be completed and the Assembler Fishing [employer]ats will work with patient and family to ensure a suitable and safe disposition Medication adjustment will be made as clinically indicated Continue Home Medications Start Duloxetine 40mg po Qday Usual Wellness Orthodox/Preservation: - Start Trazodone 50 mg po QHS & 50 mg po QHS PRN between 10 PM & 2 AM for insomnia - Start Melatonin 5 mg po QHS to promote circadian rhythm - Start [place]-3 for brain health, reduce impulsivity, and as adjunctive treatment for mood disorder, continue upon discharge given overall benefits. - Start B1 prophylaxis with 200 mg po for 5 days The patient agreed on the treatment plan, understood the risk, benefit, alternative treatment, potential consequence of no treatment, and gave informed consent. Estimated days: 0 Legal Status: Voluntary Reaction to Hospitalization: Accepting Assessment and Plan - Patient Problems (1) MDD (major depressive disorder), recurrent severe, without psychosis Current Visit: No Status: Acute Medications and Allergies Allergies Allergy/AdvReac Type Severity Reaction Status Date / Time No Known Allergies Allergy Verified 12/29/20 23:23 Home Medications Medication Instructions Recorded Confirmed Last Taken Type ALBUTEROL NEB's [Proventil 0.083% 2.5 mg IH Q4HRT PRN nebu 01/21/21 01/31/21 Unknown Rx NEBS] Acetaminophen [Acetaminophen TAB] 650 mg PO Q6H PRN tablet 01/21/21 01/31/21 Unknown Rx carvediloL [Coreg] 3.125 mg PO BID #60 tablet 01/23/21 01/31/21 Unknown Rx Aspirin EC [Halfprin EC] 81 mg PO QDAY #30 tablet 01/24/21 01/31/21 Unknown Rx AtorvaSTATin [Lipitor] 80 mg PO QHS #30 tablet 01/24/21 01/31/21 Unknown Rx Clopidogrel [Plavix] 75 mg PO QDAY #30 tablet 01/24/21 01/31/21 Unknown Rx Gabapentin 300 mg PO QPM #30 capsule 01/24/21 01/31/21 Unknown Rx HYDROcodone/APAP 5-325 [[place] 1 each PO Q6H PRN #20 tablet 01/24/21 01/31/21 Unknown Rx 5-325 mg TAB] Levothyroxine [Synthroid] 150 mcg PO DAILY@0600 #30 tablet 01/24/21 01/31/21 Unknown Rx Sertraline [Zoloft] 100 mg PO QDAY #30 tablet 01/24/21 01/31/21 Unknown Rx bisacodyL [Dulcolax suppos] 10 mg [place] QDAY PRN #30 supp.rect 01/24/21 01/31/21 Unknown Rx risperiDONE [RisperDAL] 0.5 mg PO BID #30 tablet 01/24/21 01/31/21 Unknown Rx traZODone [Desyrel] 50 mg PO QHS #30 tablet 01/24/21 01/31/21 Unknown Rx Active Meds: Active Medications Acetaminophen (Acetaminophen 325 Mg Tab) 650 mg PO Q6H PRN PRN Reason: Non Cardiac Pain or Temp>100.5 Hydrocodone Bitart/Acetaminophen (Hydrocodone/Acetaminophen 5-325 Mg Tab) 1 each PO Q6H PRN PRN Reason: Pain, Moderate (4-6) Albuterol (Albuterol 2.5 Mg/3 Ml Nebu) 2.5 mg IH Q4HRT PRN PRN Reason: Shortness Of Breath Aspirin (Aspirin Ec 81 Mg Tab) 81 mg PO QDAY [facility] Last Admin: 01/31/21 09:10 Dose: 81 mg Documented by: Atorvastatin Calcium (Atorvastatin 40 Mg Tab) 80 mg PO QHS [facility] Last Admin: 01/31/21 21:14 Dose: 80 mg Documented by: Bisacodyl (Bisacodyl 10 Mg Rect Supp) 10 mg [place] QDAY PRN PRN Reason: Constipation Carvedilol (Carvedilol 3.125 Mg Tab) 3.125 mg PO BID [facility] Last Admin: 01/31/21 21:14 Dose: 3.125 mg Documented by: Clopidogrel Bisulfate (Clopidogrel 75 Mg Tab) 75 mg PO QDAY [facility] Last Admin: 01/31/21 09:10 Dose: 75 mg Documented by: Duloxetine HCl (Duloxetine 20 Mg Cap) 20 mg PO BID [facility] Last Admin: 01/31/21 21:14 Dose: 20 mg Documented by: Gabapentin (Gabapentin 300 Mg Cap) 300 mg PO QPM [facility] Last Admin: 01/31/21 17:13 Dose: 300 mg Documented by: Levothyroxine Sodium (Levothyroxine 150 Mcg Tab) 150 mcg PO DAILY@0600 [facility] Last Admin: 02/01/21 05:28 Dose: 150 mcg Documented by: Results - Results Labs/Vitals: Laboratory Last Values POC Glucose 149 mg/dL (70-105) H 02/01/21 06:56 Last Vital Signs Temp 98.8 F 01/31/21 19:47 Pulse 68 01/31/21 21:14 Resp 18 01/31/21 19:47 BP 110/72 01/31/21 21:14 Pulse Ox 93 01/31/21 19:47
[2021-02-01] MEDS: ASPIRIN EC 81 MG TAB PO SCH (09:29)
[2021-02-01] MEDS: carvediloL 3.125 MG TAB PO SCH ×2 (09:29→21:13)
[2021-02-01] MEDS: CLOPIDOGREL 75 MG TAB PO SCH (09:29)
[2021-02-01] MEDS: DULoxetine 20 MG CAP PO SCH (10:01)
[2021-02-01] MEDS: GABAPENTIN 300 MG CAP PO SCH (18:41)
[2021-02-01] MEDS: traZODone 50 MG TAB PO SCH (21:14)
[2021-02-02] MEDS: LEVOTHYROXINE 150 MCG TAB PO SCH (05:12)
--- NOTE | 2021-02-02 08:49 | Progress Note ---
Subjective Date of service: 02/02/21 Principal diagnosis: MDD Subjective Comment: 02/01/2021: The patient was seen eating breakfast in the activity room. He continues to endorse depression stating" I'm always depressed." The patient reports having passive suicidal thoughts " I always do, I don't have any family and I'm tired off it." He reports having auditory hallucinations" I hear voices but I can't understand them." per nurse, the patient had a quiet night. Start Duloxetine 40mg po Qday. 02/02/2021: The patient was seen in his room. He reports mood as "pretty well." He states depression is improving. he reports sleep as fair and appetite as good. He denies any current suicidal/homicidal ideation and denies hallucinations. Per nurse, the patient had a quiet night. No changes made today. REVIEW OF SYSTEMS Constitutional: Negative for weight loss ENT: Negative for stridor Respiratory: Negative for cough or hemoptysis All other systems reviewed and are negative MENTAL STATUS EXAMINATION General Appearance and Behavior: Age appropriate, wearing appropriate clothes, cooperative, polite with questioning, fair eye contact, calm Cooperation: cooperative Psychomotor Behavior: Psychomotor normal Mood: "Pretty well" Affect and affective range: congruent with stated mood Thought Process: goal directed Thought Content: Not SI Speech: Normal volume, Regular rate and rhythm Suicidal Ideation: Denies Homicidal Ideation: Denies Hallucination:Denies Delusions: None elicited Impulse Control: Questionable Insight and Judgment: Limited Memory: Intact Attention: attentive, engaging Orientation: Alert and oriented Diagnoses: Major Depressive Disorder, Severe -F33.2 Treatment Plan: Patient admitted for inpatient psychiatric evaluation, medication adjustment and close monitoring The patient's behavior, mood, sleep and appetite will be closely monitored. Patient enrolled in individual and group therapeutic sessions and encouraged to attend. Patient provided with a safe and structured environment. Patient's physical health needs will be addressed by the Hospitalist. Hospitalist Consulted Labs including CBC, CMP, Lipid profile and Hemoglobin A1C levels ordered for baseline reference Social Assessment will be completed and the Software Test Technician will work with patient and family to ensure a suitable and safe disposition Medication adjustment will be made as clinically indicated Continue Home Medications Continue Duloxetine 40mg po Qday Usual Wellness Church/Preservation: - Start Trazodone 50 mg po QHS & 50 mg po QHS PRN between 10 PM & 2 AM for insomnia - Start Melatonin 5 mg po QHS to promote circadian rhythm - Start [place]-3 for brain health, reduce impulsivity, and as adjunctive treatment for mood disorder, continue upon discharge given overall benefits. - Start B1 prophylaxis with 200 mg po for 5 days The patient agreed on the treatment plan, understood the risk, benefit, alternative treatment, potential consequence of no treatment, and gave informed consent. Estimated days: 0 Legal Status: Voluntary Reaction to Hospitalization: Accepting Allergies Assessment and Plan - Patient Problems (1) MDD (major depressive disorder), recurrent severe, without psychosis Current Visit: No Status: Acute Medications and Allergies Allergies Allergy/AdvReac Type Severity Reaction Status Date / Time No Known Allergies Allergy Verified 12/29/20 23:23 Home Medications Medication Instructions Recorded Confirmed Last Taken Type ALBUTEROL NEB's [Proventil 0.083% 2.5 mg IH Q4HRT PRN nebu 01/21/21 01/31/21 Unknown Rx NEBS] Acetaminophen [Acetaminophen TAB] 650 mg PO Q6H PRN tablet 01/21/21 01/31/21 Unknown Rx carvediloL [Coreg] 3.125 mg PO BID #60 tablet 01/23/21 01/31/21 Unknown Rx Aspirin EC [Halfprin EC] 81 mg PO QDAY #30 tablet 01/24/21 01/31/21 Unknown Rx AtorvaSTATin [Lipitor] 80 mg PO QHS #30 tablet 01/24/21 01/31/21 Unknown Rx Clopidogrel [Plavix] 75 mg PO QDAY #30 tablet 01/24/21 01/31/21 Unknown Rx Gabapentin 300 mg PO QPM #30 capsule 01/24/21 01/31/21 Unknown Rx HYDROcodone/APAP 5-325 [[place] 1 each PO Q6H PRN #20 tablet 01/24/21 01/31/21 Unknown Rx 5-325 mg TAB] Levothyroxine [Synthroid] 150 mcg PO DAILY@0600 #30 tablet 01/24/21 01/31/21 Unknown Rx Sertraline [Zoloft] 100 mg PO QDAY #30 tablet 01/24/21 01/31/21 Unknown Rx bisacodyL [Dulcolax suppos] 10 mg [place] QDAY PRN #30 supp.rect 01/24/21 01/31/21 Unknown Rx risperiDONE [RisperDAL] 0.5 mg PO BID #30 tablet 01/24/21 01/31/21 Unknown Rx traZODone [Desyrel] 50 mg PO QHS #30 tablet 01/24/21 01/31/21 Unknown Rx Active Meds: Active Medications Acetaminophen (Acetaminophen 325 Mg Tab) 650 mg PO Q6H PRN PRN Reason: Non Cardiac Pain or Temp>100.5 Hydrocodone Bitart/Acetaminophen (Hydrocodone/Acetaminophen 5-325 Mg Tab) 1 each PO Q6H PRN PRN Reason: Pain, Moderate (4-6) Albuterol (Albuterol 2.5 Mg/3 Ml Nebu) 2.5 mg IH Q4HRT PRN PRN Reason: Shortness Of Breath Aspirin (Aspirin Ec 81 Mg Tab) 81 mg PO QDAY [facility] Last Admin: 02/01/21 09:29 Dose: 81 mg Documented by: Atorvastatin Calcium (Atorvastatin 40 Mg Tab) 80 mg PO QHS [facility] Last Admin: 02/01/21 21:14 Dose: 80 mg Documented by: Bisacodyl (Bisacodyl 10 Mg Rect Supp) 10 mg [place] QDAY PRN PRN Reason: Constipation Carvedilol (Carvedilol 3.125 Mg Tab) 3.125 mg PO BID [facility] Last Admin: 02/01/21 21:13 Dose: 3.125 mg Documented by: Clopidogrel Bisulfate (Clopidogrel 75 Mg Tab) 75 mg PO QDAY [facility] Last Admin: 02/01/21 09:29 Dose: 75 mg Documented by: Duloxetine HCl (Duloxetine 20 Mg Cap) 40 mg PO QDAY [facility] Last Admin: 02/01/21 10:01 Dose: 40 mg Documented by: Gabapentin (Gabapentin 300 Mg Cap) 300 mg PO QPM [facility] Last Admin: 02/01/21 18:41 Dose: 300 mg Documented by: Levothyroxine Sodium (Levothyroxine 150 Mcg Tab) 150 mcg PO DAILY@0600 [facility] Last Admin: 02/02/21 05:12 Dose: 150 mcg Documented by: Trazodone HCl (Trazodone 50 Mg Tab) 50 mg PO QHS [facility] Last Admin: 02/01/21 21:14 Dose: 50 mg Documented by: Results - Results Labs/Vitals: Laboratory Last Values POC Glucose 132 mg/dL (70-105) H 02/02/21 08:13 Last Vital Signs Temp 98.4 F 02/01/21 20:00 Pulse 66 02/01/21 21:13 Resp 16 02/01/21 20:00 BP 122/76 02/01/21 21:13 Pulse Ox 95 02/01/21 09:26
[2021-02-02] MEDS: ASPIRIN EC 81 MG TAB PO SCH (11:53)
[2021-02-02] MEDS: carvediloL 3.125 MG TAB PO SCH ×2 (11:53→21:19)
[2021-02-02] MEDS: DULoxetine 20 MG CAP PO SCH (11:54)
[2021-02-02] MEDS: CLOPIDOGREL 75 MG TAB PO SCH (11:56)
[2021-02-02] MEDS: GABAPENTIN 300 MG CAP PO SCH (17:13)
[2021-02-02] MEDS: traZODone 50 MG TAB PO SCH (21:19)
[2021-02-03] MEDS: LEVOTHYROXINE 150 MCG TAB PO SCH (06:02)
--- NOTE | 2021-02-03 09:29 | Progress Note ---
Subjective Date of service: 02/03/21 Principal diagnosis: MDD Subjective Comment: 02/01/2021: The patient was seen eating breakfast in the activity room. He continues to endorse depression stating" I'm always depressed." The patient reports having passive suicidal thoughts " I always do, I don't have any family and I'm tired off it." He reports having auditory hallucinations" I hear voices but I can't understand them." per nurse, the patient had a quiet night. Start Duloxetine 40mg po Qday. 02/02/2021: The patient was seen in his room. He reports mood as "pretty well." He states depression is improving. he reports sleep as fair and appetite as good. He denies any current suicidal/homicidal ideation and denies hallucinations. Per nurse, the patient had a quiet night. No changes made today. 02/03/2021: The patient was seen eating breakfast in the activity room. The patient became hostile and loud asking why his coffee was not filled to the brim. The patient reports feeling suicidal. Per nurse, the patient had a quiet night. No changes mad today REVIEW OF SYSTEMS Constitutional: Negative for weight loss ENT: Negative for stridor Respiratory: Negative for cough or hemoptysis All other systems reviewed and are negative MENTAL STATUS EXAMINATION General Appearance and Behavior: Age appropriate, wearing appropriate clothes, cooperative, polite with questioning, fair eye contact, calm Cooperation: cooperative Psychomotor Behavior: Psychomotor normal Mood: angry Affect and affective range: congruent with stated mood Thought Process: goal directed Thought Content: SI Speech: Normal volume, Regular rate and rhythm Suicidal Ideation: SI Homicidal Ideation: Denies Hallucination:Denies Delusions: None elicited Impulse Control: Questionable Insight and Judgment: Limited Memory: Intact Attention: attentive, engaging Orientation: Alert and oriented Diagnoses: Major Depressive Disorder, Severe -F33.2 Treatment Plan: Patient admitted for inpatient psychiatric evaluation, medication adjustment and close monitoring The patient's behavior, mood, sleep and appetite will be closely monitored. Patient enrolled in individual and group therapeutic sessions and encouraged to attend. Patient provided with a safe and structured environment. Patient's physical health needs will be addressed by the Hospitalist. Hospitalist Consulted Labs including CBC, CMP, Lipid profile and Hemoglobin A1C levels ordered for baseline reference Social Assessment will be completed and the Production Intern will work with patient and family to ensure a suitable and safe disposition Medication adjustment will be made as clinically indicated Continue Home Medications Continue Duloxetine 40mg po Qday Usual Wellness [place]azdanism/Preservation: - Start Trazodone 50 mg po QHS & 50 mg po QHS PRN between 10 PM & 2 AM for insomnia - Start Melatonin 5 mg po QHS to promote circadian rhythm - Start [place]-3 for brain health, reduce impulsivity, and as adjunctive treatment for mood disorder, continue upon discharge given overall benefits. - Start B1 prophylaxis with 200 mg po for 5 days The patient agreed on the treatment plan, understood the risk, benefit, alternative treatment, potential consequence of no treatment, and gave informed consent. Estimated days: 0 Legal Status: Voluntary Reaction to Hospitalization: Accepting Allergies Assessment and Plan - Patient Problems (1) MDD (major depressive disorder), recurrent severe, without psychosis Current Visit: No Status: Acute Medications and Allergies Allergies Allergy/AdvReac Type Severity Reaction Status Date / Time No Known Allergies Allergy Verified 12/29/20 23:23 Home Medications Medication Instructions Recorded Confirmed Last Taken Type ALBUTEROL NEB's [Proventil 0.083% 2.5 mg IH Q4HRT PRN nebu 01/21/21 01/31/21 Unknown Rx NEBS] Acetaminophen [Acetaminophen TAB] 650 mg PO Q6H PRN tablet 01/21/21 01/31/21 Unknown Rx carvediloL [Coreg] 3.125 mg PO BID #60 tablet 01/23/21 01/31/21 Unknown Rx Aspirin EC [Halfprin EC] 81 mg PO QDAY #30 tablet 01/24/21 01/31/21 Unknown Rx AtorvaSTATin [Lipitor] 80 mg PO QHS #30 tablet 01/24/21 01/31/21 Unknown Rx Clopidogrel [Plavix] 75 mg PO QDAY #30 tablet 01/24/21 01/31/21 Unknown Rx Gabapentin 300 mg PO QPM #30 capsule 01/24/21 01/31/21 Unknown Rx HYDROcodone/APAP 5-325 [[place] 1 each PO Q6H PRN #20 tablet 01/24/21 01/31/21 Unknown Rx 5-325 mg TAB] Levothyroxine [Synthroid] 150 mcg PO DAILY@0600 #30 tablet 01/24/21 01/31/21 Unknown Rx Sertraline [Zoloft] 100 mg PO QDAY #30 tablet 01/24/21 01/31/21 Unknown Rx bisacodyL [Dulcolax suppos] 10 mg [place] QDAY PRN #30 supp.rect 01/24/21 01/31/21 Unknown Rx risperiDONE [RisperDAL] 0.5 mg PO BID #30 tablet 01/24/21 01/31/21 Unknown Rx traZODone [Desyrel] 50 mg PO QHS #30 tablet 01/24/21 01/31/21 Unknown Rx Active Meds: Active Medications Acetaminophen (Acetaminophen 325 Mg Tab) 650 mg PO Q6H PRN PRN Reason: Non Cardiac Pain or Temp>100.5 Hydrocodone Bitart/Acetaminophen (Hydrocodone/Acetaminophen 5-325 Mg Tab) 1 each PO Q6H PRN PRN Reason: Pain, Moderate (4-6) Albuterol (Albuterol 2.5 Mg/3 Ml Nebu) 2.5 mg IH Q4HRT PRN PRN Reason: Shortness Of Breath Aspirin (Aspirin Ec 81 Mg Tab) 81 mg PO QDAY [facility] Last Admin: 02/02/21 11:53 Dose: 81 mg Documented by: Atorvastatin Calcium (Atorvastatin 40 Mg Tab) 80 mg PO QHS [facility] Last Admin: 02/02/21 21:19 Dose: 80 mg Documented by: Bisacodyl (Bisacodyl 10 Mg Rect Supp) 10 mg [place] QDAY PRN PRN Reason: Constipation Carvedilol (Carvedilol 3.125 Mg Tab) 3.125 mg PO BID [facility] Last Admin: 02/02/21 21:19 Dose: 3.125 mg Documented by: Clopidogrel Bisulfate (Clopidogrel 75 Mg Tab) 75 mg PO QDAY [facility] Last Admin: 02/02/21 11:56 Dose: 75 mg Documented by: Duloxetine HCl (Duloxetine 20 Mg Cap) 40 mg PO QDAY [facility] Last Admin: 02/02/21 11:54 Dose: 40 mg Documented by: Gabapentin (Gabapentin 300 Mg Cap) 300 mg PO QPM [facility] Last Admin: 02/02/21 17:13 Dose: 300 mg Documented by: Levothyroxine Sodium (Levothyroxine 150 Mcg Tab) 150 mcg PO DAILY@0600 [facility] Last Admin: 02/03/21 06:02 Dose: 150 mcg Documented by: Trazodone HCl (Trazodone 50 Mg Tab) 50 mg PO QHS [facility] Last Admin: 02/02/21 21:19 Dose: 50 mg Documented by: Results - Results Labs/Vitals: Laboratory Last Values POC Glucose 130 mg/dL (70-105) H 02/03/21 06:08 Last Vital Signs Temp 98.9 F 02/02/21 21:00 Pulse 67 02/02/21 21:19 Resp 18 02/02/21 21:00 BP 126/81 02/02/21 21:19 Pulse Ox 95 02/02/21 21:00
[2021-02-03] MEDS: ASPIRIN EC 81 MG TAB PO SCH (10:32)
[2021-02-03] MEDS: carvediloL 3.125 MG TAB PO SCH ×2 (10:32→21:25)
[2021-02-03] MEDS: CLOPIDOGREL 75 MG TAB PO SCH (10:32)
[2021-02-03] MEDS: DULoxetine 20 MG CAP PO SCH (10:32)
[2021-02-03] MEDS: GABAPENTIN 300 MG CAP PO SCH (17:14)
[2021-02-03] MEDS: traZODone 50 MG TAB PO SCH (21:26)
[2021-02-04] MEDS: LEVOTHYROXINE 150 MCG TAB PO SCH (06:32)
[2021-02-04] MEDS: carvediloL 3.125 MG TAB PO SCH ×2 (09:13→21:05)
[2021-02-04] MEDS: ASPIRIN EC 81 MG TAB PO SCH (09:13)
[2021-02-04] MEDS: DULoxetine 20 MG CAP PO SCH (09:13)
[2021-02-04] MEDS: CLOPIDOGREL 75 MG TAB PO SCH (09:14)
--- NOTE | 2021-02-04 11:59 | Progress Note ---
Subjective Date of service: 02/04/21 Principal diagnosis: MDD Subjective Comment: The patient was seen today he endorses suicidal thoughts. He says "I have different ways. is what I want." He says he's having hallucinations about "." When asking the patient what he meant, he replies "I see and hear stuff all the time. I don't know how to describe it." REVIEW OF SYSTEMS Constitutional: Negative for weight loss ENT: Negative for stridor Respiratory: Negative for cough or hemoptysis All other systems reviewed and are negative MENTAL STATUS EXAMINATION General Appearance and Behavior: Age appropriate, wearing appropriate clothes, cooperative, polite with questioning, fair eye contact, calm Cooperation: cooperative Psychomotor Behavior: Psychomotor normal Mood: angry Affect and affective range: congruent with stated mood Thought Process: goal directed Thought Content: SI Speech: Normal volume, Regular rate and rhythm Suicidal Ideation: SI Homicidal Ideation: Denies Hallucination:Denies Delusions: None elicited Impulse Control: Questionable Insight and Judgment: Limited Memory: Intact Attention: attentive, engaging Orientation: Alert and oriented Diagnoses: Major Depressive Disorder, Severe -F33.2 Treatment Plan: Patient admitted for inpatient psychiatric evaluation, medication adjustment and close monitoring The patient's behavior, mood, sleep and appetite will be closely monitored. Patient enrolled in individual and group therapeutic sessions and encouraged to attend. Patient provided with a safe and structured environment. Patient's physical health needs will be addressed by the Hospitalist. Hospitalist Consulted Labs including CBC, CMP, Lipid profile and Hemoglobin A1C levels ordered for baseline reference Social Assessment will be completed and the Gerontological Nurse Practitioner will work with patient and family to ensure a suitable and safe disposition Medication adjustment will be made as clinically indicated Start Olanzapine 5mg po daily Usual Wellness [facility]/Preservation: - Start Trazodone 50 mg po QHS & 50 mg po QHS PRN between 10 PM & 2 AM for insomnia - Start Melatonin 5 mg po QHS to promote circadian rhythm - Start [place]-3 for brain health, reduce impulsivity, and as adjunctive treatment for mood disorder, continue upon discharge given overall benefits. - Start B1 prophylaxis with 200 mg po for 5 days The patient agreed on the treatment plan, understood the risk, benefit, alternative treatment, potential consequence of no treatment, and gave informed consent. Estimated days: 2 Medications and Allergies Allergies Allergy/AdvReac Type Severity Reaction Status Date / Time No Known Allergies Allergy Verified 12/29/20 23:23 Home Medications Medication Instructions Recorded Confirmed Last Taken Type ALBUTEROL NEB's [Proventil 0.083% 2.5 mg IH Q4HRT PRN nebu 01/21/21 01/31/21 Unknown Rx NEBS] Acetaminophen [Acetaminophen TAB] 650 mg PO Q6H PRN tablet 01/21/21 01/31/21 Unknown Rx carvediloL [Coreg] 3.125 mg PO BID #60 tablet 01/23/21 01/31/21 Unknown Rx Aspirin EC [Halfprin EC] 81 mg PO QDAY #30 tablet 01/24/21 01/31/21 Unknown Rx AtorvaSTATin [Lipitor] 80 mg PO QHS #30 tablet 01/24/21 01/31/21 Unknown Rx Clopidogrel [Plavix] 75 mg PO QDAY #30 tablet 01/24/21 01/31/21 Unknown Rx Gabapentin 300 mg PO QPM #30 capsule 01/24/21 01/31/21 Unknown Rx HYDROcodone/APAP 5-325 [[place] 1 each PO Q6H PRN #20 tablet 01/24/21 01/31/21 Unknown Rx 5-325 mg TAB] Levothyroxine [Synthroid] 150 mcg PO DAILY@0600 #30 tablet 01/24/21 01/31/21 Unknown Rx Sertraline [Zoloft] 100 mg PO QDAY #30 tablet 01/24/21 01/31/21 Unknown Rx bisacodyL [Dulcolax suppos] 10 mg [place] QDAY PRN #30 supp.rect 01/24/21 01/31/21 U nknown Rx risperiDONE [RisperDAL] 0.5 mg PO BID #30 tablet 01/24/21 01/31/21 Unknown Rx traZODone [Desyrel] 50 mg PO QHS #30 tablet 01/24/21 01/31/21 Unknown Rx Active Meds: Active Medications Acetaminophen (Acetaminophen 325 Mg Tab) 650 mg PO Q6H PRN PRN Reason: Non Cardiac Pain or Temp>100.5 Hydrocodone Bitart/Acetaminophen (Hydrocodone/Acetaminophen 5-325 Mg Tab) 1 each PO Q6H PRN PRN Reason: Pain, Moderate (4-6) Albuterol (Albuterol 2.5 Mg/3 Ml Nebu) 2.5 mg IH Q4HRT PRN PRN Reason: Shortness Of Breath Aspirin (Aspirin Ec 81 Mg Tab) 81 mg PO QDAY [facility] Last Admin: 02/04/21 09:13 Dose: 81 mg Documented by: Atorvastatin Calcium (Atorvastatin 40 Mg Tab) 80 mg PO QHS [facility] Last Admin: 02/03/21 21:26 Dose: 80 mg Documented by: Bisacodyl (Bisacodyl 10 Mg Rect Supp) 10 mg [place] QDAY PRN PRN Reason: Constipation Carvedilol (Carvedilol 3.125 Mg Tab) 3.125 mg PO BID [facility] Last Admin: 02/04/21 09:13 Dose: 3.125 mg Documented by: Clopidogrel Bisulfate (Clopidogrel 75 Mg Tab) 75 mg PO QDAY [facility] Last Admin: 02/04/21 09:14 Dose: 75 mg Documented by: Duloxetine HCl (Duloxetine 20 Mg Cap) 40 mg PO QDAY [facility] Last Admin: 02/04/21 09:13 Dose: 40 mg Documented by: Gabapentin (Gabapentin 300 Mg Cap) 300 mg PO QPM [facility] Last Admin: 02/03/21 17:14 Dose: 300 mg Documented by: Levothyroxine Sodium (Levothyroxine 150 Mcg Tab) 150 mcg PO DAILY@0600 [facility] Last Admin: 02/04/21 06:32 Dose: 150 mcg Documented by: Trazodone HCl (Trazodone 50 Mg Tab) 50 mg PO QHS [facility] Last Admin: 02/03/21 21:26 Dose: 50 mg Documented by: Results - Results Labs/Vitals: Laboratory Last Values POC Glucose 126 mg/dL (70-105) H 02/04/21 06:21 Last Vital Signs Temp 98.8 F 02/03/21 21:00 Pulse 68 02/04/21 09:13 Resp 18 02/03/21 21:00 BP 129/83 02/04/21 09:13 Pulse Ox 92 02/03/21 21:00
[2021-02-04] MEDS: GABAPENTIN 300 MG CAP PO SCH (17:19)
[2021-02-04] MEDS: traZODone 50 MG TAB PO SCH (21:06)
[2021-02-05] MEDS: LEVOTHYROXINE 150 MCG TAB PO SCH (05:29)
--- NOTE | 2021-02-05 09:23 | Progress Note ---
Subjective Date of service: 02/05/21 Principal diagnosis: MDD Subjective Comment: The patient was seen today he endorses suicidal thoughts. He says he thinks about . The patient says he is depressed and states he has no reason to live. He denies hallucinations. REVIEW OF SYSTEMS Constitutional: Negative for weight loss ENT: Negative for stridor Respiratory: Negative for cough or hemoptysis All other systems reviewed and are negative MENTAL STATUS EXAMINATION General Appearance and Behavior: Age appropriate, wearing appropriate clothes, cooperative, polite with questioning, fair eye contact, calm Cooperation: cooperative Psychomotor Behavior: Psychomotor normal Mood: depressed Affect and affective range: congruent with stated mood Thought Process: goal directed Thought Content: SI Speech: Normal volume, Regular rate and rhythm Suicidal Ideation: SI Homicidal Ideation: Denies Hallucination:Denies Delusions: None elicited Impulse Control: Limited Insight and Judgment: Limited Memory: Limited Attention: attentive, engaging Orientation: Alert and oriented Diagnoses: Major Depressive Disorder, Severe -F33.2 Treatment Plan: Patient admitted for inpatient psychiatric evaluation, medication adjustment and close monitoring The patient's behavior, mood, sleep and appetite will be closely monitored. Patient enrolled in individual and group therapeutic sessions and encouraged to attend. Patient provided with a safe and structured environment. Patient's physical health needs will be addressed by the Hospitalist. Hospitalist Consulted Labs including CBC, CMP, Lipid profile and Hemoglobin A1C levels ordered for baseline reference Social Assessment will be completed and the Icer Machine will work with patient and family to ensure a suitable and safe disposition Medication adjustment will be made as clinically indicated d/c Olanzapine 5mg po daily Start Abilify 5mg po daily (abilify has been proven to treat underlying depression) Increase Cymbalta 60mg po daily Usual Wellness [facility]ast[facility]/Preservation: - Start Trazodone 50 mg po QHS & 50 mg po QHS PRN between 10 PM & 2 AM for insomnia - Start Melatonin 5 mg po QHS to promote circadian rhythm - Start [place]-3 for brain health, reduce impulsivity, and as adjunctive treatment for mood disorder, continue upon discharge given overall benefits. - Start B1 prophylaxis with 200 mg po for 5 days The patient agreed on the treatment plan, understood the risk, benefit, alternative treatment, potential consequence of no treatment, and gave informed consent. Estimated days: 2 Medications and Allergies Allergies Allergy/AdvReac Type Severity Reaction Status Date / Time No Known Allergies Allergy Verified 06/09/21 23:23 Home Medications Medication Instructions Recorded Confirmed Last Taken Type ALBUTEROL NEB's [Proventil 0.083% 2.5 mg IH Q4HRT PRN nebu 01/21/21 01/31/21 Unknown Rx NEBS] Acetaminophen [Acetaminophen TAB] 650 mg PO Q6H PRN tablet 01/21/21 01/31/21 Unknown Rx carvediloL [Coreg] 3.125 mg PO BID #60 tablet 01/23/21 01/31/21 Unknown Rx Aspirin EC [Halfprin EC] 81 mg PO QDAY #30 tablet 01/24/21 01/31/21 Unknown Rx AtorvaSTATin [Lipitor] 80 mg PO QHS #30 tablet 01/24/21 01/31/21 Unknown Rx Clopidogrel [Plavix] 75 mg PO QDAY #30 tablet 01/24/21 01/31/21 Unknown Rx Gabapentin 300 mg PO QPM #30 capsule 01/24/21 01/31/21 Unknown Rx HYDROcodone/APAP 5-325 [[place] 1 each PO Q6H PRN #20 tablet 01/24/21 01/31/21 Unknown Rx 5-325 mg TAB] Levothyroxine [Synthroid] 150 mcg PO DAILY@0600 #30 tablet 01/24/21 01/31/21 Unknown Rx Sertraline [Zoloft] 100 mg PO QDAY #30 tablet 01/24/21 01/31/21 Unknown Rx bisacodyL [Dulcolax suppos] 10 mg [place] QDAY PRN #30 supp.rect 01/24/21 01/31/21 Unknown Rx risperiDONE [RisperDAL] 0.5 mg PO BID #30 tablet 01/24/21 01/31/21 Unknown Rx traZODone [Desyrel] 50 mg PO QHS #30 tablet 01/24/21 01/31/21 Unknown Rx Active Meds: Active Medications Acetaminophen (Acetaminophen 325 Mg Tab) 650 mg PO Q6H PRN PRN Reason: Non Cardiac Pain or Temp>100.5 Hydrocodone Bitart/Acetaminophen (Hydrocodone/Acetaminophen 5-325 Mg Tab) 1 each PO Q6H PRN PRN Reason: Pain, Moderate (4-6) Albuterol (Albuterol 2.5 Mg/3 Ml Nebu) 2.5 mg IH Q4HRT PRN PRN Reason: Shortness Of Breath Aspirin (Aspirin Ec 81 Mg Tab) 81 mg PO QDAY [facility] Last Admin: 02/04/21 09:13 Dose: 81 mg Documented by: Atorvastatin Calcium (Atorvastatin 40 Mg Tab) 80 mg PO QHS [facility] Last Admin: 02/04/21 21:06 Dose: 80 mg Documented by: Bisacodyl (Bisacodyl 10 Mg Rect Supp) 10 mg [place] QDAY PRN PRN Reason: Constipation Carvedilol (Carvedilol 3.125 Mg Tab) 3.125 mg PO BID [facility] Last Admin: 02/04/21 21:05 Dose: 3.125 mg Documented by: Clopidogrel Bisulfate (Clopidogrel 75 Mg Tab) 75 mg PO QDAY [facility] Last Admin: 02/04/21 09:14 Dose: 75 mg Documented by: Duloxetine HCl (Duloxetine 20 Mg Cap) 40 mg PO QDAY [facility] Last Admin: 02/04/21 09:13 Dose: 40 mg Documented by: Gabapentin (Gabapentin 300 Mg Cap) 300 mg PO QPM [facility] Last Admin: 02/04/21 17:19 Dose: 300 mg Documented by: Levothyroxine Sodium (Levothyroxine 150 Mcg Tab) 150 mcg PO DAILY@0600 [facility] Last Admin: 02/05/21 05:29 Dose: 150 mcg Documented by: Olanzapine (Olanzapine 5 Mg Tab) 5 mg PO QDAY [facility] Last Admin: 02/04/21 13:14 Dose: 5 mg Documented by: Trazodone HCl (Trazodone 50 Mg Tab) 50 mg PO QHS [facility] Last Admin: 02/04/21 21:06 Dose: 50 mg Documented by: Results - Results Labs/Vitals: Laboratory Last Values POC Glucose 168 mg/dL (70-105) H 02/05/21 07:40 Last Vital Signs Temp 97.5 F L 02/04/21 19:36 Pulse 67 02/04/21 21:05 Resp 16 02/04/21 19:36 BP 109/75 02/04/21 21:05 Pulse Ox 93 02/04/21 19:36
[2021-02-05] MEDS: ASPIRIN EC 81 MG TAB PO SCH (09:38)
[2021-02-05] MEDS: CLOPIDOGREL 75 MG TAB PO SCH (09:39)
[2021-02-05] MEDS: carvediloL 3.125 MG TAB PO SCH ×2 (09:39→21:19)
[2021-02-05] MEDS: DULoxetine 30 MG CAP PO SCH (09:55)
[2021-02-05] MEDS: ARIPiprazole 5 MG TAB PO SCH (09:55)
[2021-02-05] MEDS: GABAPENTIN 300 MG CAP PO SCH (17:17)
[2021-02-05] MEDS: traZODone 50 MG TAB PO SCH (21:18)
[2021-02-06] MEDS: LEVOTHYROXINE 150 MCG TAB PO SCH (05:19)
[2021-02-06] MEDS: ARIPiprazole 5 MG TAB PO SCH (09:00)
[2021-02-06] MEDS: ASPIRIN EC 81 MG TAB PO SCH (09:01)
[2021-02-06] MEDS: CLOPIDOGREL 75 MG TAB PO SCH (09:01)
[2021-02-06] MEDS: DULoxetine 30 MG CAP PO SCH (09:01)
[2021-02-06] MEDS: carvediloL 3.125 MG TAB PO SCH ×2 (09:01→21:15)
--- NOTE | 2021-02-06 10:45 | Progress Note ---
Subjective Date of service: 02/06/21 Principal diagnosis: MDD Subjective Comment: The patient was seen today he endorses suicidal thoughts. He says "all the time" when asking was he still suicidal. The patient says "I am depressed." Wheen asked about hallucinations he says "I see ." REVIEW OF SYSTEMS Constitutional: Negative for weight loss ENT: Negative for stridor Respiratory: Negative for cough or hemoptysis All other systems reviewed and are negative MENTAL STATUS EXAMINATION General Appearance and Behavior: Age appropriate, wearing appropriate clothes, cooperative, polite with questioning, fair eye contact, calm Cooperation: cooperative Psychomotor Behavior: Psychomotor normal Mood: depressed Affect and affective range: congruent with stated mood Thought Process: goal directed Thought Content: SI Speech: Normal volume, Regular rate and rhythm Suicidal Ideation: SI Homicidal Ideation: Denies Hallucination: Visual Delusions: None elicited Impulse Control: Limited Insight and Judgment: Limited Memory: Limited Attention: attentive, engaging Orientation: Alert and oriented Diagnoses: Major Depressive Disorder, Severe -F33.2 Treatment Plan: Patient admitted for inpatient psychiatric evaluation, medication adjustment and close monitoring The patient's behavior, mood, sleep and appetite will be closely monitored. Patient enrolled in individual and group therapeutic sessions and encouraged to attend. Patient provided with a safe and structured environment. Patient's physical health needs will be addressed by the Hospitalist. Hospitalist Consulted Labs including CBC, CMP, Lipid profile and Hemoglobin A1C levels ordered for baseline reference Social Assessment will be completed and the Research And Development Specialist will work with patient and family to ensure a suitable and safe disposition Medication adjustment will be made as clinically indicated Increase Abilify 10mg po daily Continue Cymbalta 60mg po daily Usual Wellness [facility]/Preservation: - Start Trazodone 50 mg po QHS & 50 mg po QHS PRN between 10 PM & 2 AM for insomnia - Start Melatonin 5 mg po QHS to promote circadian rhythm - Start [place]-3 for brain health, reduce impulsivity, and as adjunctive treatment for mood disorder, continue upon discharge given overall benefits. - Start B1 prophylaxis with 200 mg po for 5 days The patient agreed on the treatment plan, understood the risk, benefit, alternative treatment, potential consequence of no treatment, and gave informed consent. Estimated days: 2 Medications and Allergies Allergies Allergy/AdvReac Type Severity Reaction Status Date / Time No Known Allergies Allergy Verified 12/29/20 23:23 Home Medications Medication Instructions Recorded Confirmed Last Taken Type ALBUTEROL NEB's [Proventil 0.083% 2.5 mg IH Q4HRT PRN nebu 01/21/21 01/31/21 Unknown Rx NEBS] Acetaminophen [Acetaminophen TAB] 650 mg PO Q6H PRN tablet 01/21/21 01/31/21 Unknown Rx carvediloL [Coreg] 3.125 mg PO BID #60 tablet 01/23/21 01/31/21 Unknown Rx Aspirin EC [Halfprin EC] 81 mg PO QDAY #30 tablet 01/24/21 01/31/21 Unknown Rx AtorvaSTATin [Lipitor] 80 mg PO QHS #30 tablet 01/24/21 01/31/21 Unknown Rx Clopidogrel [Plavix] 75 mg PO QDAY #30 tablet 01/24/21 01/31/21 Unknown Rx Gabapentin 300 mg PO QPM #30 capsule 01/24/21 01/31/21 Unknown Rx HYDROcodone/APAP 5-325 [[place] 1 each PO Q6H PRN #20 tablet 01/24/21 01/31/21 Unknown Rx 5-325 mg TAB] Levothyroxine [Synthroid] 150 mcg PO DAILY@0600 #30 tablet 01/24/21 01/31/21 Unknown Rx Sertraline [Zoloft] 100 mg PO QDAY #30 tablet 01/24/21 01/31/21 Unknown Rx bisacodyL [Dulcolax suppos] 10 mg [place] QDAY PRN #30 supp.rect 01/24/21 01/31/21 Unknown Rx risperiDONE [RisperDAL] 0.5 mg PO BID #30 tablet 01/24/21 01/31/21 Unknown Rx traZODone [Desyrel] 50 mg PO QHS #30 tablet 01/24/21 01/31/21 Unknown Rx Active Meds: Active Medications Acetaminophen (Acetaminophen 325 Mg Tab) 650 mg PO Q6H PRN PRN Reason: Non Cardiac Pain or Temp>100.5 Hydrocodone Bitart/Acetaminophen (Hydrocodone/Acetaminophen 5-325 Mg Tab) 1 each PO Q6H PRN PRN Reason: Pain, Moderate (4-6) Albuterol (Albuterol 2.5 Mg/3 Ml Nebu) 2.5 mg IH Q4HRT PRN PRN Reason: Shortness Of Breath Aripiprazole (Aripiprazole 5 Mg Tab) 5 mg PO QDAY [facility] Last Admin: 02/06/21 09:00 Dose: 5 mg Documented by: Aspirin (Aspirin Ec 81 Mg Tab) 81 mg PO QDAY [facility] Last Admin: 02/06/21 09:01 Dose: 81 mg Documented by: Atorvastatin Calcium (Atorvastatin 40 Mg Tab) 80 mg PO QHS [facility] Last Admin: 02/05/21 21:18 Dose: 80 mg Documented by: Bisacodyl (Bisacodyl 10 Mg Rect Supp) 10 mg [place] QDAY PRN PRN Reason: Constipation Carvedilol (Carvedilol 3.125 Mg Tab) 3.125 mg PO BID [facility] Last Admin: 02/06/21 09:01 Dose: 3.125 mg Documented by: Clopidogrel Bisulfate (Clopidogrel 75 Mg Tab) 75 mg PO QDAY [facility] Last Admin: 02/06/21 09:01 Dose: 75 mg Documented by: Duloxetine HCl (Duloxetine 30 Mg Cap) 60 mg PO QDAY [facility] Last Admin: 02/06/21 09:01 Dose: 60 mg Documented by: Gabapentin (Gabapentin 300 Mg Cap) 300 mg PO QPM [facility] Last Admin: 02/05/21 17:17 Dose: 300 mg Documented by: Levothyroxine Sodium (Levothyroxine 150 Mcg Tab) 150 mcg PO DAILY@0600 [facility] Last Admin: 02/06/21 05:19 Dose: 150 mcg Documented by: Trazodone HCl (Trazodone 50 Mg Tab) 50 mg PO QHS [facility] Last Admin: 02/05/21 21:18 Dose: 50 mg Documented by: Results - Results Labs/Vitals: Laboratory Last Values POC Glucose 145 mg/dL (70-105) H 02/06/21 06:07 Last Vital Signs Temp 97.8 F 02/06/21 07:21 Pulse 69 02/06/21 09:01 Resp 18 02/06/21 07:21 BP 116/78 02/06/21 09:01 Pulse Ox 98 02/06/21 07:21
[2021-02-06] MEDS: GABAPENTIN 300 MG CAP PO SCH (17:09)
[2021-02-06] MEDS: traZODone 50 MG TAB PO SCH (21:15)
[2021-02-07] MEDS: LEVOTHYROXINE 150 MCG TAB PO SCH (05:51)
[2021-02-07] MEDS ORDERED: ARIPiprazole 10 MG TAB PO SCH (10:00)
--- NOTE | 2021-02-07 10:20 | Progress Note ---
Subjective Date of service: 02/07/21 Principal diagnosis: MDD Subjective Comment: The patient was seen today he endorses suicidal thoughts. He says "all the time" when asking was he still suicidal. The patient says he has a plan, but he would not say what it was. He says "I can't tell you my plan." He then says "I can't do it here. When I leave I will." He denies hallucinations. REVIEW OF SYSTEMS Constitutional: Negative for weight loss ENT: Negative for stridor Respiratory: Negative for cough or hemoptysis All other systems reviewed and are negative MENTAL STATUS EXAMINATION General Appearance and Behavior: Age appropriate, wearing appropriate clothes, cooperative, polite with questioning, fair eye contact, calm Cooperation: cooperative Psychomotor Behavior: Psychomotor normal Mood: depressed Affect and affective range: congruent with stated mood Thought Process: goal directed Thought Content: SI Speech: Normal volume, Regular rate and rhythm Suicidal Ideation: SI Homicidal Ideation: Denies Hallucination: Debies Delusions: None elicited Impulse Control: Limited Insight and Judgment: Limited Memory: Limited Attention: attentive, engaging Orientation: Alert and oriented Diagnoses: Major Depressive Disorder, Severe -F33.2 Treatment Plan: Patient admitted for inpatient psychiatric evaluation, medication adjustment and close monitoring The patient's behavior, mood, sleep and appetite will be closely monitored. Patient enrolled in individual and group therapeutic sessions and encouraged to attend. Patient provided with a safe and structured environment. Patient's physical health needs will be addressed by the Hospitalist. Hospitalist Consulted Labs including CBC, CMP, Lipid profile and Hemoglobin A1C levels ordered for baseline reference Social Assessment will be completed and the Plating Stripper will work with patient and family to ensure a suitable and safe disposition Medication adjustment will be made as clinically indicated Continue Abilify 10mg po daily Continue Cymbalta 60mg po daily Usual Wellness Spiritism/Preservation: - Start Trazodone 50 mg po QHS & 50 mg po QHS PRN between 10 PM & 2 AM for insomnia - Start Melatonin 5 mg po QHS to promote circadian rhythm - Start [place]-3 for brain health, reduce impulsivity, and as adjunctive treatment for mood disorder, continue upon discharge given overall benefits. - Start B1 prophylaxis with 200 mg po for 5 days The patient agreed on the treatment plan, understood the risk, benefit, alternative treatment, potential consequence of no treatment, and gave informed consent. Estimated days: 2 Medications and Allergies Allergies Allergy/AdvReac Type Severity Reaction Status Date / Time No Known Allergies Allergy Verified 12/29/20 23:23 Home Medications Medication Instructions Recorded Confirmed Last Taken Type ALBUTEROL NEB's [Proventil 0.083% 2.5 mg IH Q4HRT PRN nebu 01/21/21 01/31/21 Unknown Rx NEBS] Acetaminophen [Acetaminophen TAB] 650 mg PO Q6H PRN tablet 01/21/21 01/31/21 Unknown Rx carvediloL [Coreg] 3.125 mg PO BID #60 tablet 01/23/21 01/31/21 Unknown Rx Aspirin EC [Halfprin EC] 81 mg PO QDAY #30 tablet 01/24/21 01/31/21 Unknown Rx AtorvaSTATin [Lipitor] 80 mg PO QHS #30 tablet 01/24/21 01/31/21 Unknown Rx Clopidogrel [Plavix] 75 mg PO QDAY #30 tablet 01/24/21 01/31/21 Unknown Rx Gabapentin 300 mg PO QPM #30 capsule 01/24/21 01/31/21 Unknown Rx HYDROcodone/APAP 5-325 [[place] 1 each PO Q6H PRN #20 tablet 01/24/21 01/31/21 Unknown Rx 5-325 mg TAB] Levothyroxine [Synthroid] 150 mcg PO DAILY@0600 #30 tablet 01/24/21 01/31/21 Unknown Rx Sertraline [Zoloft] 100 mg PO QDAY #30 tablet 01/24/21 01/31/21 Unknown Rx bisacodyL [Dulcolax suppos] 10 mg [place] QDAY PRN #30 supp.rect 01/24/21 01/31/21 Unknown Rx risperiDONE [RisperDAL] 0.5 mg PO BID #30 tablet 01/24/21 01/31/21 Unknown Rx traZODone [Desyrel] 50 mg PO QHS #30 tablet 01/24/21 01/31/21 Unknown Rx Active Meds: Active Medications Acetaminophen (Acetaminophen 325 Mg Tab) 650 mg PO Q6H PRN PRN Reason: Non Cardiac Pain or Temp>100.5 Hydrocodone Bitart/Acetaminophen (Hydrocodone/Acetaminophen 5-325 Mg Tab) 1 each PO Q6H PRN PRN Reason: Pain, Moderate (4-6) Albuterol (Albuterol 2.5 Mg/3 Ml Nebu) 2.5 mg IH Q4HRT PRN PRN Reason: Shortness Of Breath Aripiprazole (Aripiprazole 10 Mg Tab) 10 mg PO QDAY [facility] Aspirin (Aspirin Ec 81 Mg Tab) 81 mg PO QDAY [facility] Last Admin: 02/06/21 09:01 Dose: 81 mg Documented by: Atorvastatin Calcium (Atorvastatin 40 Mg Tab) 80 mg PO QHS [facility] Last Admin: 02/06/21 21:15 Dose: 80 mg Documented by: Bisacodyl (Bisacodyl 10 Mg Rect Supp) 10 mg [place] QDAY PRN PRN Reason: Constipation Carvedilol (Carvedilol 3.125 Mg Tab) 3.125 mg PO BID [facility] Last Admin: 02/06/21 21:15 Dose: 3.125 mg Documented by: Clopidogrel Bisulfate (Clopidogrel 75 Mg Tab) 75 mg PO QDAY [facility] Last Admin: 02/06/21 09:01 Dose: 75 mg Documented by: Duloxetine HCl (Duloxetine 30 Mg Cap) 60 mg PO QDAY [facility] Last Admin: 02/06/21 09:01 Dose: 60 mg Documented by: Gabapentin (Gabapentin 300 Mg Cap) 300 mg PO QPM [facility] Last Admin: 02/06/21 17:09 Dose: 300 mg Documented by: Levothyroxine Sodium (Levothyroxine 150 Mcg Tab) 150 mcg PO DAILY@0600 [facility] Last Admin: 02/07/21 05:51 Dose: 150 mcg Documented by: Trazodone HCl (Trazodone 50 Mg Tab) 50 mg PO QHS [facility] Last Admin: 02/06/21 21:15 Dose: 50 mg Documented by: Results - Results Labs/Vitals: Laboratory Last Values POC Glucose 142 mg/dL (70-105) H 02/07/21 06:38 Last Vital Signs Temp 98.3 F 02/07/21 07:04 Pulse 75 02/07/21 07:07 Resp 18 02/07/21 07:04 BP 109/74 02/07/21 07:04 Pulse Ox 97 02/07/21 07:07
[2021-02-07] MEDS: ASPIRIN EC 81 MG TAB PO SCH (11:30)
[2021-02-07] MEDS: carvediloL 3.125 MG TAB PO SCH ×2 (11:30→21:50)
[2021-02-07] MEDS: CLOPIDOGREL 75 MG TAB PO SCH (11:31)
[2021-02-07] MEDS: DULoxetine 30 MG CAP PO SCH (11:31)
[2021-02-07] MEDS: GABAPENTIN 300 MG CAP PO SCH (17:22)
[2021-02-07] MEDS: traZODone 50 MG TAB PO SCH (21:52)
--- NOTE | 2021-02-08 09:50 | Progress Note ---
Subjective Date of service: 02/08/21 Principal diagnosis: MDD Subjective Comment: The patient was seen today he endorses suicidal thoughts. He says "always" when asked. The patient says he can't tell me the plan, but says "part of it is to run in traffic." He denies hallucinations. REVIEW OF SYSTEMS Constitutional: Negative for weight loss ENT: Negative for stridor Respiratory: Negative for cough or hemoptysis All other systems reviewed and are negative MENTAL STATUS EXAMINATION General Appearance and Behavior: Age appropriate, wearing appropriate clothes, cooperative, polite with questioning, fair eye contact, calm Cooperation: cooperative Psychomotor Behavior: Psychomotor normal Mood: depressed Affect and affective range: congruent with stated mood Thought Process: goal directed Thought Content: SI Speech: Normal volume, Regular rate and rhythm Suicidal Ideation: SI Homicidal Ideation: Denies Hallucination: Debies Delusions: None elicited Impulse Control: Limited Insight and Judgment: Limited Memory: Limited Attention: attentive, engaging Orientation: Alert and oriented Diagnoses: Major Depressive Disorder, Severe -F33.2 Treatment Plan: Patient admitted for inpatient psychiatric evaluation, medication adjustment and close monitoring The patient's behavior, mood, sleep and appetite will be closely monitored. Patient enrolled in individual and group therapeutic sessions and encouraged to attend. Patient provided with a safe and structured environment. Patient's physical health needs will be addressed by the Hospitalist. Hospitalist Consulted Labs including CBC, CMP, Lipid profile and Hemoglobin A1C levels ordered for baseline reference Social Assessment will be completed and the Charge Coordinator will work with patient and family to ensure a suitable and safe disposition Medication adjustment will be made as clinically indicated Increase Abilify 15mg po daily Continue Cymbalta 60mg po daily Usual Wellness Spiritism/Preservation: - Start Trazodone 50 mg po QHS & 50 mg po QHS PRN between 10 PM & 2 AM for insomnia - Start Melatonin 5 mg po QHS to promote circadian rhythm - Start [place]-3 for brain health, reduce impulsivity, and as adjunctive treatment for mood disorder, continue upon discharge given overall benefits. - Start B1 prophylaxis with 200 mg po for 5 days The patient agreed on the treatment plan, understood the risk, benefit, alternative treatment, potential consequence of no treatment, and gave informed consent. Estimated days: 2 Medications and Allergies Allergies Allergy/AdvReac Type Severity Reaction Status Date / Time No Known Allergies Allergy Verified 12/29/20 23:23 Home Medications Medication Instructions Recorded Confirmed Last Taken Type ALBUTEROL NEB's [Proventil 0.083% 2.5 mg IH Q4HRT PRN nebu 01/21/21 01/31/21 Unknown Rx NEBS] Acetaminophen [Acetaminophen TAB] 650 mg PO Q6H PRN tablet 01/21/21 01/31/21 Unknown Rx carvediloL [Coreg] 3.125 mg PO BID #60 tablet 01/23/21 01/31/21 Unknown Rx Aspirin EC [Halfprin EC] 81 mg PO QDAY #30 tablet 01/24/21 01/31/21 Unknown Rx AtorvaSTATin [Lipitor] 80 mg PO QHS #30 tablet 01/24/21 01/31/21 Unknown Rx Clopidogrel [Plavix] 75 mg PO QDAY #30 tablet 01/24/21 01/31/21 Unknown Rx Gabapentin 300 mg PO QPM #30 capsule 01/24/21 01/31/21 Unknown Rx HYDROcodone/APAP 5-325 [[place] 1 each PO Q6H PRN #20 tablet 01/24/21 01/31/21 Unknown Rx 5-325 mg TAB] Levothyroxine [Synthroid] 150 mcg PO DAILY@0600 #30 tablet 01/24/21 01/31/21 Unknown Rx Sertraline [Zoloft] 100 mg PO QDAY #30 tablet 01/24/21 01/31/21 Unknown Rx bisacodyL [Dulcolax suppos] 10 mg [place] QDAY PRN #30 supp.rect 01/24/21 01/31/21 Unknown Rx risperiDONE [RisperDAL] 0.5 mg PO BID #30 tablet 01/24/21 01/31/21 Unknown Rx traZODone [Desyrel] 50 mg PO QHS #30 tablet 01/24/21 01/31/21 Unknown Rx Active Meds: Active Medications Acetaminophen (Acetaminophen 325 Mg Tab) 650 mg PO Q6H PRN PRN Reason: Non Cardiac Pain or Temp>100.5 Hydrocodone Bitart/Acetaminophen (Hydrocodone/Acetaminophen 5-325 Mg Tab) 1 each PO Q6H PRN PRN Reason: Pain, Moderate (4-6) Albuterol (Albuterol 2.5 Mg/3 Ml Nebu) 2.5 mg IH Q4HRT PRN PRN Reason: Shortness Of Breath Aripiprazole (Aripiprazole 10 Mg Tab) 10 mg PO QDAY [facility] Last Admin: 02/07/21 11:31 Dose: 10 mg Documented by: Aspirin (Aspirin Ec 81 Mg Tab) 81 mg PO QDAY [facility] Last Admin: 02/07/21 11:30 Dose: 81 mg Documented by: Atorvastatin Calcium (Atorvastatin 40 Mg Tab) 80 mg PO QHS [facility] Last Admin: 02/07/21 21:51 Dose: 80 mg Documented by: Bisacodyl (Bisacodyl 10 Mg Rect Supp) 10 mg [place] QDAY PRN PRN Reason: Constipation Carvedilol (Carvedilol 3.125 Mg Tab) 3.125 mg PO BID [facility] Last Admin: 02/07/21 21:50 Dose: 3.125 mg Documented by: Clopidogrel Bisulfate (Clopidogrel 75 Mg Tab) 75 mg PO QDAY [facility] Last Admin: 02/07/21 11:31 Dose: 75 mg Documented by: Duloxetine HCl (Duloxetine 30 Mg Cap) 60 mg PO QDAY [facility] Last Admin: 02/07/21 11:31 Dose: 60 mg Documented by: Gabapentin (Gabapentin 300 Mg Cap) 300 mg PO QPM [facility] Last Admin: 02/07/21 17:22 Dose: 300 mg Documented by: Levothyroxine Sodium (Levothyroxine 150 Mcg Tab) 150 mcg PO DAILY@0600 [facility] Last Admin: 02/07/21 05:51 Dose: 150 mcg Documented by: Trazodone HCl (Trazodone 50 Mg Tab) 50 mg PO QHS [facility] Last Admin: 02/07/21 21:52 Dose: 50 mg Documented by: Results - Results Labs/Vitals: Laboratory Last Values POC Glucose 142 mg/dL (70-105) H 02/07/21 06:38 Last Vital Signs Temp 98.9 F 02/07/21 19:39 Pulse 73 02/07/21 21:50 Resp 16 02/07/21 19:39 BP 119/79 02/07/21 21:50 Pulse Ox 94 02/07/21 19:39
[2021-02-08] MEDS: ASPIRIN EC 81 MG TAB PO SCH (11:00)
[2021-02-08] MEDS: DULoxetine 30 MG CAP PO SCH (11:01)
[2021-02-08] MEDS: CLOPIDOGREL 75 MG TAB PO SCH (11:01)
[2021-02-08] MEDS: carvediloL 3.125 MG TAB PO SCH ×2 (11:02→21:21)
[2021-02-08] MEDS: LEVOTHYROXINE 150 MCG TAB PO SCH (11:02)
[2021-02-08] MEDS: ARIPiprazole 15 MG TAB PO SCH (11:14)
[2021-02-08] MEDS: GABAPENTIN 300 MG CAP PO SCH (18:29)
--- NOTE | 2021-02-08 19:50 | Progress Note ---
Assessment and Plan - Patient Problems (1) Coronary artery disease Current Visit: No Status: Acute Plan to address problem: Risk factor reduction therapy, dual antiplatelet therapy, statin therapy, low- cholesterol diet. (2) Diabetes Current Visit: No Status: Acute Plan to address problem: Consistent carbohydrate diet, Accu-Chek, hypoglycemia protocol (3) Hypothyroidism Current Visit: No Status: Acute Qualifiers: Hypothyroidism type: unspecified Qualified Code(s): E03.9 - Hypothyroidism, unspecified Plan to address problem: Synthroid therapy, supportive care. (4) Depression Current Visit: No Status: Chronic Plan to address problem: Antidepressant therapy as per primary team, supportive care. 1013 placed (5) HLD (hyperlipidemia) Current Visit: No Status: Chronic Qualifiers: Hyperlipidemia type: mixed hyperlipidemia Qualified Code(s): E78.2 - Mixed hyperlipidemia Plan to address problem: Statin therapy, low-cholesterol diet, supportive care. (6) HTN (hypertension) Current Visit: No Status: Chronic Qualifiers: Hypertension type: primary hypertension Qualified Code(s): I10 - Essential (primary) hypertension Plan to address problem: Monitor blood pressure every shift, continue medical management. History Interval history: 60 YO Male with DM, HTN, CAD on DAPT, Diet controlled DM, TBI, Depression, PSA, Cardiomyopathy, and Intermittent Homelessness admitted to [facility] for Psychiatric stabilization. Pt resting in the recreation room. No reported nursing events. Patient is cooperative with exam and interview. Hospitalist Physical - Constitutional Vitals: Temp Pulse Resp BP Pulse Ox 98.8 F 74 16 122/83 96 02/08/21 10:00 02/08/21 11:02 02/08/21 10:00 02/08/21 11:02 02/08/21 10:00 General appearance: Present: no acute distress - EENT Eyes: Present: PERRL ENT: hearing intact - Neck Neck: Present: supple - Respiratory Respiratory: bilateral: CTA - Cardiovascular Rhythm: regular Heart Sounds: Present: S1 & S2 - Extremities Extremities: no ischemia Peripheral Pulses: within normal limits - Abdominal General gastrointestinal: soft, non-tender, non-distended - Integumentary Integumentary: Present: clear, dry - Psychiatric Psychiatric: cooperative - Neurologic Neurologic: CNII-XII intact Results - Labs Labs: Laboratory Last Values POC Glucose 142 mg/dL (70-105) H 02/07/21 06:38 Yañez/IV: Voiding Method Toilet Active Medications - Current Medications Current Medications: Generic Name Dose Route Start Last Admin Trade Name Freq PRN Reason Stop Dose Admin Acetaminophen 650 mg 01/30/21 19:50 Acetaminophen 325 Mg Tab PO Q6H PRN Non Cardiac Pain or Temp>100.5 Hydrocodone Bitart/Acetaminophen 1 each 01/30/21 19:50 Hydrocodone/Acetaminophen 5-325 Mg Tab PO Q6H PRN Pain, Moderate (4-6) Albuterol 2.5 mg 01/30/21 19:50 Albuterol 2.5 Mg/3 Ml Nebu IH Q4HRT PRN Shortness Of Breath Aripiprazole 15 mg 02/08/21 10:00 02/08/21 11:14 Aripiprazole 15 Mg Tab PO 15 mg QDAY MONA Administration Aspirin 81 mg 01/31/21 10:00 02/08/21 11:00 Aspirin Ec 81 Mg Tab PO 81 mg QDAY MONA Administration Atorvastatin Calcium 80 mg 01/30/21 22:00 02/07/21 21:51 Atorvastatin 40 Mg Tab PO 80 mg QHS MONA Administration Bisacodyl 10 mg 01/30/21 19:50 Bisacodyl 10 Mg Rect Supp [place] QDAY PRN Constipation Carvedilol 3.125 mg 01/30/21 22:00 02/08/21 11:02 Carvedilol 3.125 Mg Tab PO 3.125 mg BID MONA Administration Clopidogrel Bisulfate 75 mg 01/31/21 10:00 02/08/21 11:01 Clopidogrel 75 Mg Tab PO 75 mg QDAY MONA Administration Duloxetine HCl 60 mg 02/05/21 10:00 02/08/21 11:01 Duloxetine 30 Mg Cap PO 60 mg QDAY MONA Administration Gabapentin 300 mg 01/31/21 18:00 02/08/21 18:29 Gabapentin 300 Mg Cap PO 300 mg QPM MONA Administration Levothyroxine Sodium 150 mcg 01/31/21 06:00 02/08/21 11:02 Levothyroxine 150 Mcg Tab PO 150 mcg DAILY@0600 MONA Administration Trazodone HCl 50 mg 02/01/21 22:00 02/07/21 21:52 Trazodone 50 Mg Tab PO 50 mg QHS MONA Administration Nutrition/Malnutrition Assess - Dietary Evaluation Nutrition/Malnutrition Findings: Nutrition Notes Start: 02/07/21 09:57 Freq: Status: Active Protocol: Document 02/07/21 09:57 FABIO (Rec: 02/07/21 09:58 FABIO [id number]) Nutrition Notes Need for Assessment generated from: LOS Initial or Follow up Brief Note Current Diet Consistent CHO/Cardiac Subjective/Other Information Pt screened for LOS. He has consumed 100% of meals since admission. Burn Absent Trauma Absent Minimum of two criteria No Nutrition Intervention Revisit per MD consult or patient Sign Off request:
[2021-02-08] MEDS: traZODone 50 MG TAB PO SCH (21:21)
[2021-02-09] MEDS: LEVOTHYROXINE 150 MCG TAB PO SCH (06:31)
[2021-02-09] MEDS: carvediloL 3.125 MG TAB PO SCH ×2 (09:08→21:06)
[2021-02-09] MEDS: DULoxetine 30 MG CAP PO SCH (09:08)
[2021-02-09] MEDS: ASPIRIN EC 81 MG TAB PO SCH (09:08)
[2021-02-09] MEDS: ARIPiprazole 15 MG TAB PO SCH (09:08)
[2021-02-09] MEDS: CLOPIDOGREL 75 MG TAB PO SCH (09:09)
--- NOTE | 2021-02-09 10:02 | Progress Note ---
Subjective Date of service: 02/09/21 Principal diagnosis: MDD Subjective Comment: The patient was seen today he endorses suicidal thoughts, but this does not coincide with his behaviors. Staff says the person is singing, happy and dancing during treatment team. He would not tell me his plan but states he has one. When asking the patient about hallucinations, he says "just , that's my hallucination." REVIEW OF SYSTEMS Constitutional: Negative for weight loss ENT: Negative for stridor Respiratory: Negative for cough or hemoptysis All other systems reviewed and are negative MENTAL STATUS EXAMINATION General Appearance and Behavior: Age appropriate, wearing appropriate clothes, cooperative, polite with questioning, fair eye contact, calm Cooperation: cooperative Psychomotor Behavior: Psychomotor normal Mood: depressed Affect and affective range: congruent with stated mood Thought Process: goal directed Thought Content: SI Speech: Normal volume, Regular rate and rhythm Suicidal Ideation: SI Homicidal Ideation: Denies Hallucination: Debies Delusions: None elicited Impulse Control: Limited Insight and Judgment: Limited Memory: Limited Attention: attentive, engaging Orientation: Alert and oriented Diagnoses: Major Depressive Disorder, Severe -F33.2 Treatment Plan: Patient admitted for inpatient psychiatric evaluation, medication adjustment and close monitoring The patient's behavior, mood, sleep and appetite will be closely monitored. Patient enrolled in individual and group therapeutic sessions and encouraged to attend. Patient provided with a safe and structured environment. Patient's physical health needs will be addressed by the Hospitalist. Hospitalist Consulted Labs including CBC, CMP, Lipid profile and Hemoglobin A1C levels ordered for baseline reference Social Assessment will be completed and the Correctional Program Officer will work with patient and family to ensure a suitable and safe disposition Medication adjustment will be made as clinically indicated Increase Abilify 15mg po daily yesterday Continue Cymbalta 60mg po daily No changes made today Usual Wellness Amish/Preservation: - Start Trazodone 50 mg po QHS & 50 mg po QHS PRN between 10 PM & 2 AM for insomnia - Start Melatonin 5 mg po QHS to promote circadian rhythm - Start [place]-3 for brain health, reduce impulsivity, and as adjunctive treatment for mood disorder, continue upon discharge given overall benefits. - Start B1 prophylaxis with 200 mg po for 5 days The patient agreed on the treatment plan, understood the risk, benefit, alternative treatment, potential consequence of no treatment, and gave informed consent. Estimated days: 2 Medications and Allergies Allergies Allergy/AdvReac Type Severity Reaction Status Date / Time No Known Allergies Allergy Verified 12/29/20 23:23 Home Medications Medication Instructions Recorded Confirmed Last Taken Type ALBUTEROL NEB's [Proventil 0.083% 2.5 mg IH Q4HRT PRN nebu 01/21/21 01/31/21 Unknown Rx NEBS] Acetaminophen [Acetaminophen TAB] 650 mg PO Q6H PRN tablet 01/21/21 01/31/21 Unknown Rx carvediloL [Coreg] 3.125 mg PO BID #60 tablet 01/23/21 01/31/21 Unknown Rx Aspirin EC [Halfprin EC] 81 mg PO QDAY #30 tablet 01/24/21 01/31/21 Unknown Rx AtorvaSTATin [Lipitor] 80 mg PO QHS #30 tablet 01/24/21 01/31/21 Unknown Rx Clopidogrel [Plavix] 75 mg PO QDAY #30 tablet 01/24/21 01/31/21 Unknown Rx Gabapentin 300 mg PO QPM #30 capsule 01/24/21 01/31/21 Unknown Rx HYDROcodone/APAP 5-325 [[place] 1 each PO Q6H PRN #20 tablet 01/24/21 01/31/21 Unknown Rx 5-325 mg TAB] Levothyroxine [Synthroid] 150 mcg PO DAILY@0600 #30 tablet 01/24/21 01/31/21 Unknown Rx Sertraline [Zoloft] 100 mg PO QDAY #30 tablet 01/24/21 01/31/21 Unknown Rx bisacodyL [Dulcolax suppos] 10 mg [place] QDAY PRN #30 supp.rect 01/24/21 01/31/21 Unknown Rx risperiDONE [RisperDAL] 0.5 mg PO BID #30 tablet 01/24/21 01/31/21 Unknown Rx traZODone [Desyrel] 50 mg PO QHS #30 tablet 01/24/21 01/31/21 Unknown Rx Active Meds: Active Medications Acetaminophen (Acetaminophen 325 Mg Tab) 650 mg PO Q6H PRN PRN Reason: Non Cardiac Pain or Temp>100.5 Hydrocodone Bitart/Acetaminophen (Hydrocodone/Acetaminophen 5-325 Mg Tab) 1 each PO Q6H PRN PRN Reason: Pain, Moderate (4-6) Albuterol (Albuterol 2.5 Mg/3 Ml Nebu) 2.5 mg IH Q4HRT PRN PRN Reason: Shortness Of Breath Aripiprazole (Aripiprazole 15 Mg Tab) 15 mg PO QDAY [facility] Last Admin: 02/09/21 09:08 Dose: 15 mg Documented by: Aspirin (Aspirin Ec 81 Mg Tab) 81 mg PO QDAY [facility] Last Admin: 02/09/21 09:08 Dose: 81 mg Documented by: Atorvastatin Calcium (Atorvastatin 40 Mg Tab) 80 mg PO QHS [facility] Last Admin: 02/08/21 21:21 Dose: 80 mg Documented by: Bisacodyl (Bisacodyl 10 Mg Rect Supp) 10 mg [place] QDAY PRN PRN Reason: Constipation Carvedilol (Carvedilol 3.125 Mg Tab) 3.125 mg PO BID [facility] Last Admin: 02/09/21 09:08 Dose: 3.125 mg Documented by: Clopidogrel Bisulfate (Clopidogrel 75 Mg Tab) 75 mg PO QDAY [facility] Last Admin: 02/09/21 09:09 Dose: 75 mg Documented by: Duloxetine HCl (Duloxetine 30 Mg Cap) 60 mg PO QDAY [facility] Last Admin: 02/09/21 09:08 Dose: 60 mg Documented by: Gabapentin (Gabapentin 300 Mg Cap) 300 mg PO QPM [facility] Last Admin: 02/08/21 18:29 Dose: 300 mg Documented by: Levothyroxine Sodium (Levothyroxine 150 Mcg Tab) 150 mcg PO DAILY@0600 [facility] Last Admin: 02/09/21 06:31 Dose: 150 mcg Documented by: Trazodone HCl (Trazodone 50 Mg Tab) 50 mg PO QHS [facility] Last Admin: 02/08/21 21:21 Dose: 50 mg Documented by: Results - Results Labs/Vitals: Laboratory Last Values POC Glucose 142 mg/dL (70-105) H 02/07/21 06:38 Last Vital Signs Temp 97.5 F L 02/09/21 06:40 Pulse 59 L 02/09/21 09:08 Resp 18 02/09/21 06:40 BP 147/91 02/09/21 09:08 Pulse Ox 96 02/09/21 06:40
[2021-02-09 16:14] LABS: Chol/HDL Ratio 1.95 %
[2021-02-09] MEDS: GABAPENTIN 300 MG CAP PO SCH (17:18)
[2021-02-09] MEDS: traZODone 50 MG TAB PO SCH (21:06)
[2021-02-10] MEDS: LEVOTHYROXINE 150 MCG TAB PO SCH (05:24)
[2021-02-10] MEDS: CLOPIDOGREL 75 MG TAB PO SCH (09:29)
[2021-02-10] MEDS: ARIPiprazole 15 MG TAB PO SCH (09:29)
[2021-02-10] MEDS: ASPIRIN EC 81 MG TAB PO SCH (09:29)
[2021-02-10] MEDS: DULoxetine 30 MG CAP PO SCH (09:29)
[2021-02-10] MEDS: carvediloL 3.125 MG TAB PO SCH ×2 (09:29→21:09)
--- NOTE | 2021-02-10 12:13 | Progress Note ---
Subjective Date of service: 02/10/21 Principal diagnosis: MDD Subjective Comment: The patient was seen today he endorses suicidal thoughts, and states that he attempted to bust his window last night to jump out of it but it wouldn't bust. He denies hallucinations. Not sure if the patient actually did this, but charge nurse informed. REVIEW OF SYSTEMS Constitutional: Negative for weight loss ENT: Negative for stridor Respiratory: Negative for cough or hemoptysis All other systems reviewed and are negative MENTAL STATUS EXAMINATION General Appearance and Behavior: Age appropriate, wearing appropriate clothes, cooperative, polite with questioning, fair eye contact, calm Cooperation: cooperative Psychomotor Behavior: Psychomotor normal Mood: depressed Affect and affective range: congruent with stated mood Thought Process: goal directed Thought Content: SI Speech: Normal volume, Regular rate and rhythm Suicidal Ideation: SI Homicidal Ideation: Denies Hallucination: Debies Delusions: None elicited Impulse Control: Limited Insight and Judgment: Limited Memory: Limited Attention: attentive, engaging Orientation: Alert and oriented Diagnoses: Major Depressive Disorder, Severe -F33.2 Treatment Plan: Patient admitted for inpatient psychiatric evaluation, medication adjustment and close monitoring The patient's behavior, mood, sleep and appetite will be closely monitored. Patient enrolled in individual and group therapeutic sessions and encouraged to attend. Patient provided with a safe and structured environment. Patient's physical health needs will be addressed by the Hospitalist. Hospitalist Consulted Labs including CBC, CMP, Lipid profile and Hemoglobin A1C levels ordered for baseline reference Social Assessment will be completed and the Tattoo Identifier will work with patient and family to ensure a suitable and safe disposition Medication adjustment will be made as clinically indicated Continue Abilify 15mg po daily yesterday Continue Cymbalta 60mg po daily Usual Wellness Tenriism/Preservation: - Start Trazodone 50 mg po QHS & 50 mg po QHS PRN between 10 PM & 2 AM for insomnia - Start Melatonin 5 mg po QHS to promote circadian rhythm - Start [place]-3 for brain health, reduce impulsivity, and as adjunctive treatment for mood disorder, continue upon discharge given overall benefits. - Start B1 prophylaxis with 200 mg po for 5 days The patient agreed on the treatment plan, understood the risk, benefit, alternative treatment, potential consequence of no treatment, and gave informed consent. Estimated days: 2 Medications and Allergies Allergies Allergy/AdvReac Type Severity Reaction Status Date / Time No Known Allergies Allergy Verified 12/29/20 23:23 Home Medications Medication Instructions Recorded Confirmed Last Taken Type ALBUTEROL NEB's [Proventil 0.083% 2.5 mg IH Q4HRT PRN nebu 01/21/21 01/31/21 Unknown Rx NEBS] Acetaminophen [Acetaminophen TAB] 650 mg PO Q6H PRN tablet 01/21/21 01/31/21 Unknown Rx carvediloL [Coreg] 3.125 mg PO BID #60 tablet 01/23/21 01/31/21 Unknown Rx Aspirin EC [Halfprin EC] 81 mg PO QDAY #30 tablet 01/24/21 01/31/21 Unknown Rx AtorvaSTATin [Lipitor] 80 mg PO QHS #30 tablet 01/24/21 01/31/21 Unknown Rx Clopidogrel [Plavix] 75 mg PO QDAY #30 tablet 01/24/21 01/31/21 Unknown Rx Gabapentin 300 mg PO QPM #30 capsule 01/24/21 01/31/21 Unknown Rx HYDROcodone/APAP 5-325 [[place] 1 each PO Q6H PRN #20 tablet 01/24/21 01/31/21 Unknown Rx 5-325 mg TAB] Levothyroxine [Synthroid] 150 mcg PO DAILY@0600 #30 tablet 01/24/21 01/31/21 Unknown Rx Sertraline [Zoloft] 100 mg PO QDAY #30 tablet 01/24/21 01/31/21 Unknown Rx bisacodyL [Dulcolax suppos] 10 mg [place] QDAY PRN #30 supp.rect 01/24/21 01/31/21 Unknown Rx risperiDONE [RisperDAL] 0.5 mg PO BID #30 tablet 01/24/21 01/31/21 Unknown Rx traZODone [Desyrel] 50 mg PO QHS #30 tablet 01/24/21 01/31/21 Unknown Rx Active Meds: Active Medications Acetaminophen (Acetaminophen 325 Mg Tab) 650 mg PO Q6H PRN PRN Reason: Non Cardiac Pain or Temp>100.5 Hydrocodone Bitart/Acetaminophen (Hydrocodone/Acetaminophen 5-325 Mg Tab) 1 each PO Q6H PRN PRN Reason: Pain, Moderate (4-6) Albuterol (Albuterol 2.5 Mg/3 Ml Nebu) 2.5 mg IH Q4HRT PRN PRN Reason: Shortness Of Breath Aripiprazole (Aripiprazole 15 Mg Tab) 15 mg PO QDAY [facility] Last Admin: 02/10/21 09:29 Dose: 15 mg Documented by: Aspirin (Aspirin Ec 81 Mg Tab) 81 mg PO QDAY [facility] Last Admin: 02/10/21 09:29 Dose: 81 mg Documented by: Atorvastatin Calcium (Atorvastatin 40 Mg Tab) 80 mg PO QHS [facility] Last Admin: 02/09/21 21:06 Dose: 80 mg Documented by: Bisacodyl (Bisacodyl 10 Mg Rect Supp) 10 mg [place] QDAY PRN PRN Reason: Constipation Carvedilol (Carvedilol 3.125 Mg Tab) 3.125 mg PO BID [facility] Last Admin: 02/10/21 09:29 Dose: 3.125 mg Documented by: Clopidogrel Bisulfate (Clopidogrel 75 Mg Tab) 75 mg PO QDAY [facility] Last Admin: 02/10/21 09:29 Dose: 75 mg Documented by: Duloxetine HCl (Duloxetine 30 Mg Cap) 60 mg PO QDAY [facility] Last Admin: 02/10/21 09:29 Dose: 60 mg Documented by: Gabapentin (Gabapentin 300 Mg Cap) 300 mg PO QPM [facility] Last Admin: 02/09/21 17:18 Dose: 300 mg Documented by: Levothyroxine Sodium (Levothyroxine 150 Mcg Tab) 150 mcg PO DAILY@0600 [facility] Last Admin: 02/10/21 05:24 Dose: 150 mcg Documented by: Trazodone HCl (Trazodone 50 Mg Tab) 50 mg PO QHS [facility] Last Admin: 02/09/21 21:06 Dose: 50 mg Documented by: Results - Results Labs/Vitals: Laboratory Last Values POC Glucose 131 mg/dL (70-105) H 02/10/21 06:15 Hemoglobin A1c 6.9 % (4-6) H 02/09/21 15:15 Triglycerides 97 mg/dL (2-149) 02/09/21 15:15 Cholesterol 92 mg/dL (50-199) 02/09/21 15:15 LDL Cholesterol Direct 38 mg/dL (50-130) L 02/09/21 15:15 HDL Cholesterol 47 mg/dL (40-59) 02/09/21 15:15 Cholesterol/HDL Ratio 1.95 % 02/09/21 15:15 Last Vital Signs Temp 98.4 F 02/10/21 07:17 Pulse 68 02/10/21 09:29 Resp 20 02/10/21 07:17 BP 117/77 02/10/21 07:17 Pulse Ox 96 02/10/21 07:12
[2021-02-10] MEDS: GABAPENTIN 300 MG CAP PO SCH (17:25)
[2021-02-10] MEDS: traZODone 50 MG TAB PO SCH (21:09)
[2021-02-11] MEDS: LEVOTHYROXINE 150 MCG TAB PO SCH (05:24)
--- NOTE | 2021-02-11 08:21 | Progress Note ---
Subjective Date of service: 02/11/21 Principal diagnosis: MDD Subjective Comment: I interviewed the patient this morning. Medical records reviewed and patient's progress was discussed with unit staff. Nursing staff reports that patient " Last evening the patient presented as calm and content. He continues to say he thinks of dying. He denies si/ah/vh. Patient has a good appetite and is medication compliant. Overnight the patient rested quietly. He slept 6 hours. He wakes early and gets ready for the day." In my interview with the patient this morning, the patient reports mood as "Okay". Appetite is good. Sleep last night was fair. The patient reports that his depression is improving. Patient continues to endorse passive suicidal ideation and auditory hallucinations. No changes made today. REVIEW OF SYSTEMS Constitutional: Negative for weight loss ENT: Negative for stridor Respiratory: Negative for cough or hemoptysis All other systems reviewed and are negative MENTAL STATUS EXAMINATION General Appearance and Behavior: Age appropriate, wearing appropriate clothes, cooperative, polite with questioning, fair eye contact, calm Cooperation: cooperative Psychomotor Behavior: Psychomotor normal Mood: depressed Affect and affective range: congruent with stated mood Thought Process: goal directed Thought Content: SI Speech: Normal volume, Regular rate and rhythm Suicidal Ideation: SI Homicidal Ideation: Denies Hallucination: auditory Delusions: None elicited Impulse Control: Limited Insight and Judgment: Limited Memory: Limited Attention: attentive, engaging Orientation: Alert and oriented Diagnoses: Major Depressive Disorder, Severe -F33.2 Treatment Plan: Patient admitted for inpatient psychiatric evaluation, medication adjustment and close monitoring The patient's behavior, mood, sleep and appetite will be closely monitored. Patient enrolled in individual and group therapeutic sessions and encouraged to attend. Patient provided with a safe and structured environment. Patient's physical health needs will be addressed by the Hospitalist. Hospitalist Consulted Labs including CBC, CMP, Lipid profile and Hemoglobin A1C levels ordered for baseline reference Social Assessment will be completed and the Handmade Tile Artist will work with patient and family to ensure a suitable and safe disposition Medication adjustment will be made as clinically indicated No changes made today Continue Abilify 15mg po daily yesterday Continue Cymbalta 60mg po daily Usual Wellness Sabianist/Preservation: - Start Trazodone 50 mg po QHS & 50 mg po QHS PRN between 10 PM & 2 AM for insomnia - Start Melatonin 5 mg po QHS to promote circadian rhythm - Start [place]-3 for brain health, reduce impulsivity, and as adjunctive treatment for mood disorder, continue upon discharge given overall benefits. - Start B1 prophylaxis with 200 mg po for 5 days The patient agreed on the treatment plan, understood the risk, benefit, alternative treatment, potential consequence of no treatment, and gave informed consent. Estimated days: 2 Assessment and Plan - Patient Problems (1) MDD (major depressive disorder), recurrent severe, without psychosis Current Visit: No Status: Acute Medications and Allergies Allergies Allergy/AdvReac Type Severity Reaction Status Date / Time No Known Allergies Allergy Verified 12/29/20 23:23 Home Medications Medication Instructions Recorded Confirmed Last Taken Type ALBUTEROL NEB's [Proventil 0.083% 2.5 mg IH Q4HRT PRN nebu 01/21/21 01/31/21 Unknown Rx NEBS] Acetaminophen [Acetaminophen TAB] 650 mg PO Q6H PRN tablet 01/21/21 01/31/21 Unknown Rx carvediloL [Coreg] 3.125 mg PO BID #60 tablet 01/23/21 01/31/21 Unknown Rx Aspirin EC [Halfprin EC] 81 mg PO QDAY #30 tablet 01/24/21 01/31/21 Unknown Rx AtorvaSTATin [Lipitor] 80 mg PO QHS #30 tablet 01/24/21 01/31/21 Unknown Rx Clopidogrel [Plavix] 75 mg PO QDAY #30 tablet 01/24/21 01/31/21 Unknown Rx Gabapentin 300 mg PO QPM #30 capsule 01/24/21 01/31/21 Unknown Rx HYDROcodone/APAP 5-325 [[place] 1 each PO Q6H PRN #20 tablet 01/24/21 01/31/21 Unknown Rx 5-325 mg TAB] Levothyroxine [Synthroid] 150 mcg PO DAILY@0600 #30 tablet 01/24/21 01/31/21 Unknown Rx Sertraline [Zoloft] 100 mg PO QDAY #30 tablet 01/24/21 01/31/21 Unknown Rx bisacodyL [Dulcolax suppos] 10 mg [place] QDAY PRN #30 supp.rect 01/24/21 01/31/21 Unknown Rx risperiDONE [RisperDAL] 0.5 mg PO BID #30 tablet 01/24/21 01/31/21 Unknown Rx traZODone [Desyrel] 50 mg PO QHS #30 tablet 01/24/21 01/31/21 Unknown Rx Active Meds: Active Medications Acetaminophen (Acetaminophen 325 Mg Tab) 650 mg PO Q6H PRN PRN Reason: Non Cardiac Pain or Temp>100.5 Hydrocodone Bitart/Acetaminophen (Hydrocodone/Acetaminophen 5-325 Mg Tab) 1 each PO Q6H PRN PRN Reason: Pain, Moderate (4-6) Albuterol (Albuterol 2.5 Mg/3 Ml Nebu) 2.5 mg IH Q4HRT PRN PRN Reason: Shortness Of Breath Aripiprazole (Aripiprazole 15 Mg Tab) 15 mg PO QDAY FORMERLY [facility], [facility] Last Admin: 02/10/21 09:29 Dose: 15 mg Documented by: Aspirin (Aspirin Ec 81 Mg Tab) 81 mg PO QDAY [facility] Last Admin: 02/10/21 09:29 Dose: 81 mg Documented by: Atorvastatin Calcium (Atorvastatin 40 Mg Tab) 80 mg PO QHS [facility] Last Admin: 02/10/21 21:09 Dose: 80 mg Documented by: Bisacodyl (Bisacodyl 10 Mg Rect Supp) 10 mg DE QDAY PRN PRN Reason: Constipation Carvedilol (Carvedilol 3.125 Mg Tab) 3.125 mg PO BID [facility] Last Admin: 02/10/21 21:09 Dose: 3.125 mg Documented by: Clopidogrel Bisulfate (Clopidogrel 75 Mg Tab) 75 mg PO QDAY [facility] Last Admin: 02/10/21 09:29 Dose: 75 mg Documented by: Duloxetine HCl (Duloxetine 30 Mg Cap) 60 mg PO QDAY [facility] Last Admin: 02/10/21 09:29 Dose: 60 mg Documented by: Gabapentin (Gabapentin 300 Mg Cap) 300 mg PO QPM [facility] Last Admin: 02/10/21 17:25 Dose: 300 mg Documented by: Levothyroxine Sodium (Levothyroxine 150 Mcg Tab) 150 mcg PO DAILY@0600 [facility] Last Admin: 02/11/21 05:24 Dose: 150 mcg Documented by: Trazodone HCl (Trazodone 50 Mg Tab) 50 mg PO QHS [facility] Last Admin: 02/10/21 21:09 Dose: 50 mg Documented by: Results - Results Labs/Vitals: Laboratory Last Values POC Glucose 147 mg/dL (70-105) H 02/11/21 07:30 Hemoglobin A1c 6.9 % (4-6) H 02/09/21 15:15 Triglycerides 97 mg/dL (2-149) 02/09/21 15:15 Cholesterol 92 mg/dL (50-199) 02/09/21 15:15 LDL Cholesterol Direct 38 mg/dL (50-130) L 02/09/21 15:15 HDL Cholesterol 47 mg/dL (40-59) 02/09/21 15:15 Cholesterol/HDL Ratio 1.95 % 02/09/21 15:15 Last Vital Signs Temp 98.6 F 02/10/21 21:35 Pulse 73 02/10/21 22:00 Resp 16 02/10/21 22:00 BP 127/81 02/10/21 22:00 Pulse Ox 96 02/10/21 22:00
[2021-02-11] MEDS: carvediloL 3.125 MG TAB PO SCH ×2 (10:55→21:09)
[2021-02-11] MEDS: DULoxetine 30 MG CAP PO SCH (10:55)
[2021-02-11] MEDS: CLOPIDOGREL 75 MG TAB PO SCH (10:55)
[2021-02-11] MEDS: ARIPiprazole 15 MG TAB PO SCH (10:55)
[2021-02-11] MEDS: ASPIRIN EC 81 MG TAB PO SCH (10:56)
[2021-02-11] MEDS: GABAPENTIN 300 MG CAP PO SCH (18:54)
[2021-02-11] MEDS: traZODone 50 MG TAB PO SCH (21:09)
[2021-02-12] MEDS: LEVOTHYROXINE 150 MCG TAB PO SCH (06:11)
--- NOTE | 2021-02-12 08:12 | Progress Note ---
Subjective Date of service: 02/12/21 Principal diagnosis: MDD Subjective Comment: 02/01/2021: The patient was seen eating breakfast in the activity room. He continues to endorse depression stating" I'm always depressed." The patient reports having passive suicidal thoughts " I always do, I don't have any family and I'm tired off it." He reports having auditory hallucinations" I hear voices but I can't understand them." per nurse, the patient had a quiet night. Start Duloxetine 40mg po Qday. 02/02/2021: The patient was seen in his room. He reports mood as "pretty well." He states depression is improving. he reports sleep as fair and appetite as good. He denies any current suicidal/homicidal ideation and denies hallucinations. Per nurse, the patient had a quiet night. No changes made today. 02/03/2021: The patient was seen eating breakfast in the activity room. The patient became hostile and loud asking why his coffee was not filled to the brim. The patient reports feeling suicidal. Per nurse, the patient had a quiet night. No changes mad today 02/04/2021: The patient was seen today he endorses suicidal thoughts. He says "I have different ways. is what I want." He says he's having hallucinations about "." When asking the patient what he meant, he replies "I see and hear stuff all the time. I don't know how to describe it." 02/05/2021: The patient was seen today he endorses suicidal thoughts. He says he thinks about . The patient says he is depressed and states he has no reason to live. He denies hallucinations. 02/06/2021: The patient was seen today he endorses suicidal thoughts. He says "all the time" when asking was he still suicidal. The patient says "I am depressed." Wheen asked about hallucinations he says "I see ." 02/07/2021: The patient was seen today he endorses suicidal thoughts. He says "all the time" when asking was he still suicidal. The patient says he has a plan, but he would not say what it was. He says "I can't tell you my plan." He then says "I can't do it here. When I leave I will." He denies hallucinations. 02/08/2021: The patient was seen today he endorses suicidal thoughts. He says "always" when asked. The patient says he can't tell me the plan, but says "part of it is to run in traffic." He denies hallucinations. 02/09/2021: The patient was seen today he endorses suicidal thoughts, but this does not coincide with his behaviors. Staff says the person is singing, happy and dancing during treatment team. He would not tell me his plan but states he has one. When asking the patient about hallucinations, he says "just , that's my hallucination." 02/10/2021: The patient was seen today he endorses suicidal thoughts, and states that he attempted to bust his window last night to jump out of it but it wouldn't bust. He denies hallucinations. Not sure if the patient actually did this, but charge nurse informed. 02/11/2021: I interviewed the patient this morning. Medical records reviewed and patient's progress was discussed with unit staff. Nursing staff reports that patient " Last evening the patient presented as calm and content. He continues to say he thinks of dying. He denies si/ah/vh. Patient has a good appetite and is medication compliant. Overnight the patient rested quietly. He slept 6 hours. He wakes early and gets ready for the day." In my interview with the patient this morning, the patient reports mood as "Okay". Appetite is good. Sleep last night was fair. The patient reports that his depression is improving. Patient continues to endorse passive suicidal ideation and auditory hallucinations. No changes made today. 02/12/2021: The patient was seen in the activity room. He continues to endorse passive suicidal ideation and auditory hallucinations. he reports not sleeping well last night. Per nurse, the patient had a quiet night. Will increase Trazodone to 100mg po QHS REVIEW OF SYSTEMS Constitutional: Negative for weight loss ENT: Negative for stridor Respiratory: Negative for cough or hemoptysis All other systems reviewed and are negative MENTAL STATUS EXAMINATION General Appearance and Behavior: Age appropriate, wearing appropriate clothes, cooperative, polite with questioning, fair eye contact, calm Cooperation: cooperative Psychomotor Behavior: Psychomotor normal Mood: depressed Affect and affective range: congruent with stated mood Thought Process: goal directed Thought Content: SI Speech: Normal volume, Regular rate and rhythm Suicidal Ideation: SI Homicidal Ideation: Denies Hallucination: auditory Delusions: None elicited Impulse Control: Limited Insight and Judgment: Limited Memory: Limited Attention: attentive, engaging Orientation: Alert and oriented Diagnoses: Major Depressive Disorder, Severe -F33.2 Treatment Plan: Patient admitted for inpatient psychiatric evaluation, medication adjustment and close monitoring The patient's behavior, mood, sleep and appetite will be closely monitored. Patient enrolled in individual and group therapeutic sessions and encouraged to attend. Patient provided with a safe and structured environment. Patient's physical health needs will be addressed by the Hospitalist. Hospitalist Consulted Labs including CBC, CMP, Lipid profile and Hemoglobin A1C levels ordered for baseline reference Social Assessment will be completed and the Pot Washer will work with patient and family to ensure a suitable and safe disposition Medication adjustment will be made as clinically indicated No changes made today Continue Abilify 15mg po daily yesterday Continue Cymbalta 60mg po daily Start Trazodone 100mg po QHS Usual Wellness Orthodox/Preservation: - Start Melatonin 5 mg po QHS to promote circadian rhythm - Start [place]-3 for brain health, reduce impulsivity, and as adjunctive treatment for mood disorder, continue upon discharge given overall benefits. - Start B1 prophylaxis with 200 mg po for 5 days The patient agreed on the treatment plan, understood the risk, benefit, alternative treatment, potential consequence of no treatment, and gave informed consent. Estimated days: 2 Assessment and Plan - Patient Problems (1) MDD (major depressive disorder), recurrent severe, without psychosis Current Visit: No Status: Acute Medications and Allergies Allergies Allergy/AdvReac Type Severity Reaction Status Date / Time No Known Allergies Allergy Verified 12/29/20 23:23 Home Medications Medication Instructions Recorded Confirmed Last Taken Type ALBUTEROL NEB's [Proventil 0.083% 2.5 mg IH Q4HRT PRN nebu 01/21/21 01/31/21 Unknown Rx NEBS] Acetaminophen [Acetaminophen TAB] 650 mg PO Q6H PRN tablet 01/21/21 01/31/21 Unknown Rx carvediloL [Coreg] 3.125 mg PO BID #60 tablet 01/23/21 01/31/21 Unknown Rx Aspirin EC [Halfprin EC] 81 mg PO QDAY #30 tablet 01/24/21 01/31/21 Unknown Rx AtorvaSTATin [Lipitor] 80 mg PO QHS #30 tablet 01/24/21 01/31/21 Unknown Rx Clopidogrel [Plavix] 75 mg PO QDAY #30 tablet 01/24/21 01/31/21 Unknown Rx Gabapentin 300 mg PO QPM #30 capsule 01/24/21 01/31/21 Unknown Rx HYDROcodone/APAP 5-325 [[place] 1 each PO Q6H PRN #20 tablet 01/24/21 01/31/21 Unknown Rx 5-325 mg TAB] Levothyroxine [Synthroid] 150 mcg PO DAILY@0600 #30 tablet 01/24/21 01/31/21 Unknown Rx Sertraline [Zoloft] 100 mg PO QDAY #30 tablet 01/24/21 01/31/21 Unknown Rx bisacodyL [Dulcolax suppos] 10 mg [place] QDAY PRN #30 supp.rect 01/24/21 01/31/21 Unknown Rx risperiDONE [RisperDAL] 0.5 mg PO BID #30 tablet 01/24/21 01/31/21 Unknown Rx traZODone [Desyrel] 50 mg PO QHS #30 tablet 01/24/21 01/31/21 Unknown Rx Active Meds: Active Medications Acetaminophen (Acetaminophen 325 Mg Tab) 650 mg PO Q6H PRN PRN Reason: Non Cardiac Pain or Temp>100.5 Hydrocodone Bitart/Acetaminophen (Hydrocodone/Acetaminophen 5-325 Mg Tab) 1 each PO Q6H PRN PRN Reason: Pain, Moderate (4-6) Albuterol (Albuterol 2.5 Mg/3 Ml Nebu) 2.5 mg IH Q4HRT PRN PRN Reason: Shortness Of Breath Aripiprazole (Aripiprazole 15 Mg Tab) 15 mg PO QDAY ON LICENSE OF [facility] Last Admin: 02/11/21 10:55 Dose: 15 mg Documented by: Aspirin (Aspirin Ec 81 Mg Tab) 81 mg PO QDAY ON LICENSE OF [facility] Last Admin: 02/11/21 10:56 Dose: 81 mg Documented by: Atorvastatin Calcium (Atorvastatin 40 Mg Tab) 80 mg PO QHS ON LICENSE OF [facility] Last Admin: 02/11/21 21:09 Dose: 80 mg Documented by: Bisacodyl (Bisacodyl 10 Mg Rect Supp) 10 mg [place] QDAY PRN PRN Reason: Constipation Carvedilol (Carvedilol 3.125 Mg Tab) 3.125 mg PO BID ON LICENSE OF [facility] Last Admin: 02/11/21 21:09 Dose: 3.125 mg Documented by: Clopidogrel Bisulfate (Clopidogrel 75 Mg Tab) 75 mg PO QDAY ON LICENSE OF [facility] Last Admin: 02/11/21 10:55 Dose: 75 mg Documented by: Duloxetine HCl (Duloxetine 30 Mg Cap) 60 mg PO QDAY ON LICENSE OF [facility] Last Admin: 02/11/21 10:55 Dose: 60 mg Documented by: Gabapentin (Gabapentin 300 Mg Cap) 300 mg PO QPM ON LICENSE OF [facility] Last Admin: 02/11/21 18:54 Dose: 300 mg Documented by: Levothyroxine Sodium (Levothyroxine 150 Mcg Tab) 150 mcg PO DAILY@0600 ON LICENSE OF [facility] Last Admin: 02/12/21 06:11 Dose: 150 mcg Documented by: Trazodone HCl (Trazodone 50 Mg Tab) 50 mg PO QHS ON LICENSE OF [facility] Last Admin: 02/11/21 21:09 Dose: 50 mg Documented by: Results - Results Labs/Vitals: Laboratory Last Values POC Glucose 159 mg/dL (70-105) H 02/12/21 06:13 Hemoglobin A1c 6.9 % (4-6) H 02/09/21 15:15 Triglycerides 97 mg/dL (2-149) 02/09/21 15:15 Cholesterol 92 mg/dL (50-199) 02/09/21 15:15 LDL Cholesterol Direct 38 mg/dL (50-130) L 02/09/21 15:15 HDL Cholesterol 47 mg/dL (40-59) 02/09/21 15:15 Cholesterol/HDL Ratio 1.95 % 02/09/21 15:15 Last Vital Signs Temp 98.8 F 02/11/21 22:00 Pulse 74 02/11/21 22:00 Resp 18 02/11/21 22:00 BP 118/78 02/11/21 22:00 Pulse Ox 94 02/11/21 22:00
[2021-02-12] MEDS: carvediloL 3.125 MG TAB PO SCH ×2 (09:10→21:36)
[2021-02-12] MEDS: CLOPIDOGREL 75 MG TAB PO SCH (09:10)
[2021-02-12] MEDS: DULoxetine 30 MG CAP PO SCH (09:10)
[2021-02-12] MEDS: ARIPiprazole 15 MG TAB PO SCH (09:10)
[2021-02-12] MEDS: ASPIRIN EC 81 MG TAB PO SCH (09:10)
[2021-02-12] MEDS: GABAPENTIN 300 MG CAP PO SCH (17:32)
[2021-02-12] MEDS: traZODone 100 MG TAB PO SCH (21:36)
[2021-02-13] MEDS: LEVOTHYROXINE 150 MCG TAB PO SCH (06:45)
--- NOTE | 2021-02-13 08:39 | Progress Note ---
Subjective Date of service: 02/13/21 Principal diagnosis: MDD Subjective Comment: 02/01/2021: The patient was seen eating breakfast in the activity room. He continues to endorse depression stating" I'm always depressed." The patient reports having passive suicidal thoughts " I always do, I don't have any family and I'm tired off it." He reports having auditory hallucinations" I hear voices but I can't understand them." per nurse, the patient had a quiet night. Start Duloxetine 40mg po Qday. 02/02/2021: The patient was seen in his room. He reports mood as "pretty well." He states depression is improving. he reports sleep as fair and appetite as good. He denies any current suicidal/homicidal ideation and denies hallucinations. Per nurse, the patient had a quiet night. No changes made today. 02/03/2021: The patient was seen eating breakfast in the activity room. The patient became hostile and loud asking why his coffee was not filled to the brim. The patient reports feeling suicidal. Per nurse, the patient had a quiet night. No changes mad today 02/04/2021: The patient was seen today he endorses suicidal thoughts. He says "I have different ways. is what I want." He says he's having hallucinations about "." When asking the patient what he meant, he replies "I see and hear stuff all the time. I don't know how to describe it." 02/05/2021: The patient was seen today he endorses suicidal thoughts. He says he thinks about . The patient says he is depressed and states he has no reason to live. He denies hallucinations. 02/06/2021: The patient was seen today he endorses suicidal thoughts. He says "all the time" when asking was he still suicidal. The patient says "I am depressed." Wheen asked about hallucinations he says "I see ." 02/07/2021: The patient was seen today he endorses suicidal thoughts. He says "all the time" when asking was he still suicidal. The patient says he has a plan, but he would not say what it was. He says "I can't tell you my plan." He then says "I can't do it here. When I leave I will." He denies hallucinations. 02/08/2021: The patient was seen today he endorses suicidal thoughts. He says "always" when asked. The patient says he can't tell me the plan, but says "part of it is to run in traffic." He denies hallucinations. 02/09/2021: The patient was seen today he endorses suicidal thoughts, but this does not coincide with his behaviors. Staff says the person is singing, happy and dancing during treatment team. He would not tell me his plan but states he has one. When asking the patient about hallucinations, he says "just , that's my hallucination." 02/10/2021: The patient was seen today he endorses suicidal thoughts, and states that he attempted to bust his window last night to jump out of it but it wouldn't bust. He denies hallucinations. Not sure if the patient actually did this, but charge nurse informed. 02/11/2021: I interviewed the patient this morning. Medical records reviewed and patient's progress was discussed with unit staff. Nursing staff reports that patient " Last evening the patient presented as calm and content. He continues to say he thinks of dying. He denies si/ah/vh. Patient has a good appetite and is medication compliant. Overnight the patient rested quietly. He slept 6 hours. He wakes early and gets ready for the day." In my interview with the patient this morning, the patient reports mood as "Okay". Appetite is good. Sleep last night was fair. The patient reports that his depression is improving. Patient continues to endorse passive suicidal ideation and auditory hallucinations. No changes made today. 02/12/2021: The patient was seen in the activity room. He continues to endorse passive suicidal ideation and auditory hallucinations. He reports not sleeping well last night. Per nurse, the patient had a quiet night. Will increase Trazodone to 100mg po QHS 02/13/2021: The patient was seen in the activity room eating breakfast. He continues to endorse passive suicidal ideation and auditory hallucinations. States sleep and appetite as OK. The patient reports being worried about post discharge placement. Per nurse, the patient had a quiet night. No changes made today. REVIEW OF SYSTEMS Constitutional: Negative for weight loss ENT: Negative for stridor Respiratory: Negative for cough or hemoptysis All other systems reviewed and are negative MENTAL STATUS EXAMINATION General Appearance and Behavior: Age appropriate, wearing appropriate clothes, cooperative, polite with questioning, fair eye contact, calm Cooperation: cooperative Psychomotor Behavior: Psychomotor normal Mood: ok Affect and affective range: congruent with stated mood Thought Process: goal directed Thought Content: SI Speech: Normal volume, Regular rate and rhythm Suicidal Ideation: SI Homicidal Ideation: Denies Hallucination: auditory Delusions: None elicited Impulse Control: Limited Insight and Judgment: Limited Memory: Limited Attention: attentive, engaging Orientation: Alert and oriented Diagnoses: Major Depressive Disorder, Severe -F33.2 Treatment Plan: Patient admitted for inpatient psychiatric evaluation, medication adjustment and close monitoring The patient's behavior, mood, sleep and appetite will be closely monitored. Patient enrolled in individual and group therapeutic sessions and encouraged to attend. Patient provided with a safe and structured environment. Patient's physical health needs will be addressed by the Hospitalist. Hospitalist Consulted Labs including CBC, CMP, Lipid profile and Hemoglobin A1C levels ordered for baseline reference Social Assessment will be completed and the Metabolic Specialist will work with patient and family to ensure a suitable and safe disposition Medication adjustment will be made as clinically indicated No changes made today Continue Abilify 15mg po daily yesterday Continue Cymbalta 60mg po daily Continue Trazodone 100mg po QHS Usual Wellness Yarsanism/Preservation: - Start Melatonin 5 mg po QHS to promote circadian rhythm - Start [place]-3 for brain health, reduce impulsivity, and as adjunctive treatment for mood disorder, continue upon discharge given overall benefits. - Start B1 prophylaxis with 200 mg po for 5 days The patient agreed on the treatment plan, understood the risk, benefit, alternative treatment, potential consequence of no treatment, and gave informed consent. Estimated days: 2 Assessment and Plan Assessment and Plan - Patient Problems (1) MDD (major depressive disorder), recurrent severe, without psychosis Current Visit: No Status: Acute Medications and Allergies Allergies Allergy/AdvReac Type Severity Reaction Status Date / Time No Known Allergies Allergy Verified 12/29/20 23:23 Home Medications Medication Instructions Recorded Confirmed Last Taken Type ALBUTEROL NEB's [Proventil 0.083% 2.5 mg IH Q4HRT PRN nebu 01/21/21 01/31/21 Unknown Rx NEBS] Acetaminophen [Acetaminophen TAB] 650 mg PO Q6H PRN tablet 01/21/21 01/31/21 Unknown Rx carvediloL [Coreg] 3.125 mg PO BID #60 tablet 01/23/21 01/31/21 Unknown Rx Aspirin EC [Halfprin EC] 81 mg PO QDAY #30 tablet 01/24/21 01/31/21 Unknown Rx AtorvaSTATin [Lipitor] 80 mg PO QHS #30 tablet 01/24/21 01/31/21 Unknown Rx Clopidogrel [Plavix] 75 mg PO QDAY #30 tablet 01/24/21 01/31/21 Unknown Rx Gabapentin 300 mg PO QPM #30 capsule 01/24/21 01/31/21 Unknown Rx HYDROcodone/APAP 5-325 [[place] 1 each PO Q6H PRN #20 tablet 01/24/21 01/31/21 Unknown Rx 5-325 mg TAB] Levothyroxine [Synthroid] 150 mcg PO DAILY@0600 #30 tablet 01/24/21 01/31/21 Unknown Rx Sertraline [Zoloft] 100 mg PO QDAY #30 tablet 01/24/21 01/31/21 Unknown Rx bisacodyL [Dulcolax suppos] 10 mg [place] QDAY PRN #30 supp.rect 01/24/21 01/31/21 Unknown Rx risperiDONE [RisperDAL] 0.5 mg PO BID #30 tablet 01/24/21 01/31/21 Unknown Rx traZODone [Desyrel] 50 mg PO QHS #30 tablet 01/24/21 01/31/21 Unknown Rx Active Meds: Active Medications Acetaminophen (Acetaminophen 325 Mg Tab) 650 mg PO Q6H PRN PRN Reason: Non Cardiac Pain or Temp>100.5 Hydrocodone Bitart/Acetaminophen (Hydrocodone/Acetaminophen 5-325 Mg Tab) 1 each PO Q6H PRN PRN Reason: Pain, Moderate (4-6) Albuterol (Albuterol 2.5 Mg/3 Ml Nebu) 2.5 mg IH Q4HRT PRN PRN Reason: Shortness Of Breath Aripiprazole (Aripiprazole 15 Mg Tab) 15 mg PO QDAY [facility] Last Admin: 02/12/21 09:10 Dose: 15 mg Documented by: Aspirin (Aspirin Ec 81 Mg Tab) 81 mg PO QDAY [facility] Last Admin: 02/12/21 09:10 Dose: 81 mg Documented by: Atorvastatin Calcium (Atorvastatin 40 Mg Tab) 80 mg PO QHS [facility] Last Admin: 02/12/21 21:36 Dose: 80 mg Documented by: Bisacodyl (Bisacodyl 10 Mg Rect Supp) 10 mg [place] QDAY PRN PRN Reason: Constipation Carvedilol (Carvedilol 3.125 Mg Tab) 3.125 mg PO BID [facility] Last Admin: 02/12/21 21:36 Dose: 3.125 mg Documented by: Clopidogrel Bisulfate (Clopidogrel 75 Mg Tab) 75 mg PO QDAY [facility] Last Admin: 02/12/21 09:10 Dose: 75 mg Documented by: Duloxetine HCl (Duloxetine 30 Mg Cap) 60 mg PO QDAY [facility] Last Admin: 02/12/21 09:10 Dose: 60 mg Documented by: Gabapentin (Gabapentin 300 Mg Cap) 300 mg PO QPM [facility] Last Admin: 02/12/21 17:32 Dose: 300 mg Documented by: Levothyroxine Sodium (Levothyroxine 150 Mcg Tab) 150 mcg PO DAILY@0600 [facility] Last Admin: 02/13/21 06:45 Dose: 150 mcg Documented by: Trazodone HCl (Trazodone 100 Mg Tab) 100 mg PO QHS [facility] Last Admin: 02/12/21 21:36 Dose: 100 mg Documented by: Results - Results Labs/Vitals: Laboratory Last Values POC Glucose 145 mg/dL (70-105) H 02/13/21 07:22 Hemoglobin A1c 6.9 % (4-6) H 02/09/21 15:15 Triglycerides 97 mg/dL (2-149) 02/09/21 15:15 Cholesterol 92 mg/dL (50-199) 02/09/21 15:15 LDL Cholesterol Direct 38 mg/dL (50-130) L 02/09/21 15:15 HDL Cholesterol 47 mg/dL (40-59) 02/09/21 15:15 Cholesterol/HDL Ratio 1.95 % 02/09/21 15:15 Last Vital Signs Temp 98.9 F 02/12/21 22:00 Pulse 67 02/12/21 22:00 Resp 16 02/12/21 22:00 BP 109/68 02/12/21 22:00 Pulse Ox 95 02/12/21 22:00
[2021-02-13] MEDS: ASPIRIN EC 81 MG TAB PO SCH (09:27)
[2021-02-13] MEDS: carvediloL 3.125 MG TAB PO SCH ×2 (09:27→21:07)
[2021-02-13] MEDS: ARIPiprazole 15 MG TAB PO SCH (09:27)
[2021-02-13] MEDS: DULoxetine 30 MG CAP PO SCH (09:27)
[2021-02-13] MEDS: CLOPIDOGREL 75 MG TAB PO SCH (09:27)
[2021-02-13] MEDS: GABAPENTIN 300 MG CAP PO SCH (17:38)
[2021-02-13] MEDS: traZODone 100 MG TAB PO SCH (21:08)
--- NOTE | 2021-02-14 07:44 | Progress Note ---
Subjective Date of service: 02/14/21 Principal diagnosis: MDD Subjective Comment: 02/01/2021: The patient was seen eating breakfast in the activity room. He continues to endorse depression stating" I'm always depressed." The patient reports having passive suicidal thoughts " I always do, I don't have any family and I'm tired off it." He reports having auditory hallucinations" I hear voices but I can't understand them." per nurse, the patient had a quiet night. Start Duloxetine 40mg po Qday. 02/02/2021: The patient was seen in his room. He reports mood as "pretty well." He states depression is improving. he reports sleep as fair and appetite as good. He denies any current suicidal/homicidal ideation and denies hallucinations. Per nurse, the patient had a quiet night. No changes made today. 02/03/2021: The patient was seen eating breakfast in the activity room. The patient became hostile and loud asking why his coffee was not filled to the brim. The patient reports feeling suicidal. Per nurse, the patient had a quiet night. No changes mad today 02/04/2021: The patient was seen today he endorses suicidal thoughts. He says "I have different ways. is what I want." He says he's having hallucinations about "." When asking the patient what he meant, he replies "I see and hear stuff all the time. I don't know how to describe it." 02/05/2021: The patient was seen today he endorses suicidal thoughts. He says he thinks about . The patient says he is depressed and states he has no reason to live. He denies hallucinations. 02/06/2021: The patient was seen today he endorses suicidal thoughts. He says "all the time" when asking was he still suicidal. The patient says "I am depressed." Wheen asked about hallucinations he says "I see ." 02/07/2021: The patient was seen today he endorses suicidal thoughts. He says "all the time" when asking was he still suicidal. The patient says he has a plan, but he would not say what it was. He says "I can't tell you my plan." He then says "I can't do it here. When I leave I will." He denies hallucinations. 02/08/2021: The patient was seen today he endorses suicidal thoughts. He says "always" when asked. The patient says he can't tell me the plan, but says "part of it is to run in traffic." He denies hallucinations. 02/09/2021: The patient was seen today he endorses suicidal thoughts, but this does not coincide with his behaviors. Staff says the person is singing, happy and dancing during treatment team. He would not tell me his plan but states he has one. When asking the patient about hallucinations, he says "just , that's my hallucination." 02/10/2021: The patient was seen today he endorses suicidal thoughts, and states that he attempted to bust his window last night to jump out of it but it wouldn't bust. He denies hallucinations. Not sure if the patient actually did this, but charge nurse informed. 02/11/2021: I interviewed the patient this morning. Medical records reviewed and patient's progress was discussed with unit staff. Nursing staff reports that patient " Last evening the patient presented as calm and content. He continues to say he thinks of dying. He denies si/ah/vh. Patient has a good appetite and is medication compliant. Overnight the patient rested quietly. He slept 6 hours. He wakes early and gets ready for the day." In my interview with the patient this morning, the patient reports mood as "Okay". Appetite is good. Sleep last night was fair. The patient reports that his depression is improving. Patient continues to endorse passive suicidal ideation and auditory hallucinations. No changes made today. 02/12/2021: The patient was seen in the activity room. He continues to endorse passive suicidal ideation and auditory hallucinations. He reports not sleeping w ell last night. Per nurse, the patient had a quiet night. Will increase Trazodone to 100mg po QHS 02/13/2021: The patient was seen in the activity room eating breakfast. He c ontinues to endorse passive suicidal ideation and auditory hallucinations. States sleep and appetite as OK. The patient reports being worried about post discharge placement. Per nurse, the patient had a quiet night. No changes made today. 02/14/2021: The patient was seen in his room getting ready for the day. The patient reports dong well, states mood as good. He reports sleep as better and appetite as good. He states depression is improving, he continues to endorse depression and auditory hallucinations. Per nurse, patient had a quiet night. No changes made today. REVIEW OF SYSTEMS Constitutional: Negative for weight loss ENT: Negative for stridor Respiratory: Negative for cough or hemoptysis All other systems reviewed and are negative MENTAL STATUS EXAMINATION General Appearance and Behavior: Age appropriate, wearing appropriate clothes, cooperative, polite with questioning, fair eye contact, calm Cooperation: cooperative Psychomotor Behavior: Psychomotor normal Mood: ok Affect and affective range: congruent with stated mood Thought Process: goal directed Thought Content: SI Speech: Normal volume, Regular rate and rhythm Suicidal Ideation: SI Homicidal Ideation: Denies Hallucination: auditory Delusions: None elicited Impulse Control: Limited Insight and Judgment: Limited Memory: Limited Attention: attentive, engaging Orientation: Alert and oriented Diagnoses: Major Depressive Disorder, Severe -F33.2 Treatment Plan: Patient admitted for inpatient psychiatric evaluation, medication adjustment and close monitoring The patient's behavior, mood, sleep and appetite will be closely monitored. Patient enrolled in individual and group therapeutic sessions and encouraged to attend. Patient provided with a safe and structured environment. Patient's physical health needs will be addressed by the Hospitalist. Hospitalist Consulted Labs including CBC, CMP, Lipid profile and Hemoglobin A1C levels ordered for baseline reference Social Assessment will be completed and the Arcade Games Mechanic will work with patient and family to ensure a suitable and safe disposition Medication adjustment will be made as clinically indicated No changes made today Continue Abilify 15mg po daily yesterday Continue Cymbalta 60mg po daily Continue Trazodone 100mg po QHS Usual Wellness Pentecostalism/Preservation: - Start Melatonin 5 mg po QHS to promote circadian rhythm - Start [place]-3 for brain health, reduce impulsivity, and as adjunctive treatment for mood disorder, continue upon discharge given overall benefits. - Start B1 prophylaxis with 200 mg po for 5 days The patient agreed on the treatment plan, understood the risk, benefit, alternative treatment, potential consequence of no treatment, and gave informed consent. Estimated days: 2 Assessment and Plan Assessment and Plan - Patient Problems (1) MDD (major depressive disorder), recurrent severe, without psychosis Current Visit: No Status: Acute Medications and Allergies Allergies Allergy/AdvReac Type Severity Reaction Status Date / Time No Known Allergies Allergy Verified 12/29/20 23:23 Home Medications Medication Instructions Recorded Confirmed Last Taken Type ALBUTEROL NEB's [Proventil 0.083% 2.5 mg IH Q4HRT PRN nebu 01/21/21 01/31/21 Unknown Rx NEBS] Acetaminophen [Acetaminophen TAB] 650 mg PO Q6H PRN tablet 01/21/21 01/31/21 Unknown Rx carvediloL [Coreg] 3.125 mg PO BID #60 tablet 01/23/21 01/31/21 Unknown Rx Aspirin EC [Halfprin EC] 81 mg PO QDAY #30 tablet 01/24/21 01/31/21 Unknown Rx AtorvaSTATin [Lipitor] 80 mg PO QHS #30 tablet 01/24/21 01/31/21 Unknown Rx Clopidogrel [Plavix] 75 mg PO QDAY #30 tablet 01/24/21 01/31/21 Unknown Rx Gabapentin 300 mg PO QPM #30 capsule 01/24/21 01/31/21 Unknown Rx HYDROcodone/APAP 5-325 [[place] 1 each PO Q6H PRN #20 tablet 01/24/21 01/31/21 Unknown Rx 5-325 mg TAB] Levothyroxine [Synthroid] 150 mcg PO DAILY@0600 #30 tablet 01/24/21 01/31/21 Unknown Rx Sertraline [Zoloft] 100 mg PO QDAY #30 tablet 01/24/21 01/31/21 Unknown Rx bisacodyL [Dulcolax suppos] 10 mg [place] QDAY PRN #30 supp.rect 01/24/21 01/31/21 Unknown Rx risperiDONE [RisperDAL] 0.5 mg PO BID #30 tablet 01/24/21 01/31/21 Unknown Rx traZODone [Desyrel] 50 mg PO QHS #30 tablet 01/24/21 01/31/21 Unknown Rx Active Meds: Active Medications Acetaminophen (Acetaminophen 325 Mg Tab) 650 mg PO Q6H PRN PRN Reason: Non Cardiac Pain or Temp>100.5 Hydrocodone Bitart/Acetaminophen (Hydrocodone/Acetaminophen 5-325 Mg Tab) 1 each PO Q6H PRN PRN Reason: Pain, Moderate (4-6) Albuterol (Albuterol 2.5 Mg/3 Ml Nebu) 2.5 mg IH Q4HRT PRN PRN Reason: Shortness Of Breath Aripiprazole (Aripiprazole 15 Mg Tab) 15 mg PO QDAY [facility] Last Admin: 02/13/21 09:27 Dose: 15 mg Documented by: Aspirin (Aspirin Ec 81 Mg Tab) 81 mg PO QDAY [facility] Last Admin: 02/13/21 09:27 Dose: 81 mg Documented by: Atorvastatin Calcium (Atorvastatin 40 Mg Tab) 80 mg PO QHS [facility] Last Admin: 02/13/21 21:08 Dose: 80 mg Documented by: Bisacodyl (Bisacodyl 10 Mg Rect Supp) 10 mg [place] QDAY PRN PRN Reason: Constipation Carvedilol (Carvedilol 3.125 Mg Tab) 3.125 mg PO BID [facility] Last Admin: 02/13/21 21:07 Dose: 3.125 mg Documented by: Clopidogrel Bisulfate (Clopidogrel 75 Mg Tab) 75 mg PO QDAY [facility] Last Admin: 02/13/21 09:27 Dose: 75 mg Documented by: Duloxetine HCl (Duloxetine 30 Mg Cap) 60 mg PO QDAY [facility] Last Admin: 02/13/21 09:27 Dose: 60 mg Documented by: Gabapentin (Gabapentin 300 Mg Cap) 300 mg PO QPM [facility] Last Admin: 02/13/21 17:38 Dose: 300 mg Documented by: Levothyroxine Sodium (Levothyroxine 150 Mcg Tab) 150 mcg PO DAILY@0600 [facility] Last Admin: 02/13/21 06:45 Dose: 150 mcg Documented by: Trazodone HCl (Trazodone 100 Mg Tab) 100 mg PO QHS [facility] Last Admin: 02/13/21 21:08 Dose: 100 mg Documented by: Results - Results Labs/Vitals: Laboratory Last Values POC Glucose 140 mg/dL (70-105) H 02/14/21 07:17 Hemoglobin A1c 6.9 % (4-6) H 02/09/21 15:15 Triglycerides 97 mg/dL (2-149) 02/09/21 15:15 Cholesterol 92 mg/dL (50-199) 02/09/21 15:15 LDL Cholesterol Direct 38 mg/dL (50-130) L 02/09/21 15:15 HDL Cholesterol 47 mg/dL (40-59) 02/09/21 15:15 Cholesterol/HDL Ratio 1.95 % 02/09/21 15:15 Last Vital Signs Temp 98.8 F 02/13/21 20:33 Pulse 71 02/13/21 21:07 Resp 16 02/13/21 20:33 BP 112/74 02/13/21 21:07 Pulse Ox 96 02/13/21 20:33
[2021-02-14] MEDS: carvediloL 3.125 MG TAB PO SCH ×2 (10:38→21:07)
[2021-02-14] MEDS: LEVOTHYROXINE 150 MCG TAB PO SCH (10:38)
[2021-02-14] MEDS: DULoxetine 30 MG CAP PO SCH (10:39)
[2021-02-14] MEDS: CLOPIDOGREL 75 MG TAB PO SCH (10:39)
[2021-02-14] MEDS: ASPIRIN EC 81 MG TAB PO SCH (10:39)
[2021-02-14] MEDS: ARIPiprazole 15 MG TAB PO SCH (10:39)
[2021-02-14] MEDS: GABAPENTIN 300 MG CAP PO SCH (18:01)
[2021-02-14] MEDS: traZODone 100 MG TAB PO SCH (21:07)
[2021-02-15] MEDS: LEVOTHYROXINE 150 MCG TAB PO SCH (06:09)
--- NOTE | 2021-02-15 09:02 | Progress Note ---
Subjective Date of service: 02/15/21 Principal diagnosis: MDD Subjective Comment: 02/01/2021: The patient was seen eating breakfast in the activity room. He continues to endorse depression stating" I'm always depressed." The patient reports having passive suicidal thoughts " I always do, I don't have any family and I'm tired off it." He reports having auditory hallucinations" I hear voices but I can't understand them." per nurse, the patient had a quiet night. Start Duloxetine 40mg po Qday. 02/02/2021: The patient was seen in his room. He reports mood as "pretty well." He states depression is improving. he reports sleep as fair and appetite as good. He denies any current suicidal/homicidal ideation and denies hallucinations. Per nurse, the patient had a quiet night. No changes made today. 02/03/2021: The patient was seen eating breakfast in the activity room. The patient became hostile and loud asking why his coffee was not filled to the brim. The patient reports feeling suicidal. Per nurse, the patient had a quiet night. No changes mad today 02/04/2021: The patient was seen today he endorses suicidal thoughts. He says "I have different ways. is what I want." He says he's having hallucinations about "." When asking the patient what he meant, he replies "I see and hear stuff all the time. I don't know how to describe it." 02/05/2021: The patient was seen today he endorses suicidal thoughts. He says he thinks about . The patient says he is depressed and states he has no reason to live. He denies hallucinations. 02/06/2021: The patient was seen today he endorses suicidal thoughts. He says "all the time" when asking was he still suicidal. The patient says "I am depressed." Wheen asked about hallucinations he says "I see ." 02/07/2021: The patient was seen today he endorses suicidal thoughts. He says "all the time" when asking was he still suicidal. The patient says he has a plan, but he would not say what it was. He says "I can't tell you my plan." He then says "I can't do it here. When I leave I will." He denies hallucinations. 02/08/2021: The patient was seen today he endorses suicidal thoughts. He says "always" when asked. The patient says he can't tell me the plan, but says "part of it is to run in traffic." He denies hallucinations. 02/09/2021: The patient was seen today he endorses suicidal thoughts, but this does not coincide with his behaviors. Staff says the person is singing, happy and dancing during treatment team. He would not tell me his plan but states he has one. When asking the patient about hallucinations, he says "just , that's my hallucination." 02/10/2021: The patient was seen today he endorses suicidal thoughts, and states that he attempted to bust his window last night to jump out of it but it wouldn't bust. He denies hallucinations. Not sure if the patient actually did this, but charge nurse informed. 02/11/2021: I interviewed the patient this morning. Medical records reviewed and patient's progress was discussed with unit staff. Nursing staff reports that patient " Last evening the patient presented as calm and content. He continues to say he thinks of dying. He denies si/ah/vh. Patient has a good appetite and is medication compliant. Overnight the patient rested quietly. He slept 6 hours. He wakes early and gets ready for the day." In my interview with the patient this morning, the patient reports mood as "Okay". Appetite is good. Sleep last night was fair. The patient reports that his depression is improving. Patient continues to endorse passive suicidal ideation and auditory hallucinations. No changes made today. 02/12/2021: The patient was seen in the activity room. He continues to endorse passive suicidal ideation and auditory hallucinations. He reports not sleeping w ell last night. Per nurse, the patient had a quiet night. Will increase Trazodone to 100mg po QHS 02/13/2021: The patient was seen in the activity room eating breakfast. He c ontinues to endorse passive suicidal ideation and auditory hallucinations. States sleep and appetite as OK. The patient reports being worried about post discharge placement. Per nurse, the patient had a quiet night. No changes made today. 02/14/2021: The patient was seen in his room getting ready for the day. The patient reports dong well, states mood as good. He reports sleep as better and appetite as good. He states depression is improving, he continues to endorse depression and auditory hallucinations. Per nurse, patient had a quiet night. No changes made today. 02/15/2021: Patient seen in the activity room eating breakfast. He continues to endorse passive suicidal ideation. He states mood as "fair" states sleep and appetite as fine. He continues to endorse auditory hallucinations. per nurse, the patient had a quiet night. No changes made today. REVIEW OF SYSTEMS Constitutional: Negative for weight loss ENT: Negative for stridor Respiratory: Negative for cough or hemoptysis All other systems reviewed and are negative MENTAL STATUS EXAMINATION General Appearance and Behavior: Age appropriate, wearing appropriate clothes, cooperative, polite with questioning, fair eye contact, calm Cooperation: cooperative Psychomotor Behavior: Psychomotor normal Mood: ok Affect and affective range: congruent with stated mood Thought Process: goal directed Thought Content: SI Speech: Normal volume, Regular rate and rhythm Suicidal Ideation: SI Homicidal Ideation: Denies Hallucination: auditory Delusions: None elicited Impulse Control: Limited Insight and Judgment: Limited Memory: Limited Attention: attentive, engaging Orientation: Alert and oriented Diagnoses: Major Depressive Disorder, Severe -F33.2 Treatment Plan: Patient admitted for inpatient psychiatric evaluation, medication adjustment and close monitoring The patient's behavior, mood, sleep and appetite will be closely monitored. Patient enrolled in individual and group therapeutic sessions and encouraged to attend. Patient provided with a safe and structured environment. Patient's physical health needs will be addressed by the Hospitalist. Hospitalist Consulted Labs including CBC, CMP, Lipid profile and Hemoglobin A1C levels ordered for baseline reference Social Assessment will be completed and the Motor Vehicle Emissions Inspector will work with patient and family to ensure a suitable and safe disposition Medication adjustment will be made as clinically indicated No changes made today Continue Abilify 15mg po daily Continue Cymbalta 60mg po daily Continue Trazodone 100mg po QHS Usual Wellness Shinto/Preservation: - Start Melatonin 5 mg po QHS to promote circadian rhythm - Start [place]-3 for brain health, reduce impulsivity, and as adjunctive treatment for mood disorder, continue upon discharge given overall benefits. - Start B1 prophylaxis with 200 mg po for 5 days The patient agreed on the treatment plan, understood the risk, benefit, alternative treatment, potential consequence of no treatment, and gave informed consent. Estimated days: 2 Assessment and Plan Assessment and Plan - Patient Problems (1) MDD (major depressive disorder), recurrent severe, without psychosis Current Visit: No Status: Acute Medications and Allergies Assessment and Plan - Patient Problems (1) MDD (major depressive disorder), recurrent severe, without psychosis Current Visit: No Status: Acute Medications and Allergies Allergies Allergy/AdvReac Type Severity Reaction Status Date / Time No Known Allergies Allergy Verified 12/29/20 23:23 Home Medications Medication Instructions Recorded Confirmed Last Taken Type ALBUTEROL NEB's [Proventil 0.083% 2.5 mg IH Q4HRT PRN nebu 01/21/21 01/31/21 Unknown Rx NEBS] Acetaminophen [Acetaminophen TAB] 650 mg PO Q6H PRN tablet 01/21/21 01/31/21 Unknown Rx carvediloL [Coreg] 3.125 mg PO BID #60 tablet 01/23/21 01/31/21 Unknown Rx Aspirin EC [Halfprin EC] 81 mg PO QDAY #30 tablet 01/24/21 01/31/21 Unknown Rx AtorvaSTATin [Lipitor] 80 mg PO QHS #30 tablet 01/24/21 01/31/21 Unknown Rx Clopidogrel [Plavix] 75 mg PO QDAY #30 tablet 01/24/21 01/31/21 Unknown Rx Gabapentin 300 mg PO QPM #30 capsule 01/24/21 01/31/21 Unknown Rx HYDROcodone/APAP 5-325 [Switchback 1 each PO Q6H PRN #20 tablet 01/24/21 01/31/21 Unknown Rx 5-325 mg TAB] Levothyroxine [Synthroid] 150 mcg PO DAILY@0600 #30 tablet 01/24/21 01/31/21 Unknown Rx Sertraline [Zoloft] 100 mg PO QDAY #30 tablet 01/24/21 01/31/21 Unknown Rx bisacodyL [Dulcolax suppos] 10 mg AR QDAY PRN #30 supp.rect 01/24/21 01/31/21 Unknown Rx risperiDONE [RisperDAL] 0.5 mg PO BID #30 tablet 01/24/21 01/31/21 Unknown Rx traZODone [Desyrel] 50 mg PO QHS #30 tablet 01/24/21 01/31/21 Unknown Rx Active Meds: Active Medications Acetaminophen (Acetaminophen 325 Mg Tab) 650 mg PO Q6H PRN PRN Reason: Non Cardiac Pain or Temp>100.5 Hydrocodone Bitart/Acetaminophen (Hydrocodone/Acetaminophen 5-325 Mg Tab) 1 each PO Q6H PRN PRN Reason: Pain, Moderate (4-6) Albuterol (Albuterol 2.5 Mg/3 Ml Nebu) 2.5 mg IH Q4HRT PRN PRN Reason: Shortness Of Breath Aripiprazole (Aripiprazole 15 Mg Tab) 15 mg PO QDAY [facility] Last Admin: 02/14/21 10:39 Dose: 15 mg Documented by: Aspirin (Aspirin Ec 81 Mg Tab) 81 mg PO QDAY [facility] Last Admin: 02/14/21 10:39 Dose: 81 mg Documented by: Atorvastatin Calcium (Atorvastatin 40 Mg Tab) 80 mg PO QHS [facility] Last Admin: 02/14/21 21:07 Dose: 80 mg Documented by: Bisacodyl (Bisacodyl 10 Mg Rect Supp) 10 mg AR QDAY PRN PRN Reason: Constipation Carvedilol (Carvedilol 3.125 Mg Tab) 3.125 mg PO BID [facility] Last Admin: 02/14/21 21:07 Dose: 3.125 mg Documented by: Clopidogrel Bisulfate (Clopidogrel 75 Mg Tab) 75 mg PO QDAY [facility] Last Admin: 02/14/21 10:39 Dose: 75 mg Documented by: Duloxetine HCl (Duloxetine 30 Mg Cap) 60 mg PO QDAY [facility] Last Admin: 02/14/21 10:39 Dose: 60 mg Documented by: Gabapentin (Gabapentin 300 Mg Cap) 300 mg PO QPM [facility] Last Admin: 02/14/21 18:01 Dose: 300 mg Documented by: Levothyroxine Sodium (Levothyroxine 150 Mcg Tab) 150 mcg PO DAILY@0600 [facility] Last Admin: 02/15/21 06:09 Dose: 150 mcg Documented by: Trazodone HCl (Trazodone 100 Mg Tab) 100 mg PO QHS [facility] Last Admin: 02/14/21 21:07 Dose: 100 mg Documented by: Results - Results Labs/Vitals: Laboratory Last Values POC Glucose 151 mg/dL (70-105) H 02/15/21 06:12 Hemoglobin A1c 6.9 % (4-6) H 02/09/21 15:15 Triglycerides 97 mg/dL (2-149) 02/09/21 15:15 Cholesterol 92 mg/dL (50-199) 02/09/21 15:15 LDL Cholesterol Direct 38 mg/dL (50-130) L 02/09/21 15:15 HDL Cholesterol 47 mg/dL (40-59) 02/09/21 15:15 Cholesterol/HDL Ratio 1.95 % 02/09/21 15:15 Last Vital Signs Temp 99.0 F 02/14/21 21:00 Pulse 79 02/14/21 21:07 Resp 18 02/14/21 21:00 BP 139/90 02/14/21 21:07 Pulse Ox 95 02/14/21 21:00
[2021-02-15] MEDS: DULoxetine 30 MG CAP PO SCH (09:54)
[2021-02-15] MEDS: ARIPiprazole 15 MG TAB PO SCH (09:54)
[2021-02-15] MEDS: CLOPIDOGREL 75 MG TAB PO SCH (09:54)
[2021-02-15] MEDS: carvediloL 3.125 MG TAB PO SCH (09:54)
[2021-02-15] MEDS: ASPIRIN EC 81 MG TAB PO SCH (09:54)
[2021-02-15 09:58] VITALS: BP 119/81
--- NOTE | 2021-02-15 12:57 | Discharge Summary ---
Providers - Providers Date of Admission: 01/31/21 01:19 Date of discharge: 02/15/21 Attending physician: ROLLY WALKER MD 01/30/21 17:09 Consult to Physician [CONS] Routine Comment: Consulting Provider: ROBYN WOLF Physician Instructions: Reason For Exam: H&P/ MEDICAL MANAGEMENT Primary care physician: SCREW MACHINE REPAIRER Hospitalization Reason for admission: Suicidal ideation Condition: Stable Hospital course: The patient was provided inpatient psychiatric treatment with safe and supportive environment, group/individual therapy, psychiatric medication, medication adjustment, adverse effect monitor, medical evaluation, medical treatment, social service assessment, social support meeting, placement a ssessment and psycho-education. The patients mood, cognition, behavior, motivation, compliance to treatment and appreciation on family/social support are improved and stabilized. At the time of discharge, the patient had no suicidal ideas, no homicidal ideas, no aggressive thoughts, no endangering behavior and no debilitating adverse effects. The patient agreed on the treatment plan, understood the risk, benefit, alternative treatment, potential consequence of no treatment, and gave informed consent. Progress notes: 02/01/2021: The patient was seen eating breakfast in the activity room. He continues to endorse depression stating" I'm always depressed." The patient reports having passive suicidal thoughts " I always do, I don't have any family and I'm tired off it." He reports having auditory hallucinations" I hear voices but I can't understand them." per nurse, the patient had a quiet night. Start Duloxetine 40mg po Qday. 02/02/2021: The patient was seen in his room. He reports mood as "pretty well." He states depression is improving. he reports sleep as fair and appetite as good. He denies any current suicidal/homicidal ideation and denies hallucinations. Per nurse, the patient had a quiet night. No changes made today. 02/03/2021: The patient was seen eating breakfast in the activity room. The josselyn ent became hostile and loud asking why his coffee was not filled to the brim. The patient reports feeling suicidal. Per nurse, the patient had a quiet night. No changes mad today 02/04/2021: The patient was seen today he endorses suicidal thoughts. He says "I have different ways. is what I want." He says he's having hallucinations about "." When asking the patient what he meant, he replies "I see and hear stuff all the time. I don't know how to describe it." 02/05/2021: The patient was seen today he endorses suicidal thoughts. He says he thinks about . The patient says he is depressed and states he has no reason to live. He denies hallucinations. 02/06/2021: The patient was seen today he endorses suicidal thoughts. He says "all the time" when asking was he still suicidal. The patient says "I am depressed." Wheen asked about hallucinations he says "I see ." 02/07/2021: The patient was seen today he endorses suicidal thoughts. He says "all the time" when asking was he still suicidal. The patient says he has a plan, but he would not say what it was. He says "I can't tell you my plan." He then says "I can't do it here. When I leave I will." He denies hallucinations. 02/08/2021: The patient was seen today he endorses suicidal thoughts. He says "always" when asked. The patient says he can't tell me the plan, but says "part of it is to run in traffic." He denies hallucinations. 02/09/2021: The patient was seen today he endorses suicidal thoughts, but this does not coincide with his behaviors. Staff says the person is singing, happy and dancing during treatment team. He would not tell me his plan but states he has one. When asking the patient about hallucinations, he says "just , that's my hallucination." 02/10/2021: The patient was seen today he endorses suicidal thoughts, and states that he attempted to bust his window last night to jump out of it but it wouldn't bust. He denies hallucinations. Not sure if the patient actually did this, but charge nurse informed. 02/11/2021: I interviewed the patient this morning. Medical records reviewed and patient's progress was discussed with unit staff. Nursing staff reports that patient " Last evening the patient presented as calm and content. He continues to say he thinks of dying. He denies si/ah/vh. Patient has a good appetite and is medication compliant. Overnight the patient rested quietly. He slept 6 hours. He wakes early and gets ready for the day." In my interview with the patient this morning, the patient reports mood as "Okay". Appetite is good. Sleep last night was fair. The patient reports that his depression is improving. Patient continues to endorse passive suicidal ideation and auditory hallucinations. No changes made today. 02/12/2021: The patient was seen in the activity room. He continues to endorse passive suicidal ideation and auditory hallucinations. He reports not sleeping well last night. Per nurse, the patient had a quiet night. Will increase Trazodone to 100mg po QHS 02/13/2021: The patient was seen in the activity room eating breakfast. He continues to endorse passive suicidal ideation and auditory hallucinations. States sleep and appetite as OK. The patient reports being worried about post discharge placement. Per nurse, the patient had a quiet night. No changes made today. 02/14/2021: The patient was seen in his room getting ready for the day. The patient reports dong well, states mood as good. He reports sleep as better and appetite as good. He states depression is improving, he continues to endorse depression and auditory hallucinations. Per nurse, patient had a quiet night. No changes made today. 02/15/2021: Patient seen in the activity room eating breakfast. He continues to endorse passive suicidal ideation. He states mood as "fair" states sleep and appetite as fine. He continues to endorse auditory hallucinations. per nurse, the patient had a quiet night. No changes made today. Disposition: DC-01 TO HOME OR SELFCARE Allergies/Adverse Reactions: Allergies No Known Allergies Allergy (Verified 12/29/20 23:23) Vital Signs: Last Vital Signs Temp 98.5 F 02/15/21 10:00 Pulse 71 02/15/21 10:00 Resp 20 02/15/21 10:00 BP 119/81 02/15/21 10:00 Pulse Ox 98 02/15/21 10:00 Last Lab: Laboratory Last Values POC Glucose 151 mg/dL (70-105) H 02/15/21 06:12 Hemoglobin A1c 6.9 % (4-6) H 02/09/21 15:15 Triglycerides 97 mg/dL (2-149) 02/09/21 15:15 Cholesterol 92 mg/dL (50-199) 02/09/21 15:15 LDL Cholesterol Direct 38 mg/dL (50-130) L 02/09/21 15:15 HDL Cholesterol 47 mg/dL (40-59) 02/09/21 15:15 Cholesterol/HDL Ratio 1.95 % 02/09/21 15:15 - Discharge Diagnoses (1) MDD (major depressive disorder), recurrent severe, without psychosis Status: Acute Core Measure Documentation - Palliative Care Palliative Care/ Comfort Measures: Not Applicable - Core Measures Any of the following diagnoses?: none - VTE Discharge Requirements Deep Vein Thrombosis/Pulmonary Embolism Present on Admission: No Exam - Constitutional Vitals: Temp Pulse Resp BP Pulse Ox 98.5 F 71 20 119/81 98 02/15/21 10:00 02/15/21 10:00 02/15/21 10:00 02/15/21 10:00 02/15/21 10:00 Plan Activity: advance as tolerated Weight Bearing Status: Weight Bear as Tolerated Care Plan Goals: Maintain good and stable mental health. Plan of Treatment: The patient should be compliant with medications, not to use drugs and not to drink alcohol. The patient understands that if suicidal ideas, homicidal ideas, or any endangering thoughts arise, the patient should immediately seek for emergent assistance including but not limited to crisis hot line and emergency room. Follow up with outpatient Psychiatrist and PCP within 7 - 14 days of discharge. Follow up with: PRIMARY CARE, [Primary Care Provider] - 7 Days Prescriptions: ARIPiprazole [Abilify TAB] 15 mg PO QDAY 30 Days #30 tablet DULoxetine [Cymbalta] 60 mg PO QDAY 30 Days #30 capsule
== END 2021-02-15 13:45 | disposition home or self-care (01) | DRG 885 ==
LOC: 5A 01:19 → UNDOADMIN 19:09 → 3A 19:09 → 5A 01-31 01:19 → UNDOADMIN 01-31 01:19 → UNDODISIN 02-15 13:45
PROVIDERS: ADMIT Psychiatry & Neurology Psychiatry; ATTEND Psychiatry & Neurology Psychiatry
DX: F33.2 Major depressive disorder, recurrent severe without psychotic features (principal); I25.10 Atherosclerotic heart disease of native coronary artery without angina pectoris; E11.8 Type 2 diabetes mellitus with unspecified complications; E03.9 Hypothyroidism, unspecified; E78.5 Hyperlipidemia, unspecified; I10 Essential (primary) hypertension; Z79.899 Other long term (current) drug therapy
CPT/HCPCS: 36415; 80053; 80061; 80074; 80307; 80320; 81001; 82962; 83036; 84443; 85025; G0378; G0480; U0003

== ENCOUNTER 2021-02-28 20:53 | Emergency (ER) | payer MEDICARE ==
[2021-02-28 21:01] VITALS: BP 124/71
[2021-03-01] MEDS ORDERED: TETANUS,DIPH,PERTUSS(ACELL) VACCINE 0.5 ML SYRINGE IM ONE (01:02)
[2021-03-01] MEDS ORDERED: cephALEXin 500 MG CAP PO ONE (01:02)
[2021-03-01] MEDS ORDERED: ACETAMINOPHEN 500 MG TAB PO ONE (01:02)
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
--- NOTE | 2021-03-01 01:55 | XRay Report ---
Left foot-4 views INDICATION: left great toe injury. COMPARISON: None. IMPRESSION: Comminuted intra-articular fracture at the base of the great toe distal phalanx with sage rounding soft tissue swelling. No other fracture identified. Second-fifth toe claw toe deformities ar e present. Mild degenerative changes throughout the foot. Signer Name: Savage Belcher MD Signed: 03/01/2021 1:51 AM Workstation Name: [id number]
[2021-03-01] MEDS ORDERED: ceFAZolin 1 GM VIAL IM ONE (02:01)
[2021-03-01] MEDS ORDERED: NEOMY 3.5 MG/BACIT 400 UNITS/POLY B 5000 UNITS/GM OINT PACKET TP ONE (02:06)
== END 2021-03-01 03:30 | disposition home or self-care (01) ==
LOC: ED 20:53
DX: S92.422B Displaced fracture of distal phalanx of left great toe, initial encounter for open fracture (principal); I11.0 Hypertensive heart disease with heart failure; E11.8 Type 2 diabetes mellitus with unspecified complications; X58.XXXA Exposure to other specified factors, initial encounter; Y93.89 Activity, other specified; Y92.092 Bedroom in other non-institutional residence as the place of occurrence of the external cause; Y99.8 Other external cause status
CPT/HCPCS: 73630; 96372; 99283; A6250; J0690